=== PATIENT | female | born 1945 | race Caucasian/White ===

== ENCOUNTER 2017-05-27 11:58 | Inpatient (IN) | payer MEDICARE, BC ==
[2017-05-27 12:59] LABS: #Basophils 0.1 thou/uL (0.0-0.2); #Eosinphils 0.4 thou/uL (0.0-0.7); #Monocytes 1.7 thou/uL (0.11-0.59); #Neutrophils 11.5 thou/uL (1.40-6.50); %Basophils 0.4 % (0.0-1.0); %Eosinophils 2.3 % (0.0-10.0); %Lymphocytes 12.5 % (21.0-51.0); %Monocytes 11.1 % (0.0-10.0); %Neutrophils 73.7 % (42.0-75.0); Hemoglobin 10.2 g/dL (12.0-16.0); Mean Corpuscular Hemoglobin 30.3 pg (27.0-31.0); Mean Corpuscular Volume 91.8 fl (81.0-99.0); Mean Platelet Volume 7.9 fL (7.4-10.4); Platelet Count 293 thou/uL (130-400); RBC Distribution Width 12.7 % (11.5-14.5); Red Blood Cell (RBC) Count 3.37 mill/uL (4.20-5.40); White Blood Cell (WBC) Count 15.5 thou/uL (4.8-10.8)
--- NOTE | 2017-05-27 13:01 | RAD ---
PORTABLE CHEST: HISTORY: Dizziness. COMPARISON: 12/25/2016. FINDINGS: Elevated right hemidiaphragm is again noted. There is evidence of atelectasis in the right lung base , which appears stable. Heart size is upper normal. Mild vascular engorgement appears stable from p rior exam. IMPRESSION: No acute interval change noted. POS: [facility]
[2017-05-27 13:06] LABS: PTT 23.6 SEC (22.9-36.1); Prothrombin Time 13.3 SEC (12.0-14.7)
[2017-05-27 13:22] LABS: ALT (SGPT) 17 U/L (8-55); AST (SGOT) 16 U/L (5-34); Albumin 3.7 g/dL (3.4-4.8); Alkaline Phosphatase 138 U/L (40-150); Anion Gap 15 mmol/L (10-20); BUN (Urea Nitrogen) 47 mg/dL (9.8-20.1); Bilirubin, Total 0.6 mg/dL (0.2-1.2); CK (CPK) 31 U/L (29-168); Calc. Creatinine Clearance 0 mL/min (70-130); Calcium 9.6 mg/dL (7.8-10.44); Carbon Dioxide 21 mmol/L (23-31); Chloride 105 mmol/L (98-107); Estimated GFR-MDRD 32; Globulin 2.1 g/dL (2.4-3.5); Glucose 130 mg/dL (83-110); Potassium 6.3 mmol/L (3.5-5.1); Protein, Total 5.8 g/dL (6.0-8.3); Sodium 135 mmol/L (136-145)
[2017-05-27 13:25] LABS: CKMB 1.6 ng/mL (0-6.6); Troponin I Less than 0.010 ng/mL (< 0.028)
--- NOTE | 2017-05-27 13:32 | CT ---
CT HEAD WITHOUT CONTRAST: Date: 05/27/17 Multiple axial tomograms obtained through head without IV enhancement. HISTORY: Dizziness. Fall. COMPARISON: CT brain dated 12/25/16. FINDINGS: Mild cortical volume loss is again seen and is unchanged. There are mild chronic ischemic white matte r changes. No acute cortical infarct. No hemorrhage or mass identified. IMPRESSION: No evidence of acute abnormality. POS: [facility]
[2017-05-27 13:54] LABS: Bilirubin Moderate (Negative); Blood, Urine Negative (Negative); Clarity CLEAR (Clear); Glucose, Urine (Dipstick) Negative (Negative); Leukocyte Trace (Negative); Nitrite Negative (Negative); Protein, Urine (Dipstick) Trace mg/dL (Neg-Trace); Specific Gravity, Urine 1.026 (1.002-1.036); pH, Urine 5.5 (5.0-9.0)
[2017-05-27 13:56] LABS: Bacteria/HPF None Seen HPF (None Seen); Hyaline Casts/LPF 4-6 HYALINE CAST LPF (0-3 Hyaline); Pathc Cast-AUWi Flag 0.67 (0-2.49); RBC/HPF 0-3 HPF (0-3); Squamous Epithelial 0-3 HPF (0-3)
[2017-05-27 14:11] LABS: Renal Epithelial 0-3 HPF (0-3); Transitional Epithelial 0-3 HPF (0-3)
[2017-05-27] MEDS ORDERED: Insulin Regular 300 UNITS/3 ML VIAL ONE ×2 (14:26→14:32)
[2017-05-27] MEDS ORDERED: Sodium Bicarb 50 MEQ/50 ML Abboject 8.4% SYRINGE ONE ×2 (14:26→14:30)
[2017-05-27] MEDS ORDERED: Dextrose 50% Abboject 50 ML SYRINGE ONE ×2 (14:26→14:32)
[2017-05-27] MEDS ORDERED: Sodium Bicarbonate 2.4 MEQ/5 ML ONE (14:29)
[2017-05-27] MEDS ORDERED: Albuterol Sulfate 2.5 mg/3 ml Neb ONE (14:42)
[2017-05-27] MEDS ORDERED: Albuterol Sulfate 2.5 mg/0.5 ml Neb ONE (14:42)
--- NOTE | 2017-05-27 15:59 | HP ---
DATE OF ADMISSION: 05/27/2017 PRIMARY CARE PHYSICIAN: Dr. Jeramie Toure. PRIMARY REMANUFACTURING TECHNICIAN: Dr. Joe Mendieta. TIME OF SERVICE: 1430. CHIEF COMPLAINT: Weakness. HISTORY OF PRESENT ILLNESS: Ms. Chamberlain is a 72-year-old white female with history of hypertension, d iabetes mellitus type 2, insulin-dependent, hyperlipidemia, gastroesophageal reflux disease, stage II breast cancer status post lumpectomy, chemo and radiation in the past, sleep apnea, and COPD, who pr esents to the emergency department after being directed here supposedly by her PCP. She says by her . The patient was getting into bed last night, tripped over the stool that stands next to her tall mattress and fell to the floor. She crawled to the end of the bed and was finally able to get to her feet and walked into the living room holding onto the cash. She did attempt to bend over to pick something up and fell over again. had to give her hand back up and she was able to get back to bed. She has remained weak today. She has had a little bit of increased dyspnea on exertion , particularly in grocery stores and such where she gets winded and some cold sweats after walking a mile or two. Recently, she has been on lisinopril 10 b.i.d. that was recently increased by her primar y doctor to 20 b.i.d. about a month ago. She denies any dizziness, presyncope. She denies any verti go symptoms. She denies any orthostasis or lightheadedness when standing. She feels like she has been drinking okay and eating just fine. In the emergency department especially on arrival, she was wheezing. She was given a DuoNeb and is b reathing easier. Her blood pressures otherwise been fine here. Laboratory evaluation showed a creatinine up from her baseline of 1.2-1.6 and potassium of 6.3. We s ubsequently called for admit. She denies any cough or sputum production. No fevers or chills. No nausea or vomiting, no diarrhea or constipation. She has a slight increased edema to the lower extremities for about a month and a h snf or so. Denies any palpitations, chest pains or difficulty breathing, otherwise. PAST MEDICAL HISTORY: 1. Hypertension. 2. Diabetes mellitus type 2, on insulin and metformin. 3. Hyperlipidemia. 4. GERD. 5. Breast cancer, status post lumpectomy, radiation and chemo in 2016. 6. Obstructive sleep apnea, on CPAP at 5.5 cm. 7. Chronic obstructive pulmonary disease. PAST SURGICAL HISTORY: 1. Lumpectomy in 2016. 2. Partial colectomy. 3. Cholecystectomy. 4. Appendectomy remotely 5. Bilateral cataract extraction. 6. KARLA-BSO. HOME MEDICATIONS: 1. Amlodipine 10 mg daily. 2. Omeprazole 40 mg daily. 3. Klonopin 1 mg p.o. b.i.d. p.r.n. 4. Pravastatin 80 mg p.o. at bedtime. 5. Lisinopril 20 mg p.o. b.i.d., recently increased. 6. Flonase. 7. Arimidex 1 mg p.o. daily with metformin 1000 mg p.o. b.i.d. 8. Vitamin D3 1000 units daily. 9. Propranolol 80 mg p.o. daily. 10. Duloxetine 60 mg p.o. daily. 11. NovoLog 20 units subcu q.a.m. and q.p.m. AC. ALLERGIES: CODEINE, causes nausea. FAMILY HISTORY: Significant for mom with diabetes. Dad with cancer. Mother . SOCIAL HISTORY: Negative x3. She is and lives at home. REVIEW OF SYSTEMS: A 10-point review of systems was performed, negative for all other systems except that as per HPI. PHYSICAL EXAMINATION: VITAL SIGNS: Temperature 98.1, pulse 82, blood pressure 131/65, respiratory rate 16, satting 93% on 2 liters nasal cannula. GENERAL: She is awake. She is alert. She is oriented x3. She is a well-developed, well-nourished, obese white female, appears to be in no acute distress. HEENT: Normocephalic, atraumatic. Pupils equal, round, react to light bilaterally. She has bilater al pseudophakia. Her mucous membranes are moist. There are no visible lesions or thrush. NECK: Supple. She has no lymphadenopathy, no JVD, no thyromegaly. She has normal carotid upstrokes . I do not appreciate bruits. LUNGS: Clear to auscultation bilaterally. She has good air movement in and out. She has symmetrica l chest excursion. She has no wheezing, no rales, no rhonchi. CARDIOVASCULAR: She has normal S1 and S2. No S3 or S4. She has a faint 2/6 systolic ejection murmu r at the right upper sternal border. She has no diastolic murmurs. ABDOMEN: Soft, nontender, nondistended. She is obese. There is no rebound, rigidity or guarding. She has good bowel sounds present x4 quadrants. EXTREMITIES: There is no cyanosis or no clubbing, and no edema. She has 2+ dorsalis pedis and poste rior tibial pulses. SKIN: Warm, moist, and well perfused without rashes or lesions. NEUROLOGIC: Cranial nerves II-XII are grossly intact. She has no nystagmus. She has normal speech pattern and 5/5 strength in all 4 extremities. MUSCULOSKELETAL: Normal to inspection. She has no inflamed joints. No palpable effusions. LABORATORY DATA: Sodium 135, potassium 6.3, chloride 105, bicarb 21, BUN 47, creatinine 1.60 from he r baseline of 1.22 a month ago. Calcium 9.6, glucose of 130. Liver functions are normal. CBC showed a white count of 15.5, hemoglobin 10.2, hematocrit of 30.9, platelet count is 293,000. IN R is 1.0. Flu screen was negative for A and B. CK-MB normal at 1.6 and troponin I is normal at 0.01 0. Chest x-ray showed elevated right hemidiaphragm, but otherwise no acute cardiopulmonary disease. CT scan of the brain noncontrasted is negative for acute intracranial abnormalities. ASSESSMENT AND PLAN: 1. Hyperkalemia. Potassium 6.3 likely from increased lisinopril. We will stop her lisinopril compl etely. We will place on IV fluids tonight. She has no EKG changes. I will give her some Lasix afte r rehydration to flush out some potassium and recheck in the morning. 2. Generalized weakness, seems to be progressive due to deconditioning. We will correct her electro lytes and watch. I will get PT, OT to evaluate her. 3. Elevated creatinine: Normal is around 1.2. She is only up by 0.4, so does not quite meet acute kidney injury criteria. We will rehydrate her and stop her lisinopril and watch. 4. History of hypertension, essential, on lisinopril at increased dose amlodipine and propranolol. We will hold her meds at present. 5. Hyperlipidemia, on pravastatin. 6. Gastroesophageal reflux disease, on omeprazole. 7. History of breast cancer, on Arimidex. 8. Obstructive sleep apnea, on CPAP, which will continue. 9. Chronic obstructive pulmonary disease without acute exacerbation. We will have p.r.n. nebs. Place the patient on admit status and watch.
[2017-05-27] MEDS ORDERED: Acetaminophen 325 MG TAB PO PRN ×2 (18:28→19:57)
[2017-05-27] MEDS ORDERED: Sodium Chloride 0.9% 1,000 ML IV SCH ×2 (18:28→19:57)
[2017-05-27] MEDS ORDERED: Ondansetron ODT 4 MG TAB SL PRN (18:28)
[2017-05-27] MEDS ORDERED: Ondansetron HCl/PF 4 MG/2 ML Vial IVP PRN (18:28)
[2017-05-27 18:55] VITALS: BMI 40.1
[2017-05-27] MEDS ORDERED: Dextrose 5% in Water 1,000 ML IV PRN (19:57)
[2017-05-27] MEDS ORDERED: Ondansetron ODT 4 MG TAB PO PRN (19:57)
[2017-05-27] MEDS ORDERED: HumaLOG 300 UNITS/3 ML VIAL SC PRN (19:57)
[2017-05-27] MEDS ORDERED: Dextrose 50% Abboject 50 ML SYRINGE SLOW IVP PRN (19:57)
[2017-05-27] MEDS ORDERED: Enoxaparin Sodium 40 MG/0.4 ML SYRINGE SC SCH (20:15)
[2017-05-27] MEDS ORDERED: HumaLOG 300 UNITS/3 ML VIAL SC SCH (20:15)
[2017-05-27] MEDS: Sodium Chloride 0.9% 1,000 ML IV SCH (23:34)
[2017-05-28 06:16] LABS: #Eosinphils 0.3 thou/uL (0.0-0.7); #Lymphocytes 1.7 thou/uL (1.20-3.40); #Monocytes 1.1 thou/uL (0.11-0.59); #Neutrophils 7.4 thou/uL (1.40-6.50); %Basophils 0.1 % (0.0-1.0); %Eosinophils 2.4 % (0.0-10.0); %Lymphocytes 16.5 % (21.0-51.0); %Monocytes 10.7 % (0.0-10.0); %Neutrophils 70.3 % (42.0-75.0); Hemoglobin 8.1 g/dL (12.0-16.0); Mean Corpuscular Hemoglobin 30.5 pg (27.0-31.0); Mean Corpuscular Volume 92.5 fl (81.0-99.0); Mean Platelet Volume 7.7 fL (7.4-10.4); Platelet Count 230 thou/uL (130-400); RBC Distribution Width 12.5 % (11.5-14.5); Red Blood Cell (RBC) Count 2.65 mill/uL (4.20-5.40); White Blood Cell (WBC) Count 10.5 thou/uL (4.8-10.8)
[2017-05-28 06:21] LABS: Hemoglobin A1c 6.3 % (4.0-6.0)
[2017-05-28 06:28] LABS: Anion Gap 11 mmol/L (10-20); BUN (Urea Nitrogen) 46 mg/dL (9.8-20.1); Calc. Creatinine Clearance 53 mL/min (70-130); Calcium 9.2 mg/dL (7.8-10.44); Carbon Dioxide 25 mmol/L (23-31); Chloride 107 mmol/L (98-107); Estimated GFR-MDRD 33; Glucose 164 mg/dL (83-110); Magnesium 1.7 mg/dL (1.6-2.6); Potassium 5.3 mmol/L (3.5-5.1); Sodium 138 mmol/L (136-145)
[2017-05-28] MEDS: Sodium Chloride 0.9% 1,000 ML IV SCH ×4 (06:28→23:59)
[2017-05-28] MEDS: Enoxaparin Sodium 40 MG/0.4 ML SYRINGE SC SCH (09:02)
[2017-05-28] MEDS: HumaLOG 300 UNITS/3 ML VIAL SC SCH (09:03)
[2017-05-28] MEDS ORDERED: hydrALAZINE 20 MG/ML VIAL SLOW IVP PRN (14:04)
[2017-05-28] MEDS ORDERED: PROVENTIL INHALER 6.7 G (200 INHALATIONS) INH PRN (14:05)
[2017-05-28] MEDS ORDERED: Amlodipine 10 MG TAB PO SCH (14:15)
[2017-05-28] MEDS ORDERED: Propranolol HCl LA 80 MG CAP PO SCH (14:15)
[2017-05-28] MEDS ORDERED: Furosemide 20 MG/2 ML VIAL SLOW IVP SCH (16:45)
[2017-05-28] MEDS ORDERED: Labetalol HCl 100 MG/20 ML VIAL SLOW IVP SCH (16:45)
[2017-05-28] MEDS ORDERED: HumaLOG 300 UNITS/3 ML VIAL SC SCH (17:00)
[2017-05-28] MEDS: Mometasone/Formoterol 120 PUFF INHALER INH SCH (20:05)
[2017-05-28] MEDS: clonazePAM 1 MG TAB PO SCH (20:37)
[2017-05-28] MEDS: Insulin NPH/Reg Insulin Hm 300 UNITS/3 ML VIAL SC SCH (20:40)
[2017-05-28] MEDS ORDERED: Non-Formulary Item 1 EACH (Fluticasone/Salmeterol [Advair Diskus 250/50] 2 INH) IH SCH (21:00)
[2017-05-28] MEDS ORDERED: Atorvastatin Calcium 20 MG TAB PO SCH (21:00)
[2017-05-29] MEDS: HYDROcodone/Acetaminophen 5/325 mg Tablet PO PRN ×2 (02:00→06:56)
[2017-05-29] MEDS: Sodium Chloride 0.9% 1,000 ML IV SCH ×2 (05:15→09:57)
[2017-05-29 05:39] LABS: #Eosinphils 0.2 thou/uL (0.0-0.7); #Lymphocytes 1.6 thou/uL (1.20-3.40); #Monocytes 0.9 thou/uL (0.11-0.59); #Neutrophils 6.1 thou/uL (1.40-6.50); %Basophils 0.5 % (0.0-1.0); %Eosinophils 1.8 % (0.0-10.0); %Lymphocytes 18.3 % (21.0-51.0); %Monocytes 10.1 % (0.0-10.0); %Neutrophils 69.4 % (42.0-75.0); Hemoglobin 9.3 g/dL (12.0-16.0); Mean Corpuscular HGB CONC 32.4 g/dL (32.0-36.0); Mean Corpuscular Hemoglobin 29.9 pg (27.0-31.0); Mean Corpuscular Volume 92.3 fl (81.0-99.0); Mean Platelet Volume 7.5 fL (7.4-10.4); Platelet Count 260 thou/uL (130-400); RBC Distribution Width 12.9 % (11.5-14.5); White Blood Cell (WBC) Count 8.8 thou/uL (4.8-10.8)
[2017-05-29 05:48] LABS: Anion Gap 13 mmol/L (10-20); BUN (Urea Nitrogen) 30 mg/dL (9.8-20.1); Calc. Creatinine Clearance 71 mL/min (70-130); Calcium 9.5 mg/dL (7.8-10.44); Carbon Dioxide 25 mmol/L (23-31); Chloride 107 mmol/L (98-107); Estimated GFR-MDRD 45; Glucose 181 mg/dL (83-110); Magnesium 1.4 mg/dL (1.6-2.6); Potassium 5.1 mmol/L (3.5-5.1); Sodium 140 mmol/L (136-145)
[2017-05-29] MEDS ORDERED: Lactinex Tablet PO SCH (09:00)
[2017-05-29] MEDS ORDERED: DULoxetine 60 MG CAP PO SCH (09:00)
[2017-05-29] MEDS ORDERED: Anastrozole 1 MG TAB PO SCH (09:00)
[2017-05-29] MEDS ORDERED: Propranolol HCl LA 80 MG CAP PO SCH (09:00)
[2017-05-29] MEDS ORDERED: Amlodipine 10 MG TAB PO SCH (09:00)
[2017-05-29] MEDS: clonazePAM 1 MG TAB PO SCH (09:54)
[2017-05-29] MEDS: Enoxaparin Sodium 40 MG/0.4 ML SYRINGE SC SCH (09:56)
[2017-05-29] MEDS: HumaLOG 300 UNITS/3 ML VIAL SC SCH (09:56)
[2017-05-29] MEDS: Insulin NPH/Reg Insulin Hm 300 UNITS/3 ML VIAL SC SCH (10:16)
[2017-05-29] MEDS ORDERED: Furosemide 40 MG/4 ML VIAL SLOW IVP SCH (11:00)
[2017-05-29] MEDS: Mometasone/Formoterol 120 PUFF INHALER INH SCH (12:18)
[2017-05-29 12:52] VITALS: BP 164/74; TEMP 98.6
--- NOTE | 2017-05-29 21:41 | DIS ---
DATE OF ADMISSION: 05/27/2017 DATE OF DISCHARGE: 05/29/2017 DISCHARGE DIAGNOSES: 1. Hyperkalemia secondarily to lisinopril and acute kidney injury, resolving. 2. Acute kidney injury on chronic kidney disease stage 3. 3. Generalized weakness, multifactorial. 4. Hypertension, labile. 5. Obstructive sleep apnea on nocturnal CPAP. 6. Chronic obstructive pulmonary disease without acute exacerbation. 7. Chronic normocytic anemia, stable. CONSULTATIONS: None. PERTINENT LAB AND X-RAY FINDINGS: Creatinine ranged between 1.17-1.60 with estimated GFR ranging bet ween 32-45. Potassium ranged between 5.1-6.3, hemoglobin A1c 6.3, magnesium ranged between 1.4-1.7. LFTs within normal limits. CBC showed a hemoglobin ranging between 8.1-10.2. Influenza A and B ant igen 05/27/2017 negative. Portable chest x-ray dated 05/27/2017 showed no acute cardiopulmonary proc ess. CT of the brain without contrast dated 05/27/2017 showed no acute intracranial process. HOSPITAL COURSE: Patient was admitted to the telemetry unit after initially presenting with generali zed weakness with metabolic derangements including hyperkalemia and acute kidney injury. The patient was given aggressive IV fluid hydration in addition to treatment for hyperkalemia to include Novolin R, sodium bicarbonate, albuterol sulfate, D50 water. The patient's overall potassium values had imp roved with IV fluid hydration and the above-mentioned interventions. The patient was noted with mild volume overload and generalized edema. After aggressive hydration and given IV Lasix with overall i mprovement in edema and fluid status. The patient was discontinued on lisinopril, likely the etiolog y of patient's worsening renal function and hyperkalemia. Current recommendations are to discontinue lisinopril and follow up with her primary care provider to consider potential other categories of an tihypertensives as an alternative. Overall, the patient did remain clinically stable with telemetry monitoring showing sinus mechanism without acute arrhythmia or dysrhythmia. The patient overall clin ically stabilized and ready for discharge 05/29/2017. DISCHARGE MEDICATIONS: 1. Ventolin HFA 2 puffs inhaled q.4 hours p.r.n. 2. Amlodipine 10 mg 1 tab p.o. daily. 3. Anastrozole 1 mg p.o. q.a.m. 4. Vitamin D3 5000 units p.o. daily. 5. Clonazepam 1 mg p.o. b.i.d. 6. Combivent Respimat 2 puffs inhaled daily. 7. Cymbalta 60 mg 1 tab p.o. daily. 8. Flovent Diskus 2 sprays inhaled b.i.d. 9. Advair Diskus 2 inhalations b.i.d. 10. NPH 70/30 20 units subcutaneously b.i.d. 11. Lactobacillus 1 tablet p.o. daily. 12. Metformin 1000 mg p.o. b.i.d. 13. Omeprazole 40 mg p.o. daily. 14. Pravachol 80 mg p.o. at bedtime. 15. Inderal-LA 80 mg p.o. daily. FOLLOWUP: The patient will follow up with her primary care provider, Dr. Jeramie Toure, within 7 days o f discharge. CONDITION ON DISCHARGE: Stable. ACTIVITY: Ad michael. Rolling walker for ambulation. DIET: Heart healthy and ADA. CODE STATUS: FULL. DISPOSITION: Home, 05/29/2017. Total time preparing and coordinating discharge 34 minutes.
== END 2017-05-29 12:54 | disposition home or self-care (01) | DRG 684 ==
LOC: ERS 11:58 → 2NO 18:35
PROVIDERS: ADMIT Internal Medicine Infectious Disease; ATTEND Internal Medicine Infectious Disease
DX: N17.9 Acute kidney failure, unspecified (principal); E11.22 Type 2 diabetes mellitus with diabetic chronic kidney disease; E87.5 Hyperkalemia; D64.9 Anemia, unspecified; J44.9 Chronic obstructive pulmonary disease, unspecified; T46.4X5A Adverse effect of angiotensin-converting-enzyme inhibitors, initial encounter; I12.9 Hypertensive chronic kidney disease with stage 1 through stage 4 chronic kidney disease, or unspecified chronic kidney disease; N18.3 Chronic kidney disease, stage 3 (moderate); G47.33 Obstructive sleep apnea (adult) (pediatric); K21.9 Gastro-esophageal reflux disease without esophagitis; Z85.3 Personal history of malignant neoplasm of breast
CPT/HCPCS: 36415; 36416; 36556; 70450; 71045; 80048; 80053; 81003; 81015; 82550; 82553; 83036; 83735; 84484; 85025; 85610; 85730; 93005; 94640; 94660; 94760; 96361; 96374; 96375; G8978-GP-CI; G8979-GP-CH; J0360; J1650; J1815; J1940; J7611; J7620

== ENCOUNTER 2017-07-27 10:49 | Outpatient (CLI) | payer MEDICARE, BC | END 2017-07-27 10:50 | disposition home or self-care (01) | LOC: BICMAMMO 10:49 | PROVIDERS: ATTEND Family Medicine | DX: Z08 Encounter for follow-up examination after completed treatment for malignant neoplasm (principal); Z85.3 Personal history of malignant neoplasm of breast; R92.1 Mammographic calcification found on diagnostic imaging of breast | CPT/HCPCS: 77066; G0279 ==

== ENCOUNTER 2017-08-30 10:48 | Outpatient (CLI) | payer MEDICARE, BC | END 2017-08-30 10:49 | disposition home or self-care (01) | LOC: BICMAMMO 10:48 | PROVIDERS: ATTEND Family Medicine | DX: Z13.820 Encounter for screening for osteoporosis (principal); M81.0 Age-related osteoporosis without current pathological fracture; Z78.0 Asymptomatic menopausal state | CPT/HCPCS: 77080 ==

== ENCOUNTER 2017-11-10 13:15 | Outpatient (CLI) | payer MEDICARE, BC ==
--- NOTE | 2017-12-14 11:32 | ULT ---
LOWER EXTREMITY ARTERIAL EVALUATION USING DOPPLER WAVE FORM ANALYSIS AND SEGMENTAL LIMB PRESSURES: Examination of both lower extremities reveals normal arterial waveforms at the femoral, popliteal, po sterior tibial, and dorsalis pedis levels with an ankle-arm index of 1.06 bilaterally and normal toe- brachial index. This will be considered a normal resting arterial study of the lower extremities. POS: WILBERT
== END 2017-11-10 13:16 | disposition home or self-care (01) ==
LOC: ULT 13:15
PROVIDERS: ATTEND Family Medicine
DX: R09.89 Other specified symptoms and signs involving the circulatory and respiratory systems (principal)
CPT/HCPCS: 93922

== ENCOUNTER 2017-11-24 21:07 | Inpatient (IN) | payer MEDICARE, BC ==
[2017-11-24] MEDS ORDERED: methylPREDNISolone Sod Succ/PF 125 MG/2 ML VIAL ONE (21:29)
[2017-11-24] MEDS ORDERED: Magnesium Sulfate 2 GM in Sodium Chloride 0.9% 100 ML IVPB ONE (21:45)
[2017-11-24] MEDS ORDERED: Albuterol Sulfate 2.5 mg/3 ml Neb ONE (21:53)
--- NOTE | 2017-11-24 21:53 | RAD ---
CHEST ONE VIEW PORTABLE: 11/24/17 INDICATION: Emergency examination, chest pain. IMPRESSION: There is cardiomegaly with pulmonary vascular congestion with bilateral pleural effusions, bibasilar air space opacities suspicious for atelectasis. Recommend correlation. Pneumonia is not excluded. Rad iographic followup to resolution is recommended. The exam is compared to prior dated 05/27/17. POS: [facility]
[2017-11-24 22:01] LABS: Hemoglobin 9.2 g/dL (12.0-16.0); Mean Corpuscular Hemoglobin 27.5 pg (27.0-31.0); Mean Corpuscular Volume 85.9 fL (78.0-98.0); Mean Platelet Volume 7.7 fL (7.4-10.4); Platelet Count 303 thou/uL (130-400); RBC Distribution Width 14.9 % (11.5-14.5); Red Blood Cell (RBC) Count 3.36 mill/uL (4.20-5.40)
[2017-11-24 22:05] LABS: ALT (SGPT) 18 U/L (8-55); AST (SGOT) 14 U/L (5-34); Albumin 4.7 g/dL (3.4-4.8); Alkaline Phosphatase 132 U/L (40-150); Anion Gap 17 mmol/L (10-20); BUN (Urea Nitrogen) 52 mg/dL (9.8-20.1); Bilirubin, Total 0.6 mg/dL (0.2-1.2); Calc. Creatinine Clearance 0 mL/min (70-130); Calcium 10.3 mg/dL (7.8-10.44); Carbon Dioxide 23 mmol/L (23-31); Chloride 102 mmol/L (98-107); Estimated GFR-MDRD 23; Globulin 2.7 g/dL (2.4-3.5); Glucose 425 mg/dL (83-110); Potassium 6.4 mmol/L (3.5-5.1); Protein, Total 7.4 g/dL (6.0-8.3); Sodium 136 mmol/L (136-145)
[2017-11-24 22:09] LABS: Hypochromia SLIGHT = 6-15 cells (100X) (0-5/hpf); Lymphocytes 5 % (21-51); MDiff Complete? YES; Monocytes 5 % (0-10); Neutrophil 90 % (42-75); PLT Morphology Comment Appears Adequate
[2017-11-24 22:12] LABS: Actual Bicarbonate (HCO3a) 23.4 mEq/L (22-28); CO2 Tension 48.5 mmHg (35.0-45.0); O2 Tension (PaO2) 68.8 mmHg (> 70.0)
[2017-11-24 22:13] LABS: Hemoglobin (Hb) 9.6 g/dL (12.0-16.0)
[2017-11-24 22:15] LABS: ALV-art Gradient 127.255 (0-20); Analyzer IN Cardio ER; Calcium, Ionized 1.3 mmol/L (1.12-1.30); Puncture Site LRA
[2017-11-24] MEDS ORDERED: Azithromycin 500 MG VIAL ONE (22:23)
[2017-11-24] MEDS ORDERED: Sodium Bicarbonate 2.5 MEQ/5 ML VIAL ONE (22:23)
[2017-11-24] MEDS ORDERED: Calcium Gluc 4.6 MEQ/10 ML (100 MG/ML) ONE ×2 (22:23→22:25)
[2017-11-24] MEDS ORDERED: Insulin Regular 300 UNITS/3 ML VIAL ONE (22:23)
[2017-11-24] MEDS ORDERED: cefTRIAXone\\ROCEPHIN 1 GM VIAL ONE (22:23)
[2017-11-24] MEDS ORDERED: Water For Inject, Bacteriostat 30 ML ONE (22:24)
[2017-11-24] MEDS ORDERED: Sodium Bicarb 50 MEQ/50 ML Abboject 8.4% SYRINGE ONE (22:25)
[2017-11-24] MEDS ORDERED: Calcium Chloride 1 GM/10 ML Abboject SYRINGE ONE (22:27)
[2017-11-25] MEDS ORDERED: Acetaminophen 325 MG TAB PO PRN (00:36)
[2017-11-25] MEDS ORDERED: Dextrose 5% in Water 1,000 ML IV PRN (00:44)
[2017-11-25] MEDS ORDERED: Dextrose 50% Abboject 50 ML SYRINGE SLOW IVP PRN (00:44)
[2017-11-25 01:09] VITALS: BMI 41.8
[2017-11-25 02:28] LABS: Lactic Acid 2.2 mmol/L (0.5-2.2)
[2017-11-25] MEDS: Sodium Chloride 0.45% 1,000 ML IV SCH ×2 (02:29→11:14)
[2017-11-25 02:32] LABS: Anion Gap 15 mmol/L (10-20); BUN (Urea Nitrogen) 49 mg/dL (9.8-20.1); Calc. Creatinine Clearance 53 mL/min (70-130); Calcium 11.4 mg/dL (7.8-10.44); Carbon Dioxide 24 mmol/L (23-31); Chloride 105 mmol/L (98-107); Estimated GFR-MDRD 31; Glucose 202 mg/dL (83-110); Potassium 6.3 mmol/L (3.5-5.1); Sodium 138 mmol/L (136-145)
[2017-11-25 03:23] LABS: Hemoglobin 8.9 g/dL (12.0-16.0); Mean Corpuscular HGB CONC 32.9 g/dL (32.0-36.0); Mean Corpuscular Hemoglobin 28.2 pg (27.0-31.0); Mean Corpuscular Volume 85.6 fL (78.0-98.0); Mean Platelet Volume 8.1 fL (7.4-10.4); Platelet Count 209 thou/uL (130-400); RBC Distribution Width 14.8 % (11.5-14.5); Red Blood Cell (RBC) Count 3.15 mill/uL (4.20-5.40)
[2017-11-25 03:47] LABS: Band 1 % (5-11); Hypochromia SLIGHT = 6-15 cells (100X) (0-5/hpf); Lymphocytes 4 % (21-51); MDiff Complete? YES; Monocytes 5 % (0-10); Neutrophil 89 % (42-75); PLT Morphology Comment Appears Adequate; Promyelocytes 1 % (0-0)
[2017-11-25] MEDS: cloNIDine 0.1 MG TAB PO PRN ×2 (04:09→17:21)
--- NOTE | 2017-11-25 04:39 | HP ---
CHIEF COMPLAINT: Shortness of breath. HISTORY OF PRESENT ILLNESS: This patient is a 72-year-old female who reports a history of COPD in [facility] of never having smoked. She is followed by Dr. Mendieta. She has been on some home oxygen, which danya was using intermittently in the past and was recently moved to 2 liters per nasal cannula around th e clock. She has continued to feel worsening shortness of breath and has started increasing her util ization of oxygen to higher levels. She saw Dr. Mendieta who had increased her to the daily oxygen but a lso put her on some steroids, but she continued to progress requiring 4 and then 5 liters of oxygen. Subsequently, patient also reported cough that was generally nonproductive, some chest tightness, an d sore throat sensation since Tuesday. She has not had any fevers or chills. She continues to have s ome generalized wheezing, it is worse over the last couple of weeks as well. REVIEW OF SYSTEMS: Notable for some worsening lower extremity edema over the last 1-2 months. The ashlee sean-mentioned cough, shortness of breath, no wheezing and she feels generally weak as well. Other t bowden that ten-system review is unremarkable. PAST MEDICAL HISTORY: Notable for hypertension, diabetes, COPD/asthma. 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 She had a history of breast cancer that required lumpectomy, radiation, and chemother apy. She also has sleep apnea requiring CPAP. PAST SURGICAL HISTORY: Colon resection with previous colostomy, oophoerectomy, appendectomy, hystere ctomy, and neuroma removal in the right foot. FAMILY HISTORY: Father had lung cancer, diabetes. Mother had diabetes. Brother had a CVA at 53. Rony aleman has diabetes. SOCIAL HISTORY: She is a nonsmoker, nondrinker, nondrug user. She is and her , Willian would be her surrogate decision maker. She is FULL CODE. ALLERGIES: CODEINE. MEDICATIONS: Metformin, clonazepam, propranolol, pravastatin, omeprazole, NPH insulin, fluticasone, salmeterol inhaler, Combivent inhaler, duloxetine, cholecalciferol, anastrozole, amlodipine, and albu terol. PHYSICAL EXAMINATION: VITAL SIGNS: Temperature is 98.4, pulse 96, respirations 18, O2 sat 95% on 4 liters nasal cannula, B P 181/78. GENERAL APPEARANCE: Obese, age appropriate female. She appears to be somewhat uncomfortable and tac hypneic. She is only able to speak in about 3 word sentences. HEENT: PERRL. No OP lesions. Anicteric sclerae. She has no pharyngeal erythema or edema. NECK: Supple and symmetric. CARDIOVASCULAR: Regular rate and rhythm without murmur. LUNGS: She has decreased breath sounds throughout with scattered expiratory wheezes and scattered cr ackles throughout. ABDOMEN: Soft, nontender, nondistended, positive bowel sounds. No hepatosplenomegaly. EXTREMITIES: Reveal some nonpitting edema bilaterally, otherwise warm and dry with normal pulses. NEUROLOGIC: Patient is awake and alert and oriented. Cranial nerves intact with no focal deficits n oted. SKIN: Warm and dry. PSYCHIATRIC: Patient has normal affect and behavior. LABORATORY DATA: White count 17.0, hemoglobin is 9.2, platelets 303. Sodium 136, potassium 6.4, CO2 is 102, BUN is 52, creatinine 2.0. Glucose was 425, AST 14, ALT 18, bilirubin 0.6, albumin 4.7, lac tic acid 3.6. BNP 226. ABG: pH is 7.3, pCO2 is 45, pO2 of 68.8. Chest x-ray shows cardiomegaly wi th pulmonary vascular congestion, bilateral pleural effusions, and possible atelectasis, but pneumoni a cannot be ruled out. ASSESSMENT AND PLAN: 1. Dyspnea, presumably secondary to chronic obstructive pulmonary disease or asthma. The patient venegas s pulmonary function test scheduled for later this month to help elucidate the primary underlying cau se. She also appears to have some pleural effusion. For now, we will continue with the nebulizer tr eatments, which seemed to help her significantly in the emergency department. Continue oxygen suppor t and will consult Pulmonology. 2. Pneumonia. Patient will be on Rocephin and azithromycin, until we can help clarify whether she h as got atelectasis, pneumonia, or just effusion. We will obtain a CT scan of the chest. 3. Pleural effusions as above. We will obtain a CT scan to assess further. 4. Uncontrolled diabetes. We will continue with Accu-Cheks, sliding scale insulin, and diabetic t. 5. Uncontrolled hypertension. We will give p.r.n. clonidine dose. 6. Acute kidney injury. We will give fluid resuscitation. Continue to monitor. 7. Hyperkalemia. Patient has received insulin in the emergency department as well as nebulizer elida tments. We will recheck potassium promptly rather. 8. Lactic acidosis. Continue with hydration and antibiotics. 9. Leukocytosis. The patient was recently on steroids, making this difficult to interpret. 10. Hyperlipidemia. Continue with her usual home medications. 11. History of anxiety. Continue with her home medications. 12. Deep venous thrombosis prophylaxis with heparin given her renal situation. 13. Probiotics with Florastor to reduce risk of Clostridium difficile infection.
[2017-11-25 05:23] LABS: Anion Gap 18 mmol/L (10-20); BUN (Urea Nitrogen) 48 mg/dL (9.8-20.1); Calc. Creatinine Clearance 50 mL/min (70-130); Calcium 11.2 mg/dL (7.8-10.44); Carbon Dioxide 21 mmol/L (23-31); Chloride 104 mmol/L (98-107); Estimated GFR-MDRD 29; Glucose 272 mg/dL (83-110); Sodium 136 mmol/L (136-145)
[2017-11-25 05:34] LABS: Potassium 6.6 mmol/L (3.5-5.1)
[2017-11-25] MEDS: HumaLOG 300 UNITS/3 ML VIAL SC PRN ×3 (05:53→17:16)
[2017-11-25] MEDS ORDERED: predniSONE 20 MG TAB PO SCH (08:00)
[2017-11-25] MEDS: Saccharomyces boulardii 250 MG CAP PO SCH ×2 (08:54→20:27)
[2017-11-25] MEDS: Heparin 5,000 UNITS/ML VIAL SC SCH ×3 (08:55→20:25)
[2017-11-25] MEDS ORDERED: Prevnar 13-Val Conj/PF 0.5 ML SYRINGE IM ONE (09:00)
--- NOTE | 2017-11-25 09:43 | PDOC.PULCN ---
<Jason Wilkerson - Last Filed: 11/25/17 09:45> Pulmonology Consult: HPI - Date of Consult Date: 11/25/17 Time: 09:45 - Consult Details Reason for Consult: acute hypoxic resp failure Requesting Physician: aundrea - History of Present Illness HPI: WAYNE HAMPTON is a 72 year-old F with COPD vs Asthma being worked up by Dr. Mendieta. She is pending PFts at the end of this month. She has had cough going on for 1 week, productive. She comes in with worsening shortness of breath, she gets short of breath transferring from the bed to the wheelchair. This morning she is feeling better than when she originally came in but still short of breath with transfers. She denies pain. She states she has a 7/10 general headache. Comes and goes, nothing specifically seems to make it better or worse. She complains of chronic L sided weakness somewhat worse than the R. 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, Breast cancer needing chemo and radiation - Social History Smoking Status: Former smoker Alcohol Use: none Drug Use History: none Pulmonology Consult: Meds - Medications MAR Reviewed: Yes Medications: Current Medications Acetaminophen (Tylenol) 650 mg PO Q4H PRN PRN Reason: Headache/Fever or Pain Albuterol/Ipratropium (Duoneb) 3 ml NEB Q2H PRN PRN Reason: SOB &/or Wheezing Last Admin: 11/25/17 04:42 Dose: 3 ml Clonidine (Catapres) 0.1 mg PO Q4H PRN PRN Reason: Hypertension Last Admin: 11/25/17 04:09 Dose: 0.1 mg Dextrose/Water (Dextrose 50%) 25 gm SLOW IVP PRN PRN PRN Reason: Hypoglycemia Glucagon (Glucagon) 1 mg IM PRN PRN PRN Reason: Hypoglycemia Heparin Sodium (Porcine) (Heparin) 5,000 units SC TID JOSE Azithromycin 1,000 mg/ Sodium (Chloride) 500 mls @ 250 mls/hr IVPB Q24HR JOSE Ceftriaxone Sodium 1 gm/ (Sodium Chloride) 100 mls @ 200 mls/hr IVPB Q24HR@ 2200 JOSE Sodium Chloride (1/2 Normal Saline) 1,000 mls @ 75 mls/hr IV .[id number] JOSE Last Admin: 11/25/17 02:29 Dose: 1,000 mls Dextrose/Water (D5w) 1,000 mls @ 0 mls/hr IV .Q0M PRN PRN Reason: Hypoglycemia Insulin Human Lispro (Humalog) 0 units SC .MILD SLIDING SCALE PRN PRN Reason: Mild Correctional Scale Last Admin: 11/25/17 05:53 Dose: 5 unit Pneumococcal 13-Valent Conj Vacc (Prevnar) 0.5 ml IM .ONCE ONE Stop: 11/25/17 09:01 Saccharomyces Boulardii (Florastor) 250 mg PO BID JOSE Sodium Chloride (Flush - Normal Saline) 10 ml IVF Q12HR JOSE Sodium Chloride (Flush - Normal Saline) 10 ml IVF PRN PRN PRN Reason: Saline Flush - Allergies Allergies/Adverse Reactions: Allergies Allergy/AdvReac Type Severity Reaction Status Date / Time codeine AdvReac Verified 05/27/17 21:08 Pulmonology Consult: PE - Physical Exam Constitutional: NAD HEENT: moist MMs Neck: no nodes Cardiovascular: RRR, no significant murmur Respiratory: decreased breath sounds, respiratory distress, wheezes Gastrointestinal: soft, non-tender, no distention, positive bowel sounds Musculoskeletal: no edema, pulses present Neurological: non-focal, moves all 4 limbs Psychiatric: A&O x 3 Skin: no rash, cap refill <2 seconds Pulmonology Consult: Results - Labs Result Diagrams: 11/25/17 01:52 11/25/17 07:25 - ABG Interpretation ABG Results: ABG pH 7.30 (7.35-7.45) L 11/24/17 21:26 ABG pCO2 48.5 mmHg (35.0-45.0) H 11/24/17 21:26 ABG O2 Sat Calc/Hipolito 92.0 % (94.0-98.0) L 11/24/17 21:26 ABG Base Excess -3.0 mEq/L (-2.0 to +3.0) L 11/24/17 21:26 Pulmonology Consult: A/P - Time Time: 50% of the time was spent in coordination of care (as documented) at patient's floor/unit and/or counseling patient. Time with Patient: greater than 50 minutes - Plan Plan: Zipper Joiner note to follow This is an ill 72 yo F being treated for sepsis & COPD exacerbation. She has a history including West Nile Encephalitis, COPD vs Asthma pending PFTs , DM, Breast cancer s/p chemo and radiation, HTN Consults: pulm TUBE MOUNTER (headache) - complains of chronic L sided weakness compared to R, hx west nile - blood pressure running high this AM Resp (COPD vs Asthma, Rt pleural Effusion) - decreased exercise tolerance, sob this AM - CXR shows pleural effusion on R, likely PNA on left - s/p mag in ED - chronic steroid use, 1 dose methypred in ED, will add prednisone 40mg qAM - cont azithromycin, rocephin - CT chest pending CV (HTN) - no echo on file as far back as 2015, will check echo - Hydralazine PRN - restart home BP meds, hold BB in light of COPD/Asthma exacerbation - BNP 226 GI () Nutrition - regular diet Hematologic (anemia) - hgb 8.9 /Renal (SOPHIA, hyperK) - Cr 1.73, baseline 1-1.5 multiple bouts of SOPHIA - hyperK - Infection (sepsis, PNA) - mary aguiar Endo (DM) - on novolin 70/30 at home - lantus 15 U BID - SSI Code status: full PPx: lovenox Diet: regular Dispo: guarded <Best Ellington - Last Filed: 11/25/17 10:37> Pulmonology Consult: Meds - Medications Medications: Current Medications Acetaminophen (Tylenol) 650 mg PO Q4H PRN PRN Reason: Headache/Fever or Pain Albuterol/Ipratropium (Duoneb) 3 ml NEB Q2H PRN PRN Reason: SOB &/or Wheezing Last Admin: 11/25/17 04:42 Dose: 3 ml Amlodipine Besylate (Norvasc) 10 mg PO DAILY JOSE Clonidine (Catapres) 0.1 mg PO Q4H PRN PRN Reason: Hypertension Last Admin: 11/25/17 04:09 Dose: 0.1 mg Dextrose/Water (Dextrose 50%) 25 gm SLOW IVP PRN PRN PRN Reason: Hypoglycemia Glucagon (Glucagon) 1 mg IM PRN PRN PRN Reason: Hypoglycemia Heparin Sodium (Porcine) (Heparin) 5,000 units SC TID [facility] Last Admin: 11/25/17 08:55 Dose: 5,000 units Hydralazine HCl (Apresoline) 10 mg SLOW IVP Q15MIN PRN PRN Reason: SBP Greater Than 180 Hydrochlorothiazide (Hydrochlorothiazide) 12.5 mg PO DAILY [facility] Azithromycin 1,000 mg/ Sodium (Chloride) 500 mls @ 250 mls/hr IVPB Q24HR [facility] Ceftriaxone Sodium 1 gm/ (Sodium Chloride) 100 mls @ 200 mls/hr IVPB Q24HR@ 2200 JOSE Sodium Chloride (1/2 Normal Saline) 1,000 mls @ 75 mls/hr IV .[id number] [facility] Last Admin: 11/25/17 02:29 Dose: 1,000 mls Dextrose/Water (D5w) 1,000 mls @ 0 mls/hr IV .Q0M PRN PRN Reason: Hypoglycemia Insulin Glargine 15 units/ (Miscellaneous Medication) 0.15 mls @ 0 mls/hr SC HS JOSE Insulin Glargine 15 units/ (Miscellaneous Medication) 0.15 mls @ 0 mls/hr SC QAM [facility] Insulin Human Lispro (Humalog) 0 units SC .MILD SLIDING SCALE PRN PRN Reason: Mild Correctional Scale Last Admin: 11/25/17 05:53 Dose: 5 unit Methylprednisolone Sodium Succinate (Solu-Medrol) 40 mg IVP Q6HR [facility] Saccharomyces Boulardii (Florastor) 250 mg PO BID [facility] Last Admin: 11/25/17 08:54 Dose: 250 mg Sodium Chloride (Flush - Normal Saline) 10 ml IVF Q12HR [facility] Last Admin: 11/25/17 08:59 Dose: 10 ml Sodium Chloride (Flush - Normal Saline) 10 ml IVF PRN PRN PRN Reason: Saline Flush Sodium Polystyrene Sulfonate (Kayexelate Oral Susp 15 Gm/60 Ml) 15 gm PO ONE [facility] Pulmonology Consult: Results - Labs Result Diagrams: 11/25/17 01:52 11/25/17 07:25 - ABG Interpretation ABG Results: ABG pH 7.30 (7.35-7.45) L 11/24/17 21:26 ABG pCO2 48.5 mmHg (35.0-45.0) H 11/24/17 21:26 ABG O2 Sat Calc/Hipolito 92.0 % (94.0-98.0) L 11/24/17 21:26 ABG Base Excess -3.0 mEq/L (-2.0 to +3.0) L 11/24/17 21:26 Pulmonology Consult: A/P - Time Time: 50% of the time was spent in coordination of care (as documented) at patient's floor/unit and/or counseling patient. - Plan Plan: Addendum by Dr. Ellington, Pt seen, interviewed, and examined. Agree with A&P by Dr. Wilkerson above. The CT of the Chest was reviewed by me personally and shows a RLL pneumonia, but no significant pleural effusion. She has hyperkalemia, cause not obvious. We will Rx with ABX, nebs, steroids for pneumonia and COPD. Kayexalate for the hyperkalemia. Stop Benicar for now. Stay in IMCU for at least 24hrs due to risk of decompensation with pneumonia, severe COPD, and acute on chronic hypoxic respiratory failure.
--- NOTE | 2017-11-25 10:17 | CT ---
CT CHEST WITHOUT CONTRAST: Date: 11/25/17 HISTORY: Shortness of breath. Cough. Breast cancer. FINDINGS: Absence of IV contrast reduces the sensitivity of exam, particularly for evaluation of mediastinal, h ilar, and vascular structures. There is suggestion of a 17.0 mm nodule in the right breast. There are vascular calcifications withou t evidence of aneurysmal dilatation of the thoracic aorta. A 9.0 mm mediastinal lymph node is seen. N o axillary lymphadenopathy is identified. There are small bilateral pleural effusions with adjacent infiltrate/atelectatic changes. Patchy scat tered ground-glass infiltrates are noted bilaterally. No pneumothoraces are seen. There are degenerat lucy changes in the spine. IMPRESSION: 1. Probable 1.7 cm right breast nodule. Evaluation with mammogram and ultrasound would be helpful. 2. Bilateral pleural effusions with adjacent atelectatic changes/infiltrates. 3. Patchy ground-glass infiltrates bilaterally. POS: WILBERT
--- NOTE | 2017-11-25 15:26 | PQF ---
DATE: 11-25-17 ATTN: DR. TYLER OROZCO Please exercise your independent, professional judgment in responding to the clarification form. Clinical indicators are provided on the bottom of this form for your review Please check appropriate box(es): [ ] Sepsis due to: (Pna, etc.) [ ] SIRS due to non-infectious process (please specify etiology) [ ] with organ dysfunction [ ] without organ dysfunction [ ] Severe sepsis with acute organ dysfunction of: (Examples: respiratory failure, acute kidney failure, other) [ ] Other diagnosis [ ] Unable to determine In addition, please specify: Present on Admission (POA): [ ] Yes [ ] No [ ] Unable to determine For continuity of documentation, please document condition throughout progress notes and discharge summary. Thank You. CLINICAL INDICATORS - SIGNS / SYMPTOMS / LABS ER DX: ACUTE COPD EXACERBATION, HYPOXIA, RESPIRATORY FAILURE, SEPSIS H&P: PNEUMONIA, DYSPNEA, PRESUMABLY 2// TO COPD OT ASTHMA, PLEURAL EFFUSION CONSULT NOTE DR. WISE 11-25-17: THIS IS AN ILL 72 YO F BEING TREATED FOR SEPSIS AND COPD EXACERBATION, INFECTION: SEPSIS, PNA, SOPHIA WBC: 11-24-17: 17.0 11-25-17: 15.0 LACTIC ACID: 11-24-17: 3.6 PULSE: 11-25-17: 96, 97, 99 RR: 11-25-17: 22, 22, 22 RISK FACTORS: H&P: PNEUMONIA, DYSPNEA, PRESUMABLY 2// TO COPD OT ASTHMA, PLEURAL EFFUSION CONSULT NOTE DR. WISE 11-25-17: THIS IS AN ILL 72 YO F BEING TREATED FOR SEPSIS AND COPD EXACERBATION TREATMENTS: MAR: ROCEPHIN, ZITHROMAX, IVF (This form is maintained as a part of the permanent medical record) 2014 [employer]. All Rights Reserved [email or web address] Office: [phone] [facility]
[2017-11-25] MEDS ORDERED: Ibuprofen 600 MG TAB PO PRN (15:41)
[2017-11-25] MEDS ORDERED: HYDROcodone/Acetaminophen 5/325 mg Tablet PO PRN (15:41)
[2017-11-25] MEDS ORDERED: Ketorolac Tromethamine 30 MG/ML VIAL IVP SCH (15:45)
[2017-11-25] MEDS: HYDROcodone/Acetaminophen 5/325 mg Tablet PO PRN ×2 (16:01→20:19)
[2017-11-25] MEDS: hydrALAZINE 20 MG/ML VIAL SLOW IVP PRN (17:20)
[2017-11-25] MEDS: Insulin Glargine 15 UNITS in Pre-Filled Syringe 1 EACH SC SCH (20:25)
[2017-11-25] MEDS: cefTRIAXone\\ROCEPHIN 1 GM in Sodium Chloride 0.9% 100 ML IVPB SCH (21:47)
[2017-11-25] MEDS: Azithromycin 1,000 MG in Sodium Chloride 0.9% 500 ML IVPB SCH (23:28)
[2017-11-26] MEDS: Sodium Chloride 0.45% 1,000 ML IV SCH ×4 (03:00→23:01)
[2017-11-26] MEDS: HYDROcodone/Acetaminophen 5/325 mg Tablet PO PRN ×3 (04:11→18:13)
[2017-11-26] MEDS: cloNIDine 0.1 MG TAB PO PRN ×2 (05:37→08:53)
[2017-11-26 06:00] LABS: Anion Gap 16 mmol/L (10-20); BUN (Urea Nitrogen) 39 mg/dL (9.8-20.1); Calc. Creatinine Clearance 59 mL/min (70-130); Carbon Dioxide 26 mmol/L (23-31); Chloride 100 mmol/L (98-107); Estimated GFR-MDRD 35; Glucose 338 mg/dL (83-110); Potassium 4.5 mmol/L (3.5-5.1); Sodium 137 mmol/L (136-145)
[2017-11-26] MEDS: HumaLOG 300 UNITS/3 ML VIAL SC PRN ×4 (06:15→21:02)
[2017-11-26 06:24] LABS: Band 12 % (5-11); Lymphocytes 3 % (21-51); MDiff Complete? YES; Mean Corpuscular HGB CONC 32.1 g/dL (32.0-36.0); Mean Corpuscular Volume 84.2 fL (78.0-98.0); Metamyelocyte 2 % (0-0); Monocytes 3 % (0-10); Neutrophil 80 % (42-75); PLT Morphology Comment Appears Adequate; Platelet Count 216 thou/uL (130-400); Red Blood Cell (RBC) Count 3.34 mill/uL (4.20-5.40); White Blood Cell (WBC) Count 16.2 thou/uL (4.8-10.8)
[2017-11-26] MEDS: Amlodipine 10 MG TAB PO SCH (08:51)
[2017-11-26] MEDS: Hydrochlorothiazide 25 MG TAB PO SCH (08:51)
[2017-11-26] MEDS: Heparin 5,000 UNITS/ML VIAL SC SCH ×3 (08:54→20:59)
[2017-11-26] MEDS: Insulin Glargine 15 UNITS in Pre-Filled Syringe 1 EACH SC SCH ×2 (08:54→21:00)
[2017-11-26] MEDS: Saccharomyces boulardii 250 MG CAP PO SCH ×2 (08:54→20:59)
[2017-11-26] MEDS ORDERED: Non-Formulary Item 1 EACH (Olmesartan/Hydrochlorothiazide [Olmesartan-Hctz 20-12.5 Mg Tab PO SCH (09:00)
[2017-11-26] MEDS ORDERED: Nebivolol HCl 5 MG TAB PO SCH (11:00)
--- NOTE | 2017-11-26 13:22 | PDOC.PN ---
- Subjective Encounter Start Date: 11/26/17 Encounter Start Time: 10:55 -: old records requested/rev Pt seen and examined, chart reviewed in its entirety, this is my first visit with this patient breathing much better, BP elevated, but hasnt gotten Bystolic for today. No F/C , no n/vd/c, no CP. cotninues to have a headache no visual changes all systems reviewed and neg x as per HPI - Objective Resuscitation Status: Resuscitation Status FULL:Full Resuscitation MAR Reviewed: Yes Vital Signs & Weight: Vital Signs (12 hours) Temp Pulse Resp BP BP Pulse Ox 11/26/17 11:19 97.2 F L 89 22 H 161/64 H 93 L 11/26/17 08:53 215/76 H 11/26/17 08:51 87 215/76 H 11/26/17 07:41 98.0 F 87 14 95 11/26/17 07:17 98.0 F 87 14 181/68 H 95 11/26/17 06:29 88 20 187/74 H 94 L 11/26/17 05:37 201/97 H 11/26/17 04:00 98.6 F 94 17 173/80 H 95 Weight Weight 236 lb 12.8 oz I&O: 11/25/17 11/26/17 11/27/17 06:59 06:59 06:59 Intake Total 738 3834 Output Total 350 1580 Balance 388 2254 Result Diagrams: 11/26/17 05:10 11/26/17 05:10 Additional Labs: Accuchecks 11/26/17 11/26/17 11/25/17 10:48 05:54 19:53 POC Glucose 313 H 353 H 327 H 11/25/17 16:39 POC Glucose 310 H Radiology Reviewed by me: Yes EKG Reviewed by me: Yes Phys Exam - Physical Examination Constitutional: NAD HEENT: PERRLA, moist MMs, sclera anicteric, oral pharynx no lesions Neck: no nodes, no JVD, supple, full ROM Respiratory: no wheezing, no rales, no rhonchi, clear to auscultation bilateral Cardiovascular: RRR, no significant murmur, no rub Gastrointestinal: soft, non-tender, no distention, positive bowel sounds Musculoskeletal: edema present Neurological: normal sensation, moves all 4 limbs Lymphatic: no nodes Psychiatric: normal affect, A&O x 3 Skin: no rash, normal turgor, cap refill <2 seconds Dx/Plan (1) Acute on chronic respiratory failure with hypoxemia Code(s): J96.21 - ACUTE AND CHRONIC RESPIRATORY FAILURE WITH HYPOXIA Status: Acute (2) Sepsis Code(s): A41.9 - SEPSIS, UNSPECIFIED ORGANISM Status: Acute Qualifiers: Sepsis type: sepsis due to unspecified organism Qualified Code(s): A41.9 - Sepsis, unspecified organism (3) Acute exacerbation of chronic obstructive pulmonary disease (COPD) Code(s): J44.1 - CHRONIC OBSTRUCTIVE PULMONARY DISEASE W (ACUTE) EXACERBATION Status: Acute (4) Anxiety and depression Code(s): F41.8 - OTHER SPECIFIED ANXIETY DISORDERS Status: Chronic (5) DM type 2 (diabetes mellitus, type 2) Status: Chronic Qualifiers: Diabetes mellitus stacker attendant insulin use: with stacker attendant use Diabetes mellitus complication status: without complication Qualified Code(s): E11.9 - Type 2 diabetes mellitus without complications; Z79.4 - intermediate (current) use of insulin (6) Diabetic neuropathy Code(s): E11.40 - TYPE 2 DIABETES MELLITUS WITH DIABETIC NEUROPATHY, UNSP Status: Chronic Qualifiers: Diabetes mellitus type: type 2 Diabetes mellitus complication detail: diabetic polyneuropathy Qualified Code(s): E11.42 - Type 2 diabetes mellitus with diabetic polyneuropathy (7) Dyslipidemia Code(s): E78.5 - HYPERLIPIDEMIA, UNSPECIFIED Status: Chronic (8) GERD (gastroesophageal reflux disease) Code(s): K21.9 - GASTRO-ESOPHAGEAL REFLUX DISEASE WITHOUT ESOPHAGITIS Status: Chronic Qualifiers: Esophagitis presence: without esophagitis Qualified Code(s): K21.9 - Gastro -esophageal reflux disease without esophagitis (9) Hypertension Code(s): I10 - ESSENTIAL (PRIMARY) HYPERTENSION Status: Chronic Qualifiers: Comment: Stable (10) Obesity (BMI 30-39.9) Code(s): E66.9 - OBESITY, UNSPECIFIED Status: Chronic - Plan cont current plan of care, plan discussed w/ family, continue antibiotics, PT/OT , respiratory therapy, out of bed/ambulate * .
--- NOTE | 2017-11-26 13:41 | PRG ---
DATE OF SERVICE: 11/26/2017 The patient is doing better today. She has no acute complaints. PHYSICAL EXAMINATION: VITAL SIGNS: On exam, temperature is 98.0, pulse 87, blood pressure 215/76, O2 sat 95% on 3.5 liters . HEENT: Unremarkable. NECK: No JVD. CHEST: Clear without wheezing or rhonchi. CARDIAC: S1 and S2, regular. ABDOMEN: Soft. EXTREMITIES: No edema. LABORATORY DATA: White blood cell count 16.2, hematocrit 28.1, platelet count 216. Sodium 137, pota ssium 4.5, chloride 100, CO2 of 26, BUN 39, creatinine 1.5, glucose 338. ASSESSMENT: 1. Chronic obstructive pulmonary disease with exacerbation. 2. Acute on chronic respiratory failure, which appears to be improving. 3. Moderate mitral regurgitation by echocardiogram. 4. Right lower lobe pneumonia. PLAN: The patient can be transferred to the medical floor and continue present therapy. I would go ahead and cut her steroid dose in half. Continue antibiotics and continue nebulization treatments.
[2017-11-26] MEDS: Ondansetron HCl/PF 4 MG/2 ML Vial SLOW IVP PRN (14:00)
[2017-11-26] MEDS: hydrALAZINE 20 MG/ML VIAL SLOW IVP PRN (15:27)
[2017-11-26] MEDS: cefTRIAXone\\ROCEPHIN 1 GM in Sodium Chloride 0.9% 100 ML IVPB SCH (21:01)
[2017-11-26] MEDS: Azithromycin 1,000 MG in Sodium Chloride 0.9% 500 ML IVPB SCH (23:02)
[2017-11-27 05:29] LABS: %Eosinophils 0.3 % (0.0-10.0); Mean Corpuscular HGB CONC 32.6 g/dL (32.0-36.0); Mean Platelet Volume 7.5 fL (7.4-10.4); Red Blood Cell (RBC) Count 3.21 mill/uL (4.20-5.40)
[2017-11-27] MEDS: HumaLOG 300 UNITS/3 ML VIAL SC PRN ×2 (05:35→12:07)
[2017-11-27 05:49] LABS: Anion Gap 17 mmol/L (10-20); BUN (Urea Nitrogen) 43 mg/dL (9.8-20.1); Calc. Creatinine Clearance 59 mL/min (70-130); Calcium 9.1 mg/dL (7.8-10.44); Carbon Dioxide 23 mmol/L (23-31); Chloride 100 mmol/L (98-107); Estimated GFR-MDRD 35; Glucose 264 mg/dL (83-110); Potassium 4.5 mmol/L (3.5-5.1); Sodium 135 mmol/L (136-145)
[2017-11-27 05:55] LABS: #Lymphocytes 0.8 thou/uL (1.20-3.40); #Monocytes 1.1 thou/uL (0.11-0.59); #Neutrophils 12.3 thou/uL (1.40-6.50); %Basophils 0.1 % (0.0-1.0); %Lymphocytes 5.6 % (21.0-51.0); %Monocytes 7.7 % (0.0-10.0); %Neutrophils 86.3 % (42.0-75.0); Mean Corpuscular Volume 85.9 fL (78.0-98.0); Platelet Count 249 thou/uL (130-400); RBC Distribution Width 14.7 % (11.5-14.5); White Blood Cell (WBC) Count 14.2 thou/uL (4.8-10.8)
[2017-11-27] MEDS: HYDROcodone/Acetaminophen 5/325 mg Tablet PO PRN (07:56)
[2017-11-27] MEDS: Hydrochlorothiazide 25 MG TAB PO SCH (08:30)
[2017-11-27] MEDS: Heparin 5,000 UNITS/ML VIAL SC SCH ×2 (08:31→15:03)
[2017-11-27] MEDS: Amlodipine 10 MG TAB PO SCH (08:31)
[2017-11-27] MEDS: Saccharomyces boulardii 250 MG CAP PO SCH (08:31)
[2017-11-27] MEDS: Insulin Glargine 15 UNITS in Pre-Filled Syringe 1 EACH SC SCH (08:32)
[2017-11-27] MEDS ORDERED: Anastrozole 1 MG TAB PO SCH (09:00)
[2017-11-27] MEDS ORDERED: Nebivolol HCl 5 MG TAB PO SCH (09:00)
[2017-11-27] MEDS: Ondansetron HCl/PF 4 MG/2 ML Vial SLOW IVP PRN (12:08)
--- NOTE | 2017-11-27 14:26 | PRG ---
DATE OF SERVICE: 11/27/2017 SUBJECTIVE: She feels better and wants to go home. She is not having any shortness of breath. OBJECTIVE: VITAL SIGNS: Temperature 98.2, pulse 86, respirations 18, O2 sat 93% on 3 liters, blood pressure 170 /81. HEENT: Unremarkable. NECK: No JVD. CHEST: Clear without wheezing or rhonchi. CARDIAC: S1 and S2 regular. ABDOMEN: Soft. EXTREMITIES: No edema. LABORATORY DATA: White blood cell count 14.2, hematocrit 27.6, platelet count 249. Sodium 135, pota ssium 4.5, chloride 100, CO2 23, BUN 43, creatinine 1.4, glucose of 264. ASSESSMENT: 1. Stable pulmonary status. 2. Pneumonia. 3. Chronic obstructive pulmonary disease exacerbation. PLAN: The patient is stable for discharge to home. She has oxygen, CPAP are already set up at home. She should finish out 7-10 days of antibiotics, prednisone should be tapered over about 10 days.
--- NOTE | 2017-11-27 15:01 | DIS ---
DATE OF ADMISSION: 11/24/2017 DATE OF DISCHARGE: 11/27/2017 PRIMARY CARE PHYSICIAN: Jeramie Toure D.O. DISCHARGE DIAGNOSES: 1. Acute exacerbation of chronic obstructive pulmonary disease/asthma. 2. Acute on chronic hypoxic respiratory failure. 3. Community-acquired pneumonia. 4. Acute kidney injury. 5. Severe sepsis, present on admission, resolving. CONSULTATIONS: Pulmonary Critical Care, Dr. Best Ellington. PROCEDURES: None. HISTORY AND PHYSICAL: Ms. Chamberlain is a 70-year-old female with history of COPD-like symptoms, but no official PFTs and no history of tobacco abuse. She has a 3-week history of increasing shortness of b reath and cough. She is normally on oxygen at home, but was having low oxygen saturations. She subs equently came to the emergency department for evaluation. She was felt to have a community-acquired pneumonia and we were called for admission. HOSPITAL COURSE: The patient was seen and examined by Dr. Carrillo and placed in inpatient status. S he was started initially on BiPAP and quickly weaned off. She was also continued on nebulizer treatm ents and IV steroids. Pulmonary Critical Care was consulted and saw the patient that morning. She w as taken off BiPAP and continued on antibiotics and nebulized IV steroids. Echocardiogram was obtain ed on 11/25/2017 that showed a normal EF of 55%-60%, mild MR and [id number] TR. She was weaned back to her baseline level of oxygen and her wheezing improved over the next 2 days. On 11/26, she was transferred to the floor and overnight did well. Today, she had absolutely no wheezing. She had inspiratory and expiratory phases that were equal in length, she was transitioned to p.o. steroids and antibiotics and was cleared for discharge by Pulmon elaine with outpatient followup. PHYSICAL EXAMINATION: The patient was seen and examined on the day of discharge. Discharge plan and disposition was discussed with the patient [id number] at the bedside with her colleen bañuelos. DISCHARGE MEDICATIONS: New medications, 1. Levofloxacin 500 mg p.o. daily for 3 more days. Prescription sent. 2. Prednisone 40 mg p.o. q.a.m. to decrease by 10 mg daily every day until tapered off. Home medications to continue, 1. Albuterol sulfate HFA 2 puffs inhaled q.4 hours p.r.n. 2. Amlodipine 10 mg daily. 3. Anastrozole 1 mg p.o. q.a.m. 4. Lipitor 40 mg p.o. at bedtime. 5. Clonazepam 1 mg p.o. b.i.d. p.r.n. anxiety. 6. Combivent Respimat 2 puffs inhaled daily. 7. Cymbalta 60 mg daily. 8. Advair Diskus 2 puffs inhaled b.i.d. 9. Gabapentin 600 mg p.o. b.i.d. 10. Bystolic 10 mg p.o. daily. 11. Olmesartan/HCT 1 tablet p.o. daily. 12. Omeprazole 40 mg daily. FOLLOWUP APPOINTMENTS: 1. Primary care physician in 1 week. 2. Pulmonary Critical Care in 2 weeks. DISCHARGE CONDITION: Stable. DISPOSITION: Will be discharged home via private vehicle with her . DISCHARGE ACTIVITY: Per cardiopulmonary limits. The patient to resume oxygen at home levels. DISCHARGE DIET: Heart healthy diabetic diet recommended.
[2017-11-27 16:16] VITALS: BP 161/80; TEMP 98.5
[2017-11-27] MEDS ORDERED: predniSONE 20 MG TAB PO SCH (17:00)
== END 2017-11-27 16:18 | disposition home or self-care (01) | DRG 871 ==
LOC: ERS 21:07 → IMCU/EMU 11-25 00:13 → T4-B 11-26 15:08
PROVIDERS: ADMIT Internal Medicine; ATTEND Internal Medicine
DX: A41.9 Sepsis, unspecified organism (principal); J18.9 Pneumonia, unspecified organism; J96.21 Acute and chronic respiratory failure with hypoxia; J44.0 Chronic obstructive pulmonary disease with (acute) lower respiratory infection; N17.9 Acute kidney failure, unspecified; E87.2 Acidosis; J44.1 Chronic obstructive pulmonary disease with (acute) exacerbation; R65.20 Severe sepsis without septic shock; E11.65 Type 2 diabetes mellitus with hyperglycemia; E11.40 Type 2 diabetes mellitus with diabetic neuropathy, unspecified; I10 Essential (primary) hypertension; E87.5 Hyperkalemia; K21.9 Gastro-esophageal reflux disease without esophagitis; E78.5 Hyperlipidemia, unspecified; G47.33 Obstructive sleep apnea (adult) (pediatric); I34.0 Nonrheumatic mitral (valve) insufficiency; F41.9 Anxiety disorder, unspecified; Z99.81 Dependence on supplemental oxygen; Z90.49 Acquired absence of other specified parts of digestive tract; Z85.3 Personal history of malignant neoplasm of breast; Z86.19 Personal history of other infectious and parasitic diseases; Z79.84 Long term (current) use of oral hypoglycemic drugs; Z87.891 Personal history of nicotine dependence
CPT/HCPCS: 36415; 36416; 71045; 71250; 80048; 80053; 82805; 83605; 83880; 85025; 87040; 90471; 90670; 93005; 93306; 94640; 96365; 96366; 96368; 96375; A4216; G0009; J0360; J0456; J0696; J1644; J1815; J1885; J2405; J2920; J2930; J3475; J7050; J7506; J7611; J7620

== ENCOUNTER 2017-12-07 12:41 | Outpatient (CLI) | payer MEDICARE, BC | END 2017-12-07 12:42 | disposition home or self-care (01) | LOC: BICMAMMO 12:41 | PROVIDERS: ATTEND Family Medicine | DX: N63.10 Unspecified lump in the right breast, unspecified quadrant (principal); L90.5 Scar conditions and fibrosis of skin; R92.1 Mammographic calcification found on diagnostic imaging of breast | CPT/HCPCS: 76642; 77065; G0279 ==

== ENCOUNTER 2017-12-15 23:47 | Inpatient (IN) | payer MEDICARE, BC ==
[2017-12-16 00:23] LABS: Actual Bicarbonate (HCO3a) 20.2 mEq/L (22-28); Base Excess (BEa) -6.3 mEq/L (-2.0 to +3.0); CO2 Tension 45.1 mmHg (35.0-45.0); Carboxyhemoglobin (COHb) 0.1 gm% (0.0-3.0); Hemoglobin (Hb) 8.8 g/dL (12.0-16.0); O2 Tension (PaO2) 94.8 mmHg (> 70.0); pH, Arterial 7.27 (7.35-7.45)
[2017-12-16 00:24] LABS: ALV-art Gradient 134.025 (0-20); Analyzer IN Cardio ER; Calcium, Ionized 1.19 mmol/L (1.12-1.30); Potassium - ABG Lab 7.8 mmol/L (3.70-5.30); Puncture Site L RADIAL
[2017-12-16 00:43] LABS: Hemoglobin 7.9 g/dL (12.0-16.0); Mean Corpuscular HGB CONC 32.6 g/dL (32.0-36.0); Mean Corpuscular Hemoglobin 27.5 pg (27.0-31.0); Mean Corpuscular Volume 84.3 fL (78.0-98.0); Platelet Count 190 thou/uL (130-400); Red Blood Cell (RBC) Count 2.87 mill/uL (4.20-5.40)
[2017-12-16 00:56] LABS: #Eosinphils 0.1 thou/uL (0.0-0.7); #Lymphocytes 0.9 thou/uL (1.20-3.40); #Monocytes 0.4 thou/uL (0.11-0.59); #Neutrophils 7.6 thou/uL (1.40-6.50); %Basophils 0.1 % (0.0-1.0); %Eosinophils 0.9 % (0.0-10.0); %Lymphocytes 10.4 % (21.0-51.0); %Monocytes 4.2 % (0.0-10.0); %Neutrophils 84.5 % (42.0-75.0)
[2017-12-16 01:55] LABS: ALT (SGPT) 19 U/L (8-55); AST (SGOT) 12 U/L (5-34); Alkaline Phosphatase 127 U/L (40-150); Anion Gap 19 mmol/L (10-20); BUN (Urea Nitrogen) 85 mg/dL (9.8-20.1); Bilirubin, Total 0.5 mg/dL (0.2-1.2); CK (CPK) 45 U/L (29-168); Calc. Creatinine Clearance 0 mL/min (70-130); Calcium 9.4 mg/dL (7.8-10.44); Carbon Dioxide 19 mmol/L (23-31); Chloride 104 mmol/L (98-107); Estimated GFR-MDRD 8; Globulin 2.3 g/dL (2.4-3.5); Glucose 227 mg/dL (83-110); Magnesium 2.6 mg/dL (1.6-2.6); Protein, Total 6.3 g/dL (6.0-8.3); Sodium 134 mmol/L (136-145)
[2017-12-16 01:57] LABS: CKMB 0.9 ng/mL (0-6.6); Troponin I 0.069 ng/mL (< 0.028)
[2017-12-16 01:59] LABS: Potassium 8.1 mmol/L (3.5-5.1)
[2017-12-16] MEDS ORDERED: Sodium Bicarb 50 MEQ/50 ML Abboject 8.4% SYRINGE ONE (02:33)
[2017-12-16] MEDS ORDERED: Insulin Regular 300 UNITS/3 ML VIAL ONE (02:33)
[2017-12-16] MEDS ORDERED: Dextrose 50% Abboject 50 ML SYRINGE ONE (02:33)
[2017-12-16] MEDS ORDERED: Calcium Chloride 1 GM/10 ML Abboject SYRINGE ONE (02:33)
[2017-12-16] MEDS ORDERED: Furosemide 20 MG/2 ML VIAL ONE (02:33)
[2017-12-16] MEDS ORDERED: Furosemide 40 MG/4 ML VIAL ONE (02:33)
[2017-12-16] MEDS ORDERED: Acetaminophen 325 MG TAB PO PRN (02:49)
[2017-12-16] MEDS ORDERED: Ondansetron HCl/PF 4 MG/2 ML Vial IVP PRN (02:49)
[2017-12-16] MEDS ORDERED: Albuterol Sulfate 2.5 mg/3 ml Neb ONE (03:19)
[2017-12-16] MEDS ORDERED: Cefepime 1 GM in Sodium Chloride 0.9% 100 ML IVPB SCH ×2 (04:00→09:00)
[2017-12-16] MEDS ORDERED: Dextrose 50% Abboject 50 ML SYRINGE SLOW IVP PRN (04:20)
[2017-12-16] MEDS ORDERED: Dextrose 5% in Water 1,000 ML IV PRN (04:20)
[2017-12-16 04:36] LABS: Bilirubin Negative (Negative); Blood, Urine Negative (Negative); Clarity CLOUDY (Clear); Glucose, Urine (Dipstick) Negative (Negative); Leukocyte Negative (Negative); Nitrite Negative (Negative); Protein, Urine (Dipstick) 100 mg/dL (Neg-Trace); Specific Gravity, Urine 1.017 (1.002-1.036); Urobilinogen 0.2 mg/dL (0.2-1.0)
[2017-12-16 04:37] LABS: #Lymphocytes 0.4 thou/uL (1.20-3.40); #Monocytes 0.1 thou/uL (0.11-0.59); %Eosinophils 0.2 % (0.0-10.0); %Monocytes 1.5 % (0.0-10.0); %Neutrophils 93.2 % (42.0-75.0); Hemoglobin 8.2 g/dL (12.0-16.0); Mean Corpuscular HGB CONC 32.9 g/dL (32.0-36.0); Mean Corpuscular Hemoglobin 27.8 pg (27.0-31.0); Mean Corpuscular Volume 84.7 fL (78.0-98.0); Mean Platelet Volume 8.2 fL (7.4-10.4); Platelet Count 191 thou/uL (130-400); Red Blood Cell (RBC) Count 2.95 mill/uL (4.20-5.40); White Blood Cell (WBC) Count 8.6 thou/uL (4.8-10.8)
[2017-12-16 04:40] LABS: Bacteria/HPF None Seen HPF (None Seen); RBC/HPF 0-3 HPF (0-3); WBC/HPF 0-3 HPF (0-3)
[2017-12-16 04:44] LABS: Pathc Cast-AUWi Flag 3.34 (0-2.49)
[2017-12-16] MEDS ORDERED: Vancomycin HCl 1.25 GM in Sodium Chloride 0.9% 250 ML 250 ML IVPB SCH (05:00)
[2017-12-16] MEDS ORDERED: Vancomycin HCl 500 MG in Sodium Chloride 0.9% 100 ML IVPB SCH (05:00)
[2017-12-16] MEDS ORDERED: HOLD VANCOMYCIN FOR LEVEL >20 FS SCH (05:00)
[2017-12-16] MEDS ORDERED: Vancomycin HCl 1 GM in Premix Bag 1 BAG IVPB SCH (05:00)
[2017-12-16] MEDS ORDERED: Vancomycin HCl 750 MG in Sodium Chloride 0.9% 250 ML 250 ML IVPB SCH (05:00)
[2017-12-16 05:01] LABS: Crystals/HPF 2+ AMORPH URATES HPF (Negative); Hyaline Casts/LPF 0-3 HYALINE CAST LPF (0-3 Hyaline); Manual Microscopic Reviewed? No Path Casts Seen; Renal Epithelial 0-3 HPF (0-3)
[2017-12-16 05:16] LABS: Anion Gap 17 mmol/L (10-20); BUN (Urea Nitrogen) 84 mg/dL (9.8-20.1); Calc. Creatinine Clearance 0 mL/min (70-130); Calcium 9.2 mg/dL (7.8-10.44); Carbon Dioxide 21 mmol/L (23-31); Chloride 104 mmol/L (98-107); Estimated GFR-MDRD 8; Glucose 366 mg/dL (83-110); Sodium 135 mmol/L (136-145)
[2017-12-16 05:18] LABS: Potassium 7.2 mmol/L (3.5-5.1)
[2017-12-16 05:20] LABS: Troponin I 0.065 ng/mL (< 0.028)
[2017-12-16 06:34] VITALS: BMI 42.5
[2017-12-16 07:33] LABS: Anion Gap 18 mmol/L (10-20); BUN (Urea Nitrogen) 85 mg/dL (9.8-20.1); Calc. Creatinine Clearance 17 mL/min (70-130); Calcium 10.3 mg/dL (7.8-10.44); Carbon Dioxide 20 mmol/L (23-31); Chloride 104 mmol/L (98-107); Estimated GFR-MDRD 8; Glucose 281 mg/dL (83-110); Sodium 134 mmol/L (136-145)
[2017-12-16 07:38] LABS: Potassium 7.7 mmol/L (3.5-5.1)
--- NOTE | 2017-12-16 08:15 | RAD ---
SINGLE VIEW OF THE CHEST: COMPARISON: 11/24/17. HISTORY: Shortness of breath and cough. FINDINGS: A single view of the chest shows a cardiomediastinal silhouette which is upper limits of normal in si ze. Low lung volumes are present. There is stable elevation of the right hemidiaphragm. No obvious consolidation, mass, or pleural effusion are seen on this limited exam. IMPRESSION: No evidence of acute cardiopulmonary disease. POS: CET
[2017-12-16] MEDS ORDERED: predniSONE 20 MG TAB PO SCH (08:45)
--- NOTE | 2017-12-16 08:46 | CON ---
DATE OF CONSULTATION: 12/16/2017 HISTORY: This is a 72-year-old female well known to me. In fact, she was just in the office a week ago. She had a PFT done which shows severe reduction in vital capacity and a diffusing capacity cons istent with restrictive pulmonary impairment. She now was just discharged from the hospital 2 weeks ago with respiratory failure, comes back to the office confused, stumbling, did not know where she was. In the ER she was found to be worsening amaury al failure with an elevated potassium. She underwent an emergency dialysis. Chest x-rays from yesterday, once again it did not show any obvious infiltrates that I can see. The patient has severe limitation to activity. She can barely walk even 50 feet without getting young edly short of breath. She is essentially a nonsmoker and PFTs showed significant restrictive pulmonary impairment with an e levated right hemidiaphragm. She also has sleep apnea. She sleeps on a CPAP machine at night time. PAST MEDICAL HISTORY: Diabetes, obstructive sleep apnea, hypertension, hyperlipidemia, chronic heada ches, depression, gastroparesis, diverticulitis, restrictive pulmonary impairment, nonsmoker. PAST SURGICAL HISTORY: Colectomy, lumpectomy, gallbladder, appendix, hysterectomy, foot surgery. MEDICATIONS: Her medicine from home includes tapering dose of prednisone, metformin 1000 twice a day , clonazepam 1, omeprazole 40, Bystolic 1, insulin 70/30, 20 units twice a day, Advair 250 twice a da y, amlodipine 10, albuterol inhaler, Cymbalta 60. ALLERGIES: CODEINE. TOBACCO/ALCOHOL: Tobacco none. Alcohol none. REVIEW OF SYSTEMS: Otherwise, 10-point negative. PHYSICAL EXAMINATION: VITAL SIGNS: Blood pressure is 140/80, pulse 87, sats 100% on 3 liters. She was on noninvasive vent ilation when I arrived, this was discontinued. GENERAL: She is awake, alert, responsive. Denies any pain or discomfort at this time. CHEST: Decreased breath sounds, no wheezing. CARDIAC: Normal S1, S2, no gallops. ABDOMEN: Soft, no masses. EXTREMITIES: No edema. IMPRESSION: 1. Acute renal failure. Potassium was 7.2, mostly dialysis. 2. Chronic respiratory failure. 3. Restrictive pulmonary impairment. 4. Obesity. 5. Sleep apnea. 6. Elevated right hemidiaphragm. 7. Worsening renal failure. Creatinine 5. BUN 85, potassium 9.7. Troponin is normal. Urine unremarkable. White count is unremarkable, 8000. IMPRESSION: 1. Acute and chronic respiratory failure. 2. Worsening renal failure. 3. Metabolic encephalopathy. 4. Sleep apnea. 5. Major anxiety. PLAN: I see no evidence of any sepsis. I would discontinue vancomycin. Continue Maxipime. Probabl y switch over to oral medication in the next 24-48 hours. Her problem appears to be metabolic enceph alopathy aggravated by renal failure. Continue aggressive PT. Continue on noninvasive ventilation, steroids, nebulizer treatment. We will follow. Forty-five minutes critical care time.
[2017-12-16] MEDS ORDERED: Cefdinir 300 MG CAP PO SCH (09:00)
[2017-12-16 09:09] LABS: HBSAB Concentration 1.86 mIU/mL; HBSAg Index 0.21 S/CO (0-0.99); Hep B Core Total Ab Non-Reactive (NonReactive); Hep B Core Total Index 0.04 S/CO (0-0.79); Hep B Surf AB Non-Reactive (NonReactive); Hep B Surf Ag Non-Reactive S/CO (NonReactive); Hep C IgG Ab Non-Reactive (NonReactive); Hep C Index 0.06 S/CO (0-0.79)
--- NOTE | 2017-12-16 09:53 | HP ---
PRIMARY CARE PHYSICIAN: Dr. Jeramie Toure. CODE STATUS: FULL CODE. TIME OF EVALUATION: 2:30 a.m. CHIEF COMPLAINT: Severe shortness of breath. HISTORY OF PRESENT ILLNESS: This is a 72-year-old female patient with past medical history of recent pneumonia and was admitted in the hospital for that reason, patient has evidence of sleep apnea, use s CPAP at home, COPD, follows with Dr. Mendieta as an outpatient, migraine, diabetes, hyperlipidemia, hyp ertension who came to the hospital after having severe shortness of breath. These symptoms have been present for the past few days, but getting worse, especially in the past few hours, and EMS found th e patient with the oxygen saturation on room air of 84, was given DuoNebs, Solu-Medrol, was placed on CPAP with improvement of the breathing; however, the patient is still lethargic during my examinatio n, very weak, she does seem to understand what could have triggered the symptoms and there is no impr ovement with medical treatment. The symptoms were severe, patient was also found to have potassium o f 8, troponins has been called and has been at bedside and has been undergoing hemodialysis, initial potassium treatment has been started in the ER. Patient has severe acute kidney injury, very elevate d BUN and creatinine, fluid overload, possible right-sided pleural effusion. There has been some con cern for the patient also having fever. There may be some component of HCAP. The patient has been c overed with broad spectrum antibiotics. REVIEW OF SYSTEMS: Constitutional: Subjective fever, chills, generalized weakness. Respiratory: C ough, no sputum production, severe shortness of breath. Cardiovascular: No chest pain, palpitation. Severe shortness of breath. Gastrointestinal: No nausea, vomiting, diarrhea, abdominal pain. DRIER TENDER NAPHTHALENE : No dizziness, headache or feeling lightheaded. Genitourinary: No burning with urination. Extrem ities: Bilateral leg edema. All other systems were reviewed and negative except for the findings me ntioned above. PAST MEDICAL HISTORY: As mentioned in the HPI. SOCIAL HISTORY: The patient lives with . No drugs, alcohol, or smoking history. PAST SURGICAL HISTORY: Appendectomy, cholecystectomy, hysterectomy, foot surgeries, hemicolectomy wi th colostomy and reversal done in the past. PSYCHIATRIC HISTORY: Depression. FAMILY HISTORY: Mother with diabetes and father with cancer. DRUG ALLERGIES: CODEINE. REPORTED MEDICATIONS: . Please see medication reconciliation. PHYSICAL EXAMINATION: VITAL SIGNS: Blood pressure 129/70 with heart rate 83, respiratory rate was 16, temperature 98.4, pa in was 0/10, oxygen saturation 100% on BiPAP. GENERAL APPEARANCE: Patient is alert, oriented, not in any acute distress. HEENT: Eyes, normal conjunctivae. Moist oral mucosa. Anicteric. NECK: No JVD. RESPIRATORY: Air entry is decreased, bilateral rales, wheezing, symmetric expansion. CARDIOVASCULAR: Normal rate, regular rhythm. No murmurs or gallops. No edema. ABDOMEN: Soft, normal bowel sounds. MUSCULOSKELETAL: Baseline range of motion and strength. No tenderness. SKIN: Warm and dry. No pallor, no rash or redness. Peripheral pulses are present. Capillary refil ls seem to be intact. NEUROLOGIC: Baseline sensory. Patient is lethargic, but arousable. She feels tired from work of br eathing. No evidence of any new focal weakness. Baseline speech. Cranial nerves seem to be intact. PSYCHIATRIC: The patient is in a good mood. No anxiety, oriented, optimal judgment. IMAGING DATA: EKG was reviewed. The patient has normal sinus rhythm with low voltage QRS, ventricul ar rate 99, OR 200, QRS 82, QT corrected 378. The EKG, patient showed peaked T waves in all leads, m ost compatible with hyperkalemia. This EKG was reviewed by myself. Chest x-ray was reviewed by mer murillo and it showed bilateral haziness, most compatible with pulmonary edema and right lower lobe possib le infiltrate/atelectasis or pleural effusion. LABORATORY DATA: Labs were reviewed. White count 9.0, hemoglobin 7.9 and previous hemoglobin was 9, MCV 84, platelet count 190. D-dimer was 0.7. Blood gas was done, pH 7.27, pCO2 of 45, pO2 of 94 th at was done on BiPAP at 40% oxygen. Chemistry: Sodium 134, potassium 8.1, chloride 104, carb on dioxide 19, anion gap 19, BUN 85, creatinine 5.17, glucose 227. Troponin 0.069. Beta natriuretic peptide 166. LFTs were negative. ASSESSMENT AND PLAN: The patient will be placed in the hospital for the following medical problems. Critical care time, more than 35 minutes in bedside assessments, coordination of care, review and el aboration of records. 1. Acute hypercapnic and hypoxic respiratory failure retention CO2 of 45 and needing positive pressure noninvasive ventilation with oxygen of 40% to keep saturation above 90, this is likely seco ndary to fluid overload might be a component of underlying pneumonia his recent admission and dischar ge with pneumonia from the hospital. We will treat the underlying condition. Continue supportive ve ntilation. 2. Hyperkalemia. Potassium 8.1, Dr. Barraza has been consulted. He is at bedside. Recommendation to give hemodialysis. Rest of initial medications for hyperkalemia has been given. We will follow Dr. Barraza's recommendations. 3. Hyponatremia with sodium 134, this is mild, we will monitor, we will adjust treatment as needed. 4. Acute kidney injury. BUN 85 and creatinine 5.1. We will follow Dr. Barraza's recommendations, the patient is going for hemodialysis. 5. Uncontrolled diabetes, blood sugar 227. We will place the patient on sliding scale for optimal c ontrol. 6. Chronic normocytic anemia likely secondary to chronic kidney disease. Hemoglobin we will defer to Nephrology for further treatment. 7. Mildly elevated troponin, likely NSTEMI type 2 secondary to underlying hypoxia, possible sepsis. Also, the patient has acute kidney injury. We will trend troponins, we will monitor, we will adjust treatment as needed. 8. Deep venous thrombosis prophylaxis. 9. History of chronic obstructive pulmonary disease. . The patient has been started on DuoNeb and steroids, already getting antibiotics. 10. Possible healthcare-associated pneumonia. The patient has right lower lobe opacity could be ate lectasis/paresthesias/pneumonia. Patient has been covered with broad spectrum antibiotics. This has been reported. The patient has subjective fever prior to coming to the hospital. 11. Possible sepsis. Patient is tachycardic with respiratory failure, organ damage, receiving broad spectrum antibiotics. Likely source, possible healthcare-associated pneumonia. 12. Deep venous thrombosis prophylaxis.
[2017-12-16] MEDS: Atorvastatin Calcium 40 MG TAB PO SCH (11:53)
[2017-12-16] MEDS: Anastrozole 1 MG TAB PO SCH (11:53)
[2017-12-16] MEDS: DULoxetine 60 MG CAP PO SCH (11:53)
[2017-12-16] MEDS: Amlodipine 10 MG TAB PO SCH (11:53)
--- NOTE | 2017-12-16 14:09 | CON ---
DATE OF CONSULTATION: 12/16/2017 NEPHROLOGY CONSULTATION REASON FOR CONSULTATION: Hyperkalemia. TIME OF CONSULTATION: 02:30 a.m. HISTORY OF PRESENT ILLNESS: This is a very pleasant 72-year-old female who presented to the hospital for severe shortness of breath. The patient was noted to have potassium of 8.1 and I was consulted. The patient can give no further history and was severely dyspneic. PAST MEDICAL HISTORY: Significant for hypertension, COPD, CPAP, migraine, diabetes mellitus, congest lucy heart failure, history of CKD stage 3. PAST SURGICAL HISTORY: Significant for appendectomy, cholecystectomy, hysterectomy, foot surgery, he micolectomy and colostomy. REVIEW OF SYSTEMS: Unobtainable. PHYSICAL EXAMINATION: GENERAL: Patient is resting. Awake, alert, in no acute distress. VITAL SIGNS: Afebrile, pulse , breathing 16, blood pressure 125/70. GENERAL APPEARANCE AND MENTAL STATUS: Fair. HEAD/NECK: Normocephalic. Atraumatic. EYES: EOMI. No deformity. EARS: Clear. No ulcers. NOSE: Intact. No lesions. MOUTH: Clear. No discharge. THROAT: Clear. No exudate. LUNGS: Clear. No crackles. CARDIAC: S1, S2. No rub. ABDOMEN: Benign. BS+. GENITALIA/RECTUM: Springer absent. BACK/EXTREMITIES: Edema 0+. Ulcer-. NEUROLOGICAL: Alert and motor intact. SKIN: Rash-. Bruise-. LYMPHATICS: Edema-. Ulcer-. LABORATORY DATA: Potassium was 8.1. ASSESSMENT AND RECOMMENDATIONS: 1. Acute kidney injury, most likely due to decreased effective arterial blood volume. Plan urgent h emodialysis. 2. Hyperkalemia, plan dialysis. 3. Metabolic acidosis, stable. 4. Medications based on GFR are appropriate. I will plan dialysis. The dialysis nurse was called at 02:30 a.m. for urgent dialysis and surgery wi ll be placing a catheter stat. The catheter was placed around 03:00 a.m.
--- NOTE | 2017-12-16 14:24 | PDOC.EVN ---
Event Note - Event Note Event Note: Pt seen and examined. chart reviewed. care discussed with at bedside. weaned off of BiPAP feels much better. still SOB but less than last night.More Awake and alert.OX3. CTA B/L RRR labs reviewed. S/P emergenet HD . baseline Cr around 1.5-2.00. Nella CKD #.Nella diabetic and /or hypertensive CKD. Monitor labs.Supportive care.Fluid removal as tolerated. Will follow.
[2017-12-16 15:10] LABS: Anion Gap 15 mmol/L (10-20); BUN (Urea Nitrogen) 33 mg/dL (9.8-20.1); Calc. Creatinine Clearance 31 mL/min (70-130); Calcium 9.7 mg/dL (7.8-10.44); Carbon Dioxide 26 mmol/L (23-31); Chloride 99 mmol/L (98-107); Estimated GFR-MDRD 17; Glucose 289 mg/dL (83-110); Potassium 5.4 mmol/L (3.5-5.1); Sodium 135 mmol/L (136-145)
[2017-12-16] MEDS: Cefdinir 300 MG CAP PO SCH (15:19)
[2017-12-16] MEDS: HumaLOG 300 UNITS/3 ML VIAL SC PRN ×2 (17:05→21:54)
[2017-12-16 18:10] LABS: Potassium 5.3 mmol/L (3.5-5.1)
[2017-12-16] MEDS: Mometasone/Formoterol 120 PUFF INHALER INH SCH (19:42)
[2017-12-17] MEDS ORDERED: Cefepime 0.5 GM in Sodium Chloride 0.9% 100 ML IVPB SCH (04:00)
[2017-12-17 04:30] LABS: #Lymphocytes 0.5 thou/uL (1.20-3.40); #Monocytes 0.6 thou/uL (0.11-0.59); #Neutrophils 8.4 thou/uL (1.40-6.50); %Basophils 0.2 % (0.0-1.0); %Eosinophils 0.3 % (0.0-10.0); %Lymphocytes 5.6 % (21.0-51.0); %Monocytes 6.6 % (0.0-10.0); %Neutrophils 87.4 % (42.0-75.0); Hemoglobin 9.9 g/dL (12.0-16.0); Mean Corpuscular HGB CONC 34.7 g/dL (32.0-36.0); Mean Corpuscular Hemoglobin 29.3 pg (27.0-31.0); Mean Corpuscular Volume 84.5 fL (78.0-98.0); Mean Platelet Volume 7.9 fL (7.4-10.4); Platelet Count 244 thou/uL (130-400); RBC Distribution Width 14.8 % (11.5-14.5); White Blood Cell (WBC) Count 9.6 thou/uL (4.8-10.8)
[2017-12-17 04:57] LABS: Anion Gap 18 mmol/L (10-20); BUN (Urea Nitrogen) 42 mg/dL (9.8-20.1); Calc. Creatinine Clearance 25 mL/min (70-130); Calcium 9.9 mg/dL (7.8-10.44); Carbon Dioxide 26 mmol/L (23-31); Chloride 99 mmol/L (98-107); Estimated GFR-MDRD 13; Glucose 338 mg/dL (83-110); Potassium 4.5 mmol/L (3.5-5.1); Sodium 138 mmol/L (136-145)
[2017-12-17] MEDS: HumaLOG 300 UNITS/3 ML VIAL SC PRN ×4 (06:21→20:59)
[2017-12-17] MEDS: Mometasone/Formoterol 120 PUFF INHALER INH SCH ×2 (06:45→18:46)
[2017-12-17] MEDS: predniSONE 20 MG TAB PO SCH (08:13)
[2017-12-17] MEDS: Amlodipine 10 MG TAB PO SCH (08:13)
[2017-12-17] MEDS: Atorvastatin Calcium 40 MG TAB PO SCH (08:13)
[2017-12-17] MEDS: DULoxetine 60 MG CAP PO SCH (08:13)
[2017-12-17] MEDS: Anastrozole 1 MG TAB PO SCH (08:13)
[2017-12-17] MEDS ORDERED: Insulin Glargine 15 UNITS in Pre-Filled Syringe 1 EACH SC SCH ×2 (09:00→21:00)
--- NOTE | 2017-12-17 09:10 | PDOC.PN ---
- Subjective Encounter Start Date: 12/17/17 (f/u DM) Encounter Start Time: 09:09 Subjective: Pt denies any complaints or concerns this morning. Episode of a fib with -: rvr overnight. - Objective Resuscitation Status: Resuscitation Status FULL:Full Resuscitation Vital Signs & Weight: Vital Signs (12 hours) Temp Pulse Resp Pulse Ox 12/17/17 08:25 106 H 12/17/17 08:00 98.5 F 12/17/17 06:45 97 24 H 98 12/17/17 06:44 98 12/17/17 06:41 97 24 H 98 12/17/17 04:00 98.7 F 12/17/17 03:53 99 12/17/17 00:00 98.7 F 99 12/16/17 23:59 99 Weight Admit Weight 240 lb 1.334 oz Weight 236 lb 12.423 oz Most Recent Monitor Data Heart Rate from ECG 100 NIBP 152/67 NIBP BP-Mean 91 Respiration from ECG 32 SpO2 98 I&O: 12/16/17 12/17/17 12/18/17 06:59 06:59 06:59 Intake Total 340 150 Output Total 125 678 57 Balance -125 -338 93 Result Diagrams: 12/17/17 03:05 12/17/17 03:05 Additional Labs: Accuchecks 12/17/17 12/16/17 12/16/17 06:17 21:53 16:43 POC Glucose 348 H 365 H 319 H 12/16/17 11:05 POC Glucose 153 H EKG Reviewed by me: Yes (a fib with rvr 130's, intermittent, currently in sinus 100's) Phys Exam - Physical Examination Constitutional: NAD Respiratory: no wheezing, no rales, no rhonchi good air movement with bipap in place Cardiovascular: RRR, no significant murmur Gastrointestinal: soft, non-tender, positive bowel sounds edema of left hand and forearm - IV infiltrated Neurological: non-focal, moves all 4 limbs Psychiatric: normal affect Skin: no rash Dx/Plan (1) Atrial fibrillation with RVR Code(s): I48.91 - UNSPECIFIED ATRIAL FIBRILLATION Status: Acute (2) Acute on chronic respiratory failure with hypoxemia Code(s): J96.21 - ACUTE AND CHRONIC RESPIRATORY FAILURE WITH HYPOXIA Status: Acute (3) Diabetes type 2, uncontrolled Code(s): E11.65 - TYPE 2 DIABETES MELLITUS WITH HYPERGLYCEMIA Status: Chronic Qualifiers: Glycemic state: with hyperglycemia Qualified Code(s): E11.65 - Type 2 diabetes mellitus with hyperglycemia (4) Diabetic neuropathy Code(s): E11.40 - TYPE 2 DIABETES MELLITUS WITH DIABETIC NEUROPATHY, UNSP Status: Chronic Qualifiers: Diabetes mellitus type: type 2 (5) Dyslipidemia Code(s): E78.5 - HYPERLIPIDEMIA, UNSPECIFIED Status: Chronic (6) Hypertension Code(s): I10 - ESSENTIAL (PRIMARY) HYPERTENSION Status: Chronic Qualifiers: Hypertension type: essential hypertension (7) Obesity (BMI 30-39.9) Code(s): E66.9 - OBESITY, UNSPECIFIED Status: Chronic - Plan * A fib with RVR - start short acting diltiazem. Holding on beta blockers due to patient's acute and chronic resp issues. Echo and Cardiology evaluation * DM uncontrolled - pt is on 20 units 70/30 bid - will start lantus 15 units here bid and change to moderate SSI and bedtime scale * Changed diet per Nutrition recommendations - carb consistent, renal high protein, heart healthy * Appreciate Pulm and Nephrology consults * on abx/steroids/nebs * * add stool softener - no BM in 3 days * * dvt prophy - heparin * gi prophy -not indicated * code status full.
[2017-12-17] MEDS ORDERED: Polyethylene Glycol 3350 17 GM Packet PO PRN (09:13)
[2017-12-17] MEDS: Docusate 100 MG CAP PO SCH ×2 (10:55→20:54)
[2017-12-17] MEDS ORDERED: Heparin 1,000 UNITS/ML VIAL ONE (11:11)
--- NOTE | 2017-12-17 11:40 | PRG ---
DATE OF SERVICE: 12/17/2017 SUBJECTIVE: A 72-year-old female being seen for acute kidney injury. The patient did complain of dy spnea this morning and her urine output had dropped. PHYSICAL EXAMINATION: GENERAL: Patient is in mild to moderate distress. VITAL SIGNS: Afebrile, pulse 99, breathing 16, blood pressure 124/82. HEAD/NECK: Normocephalic. Atraumatic. EYES: EOMI. No deformity. EARS: Clear. No ulcers. NOSE: Intact. No lesions. MOUTH: Clear. No discharge. THROAT: Clear. No exudate. LUNGS: Clear. No crackles. CARDIAC: S1, S2. No rub. ABDOMEN: Benign. BS+. GENITALIA/RECTUM: Springer absent. BACK/EXTREMITIES: Edema 0+ Ulcer- NEUROLOGICAL: Alert and motor intact. SKIN: Rash- Bruise- LYMPHATICS: Edema- Ulcer- LABORATORY DATA: Show hemoglobin 9.9, creatinine 3.4. ASSESSMENT: 1. Stage 6 chronic kidney disease. We will plan hemodialysis. 2. Hypertension, stable. 3. Anemia, stable. 4. Medications based on GFR are appropriate. We will plan dialysis today based on dyspnea.
--- NOTE | 2017-12-17 12:19 | CON ---
DATE OF SERVICE: 12/17/2017 CARDIOLOGY CONSULTATION REASON FOR CONSULTATION: Atrial fibrillation, rapid ventricular response. PRIMARY LIEUTENANT GENERAL: Bulmaro Kahn M.D. HISTORY OF PRESENT ILLNESS: Mrs. Chamberlain is a pleasant 72-year-old white female who comes to the hosp [facility] for shortness of breath. She has severe COPD with sleep apnea. She wears a CPAP at home, follo wed by Dr. Mendieta. She came in and was found to be in acute kidney injury with volume overload and a p otassium of 8. She was emergently dialyzed and several liters of fluid were taken out with improveme nt in her breathing. She had a hemoglobin of 7.9 on admission without any blood transfusions, only t aking fluid out. Her hemoglobin went up to 9.9 and has been stable there. She has been monitored in the unit and went into AFib RVR earlier today. Heart rates in the 130s, so Cardiology has been cons ulted for this. She denies any bleeding issues. No melena, hematemesis or hematochezia. PAST MEDICAL HISTORY: 1. COPD. 2. Sleep apnea. 3. Type 2 diabetes. 4. Hypertension. 5. Hyperlipidemia. 6. Migraine headaches. PAST SURGICAL HISTORY: 1. Appendectomy. 2. Cholecystectomy. 3. Hysterectomy. 4. Foot surgery. 5. Hemicolectomy with colostomy and reversal in the past. FAMILY HISTORY: Noncontributory. OUTPATIENT MEDICATIONS: Include, 1. Omeprazole. 2. Olmesartan with hydrochlorothiazide 20/12.5 daily. 3. Bystolic 10 mg a day. 4. Gabapentin 600 mg b.i.d. 5. Advair Diskus. 6. Combivent. 7. Cymbalta 60 mg a day. 8. Clonazepam 1 mg b.i.d. 9. Lipitor 40 mg at bedtime. 10. Arimidex 1 mg a day. 11. Norvasc 10 mg a day. 12. Albuterol inhaler. 13. Prednisone 40 mg a day. ALLERGIES: CODEINE. REVIEW OF SYSTEMS: A 12-point review of systems was done and is all negative except stated in the hi story of present illness. PHYSICAL EXAMINATION: VITAL SIGNS: Temperature 98.5, pulse 101, respiratory rate 19, satting 99% on 3 liters, blood pressu re 149/63. GENERAL: Awake, alert, oriented x3, in no distress. HEENT: Normocephalic, atraumatic. NECK: Supple. LUNGS: Have reduced breath sounds bilaterally. CARDIOVASCULAR: S1, S2. No S3, S4. Tachycardic in the low 100s. No murmurs. ABDOMEN: Soft with good bowel sounds. EXTREMITIES: Trace edema. SKIN: Warm and dry. LABORATORY WORK: Reviewed. On admission, potassium was elevated at 8.1, is now down to 4.5. Creati nine was elevated at 5.1, is down to 3.4 now. Glucose has been high in the 300 range. Calcium was n ormal. BNP was 166. Troponin has been indeterminate x3 at 0.6 all 3 times. IMAGING: EKG is reviewed, AFib RVR earlier today. ASSESSMENT: 1. New onset atrial fibrillation, currently in sinus rhythm. 2. Chronic kidney disease stage 5, currently on hemodialysis. Unknown if this is going to be perman ent or not. 3. Hyperkalemia: Resolved after emergent hemodialysis back to normal. 4. Type 2 diabetes, poorly controlled. Glucose in the 300s, likely from steroids. 5. Anemia: Likely of chronic disease. Her hemoglobin went up to 9.9 with no blood transfusion, jus t getting fluid out. PLAN: 1. We will start full anticoagulation with heparin for stroke prophylaxis given her CHADS-VASc score of 4. 2. We will increase her diltiazem to 60 twice a day and we will stop her Norvasc. We will probably start her Bystolic in the next few days once her blood pressure allows. 3. Currently in sinus tachycardia at low 100s. This is soon after getting a nebulizing treatment. Thank you for letting us participate in the care of your patient. We will follow.
[2017-12-17 12:41] LABS: Hemoglobin 9.5 g/dL (12.0-16.0); Platelet Count 246 thou/uL (130-400)
[2017-12-17] MEDS: Heparin 25,000 units/D5W 500 ML IVPB SCH (12:58)
[2017-12-17] MEDS: Heparin 10,000 UNITS/ 10 ML VIAL SLOW IVP SCH (12:59)
[2017-12-17] MEDS: Cefdinir 300 MG CAP PO SCH (17:04)
[2017-12-17 19:42] LABS: INR-International Normal Ratio 1.1; Prothrombin Time 14.4 SEC (12.0-14.7)
[2017-12-17 19:43] LABS: PTT 99.5 SEC (22.9-36.1)
--- NOTE | 2017-12-17 20:03 | EKG ---
Test Reason : Blood Pressure : / mmHG Vent. Rate : 083 BPM Atrial Rate : 083 BPM P-R Int : 200 ms QRS Dur : 082 ms QT Int : 320 ms P-R-T Axes : 007 050 023 degrees QTc Int : 376 ms Normal sinus rhythm Low voltage QRS Peaked T's Biphasic T 's V2 Borderline ECG Confirmed by MERLIN BURKS ([id number]), story editor RANDY SANABRIA ([id number]) on 12/17/2017 8:03:07 PM Referred By: Confirmed By:MERLIN BURKS
[2017-12-17 20:07] LABS: Actual Bicarbonate (HCO3a) 28.6 mEq/L (22-28); Base Excess (BEa) 4.7 mEq/L (-2.0 to +3.0); CO2 Tension 39.5 mmHg (35.0-45.0); Carboxyhemoglobin (COHb) 0.5 gm% (0.0-3.0); Hemoglobin (Hb) 10.8 g/dL (12.0-16.0); pH, Arterial 7.48 (7.35-7.45)
[2017-12-17 20:08] LABS: ALV-art Gradient 88.785 (0-20); Calcium, Ionized 1.14 mmol/L (1.12-1.30); Puncture Site L RADIAL
[2017-12-17] MEDS ORDERED: Haloperidol Lactate 5 MG/ML VIAL IM PRN (20:28)
[2017-12-17] MEDS: Diltiazem HCl SR 60 mg Capsule PO SCH (20:55)
--- NOTE | 2017-12-17 21:30 | PRG ---
DATE OF SERVICE: 12/17/2017 SUBJECTIVE: Did reasonably well overnight. She is scheduled to be dialyzed again today. This eveni ng, she has become a little encephalopathic. OBJECTIVE: VITAL SIGNS: She is afebrile, heart rates around 112, blood pressure 155/61, respiratory rates in th e teens to low 20s, oximetry is 94% on 3 L cannula. Intake and output is negative 338. This does no t account for 1600 mL dialysis yesterday. LUNGS: Clear. HEART: Regular rhythm. ABDOMEN: Soft. EXTREMITIES: Without asymmetry or edema. LABORATORY DATA: White count is 9.6, hemoglobin 9.9, platelets 244. Sodium 138, potassium 4.5, chlo ride 99, bicarbonate 26, BUN 42, creatinine 3.43. IMPRESSION: 1. Status post presentation with severe hyperkalemia with subsequent dialysis. 2. Atrial fibrillation. 3. Encephalopathy from being in the Critical Care Unit, most likely. 4. Underlying obstructive lung disease. 5. Obesity with sleep apnea. 6. Diabetes. 7. Hypertension. 8. Renal failure. PLAN: Continue with dialysis. She should remain in critical care unit for now. Cardiology has been consulted for rate control for atrial fibrillation. It would not be unreasonable to give her p.r.n. doses of Haldol for her confusion.
--- NOTE | 2017-12-17 21:56 | ULT ---
ULTRASOUND RETROPERITONEUM COMPLETE: (RENAL) 12/17/17 at 8:31 p.m. HISTORY: 72-year-old female with acute kidney injury. FINDINGS: There is poor visualization of the bilateral kidneys because of body habitus. There is no hydronephro sis bilaterally. There are multiple bilateral renal parenchymal cysts. One of the larger ones is a le ft renal upper pole exophytic cyst that measures 3.5 x 2.5 cm. There is a small, 0.7 x 0.5 cm hyperec hoic focus at the lower pole of the left kidney, questionable for a calculus. The urinary bladder is empty, containing a Springer catheter. IMPRESSION: 1. No hydronephrosis. 2. Multiple bilateral renal cysts. 3. Questionable left renal lower pole calculus. 4. Poor visualization of renal parenchyma because of body habitus. ANCELMO Kerr POS: NEHA
[2017-12-18 01:25] LABS: INR-International Normal Ratio 1.1; Prothrombin Time 13.9 SEC (12.0-14.7)
[2017-12-18 01:26] LABS: PTT 91.2 SEC (22.9-36.1)
[2017-12-18] MEDS: HumaLOG 300 UNITS/3 ML VIAL SC PRN ×4 (06:19→20:52)
[2017-12-18 06:44] LABS: #Eosinphils 0.1 thou/uL (0.0-0.7); #Lymphocytes 1.6 thou/uL (1.20-3.40); #Monocytes 1.1 thou/uL (0.11-0.59); %Eosinophils 0.8 % (0.0-10.0); %Lymphocytes 18.3 % (21.0-51.0); %Monocytes 12.5 % (0.0-10.0); %Neutrophils 68.4 % (42.0-75.0); Hemoglobin 9.8 g/dL (12.0-16.0); Mean Corpuscular HGB CONC 33.1 g/dL (32.0-36.0); Mean Corpuscular Hemoglobin 28.3 pg (27.0-31.0); Mean Corpuscular Volume 85.4 fL (78.0-98.0); Mean Platelet Volume 7.5 fL (7.4-10.4); Platelet Count 272 thou/uL (130-400); RBC Distribution Width 14.9 % (11.5-14.5); Red Blood Cell (RBC) Count 3.46 mill/uL (4.20-5.40); White Blood Cell (WBC) Count 8.8 thou/uL (4.8-10.8)
[2017-12-18 06:53] LABS: INR-International Normal Ratio 1.1; Prothrombin Time 13.8 SEC (12.0-14.7)
[2017-12-18 06:54] LABS: PTT 64.3 SEC (22.9-36.1)
[2017-12-18 06:56] LABS: Anion Gap 14 mmol/L (10-20); BUN (Urea Nitrogen) 31 mg/dL (9.8-20.1); Calc. Creatinine Clearance 31 mL/min (70-130); Calcium 9.7 mg/dL (7.8-10.44); Carbon Dioxide 31 mmol/L (23-31); Chloride 99 mmol/L (98-107); Estimated GFR-MDRD 17; Glucose 266 mg/dL (83-110); Potassium 3.6 mmol/L (3.5-5.1); Sodium 140 mmol/L (136-145)
[2017-12-18] MEDS: Mometasone/Formoterol 120 PUFF INHALER INH SCH ×2 (07:13→18:41)
[2017-12-18] MEDS: predniSONE 20 MG TAB PO SCH (08:09)
[2017-12-18] MEDS: Heparin 25,000 units/D5W 500 ML IVPB SCH (08:11)
--- NOTE | 2017-12-18 08:13 | PDOC.PN ---
- Subjective Encounter Start Date: 12/18/17 (f/u DM) Encounter Start Time: 08:10 Subjective: Pt without complaints this morning - denies any pain/n/v -: reports breathing is comfortable but easily short of breath -: denies any new sx - Objective Resuscitation Status: Resuscitation Status FULL:Full Resuscitation Vital Signs & Weight: Vital Signs (12 hours) Temp Pulse Resp Pulse Ox 12/18/17 07:13 99 19 97 12/18/17 06:58 97 12/18/17 06:55 99 19 97 12/18/17 03:49 95 98 12/18/17 00:00 98.2 F 12/17/17 23:29 99 12/17/17 23:28 99 Weight Admit Weight 240 lb 1.334 oz Weight 233 lb 11.04 oz Most Recent Monitor Data Heart Rate from ECG 93 NIBP 124/56 NIBP BP-Mean 80 Respiration from ECG 19 SpO2 97 I&O: 12/17/17 12/18/17 12/19/17 06:59 06:59 06:59 Intake Total 340 897 Output Total 678 487 Balance -338 410 Result Diagrams: 12/18/17 06:15 12/18/17 06:15 Additional Labs: Accuchecks 12/18/17 12/17/17 12/17/17 06:15 20:59 17:01 POC Glucose 255 H 310 H 228 H 12/17/17 11:23 POC Glucose 343 H EKG Reviewed by me: Yes (sinus 100's) Phys Exam - Physical Examination Constitutional: NAD Respiratory: no wheezing, no rales, no rhonchi Cardiovascular: RRR, no significant murmur Gastrointestinal: soft, non-tender, no distention, positive bowel sounds Neurological: non-focal, moves all 4 limbs Psychiatric: normal affect, A&O x 3 Dx/Plan (1) Acute renal failure Status: Acute Qualifiers: Acute renal failure type: unspecified Qualified Code(s): N17.9 - Acute kidney failure, unspecified Comment: (2) Atrial fibrillation with RVR Code(s): I48.91 - UNSPECIFIED ATRIAL FIBRILLATION Status: Acute (3) Acute on chronic respiratory failure with hypoxemia Code(s): J96.21 - ACUTE AND CHRONIC RESPIRATORY FAILURE WITH HYPOXIA Status: Acute (4) Diabetes type 2, uncontrolled Code(s): E11.65 - TYPE 2 DIABETES MELLITUS WITH HYPERGLYCEMIA Status: Chronic Qualifiers: Glycemic state: with hyperglycemia Qualified Code(s): E11.65 - Type 2 diabetes mellitus with hyperglycemia (5) Diabetic neuropathy Code(s): E11.40 - TYPE 2 DIABETES MELLITUS WITH DIABETIC NEUROPATHY, UNSP Status: Chronic Qualifiers: Diabetes mellitus type: type 2 (6) Dyslipidemia Code(s): E78.5 - HYPERLIPIDEMIA, UNSPECIFIED Status: Chronic (7) Hypertension Code(s): I10 - ESSENTIAL (PRIMARY) HYPERTENSION Status: Chronic Qualifiers: Hypertension type: essential hypertension Qualified Code(s): I10 - Essential (primary) hypertension (8) Obesity (BMI 30-39.9) Code(s): E66.9 - OBESITY, UNSPECIFIED Status: Chronic - Plan * Pt s/p dialysis yesterday - denies any problems * A fib with RVR - appreciate Cardiology eval - changed to bid diltiazem and started on heparin gtt * DM remains uncontrolled - increase lantus to 25 units BID and continue moderate SSI * * Appreciate Pulm and Nephrology consults * on abx/steroids/nebs for breathing * * add additional scheduled stool softener - miralax, and prn lactulose * pt/ot * * dvt prophy - heparin gtt for stroke risk reduction * gi prophy -not indicated * code status full * * reviewed plan of care with patient, no questions or further needs at end of eval * pt remains at high risk in current condition
[2017-12-18] MEDS: Diltiazem HCl SR 60 mg Capsule PO SCH ×2 (08:53→20:51)
[2017-12-18] MEDS: Atorvastatin Calcium 40 MG TAB PO SCH (08:53)
[2017-12-18] MEDS: Anastrozole 1 MG TAB PO SCH (08:53)
[2017-12-18] MEDS: DULoxetine 60 MG CAP PO SCH (08:53)
[2017-12-18] MEDS: Docusate 100 MG CAP PO SCH ×2 (08:53→20:51)
[2017-12-18] MEDS: Insulin Glargine 25 UNITS in Pre-Filled Syringe 1 EACH SC SCH ×2 (08:59→20:51)
[2017-12-18] MEDS: Polyethylene Glycol 3350 17 GM Packet PO SCH (09:30)
--- NOTE | 2017-12-18 11:03 | PDOC.CTH ---
Cardiology Progress Note - Subjective She was confused last night with hallucinations better this morning. She remains in sinus tach with PAC's - Objective Vital Signs Temp Pulse Resp Pulse Ox 12/18/17 08:00 98.2 F 12/18/17 07:13 99 19 97 12/18/17 06:58 97 12/18/17 06:55 99 19 97 12/18/17 03:49 95 98 12/18/17 00:00 98.2 F 12/17/17 23:29 99 12/17/17 23:28 99 Admit Weight 240 lb 1.334 oz Weight 233 lb 11.04 oz 12/17/17 12/18/17 12/19/17 06:59 06:59 06:59 Intake Total 340 897 400 Output Total 678 487 60 Balance -338 410 340 - Physical Examination General/Neuro: alert & oriented x3, NAD Neck: no JVD present Lungs: CTA, unlabored respirations Heart: RRR Abdomen: NT/ND Extremities: other: (no edema) - Telemetry Telemetry Rhythm: S Tach, PAC's. - Labs Result Diagrams: 12/18/17 06:15 12/18/17 06:15 Troponin/CKMB CK-MB (CK-2) 0.9 ng/mL (0-6.6) 12/16/17 00:35 Troponin I 0.060 ng/mL (< 0.028) H 12/16/17 07:02 - Assessment/Plan 1. Afib RVR, currently in sinus 2. Hyperkalemia 3. CKD Stage 5 4. Type 2 DM 5. Anemia oc chronic diseas.e PLAN: - Will start BB, will switch her Nebivolol to Coreg. - Continue Heparin drip - Switch heparin gtt to Eliquis once decision has been made on any surgical intervention for dialysis access. - Continue diltiazem. - May transfer to floor from cardiac perspective.
[2017-12-18 13:20] LABS: Prothrombin Time 13.2 SEC (12.0-14.7)
[2017-12-18 13:21] LABS: PTT 66.3 SEC (22.9-36.1)
--- NOTE | 2017-12-18 13:44 | PRG ---
DATE OF SERVICE: 12/18/2017 SUBJECTIVE: This is a 72-year-old female being seen for acute kidney injury. The patient is making urine. Denies any nausea, vomiting or chest pain. PHYSICAL EXAMINATION: GENERAL: The patient is awake, alert. VITAL SIGNS: Afebrile, pulse 105, breathing at 16, blood pressure 153/65. GENERAL APPEARANCE AND MENTAL STATUS: Fair. HEAD/NECK: Normocephalic. Atraumatic. EYES: EOMI. No deformity. EARS: Clear. No ulcers. NOSE: Intact. No lesions. MOUTH: Clear. No discharge. THROAT: Clear. No exudate. LUNGS: Clear. No crackles. CARDIAC: S1, S2. No rub. ABDOMEN: Benign. BS+. GENITALIA/RECTUM: Springer absent. BACK/EXTREMITIES: Edema 0+ Ulcer-. NEUROLOGICAL: Alert and motor intact. SKIN: Rash- Bruise- LYMPHATICS: Edema- Ulcer-. LABORATORY DATA: Show hemoglobin 9.8, creatinine 2.7. ASSESSMENT AND RECOMMENDATIONS: 1. Acute kidney injury with chronic kidney disease, nonoliguric. We will hold off on dialysis, acut e kidney injury. 2. Hyperkalemia, improved. 3. Metabolic acidosis, stable. No urgent indication for dialysis. We will follow the patient's amaury al function closely.
[2017-12-18] MEDS: Cefdinir 300 MG CAP PO SCH (14:51)
[2017-12-18] MEDS: Carvedilol 6.25 MG TAB PO SCH (16:48)
--- NOTE | 2017-12-18 17:01 | PRG ---
DATE OF SERVICE: 12/18/2017 SUBJECTIVE: Ms. Chamberlain did well overnight. She is still intermittently confused. She still appears to be in atrial fibrillation. A 12-lead was ordered with a long rhythm strip for Cardiology to jada guzman. OBJECTIVE: VITAL SIGNS: She is afebrile, heart rate is 104, respiratory rate is 32, oximetry is 98 on 4 liters, blood pressure 149/59. LUNGS: Clear. HEART: Regular rhythm. ABDOMEN: Soft. EXTREMITIES: Without asymmetry. LABORATORY DATA: White count 8.8, hemoglobin 9.8, platelets 272,000. Sodium 140, potassium 3.6, chloride 99, bicarbonate 31, BUN 31, creatinine 2.73. IMPRESSION: 1. End-stage renal disease presenting with hyperkalemia requiring emergent dialysis. 2. Atrial fibrillation. 3. Obesity with deconditioning. 4. Encephalopathy that is mild. Hopefully, this will improve when we move her out of the Critical C are Unit. 5. Obstructive lung disease. 6. Obesity with sleep apnea. She has been sleeping with our machine and will continue to do so. Sh danya has a CPAP with nasal pillows at home. 7. Diabetes. 8. Hypertension. PLAN: Continue dialysis, supportive care and monitoring in the intermediate care unit is reasonable at this point in time.
[2017-12-18 19:18] LABS: Prothrombin Time 13.6 SEC (12.0-14.7)
[2017-12-18 19:21] LABS: PTT 121.8 SEC (22.9-36.1)
[2017-12-18] MEDS: clonazePAM 1 MG TAB PO PRN (20:50)
[2017-12-19 04:40] LABS: #Basophils 0.1 thou/uL (0.0-0.2); #Eosinphils 0.1 thou/uL (0.0-0.7); #Lymphocytes 1.3 thou/uL (1.20-3.40); #Monocytes 0.8 thou/uL (0.11-0.59); #Neutrophils 4.5 thou/uL (1.40-6.50); %Basophils 1.8 % (0.0-1.0); %Eosinophils 0.8 % (0.0-10.0); %Lymphocytes 18.8 % (21.0-51.0); %Monocytes 11.2 % (0.0-10.0); %Neutrophils 67.4 % (42.0-75.0); Hemoglobin 9.6 g/dL (12.0-16.0); Mean Corpuscular Hemoglobin 28.7 pg (27.0-31.0); Mean Corpuscular Volume 84.4 fL (78.0-98.0); Mean Platelet Volume 7.5 fL (7.4-10.4); Platelet Count 219 thou/uL (130-400); RBC Distribution Width 14.3 % (11.5-14.5); Red Blood Cell (RBC) Count 3.34 mill/uL (4.20-5.40); White Blood Cell (WBC) Count 6.7 thou/uL (4.8-10.8)
[2017-12-19 04:48] LABS: Anion Gap 14 mmol/L (10-20); BUN (Urea Nitrogen) 35 mg/dL (9.8-20.1); Calc. Creatinine Clearance 35 mL/min (70-130); Calcium 9.9 mg/dL (7.8-10.44); Carbon Dioxide 30 mmol/L (23-31); Chloride 99 mmol/L (98-107); Estimated GFR-MDRD 19; Glucose 157 mg/dL (83-110); Potassium 3.3 mmol/L (3.5-5.1); Sodium 140 mmol/L (136-145)
[2017-12-19] MEDS: Heparin 10,000 UNITS/ 10 ML VIAL SLOW IVP SCH (05:42)
[2017-12-19] MEDS: Mometasone/Formoterol 120 PUFF INHALER INH SCH ×2 (06:19→18:52)
[2017-12-19] MEDS: DULoxetine 60 MG CAP PO SCH (09:36)
[2017-12-19] MEDS: Anastrozole 1 MG TAB PO SCH (09:36)
[2017-12-19] MEDS: Docusate 100 MG CAP PO SCH ×2 (09:37→20:57)
[2017-12-19] MEDS: Carvedilol 6.25 MG TAB PO SCH ×2 (09:37→18:04)
[2017-12-19] MEDS: Atorvastatin Calcium 40 MG TAB PO SCH (09:37)
[2017-12-19] MEDS: Diltiazem HCl SR 60 mg Capsule PO SCH ×2 (09:38→20:50)
[2017-12-19] MEDS: predniSONE 20 MG TAB PO SCH (09:38)
[2017-12-19] MEDS: Polyethylene Glycol 3350 17 GM Packet PO SCH (09:39)
--- NOTE | 2017-12-19 09:39 | PDOC.PN ---
- Subjective Encounter Start Date: 12/19/17 Encounter Start Time: 09:38 Subjective: feeling well - Objective Resuscitation Status: Resuscitation Status FULL:Full Resuscitation MAR Reviewed: Yes Vital Signs & Weight: Vital Signs (12 hours) Temp Pulse Resp BP Pulse Ox 12/19/17 07:46 97.4 F L 89 14 168/69 H 100 12/19/17 06:16 87 16 98 12/19/17 04:21 98.2 F 96 17 158/74 H 99 12/19/17 02:26 93 12/19/17 02:25 98 12/19/17 00:00 97.7 F 89 14 165/71 H 98 12/18/17 22:31 99 Weight Admit Weight 240 lb 1.334 oz Weight 232 lb 6.4 oz Most Recent Monitor Data Heart Rate from ECG 100 NIBP 153/65 NIBP BP-Mean 98 Respiration from ECG 22 SpO2 97 I&O: 12/18/17 12/19/17 12/20/17 06:59 06:59 06:59 Intake Total 897 2101 Output Total 487 775 Balance 410 1326 Result Diagrams: 12/19/17 03:45 12/19/17 03:45 Additional Labs: Accuchecks 12/19/17 12/18/17 12/18/17 05:46 20:00 16:52 POC Glucose 143 H 272 H 330 H 12/18/17 11:19 POC Glucose 356 H Phys Exam - Physical Examination Neck: no JVD Respiratory: clear to auscultation bilateral Cardiovascular: no significant murmur, irregular Gastrointestinal: soft, non-tender, positive bowel sounds Musculoskeletal: no edema Dx/Plan (1) Atrial fibrillation with RVR Code(s): I48.91 - UNSPECIFIED ATRIAL FIBRILLATION Status: Chronic (2) Acute exacerbation of chronic obstructive pulmonary disease (COPD) Code(s): J44.1 - CHRONIC OBSTRUCTIVE PULMONARY DISEASE W (ACUTE) EXACERBATION Status: Acute (3) Acute on chronic respiratory failure with hypoxemia Code(s): J96.21 - ACUTE AND CHRONIC RESPIRATORY FAILURE WITH HYPOXIA Status: Acute (4) Acute renal failure Status: Acute Qualifiers: Acute renal failure type: unspecified Qualified Code(s): N17.9 - Acute kidney failure, unspecified Comment: (5) Sepsis Code(s): A41.9 - SEPSIS, UNSPECIFIED ORGANISM Status: Acute Qualifiers: Sepsis type: sepsis due to unspecified organism Qualified Code(s): A41.9 - Sepsis, unspecified organism (6) UTI (urinary tract infection) Status: Acute Qualifiers: Urinary tract infection type: acute cystitis Hematuria presence: without hematuria Qualified Code(s): N30.00 - Acute cystitis without hematuria (7) Diabetic neuropathy Code(s): E11.40 - TYPE 2 DIABETES MELLITUS WITH DIABETIC NEUROPATHY, UNSP Status: Chronic Qualifiers: Diabetes mellitus type: type 2 (8) Dyslipidemia Code(s): E78.5 - HYPERLIPIDEMIA, UNSPECIFIED Status: Chronic (9) Hypertension Code(s): I10 - ESSENTIAL (PRIMARY) HYPERTENSION Status: Chronic Qualifiers: Hypertension type: essential hypertension Qualified Code(s): I10 - Essential (primary) hypertension - Plan renal fcn improving, off HD -: cont lovenox, probable change to eliquis in next 24 hrs -: cont coreg/diltiazem -: cont accu/ss * .
--- NOTE | 2017-12-19 10:49 | EKG ---
Test Reason : Blood Pressure : / mmHG Vent. Rate : 130 BPM Atrial Rate : 104 BPM P-R Int : 000 ms QRS Dur : 078 ms QT Int : 288 ms P-R-T Axes : 000 088 -21 degrees QTc Int : 423 ms Atrial fibrillation with rapid ventricular response Nonspecific ST and T wave abnormality Abnormal ECG When compared with ECG of 15-DEC-2017 23:53, Atrial fibrillation has replaced Sinus rhythm Vent. rate has increased BY [address] now depressed in Anterior leads Nonspecific T wave abnormality, worse in Inferior leads Nonspecific T wave abnormality now evident in Lateral leads Confirmed by DR. Nichole MEDELLIN ([id number]), industrial editor RANDY SANABRIA ([id number]) on 12/19/2017 10:49:11 AM Referred By: Confirmed By:DR. Nichole MEDELLIN
[2017-12-19] MEDS: Insulin Glargine 25 UNITS in Pre-Filled Syringe 1 EACH SC SCH ×2 (11:03→20:54)
[2017-12-19] MEDS: HumaLOG 300 UNITS/3 ML VIAL SC PRN ×3 (11:04→20:55)
--- NOTE | 2017-12-19 11:14 | PRG ---
DATE OF SERVICE: 12/19/2017 SUBJECTIVE: The patient is doing well, awake, alert, no complaints. PHYSICAL EXAMINATION: VITAL SIGNS: Temperature 97.4, pulse 88, respirations 16, O2 saturation 98%, and blood pressure 165/ 59. HEENT: Unremarkable. NECK: No JVD. CHEST: Clear without wheezing or rhonchi. CARDIAC: S1 and S2, regular. ABDOMEN: Soft, nontender. EXTREMITIES: She has a left groin dialysis catheter in place. LABORATORY DATA: White blood cell count 6.7, hematocrit 28.2, platelet count 219. PTT is 101. [place] um 140, potassium 3.3, chloride 99, CO2 of 30, BUN 35, creatinine 2.4, glucose 157. ASSESSMENT: 1. Acute renal failure that has improved. 2. Hyperkalemia, which is resolved. 3. Encephalopathy, improved. 4. Chronic obstructive pulmonary disease. 5. Obstructive sleep apnea. 6. Diabetes mellitus. 7. Hypertension. 8. Paroxysmal atrial fibrillation. PLAN: 1. Hemodialysis catheter will be pulled. Heparin will be held 2 hours beforehand and one hour after . 2. Trend laboratory data tomorrow. 3. Continue low dose steroids, nebs. 4. The patient is okay to use home CPAP. She brings up.
--- NOTE | 2017-12-19 11:41 | PRG ---
DATE OF SERVICE: 12/19/2017 SUBJECTIVE: This is a 72-year-old female being seen for acute kidney injury. The patient denies any nausea, vomiting, or chest pain. PHYSICAL EXAMINATION: GENERAL: Patient is awake. VITAL SIGNS: Afebrile, pulse 80, breathing 16, blood pressure is 162/69. OBJECTIVE: See above. Awake, alert, in no acute distress. GENERAL APPEARANCE AND MENTAL STATUS: Fair. HEAD/NECK: Normocephalic. Atraumatic. EYES: EOMI. No deformity. EARS: Clear. No ulcers. NOSE: Intact. No lesions. MOUTH: Clear. No discharge. THROAT: Clear. No exudate. LUNGS: Clear. No crackles. CARDIAC: S1, S2. No rub. ABDOMEN: Benign. BS+. GENITALIA/RECTUM: Springer absent. BACK/EXTREMITIES: Edema 0+ Ulcer- NEUROLOGICAL: Alert and motor intact. SKIN: Rash- Bruise- LYMPHATICS: Edema- Ulcer- LABORATORY: Hemoglobin 9.6, creatinine 2.4, potassium 3.8. ASSESSMENT AND RECOMMENDATIONS: 1. Acute kidney injury, stable, nonoliguric. 2. Hypertension, stable. 3. Anemia, stable. 4. Hypokalemia. Recommend high potassium diet. No indication for dialysis.
[2017-12-19] MEDS: Cefdinir 300 MG CAP PO SCH (14:43)
[2017-12-19 14:58] LABS: Hemoglobin 9.9 g/dL (12.0-16.0); Platelet Count 230 thou/uL (130-400)
[2017-12-19] MEDS: clonazePAM 1 MG TAB PO PRN (20:50)
[2017-12-19] MEDS: Apixaban 5 MG TAB PO SCH (20:50)
[2017-12-20 04:31] LABS: Anion Gap 14 mmol/L (10-20); BUN (Urea Nitrogen) 37 mg/dL (9.8-20.1); Calc. Creatinine Clearance 40 mL/min (70-130); Calcium 9.8 mg/dL (7.8-10.44); Carbon Dioxide 29 mmol/L (23-31); Chloride 100 mmol/L (98-107); Estimated GFR-MDRD 23; Glucose 127 mg/dL (83-110); Potassium 3.4 mmol/L (3.5-5.1); Sodium 140 mmol/L (136-145)
[2017-12-20] MEDS: Mometasone/Formoterol 120 PUFF INHALER INH SCH ×2 (07:58→18:36)
[2017-12-20] MEDS ORDERED: predniSONE 20 MG TAB PO SCH (08:00)
[2017-12-20] MEDS: Carvedilol 6.25 MG TAB PO SCH ×2 (08:24→16:16)
[2017-12-20] MEDS: Anastrozole 1 MG TAB PO SCH (08:26)
[2017-12-20] MEDS: Apixaban 5 MG TAB PO SCH ×2 (08:27→20:42)
[2017-12-20] MEDS: Atorvastatin Calcium 40 MG TAB PO SCH (08:27)
[2017-12-20] MEDS: Diltiazem HCl SR 60 mg Capsule PO SCH ×2 (08:28→20:42)
[2017-12-20] MEDS: Docusate 100 MG CAP PO SCH ×2 (08:29→20:43)
[2017-12-20] MEDS: DULoxetine 60 MG CAP PO SCH (08:29)
[2017-12-20] MEDS: Insulin Glargine 25 UNITS in Pre-Filled Syringe 1 EACH SC SCH ×2 (08:30→20:43)
[2017-12-20] MEDS: Polyethylene Glycol 3350 17 GM Packet PO SCH (08:32)
--- NOTE | 2017-12-20 08:34 | PRG ---
DATE OF SERVICE: 12/20/2017 This morning she is awake, alert and responsive. She is better. She is less short of breath. PHYSICAL EXAMINATION: VITAL SIGNS: Sats are 98% on 2 liters. She is making some urine. I's and O's are 2101 in, 775 out. Blood pressure is 180/70, temperature 98, pulse 80, respiration rate 18. CHEST: Chest reveals decreased breath sounds, no wheezing. CARDIAC: Normal S1, S2, no gallops. ABDOMEN: Soft, no masses. LABORATORY DATA: Creatinine 2.0, which is improved. IMPRESSION: 1. Azotemia, improved. 2. Chronic obstructive pulmonary disease. 3. Sleep apnea. 4. Morbid obesity. 5. Severe deconditioning. PLAN: PT has been initiated. Low dose prednisone, antibiotics, PT. Nocturnal ventilation. I will follow.
[2017-12-20] MEDS: predniSONE 20 MG TAB PO SCH (09:09)
[2017-12-20] MEDS ORDERED: predniSONE 5 MG TAB PO SCH (09:30)
--- NOTE | 2017-12-20 10:22 | PDOC.PN ---
- Subjective Encounter Start Date: 12/20/17 Encounter Start Time: 10:21 Subjective: no sob, etc - Objective Resuscitation Status: Resuscitation Status FULL:Full Resuscitation MAR Reviewed: Yes Vital Signs & Weight: Vital Signs (12 hours) Temp Pulse Resp BP BP Pulse Ox 12/20/17 08:24 181/70 H 12/20/17 08:00 98.2 F 88 18 98 12/20/17 07:57 98 12/20/17 07:53 88 18 98 12/20/17 07:33 98.2 F 90 18 181/70 H 97 12/20/17 04:00 98.4 F 83 20 168/66 H 98 12/20/17 03:50 99 12/20/17 00:03 97.3 F L 91 16 176/96 H 99 12/19/17 22:42 99 Weight Admit Weight 240 lb 1.334 oz Weight 231 lb 14.4 oz Most Recent Monitor Data Heart Rate from ECG 100 NIBP 153/65 NIBP BP-Mean 98 Respiration from ECG 22 SpO2 97 I&O: 12/19/17 12/20/17 12/21/17 06:59 06:59 06:59 Intake Total 2101 1264 Output Total 775 1445 Balance 1326 -181 Result Diagrams: 12/19/17 14:50 12/20/17 03:37 Additional Labs: Accuchecks 12/19/17 12/19/17 12/19/17 20:19 16:37 10:49 POC Glucose 221 H 216 H 242 H Phys Exam - Physical Examination Neck: no JVD Respiratory: clear to auscultation bilateral Cardiovascular: irregular 2/6 sys murmur Musculoskeletal: edema present Dx/Plan (1) Atrial fibrillation with RVR Code(s): I48.91 - UNSPECIFIED ATRIAL FIBRILLATION Status: Chronic (2) Acute exacerbation of chronic obstructive pulmonary disease (COPD) Code(s): J44.1 - CHRONIC OBSTRUCTIVE PULMONARY DISEASE W (ACUTE) EXACERBATION Status: Acute (3) Acute on chronic respiratory failure with hypoxemia Code(s): J96.21 - ACUTE AND CHRONIC RESPIRATORY FAILURE WITH HYPOXIA Status: Acute (4) Acute renal failure Status: Acute Qualifiers: Acute renal failure type: unspecified Qualified Code(s): N17.9 - Acute kidney failure, unspecified Comment: (5) Sepsis Code(s): A41.9 - SEPSIS, UNSPECIFIED ORGANISM Status: Acute Qualifiers: Sepsis type: sepsis due to unspecified organism Qualified Code(s): A41.9 - Sepsis, unspecified organism (6) UTI (urinary tract infection) Status: Acute Qualifiers: Urinary tract infection type: acute cystitis Hematuria presence: without hematuria Qualified Code(s): N30.00 - Acute cystitis without hematuria (7) Diabetic neuropathy Code(s): E11.40 - TYPE 2 DIABETES MELLITUS WITH DIABETIC NEUROPATHY, UNSP Status: Chronic Qualifiers: Diabetes mellitus type: type 2 (8) Dyslipidemia Code(s): E78.5 - HYPERLIPIDEMIA, UNSPECIFIED Status: Chronic (9) Hypertension Code(s): I10 - ESSENTIAL (PRIMARY) HYPERTENSION Status: Chronic Qualifiers: Hypertension type: essential hypertension Qualified Code(s): I10 - Essential (primary) hypertension - Plan off heparin, on eliquis -: cont cefdinar -: cont statin, coreg, diltiazem * .
[2017-12-20] MEDS: HumaLOG 300 UNITS/3 ML VIAL SC PRN (11:41)
[2017-12-20] MEDS: hydrALAZINE 25 MG TAB PO SCH ×3 (12:58→20:42)
--- NOTE | 2017-12-20 13:52 | EKG ---
Test Reason : Blood Pressure : / mmHG Vent. Rate : 098 BPM Atrial Rate : 098 BPM P-R Int : 150 ms QRS Dur : 076 ms QT Int : 330 ms P-R-T Axes : 061 058 055 degrees QTc Int : 421 ms Normal sinus rhythm Normal ECG Confirmed by EVE LEE ([id number]) on 12/20/2017 1:51:28 PM Referred By: Confirmed By:EVE LEE
[2017-12-20] MEDS: Cefdinir 300 MG CAP PO SCH (14:16)
--- NOTE | 2017-12-20 15:29 | PRG ---
DATE OF SERVICE: 12/20/2017 SUBJECTIVE: A 72-year-old female being seen for acute kidney injury. The patient is making . Denies any nausea, vomiting, or chest pain. OBJECTIVE: VITAL SIGNS: , blood pressure 176/68. GENERAL APPEARANCE AND MENTAL STATUS: Fair. HEAD/NECK: Normocephalic. Atraumatic. EYES: EOMI. No deformity. EARS: Clear. No ulcers. NOSE: Intact. No lesions. MOUTH: Clear. No discharge. THROAT: Clear. No exudate. LUNGS: Clear. No crackles. CARDIAC: S1, S2. No rub. ABDOMEN: Benign. BS+. GENITALIA/RECTUM: Springer absent. BACK/EXTREMITIES: Edema 0+ Ulcer- NEUROLOGICAL: Alert and motor intact. SKIN: Rash- Bruise- LYMPHATICS: Edema- Ulcer- LABORATORY: Hemoglobin 9.9, potassium 3.4. ASSESSMENT AND RECOMMENDATIONS: 1. Acute kidney injury, improved. 2. Hyperkalemia, stable. 3. Metabolic acidosis, stable. No indication for dialysis. 4. Hypertension. We would recommend titrating the patient's blood pressure medication.
[2017-12-20] MEDS ORDERED: hydrALAZINE 20 MG/ML VIAL SLOW IVP PRN (16:13)
[2017-12-20] MEDS: clonazePAM 1 MG TAB PO PRN (20:46)
[2017-12-21] MEDS: Mometasone/Formoterol 120 PUFF INHALER INH SCH (07:16)
[2017-12-21] MEDS ORDERED: predniSONE 5 MG TAB PO SCH (08:00)
--- NOTE | 2017-12-21 08:36 | PRG ---
DATE OF SERVICE: 12/21/2017 Shayy Chabmerlain is a 72-year-old female. This morning she is better, less short of breath, less cough. S he is walking to the bathroom without any distress. PHYSICAL EXAMINATION: VITAL SIGNS: Sats are 95 on 3 liters, respirations 16, pulse 77, temperature 98, blood pressure is 1 79/77. CHEST: Chest reveals decreased breath sounds, no wheezing. CARDIAC: Normal S1, S2, no gallops. ABDOMEN: Soft, no masses. IMPRESSION: 1. Respiratory failure. 2. Chronic obstructive pulmonary disease. 3. Obstructive sleep apnea. 4. Renal failure, improved. 5. Diabetes. PLAN: Pulmonary barragan, she is stable enough to be discharged home. She has an appointment to see me in the office which she will keep.
[2017-12-21] MEDS ORDERED: Nebivolol HCl 5 MG TAB PO SCH (09:00)
[2017-12-21] MEDS: Anastrozole 1 MG TAB PO SCH (09:06)
[2017-12-21] MEDS: Apixaban 5 MG TAB PO SCH (09:07)
[2017-12-21] MEDS: DULoxetine 60 MG CAP PO SCH (09:07)
[2017-12-21] MEDS: Atorvastatin Calcium 40 MG TAB PO SCH (09:07)
[2017-12-21] MEDS: Diltiazem HCl SR 60 mg Capsule PO SCH (09:07)
[2017-12-21] MEDS: hydrALAZINE 25 MG TAB PO SCH ×2 (09:07→13:08)
[2017-12-21] MEDS: Docusate 100 MG CAP PO SCH (09:07)
[2017-12-21] MEDS: Insulin Glargine 25 UNITS in Pre-Filled Syringe 1 EACH SC SCH (09:09)
[2017-12-21] MEDS: Polyethylene Glycol 3350 17 GM Packet PO SCH (09:10)
--- NOTE | 2017-12-21 10:37 | DIS ---
TRANSFER OF CARE NOTE PRIMARY CARE PROVIDER: Dr. Jeramie Toure DATE OF ADMISSION: 12/16/2017 DATE OF DISCHARGE: 12/21/2017 FINAL DIAGNOSES: 1. Acute renal failure, resolved. 2. Acute exacerbation of chronic obstructive pulmonary disease. 3. Acute on chronic respiratory failure with hypoxemia. 4. Sepsis syndrome. 5. Urinary tract infection. 6. Peripheral neuropathy. 7. Dyslipidemia. 8. Hypertension. 9. Diabetes mellitus type 2, insulin-dependent. 10. Atrial fibrillation. DISCHARGE MEDICATIONS: Omeprazole 40 mg a day, Bystolic 10 mg a day, Advair Diskus 100/50 two inhala tions twice a day, DuoNeb 2 puffs, Combivent Respimat 2 puffs inhalation daily, Cymbalta 60 mg daily, clonazepam 1 mg twice a day p.r.n., Lipitor 40 mg at bedtime, Arimidex 1 mg twice a day, Proventil H FA p.r.n., prednisone 10 mg a day, Apresoline 25 mg 4 times a day, Klonopin 1 mg p.o. b.i.d. p.r.n., Lantus insulin 25 units a.m. and p.m., diltiazem 120 mg twice a day, Eliquis 5 mg a day. Cefdinir 30 0 mg p.o. daily. CODE STATUS: FULL. DIET: Diabetic. PENDING AT THE TIME OF DISCHARGE: Nothing. HOSPITAL COURSE: The patient admitted to [facility] through [facility] with severe shortness of breath, history of recent pneumonia, has sleep apnea. She was admitt ed to the hospital on BiPAP 40% O2. She was noted to be in complete renal failure with a BUN of 85, creatinine 5.17. CBC at the time of admission revealed a white cell count of 8.6, hemoglobin of 8.2, platelet count 191,000. Chest x-ray on admission revealed no acute cardiopulmonary process. The pa tient was treated with antibiotics. Consult with Dr. Joe Mendieta, Pulmonology was obtained. He recomm ended continue Maxipime, discontinue vancomycin. Dr. Paco Barraza was consulted for acute renal failure . The patient was also noticed to have potassium of 8.1. A dialysis catheter was placed, urgent hem odialysis started. Aggressive pulmonary toilet started with DuoNebs, etc. Blood cultures were negat lcuy except for micrococcus in one sample. Urine culture was negative. On 12/17/2017 her potassium w as down to 4.5, creatinine has been reduced to 3.43, BUN 42. Urine output initially was oliguria, ho wever, by 12/20/2017 she was putting out 1500 mL of urine a day. Her acute kidney injury was conside red resolved. She was transitioned from IV to oral antibiotics. Blood sugars were monitored and sta yed in the 100-200 range, white count stayed in the 9-10 range, after the first day, white count was always normal. CONSULTATIONS DURING HOSPITAL: Dr. Mendieta, Pulmonary; Dr. Paco Barraza, Nephrology; Dr. Gustavo Plunkett, Cardiology. During her hospital stay she had a new onset of atrial fibrillation and was started on E liquis for same. PROCEDURES DONE IN THE HOSPITAL: Included dialysis catheter placement initially and hemodialysis. The patient is currently doing well. Vital signs are stable. Cardiorespiratory exam is unremarkable except for a controlled atrial fibrillation. She is being discharged. Follow up with PCP in 1 wee k. She has an appointment to follow up with Dr. Mendieta already. She will need follow up with Cardiolo gy, Dr. Plunkett also.
[2017-12-21 12:08] LABS: Hemoglobin 10.2 g/dL (12.0-16.0); Platelet Count 298 thou/uL (130-400)
[2017-12-21 12:27] LABS: Anion Gap 16 mmol/L (10-20); BUN (Urea Nitrogen) 33 mg/dL (9.8-20.1); Calc. Creatinine Clearance 44 mL/min (70-130); Calcium 9.6 mg/dL (7.8-10.44); Carbon Dioxide 28 mmol/L (23-31); Chloride 98 mmol/L (98-107); Estimated GFR-MDRD 27; Glucose 190 mg/dL (83-110); Potassium 3.1 mmol/L (3.5-5.1); Sodium 139 mmol/L (136-145)
[2017-12-21 12:53] VITALS: BP 178/77; TEMP 98.5
[2017-12-21] MEDS: HumaLOG 300 UNITS/3 ML VIAL SC PRN (13:10)
--- NOTE | 2017-12-21 16:59 | PRG ---
DATE OF SERVICE: 12/21/2017 SUBJECTIVE: A 72-year-old female being seen for acute kidney injury which is dialysis dependent. Th e patient denies any nausea, vomiting, or chest pain. PHYSICAL EXAMINATION: GENERAL: Patient is awake, alert. VITAL SIGNS: Afebrile, pulse 80, breathing 16, blood pressure 183/81. HEAD/NECK: Normocephalic. Atraumatic. EYES: EOMI. No deformity. EARS: Clear. No ulcers. NOSE: Intact. No lesions. MOUTH: Clear. No discharge. THROAT: Clear. No exudate. LUNGS: Clear. No crackles. CARDIAC: S1, S2. No rub. ABDOMEN: Benign. BS+. GENITALIA/RECTUM: Springer absent. BACK/EXTREMITIES: Edema 0+ Ulcer- NEUROLOGICAL: Alert and motor intact. SKIN: Rash- Bruise- LYMPHATICS: Edema- Ulcer- LABORATORY DATA: Show hemoglobin 10.2, potassium was 3.1, creatinine 1.8. ASSESSMENT AND RECOMMENDATIONS: 1. Acute kidney injury with chronic kidney disease, improved. 2. Hyperkalemia, resolved. 3. Hypokalemia. Recommend 40 mEq of potassium. 4. Chronic kidney disease stage 4, stable. The patient will follow up to see me and her primary car e physician in 1 week.
== END 2017-12-21 13:53 | disposition home or self-care (01) | DRG 189 ==
LOC: ERS 23:47 → CCU 12-16 02:57 → IMCU/EMU 12-18 12:11 → 2NO 12-20 13:43
PROVIDERS: ADMIT Hospitalist; ATTEND Hospitalist
PROC: 06HN33Z Insertion of Infusion Device into Left Femoral Vein, Percutaneous Approach (ICD-10-PCS; principal; 2017-12-16)
PROC: 5A1D70Z Performance of Urinary Filtration, Intermittent, Less than 6 Hours Per Day (ICD-10-PCS; 2017-12-16)
PROC: 5A1D70Z Performance of Urinary Filtration, Intermittent, Less than 6 Hours Per Day (ICD-10-PCS; 2017-12-17)
PROC: 5A1D70Z Performance of Urinary Filtration, Intermittent, Less than 6 Hours Per Day (ICD-10-PCS; 2017-12-18)
DX: J96.21 Acute and chronic respiratory failure with hypoxia (principal); A41.9 Sepsis, unspecified organism; G93.41 Metabolic encephalopathy; N18.6 End stage renal disease; N17.9 Acute kidney failure, unspecified; J44.1 Chronic obstructive pulmonary disease with (acute) exacerbation; E87.1 Hypo-osmolality and hyponatremia; N18.4 Chronic kidney disease, stage 4 (severe); E87.2 Acidosis; I12.0 Hypertensive chronic kidney disease with stage 5 chronic kidney disease or end stage renal disease; N30.00 Acute cystitis without hematuria; E11.22 Type 2 diabetes mellitus with diabetic chronic kidney disease; E11.42 Type 2 diabetes mellitus with diabetic polyneuropathy; E78.5 Hyperlipidemia, unspecified; G47.33 Obstructive sleep apnea (adult) (pediatric); I48.91 Unspecified atrial fibrillation; E66.01 Morbid (severe) obesity due to excess calories; E87.5 Hyperkalemia; E87.6 Hypokalemia; I48.0 Paroxysmal atrial fibrillation; E11.65 Type 2 diabetes mellitus with hyperglycemia; Z88.5 Allergy status to narcotic agent; Z79.52 Long term (current) use of systemic steroids; Z79.899 Other long term (current) drug therapy
CPT/HCPCS: 36415; 36416; 36430; 36556; 51702; 71045; 76770; 80048; 80053; 81003; 81015; 82550; 82553; 82805; 83605; 83735; 83880; 84484; 85014; 85018; 85025; 85049; 85379; 85610; 85730; 86704; 86706; 86803; 86850; 86900; 86901; 87040; 87086; 87149; 87340; 90935; 93005; 93010; 93306; 94640; 94660; 96374; 96375; A4216; C1752; G0257; G8978-GP-CJ; G8979-GP-CJ; G8980-GP-CJ; G8987-GO-CI; G8988-GO-CI; G8989-GO-CI; J0360; J0692; J1642; J1644; J1815; J1940; J1956; J2920; J3370; J7050; J7506; J7611; J7620; P9016

== ENCOUNTER 2018-03-20 10:07 | Emergency (ER) | payer MEDICARE, BC ==
[2018-03-20] MEDS ORDERED: Acetaminophen 500 MG TAB ONE (10:35)
[2018-03-20] MEDS ORDERED: Metoclopramide HCl 10 MG/2 ML VIAL ONE (10:35)
[2018-03-20] MEDS ORDERED: diphenhydrAMINE 50 MG/ML VIAL ONE (10:35)
--- NOTE | 2018-03-20 11:25 | CT ---
HEAD CT WITHOUT CONTRAST: Date: 03/20/18 COMPARISON: 05/27/17. HISTORY: Headache. TECHNIQUE: Axial CT imaging at 5 mm intervals from vertex through skull base without contrast. FINDINGS: The imaged paranasal sinuses and mastoid air cells are well aerated. No displaced calvarial fracture. No intracranial hemorrhage, midline shift, mass effect, or ventricular enlargement. There is atherosclerotic calcification of the distal left vertebral artery and bilateral cavernous ca rotid arteries. IMPRESSION: No acute findings. POS: [facility]
[2018-03-20 11:30] LABS: #Eosinphils 0.4 thou/uL (0.0-0.7); #Lymphocytes 1.6 thou/uL (1.20-3.40); #Monocytes 1.2 thou/uL (0.11-0.59); #Neutrophils 9.7 thou/uL (1.40-6.50); %Basophils 0.3 % (0.0-1.0); %Lymphocytes 12.2 % (21.0-51.0); %Monocytes 9.2 % (0.0-10.0); %Neutrophils 75.3 % (42.0-75.0); Hemoglobin 9.6 g/dL (12.0-16.0); Mean Corpuscular HGB CONC 32.3 g/dL (32.0-36.0); Mean Corpuscular Hemoglobin 27.7 pg (27.0-31.0); Mean Corpuscular Volume 85.9 fL (78.0-98.0); Mean Platelet Volume 7.6 fL (7.4-10.4); Platelet Count 297 thou/uL (130-400); RBC Distribution Width 13.4 % (11.5-14.5); Red Blood Cell (RBC) Count 3.45 mill/uL (4.20-5.40); White Blood Cell (WBC) Count 12.9 thou/uL (4.8-10.8)
[2018-03-20 12:04] LABS: ALT (SGPT) 52 U/L (8-55); AST (SGOT) 50 U/L (5-34); Albumin 4.2 g/dL (3.4-4.8); Alkaline Phosphatase 265 U/L (40-150); Anion Gap 15 mmol/L (10-20); BUN (Urea Nitrogen) 46 mg/dL (9.8-20.1); Bilirubin, Total 0.3 mg/dL (0.2-1.2); Calc. Creatinine Clearance 0 mL/min (70-130); Calcium 10.4 mg/dL (7.8-10.44); Carbon Dioxide 24 mmol/L (23-31); Chloride 102 mmol/L (98-107); Estimated GFR-MDRD 22; Globulin 3.3 g/dL (2.4-3.5); Glucose 69 mg/dL (83-110); Potassium 4.4 mmol/L (3.5-5.1); Protein, Total 7.5 g/dL (6.0-8.3); Sodium 137 mmol/L (136-145)
--- NOTE | 2018-03-20 12:08 | MRI ---
BRAIN MRI WITHOUT CONTRAST: Date: 03/20/18 INDICATION: End-stage renal disease with history of headache. Reference made to 01/01/12 exam. FINDINGS: There is no acute territorial infarction, mass effect, or midline shift. There is mild parenchymal vo lume loss with compensatory dilatation of the ventricular system. Mild chronic ischemic disease is pr esent within the cerebral white matter. [place] intraocular lenses are absent. Mild mucosal thickening/retention cyst formation is seen. IMPRESSION: No acute intracranial abnormalities. POS: [facility]
[2018-03-20] MEDS ORDERED: Dexamethasone 10 MG/ML VIAL ONE (12:30)
== END 2018-03-20 12:44 | disposition home or self-care (01) ==
LOC: ERS 10:07
DX: M31.6 Other giant cell arteritis (principal); G47.30 Sleep apnea, unspecified; K21.9 Gastro-esophageal reflux disease without esophagitis; E11.9 Type 2 diabetes mellitus without complications; E78.5 Hyperlipidemia, unspecified; J44.9 Chronic obstructive pulmonary disease, unspecified; I10 Essential (primary) hypertension; G43.909 Migraine, unspecified, not intractable, without status migrainosus; F32.9 Major depressive disorder, single episode, unspecified; Z79.899 Other long term (current) drug therapy; Z79.891 Long term (current) use of opiate analgesic
CPT/HCPCS: 70450; 70551; 80053; 83880; 85025; 85652; 96365; 96375; J1100; J1200; J2765

== ENCOUNTER 2018-03-22 08:22 | Day surgery (SDC) | payer MEDICARE, BC ==
[2018-03-22] MEDS ORDERED: Midazolam HCl 2 mg/2 ml Vial ONE (09:53)
[2018-03-22] MEDS ORDERED: Fentanyl 100 MCG/2 ML VIAL ONE (09:53)
[2018-03-22] MEDS ORDERED: Insulin Regular 300 UNITS/3 ML VIAL ONE (10:28)
[2018-03-22] MEDS ORDERED: Lidocaine 1% w/Epinephrine 1:100K 30 ML VIAL ONE (11:06)
[2018-03-22] MEDS ORDERED: Bacitracin Zinc Ointment 30 gm TUBE ONE (11:40)
[2018-03-22] MEDS ORDERED: PROPOFOL 200 MG/20 ML VIAL ONE (16:36)
--- NOTE | 2018-03-24 14:19 | OP ---
DATE OF PROCEDURE: 03/22/2018 PREOPERATIVE DIAGNOSES: 1. Right temporal artery arteritis. 2. Headache. POSTOPERATIVE DIAGNOSES: 1. Right temporal artery arteritis. 2. Headache. PROCEDURE PERFORMED: Biopsy of right temporal artery. ESTIMATED BLOOD LOSS: 0 mL. COMPLICATION: None. ANESTHESIA: LMA. DESCRIPTION OF PROCEDURE: The patient was taken to the operating room and placed supine on the table. LMA anesthesia was obtained by the Anesthesia staff. The right temporal area was marked by palpation of the temporal artery, and was prepped and draped in standard surgical fashion. Following this, a 2 cm long incision was made with the blade of the knife beveled to be parallel to the hair follicles. The incision was made through skin and subcutaneous tissue. Following this, the temporalis fascia was identified. The temporal artery was identified and 2 cm piece of this was suture ligated and sent for biopsy. The patient tolerated the procedure well. Job ID: [id number]
== END 2018-03-22 13:30 | disposition home or self-care (01) ==
LOC: SDC 08:22
PROVIDERS: ATTEND Otolaryngology Plastic Surgery within the Head & Neck
PROC: 03BS0ZX Excision of Right Temporal Artery, Open Approach, Diagnostic (ICD-10-PCS; principal; 2018-03-22)
DX: R51 Headache (principal); J44.9 Chronic obstructive pulmonary disease, unspecified; I10 Essential (primary) hypertension; F41.9 Anxiety disorder, unspecified; F32.9 Major depressive disorder, single episode, unspecified; G43.909 Migraine, unspecified, not intractable, without status migrainosus; G47.33 Obstructive sleep apnea (adult) (pediatric); E78.5 Hyperlipidemia, unspecified; E11.43 Type 2 diabetes mellitus with diabetic autonomic (poly)neuropathy; K31.84 Gastroparesis; Z79.4 Long term (current) use of insulin; Z79.01 Long term (current) use of anticoagulants; Z79.52 Long term (current) use of systemic steroids; Z79.811 Long term (current) use of aromatase inhibitors; Z79.899 Other long term (current) drug therapy; Z88.5 Allergy status to narcotic agent; Z88.8 Allergy status to other drugs, medicaments and biological substances
CPT/HCPCS: 36416; 88305; 88313; J1815; J2001; J2250; J2704; J3010

== ENCOUNTER 2018-05-19 09:10 | Outpatient (CLI) | payer MEDICARE, BC ==
--- NOTE | 2018-05-19 10:57 | ULT ---
MRI BRAIN AND IACS WITH AND WITHOUT IV CONTRAST: HISTORY: A 74-year-old female with otosclerosis, conductive hearing loss, unspecified. FINDINGS: No restricted diffusion is seen. No evidence of infarct, hemorrhage, mass, midline shift, or abnorma l extraaxial fluid collections are seen. The ventricular size is appropriate and the basilar cistern s patent. There are changes of chronic small-vessel ischemic disease in the periventricular white ma tter. High-resolution images through the IACs demonstrate no evidence of mass or abnormal postcontrast enha ncement. There is minimal mucosal disease in the paranasal sinuses. IMPRESSION: 1. No evidence of acute intracranial process or mass. 2. Normal MR appearance of the IACs. POS: [facility]
== END 2018-05-19 09:11 | disposition home or self-care (01) ==
LOC: BICULT 09:10
PROVIDERS: ATTEND Family Medicine
DX: R74.8 Abnormal levels of other serum enzymes (principal)
CPT/HCPCS: 76705

== ENCOUNTER 2018-07-17 11:08 | Outpatient (CLI) | payer MEDICARE, BC ==
--- NOTE | 2018-07-17 13:43 | MRI ---
FExam: MRI cervical spine without contrast HISTORY: Cervical radiculopathy. COMPARISON: None FINDINGS: Appropriate T1 marrow signal intensity of the cervical vertebra. Cervical spine vertebral b anna height is maintained. No fracture. No significant STIR hyperintensity to suggest vertebral body e mariano or ligamentous injury 1 mm of anterolisthesis of C2 upon C3, 2 mm of anterolisthesis of C3 upon C5, 2 mm anterolisthesis of C7 upon T1 Visualized brain parenchyma, cervical medullary junction, cervical cord and the upper thoracic cord a re normal size and signal intensity C2-C3: Minimal central disc bulge. No significant central canal stenosis or neural foraminal narrowin g C2-C4: No significant central canal stenosis or neural foraminal narrowing. Mild left facet hypertrop hy C4-C5: Central/left paracentral disc osteophyte complex. Ventral subarachnoid space is maintained. Mi nimal deformity of the ventral thecal sac and ventral cord. Mild central canal stenosis. Neural fay mary are patent C5-C6: Broad-based discussed by complex abuts the thecal sac. Ventral subarachnoid space is effaced. Deformity of the cervical cord, without T2 hyperintensity of the cord. Moderate central canal stenosi s. Mild bilateral facet hypertrophy with associated mild bilateral neural foraminal narrowing C6-C7: Broad-based disc osteophyte complex with mild central canal stenosis. Moderate right foraminal narrowing due to uncovertebral hypertrophy. Left neural foramen is mildly narrowed. C7-T1: No significant segmental canal stenosis or neural foraminal narrowing. IMPRESSION: Degenerative changes at C4-C5, C5-C6 and C6-C7 with the greatest degree of central canal stenosis at C5-C6. At this level, there is moderate central canal stenosis. No signal abnormality in the cord. Moderate right foraminal narrowing at C6-C7.
--- NOTE | 2018-07-17 14:42 | RAD ---
CERVICAL SPINE: Date: 07/17/18 6 views. Lateral views obtained with neutral, flexion, and extension positions. INDICATION: Cervical radiculopathy. COMPARISON: 09/01/16. FINDINGS: Moderate degenerative changes of the mid cervical spine again noted. A slight anterolisthesis at C4-5 is stable from the prior exam. Loss of disc space with prominent hypertrophic degenerative change at C5-6 and C6-7 again noted, similar to the prior study. Slight posterolisthesis at both of these leve ls is noted in the neutral position, stable from prior exam. This listhesis at these levels did not appear to significantly change with flexion or extension. IMPRESSION: Moderate degenerative changes of the mid cervical spine as described. Findings appear stable from the 2017 exam. POS: [facility]
== END 2018-07-17 11:09 | disposition home or self-care (01) ==
LOC: MRI 11:08
PROVIDERS: ATTEND Surgery
DX: M47.22 Other spondylosis with radiculopathy, cervical region (principal); M48.02 Spinal stenosis, cervical region
CPT/HCPCS: 72050; 72141

== ENCOUNTER 2018-07-28 09:00 | Outpatient (CLI) | payer MEDICARE, BC ==
--- NOTE | 2018-07-28 10:26 | MMO ---
Bilateral MAMMO Bilat Diag DDI+MARY. CLINICAL HISTORY: Patient is 73 years old and is seen for diagnostic exam. The patient has no family history of breast cancer. 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 VIEWS: The views performed were: bilateral craniocaudal with tomosynthesis; bilateral mediolateral oblique with tomosynthesis; and bilateral mediolateral. FILMS COMPARED: The present examination has been compared to prior imaging studies performed at [facility] on 07/27/2017, 12/07/2017 and 07/28/2018, and at [facility] on 05/20/2016. MAMMOGRAM FINDINGS: The breasts are heterogeneously dense, which could obscure a lesion on mammography. Finding 1: There are stable benign appearing calcifications seen in both breasts. There are also vascular calcifications. Finding 2: There are post operative changes seen in the right breast. The appearance of the lumpectomy scar is not significantly changed with respect to the prior exam mammographically or sonographically. Imaging findings suggest fat necrosis. IMPRESSION: FINDING 2: POST OPERATIVE CHANGES IN THE RIGHT BREAST ARE PROBABLY BENIGN. FOLLOW-UP IN 1 YEAR IS RECOMMENDED. THE RESULTS OF THIS EXAM WERE SENT TO THE PATIENT. ACR BI-RADS Category 3 - Probably benign finding - short interval follow-up suggested. [facility] will notify the patient of the need for additional imaging services. MAMMOGRAPHY NOTE: 1. A negative mammogram report should not delay a biopsy if a dominant of clinically suspicious mass is present. 2. Approximately 10% to 15% of breast cancers are not detected by mammography. 3. Adenosis and dense breasts may obscure an underlying neoplasm.
--- NOTE | 2018-07-28 10:32 | ULT ---
LIMITED RIGHT BREAST ULTRASOUND: Date: 07/28/18 PROVIDED CLINICAL HISTORY: Right breast abnormality. FINDINGS: Comparison made with the study dated 12/07/17. Circumscribed focus of increased/isoechogenicity is again noted at the 1 o'clock position of the righ t breast without significant interval change in size. The mammographic appearance of this process is also stable and is compatible with fat necrosis. No increased internal vascularity is seen. IMPRESSION: BIRADS Category 3 - Probably benign findings. Mammographic and sonographic findings are most compatib le with fat necrosis. Diagnostic bilateral mammogram in 1 year is recommended. The facility will notify patient of need for additional imaging services. POS: OFF
== END 2018-07-28 09:01 | disposition home or self-care (01) ==
LOC: BICMAMMO 09:00
PROVIDERS: ATTEND Family Medicine
DX: Z08 Encounter for follow-up examination after completed treatment for malignant neoplasm (principal); Z85.3 Personal history of malignant neoplasm of breast
CPT/HCPCS: 76642; 77066; G0279

== ENCOUNTER 2018-08-15 05:55 | Outpatient (CLI) | payer MEDICARE, BC ==
[2018-08-15 12:07] LABS: Anion Gap 19 mmol/L (10-20); BUN (Urea Nitrogen) 24 mg/dL (9.8-20.1); Calc. Creatinine Clearance 0 mL/min (70-130); Calcium 10.1 mg/dL (7.8-10.44); Carbon Dioxide 18 mmol/L (23-31); Chloride 108 mmol/L (98-107); Estimated GFR-MDRD 27; Glucose 118 mg/dL (83-110); Potassium 4.9 mmol/L (3.5-5.1); Sodium 140 mmol/L (136-145)
[2018-08-15 12:12] LABS: Hemoglobin 10.4 g/dL (12.0-16.0); Mean Corpuscular HGB CONC 31.5 g/dL (32.0-36.0); Mean Corpuscular Hemoglobin 26.7 pg (27.0-31.0); Mean Corpuscular Volume 84.7 fL (78.0-98.0); Mean Platelet Volume 7.8 fL (7.4-10.4); Platelet Count 281 thou/uL (130-400); RBC Distribution Width 13.3 % (11.5-14.5); Red Blood Cell (RBC) Count 3.89 mill/uL (4.20-5.40); White Blood Cell (WBC) Count 12.4 thou/uL (4.8-10.8)
[2018-08-15 12:18] LABS: INR-International Normal Ratio 1.3; PTT 31.9 SEC (22.9-36.1); Prothrombin Time 16.3 SEC (12.0-14.7)
== END 2018-08-15 05:56 | disposition home or self-care (01) ==
LOC: LABBT 05:55
PROVIDERS: ATTEND Surgery
DX: Z01.818 Encounter for other preprocedural examination (principal); M48.02 Spinal stenosis, cervical region; M54.12 Radiculopathy, cervical region
CPT/HCPCS: 80048; 85027; 85610; 85730; 93005; 93010

== ENCOUNTER 2018-08-22 05:43 | Day surgery (SDC) | payer MEDICARE, BC ==
[2018-08-15 11:13] VITALS: BMI 36.3
[2018-08-22] MEDS ORDERED: Thrombin 5000 UNITS/5 ML VIAL ONE (06:36)
[2018-08-22] MEDS ORDERED: Sodium Chloride 0.9% 0 ML ONE (06:36)
[2018-08-22] MEDS ORDERED: Fentanyl 100 MCG/2 ML VIAL ONE (07:06)
[2018-08-22] MEDS ORDERED: Ketamine 50 MG/ML (10ML VIAL) ONE ×2 (07:16→08:03)
[2018-08-24] MEDS ORDERED: Albumin 5% 0 ML ONE ×2 (07:13→10:25)
[2018-08-24] MEDS ORDERED: Fentanyl 100 MCG/2 ML VIAL ONE (07:25)
== END 2018-08-22 08:14 | disposition home or self-care (01) ==
LOC: SURG A 05:43 → SDC 05:43 → UNDOADMIN 05:43 → UNDODISIN 08:14 → SDC/OP 08:14 → EDSTATUS 10:00
PROVIDERS: ATTEND Surgery
DX: M48.02 Spinal stenosis, cervical region (principal); M54.12 Radiculopathy, cervical region; Z53.9 Procedure and treatment not carried out, unspecified reason; Z79.4 Long term (current) use of insulin; Z79.51 Long term (current) use of inhaled steroids; Z79.899 Other long term (current) drug therapy; Z88.5 Allergy status to narcotic agent
CPT/HCPCS: 36416; 94640; J0131; J0690; J3010; J3490; J7620; P9045

== ENCOUNTER 2018-08-24 05:37 | Inpatient (IN) | payer MEDICARE, BC ==
[2018-08-23 12:12] VITALS: BMI 36.3
[~2018-08-24 05:37] MED LIST: Ketamine 50 MG/ML (10ML VIAL) ONE
[2018-08-24] MEDS ORDERED: Sodium Chloride 0.9% 10 ML ONE (06:29)
[2018-08-24] MEDS ORDERED: Thrombin 5000 UNITS/5 ML VIAL ONE (06:29)
[2018-08-24] MEDS ORDERED: Ketamine 50 MG/ML (10ML VIAL) ONE (07:04)
[2018-08-24] MEDS ORDERED: Albuterol Sulfate HFA (OR ONLY) ONE (07:04)
[2018-08-24] MEDS ORDERED: Albumin 5% 0 ML ONE (07:13)
[2018-08-24] MEDS ORDERED: Fentanyl 100 MCG/2 ML VIAL ONE ×4 (07:25→11:12)
[2018-08-24] MEDS ORDERED: Ondansetron HCl/PF 4 MG/2 ML Vial IVP PRN (09:01)
[2018-08-24] MEDS ORDERED: Promethazine HCl 25 MG/ML VIAL SLOW IVP PRN (09:01)
[2018-08-24] MEDS ORDERED: Promethazine HCl 25 MG/ML VIAL IM PRN (09:01)
[2018-08-24] MEDS ORDERED: Ketorolac Tromethamine 30 MG/ML VIAL IVP PRN (09:01)
[2018-08-24] MEDS ORDERED: Acetaminophen 325 MG TAB PO PRN (09:56)
[2018-08-24] MEDS ORDERED: Promethazine HCl 25 MG/ML VIAL IVPB PRN (09:58)
[2018-08-24] MEDS ORDERED: Fleet Enema 133 ML BOT PR PRN (09:58)
[2018-08-24] MEDS ORDERED: Morphine 2 MG/ML SYRINGE SLOW IVP PRN (09:58)
[2018-08-24] MEDS ORDERED: Bisacodyl 10 MG SUPP PR PRN (09:58)
[2018-08-24] MEDS ORDERED: Milk Of Magnesia 30 ML UDCUP PO PRN (09:58)
[2018-08-24] MEDS ORDERED: Mag-Al 1200 mg/1200 mg/30 ML UDCUP PO PRN (09:58)
[2018-08-24] MEDS ORDERED: predniSONE 20 MG TAB PO PRN (10:01)
[2018-08-24] MEDS ORDERED: PROVENTIL INHALER 6.7 G (200 INHALATIONS) INH PRN (10:01)
[2018-08-24] MEDS ORDERED: Ketorolac Tromethamine 30 MG/ML VIAL ONE (10:27)
[2018-08-24] MEDS ORDERED: Promethazine HCl 12.5 MG in Sodium Chloride 0.9% 50 ML IVPB PRN (11:22)
[2018-08-24] MEDS ORDERED: Morphine 2 MG/ML SYRINGE ONE (11:42)
[2018-08-24] MEDS ORDERED: HYDROcodone/Acetaminophen 10/325 mg Tablet ONE (12:29)
[2018-08-24] MEDS ORDERED: tiZANidine HCl 4 MG TAB ONE (12:49)
[2018-08-24] MEDS ORDERED: PROVENTIL INHALER 6.7 G (200 INHALATIONS) ONE (13:59)
[2018-08-24] MEDS ORDERED: Metoclopramide HCl 10 MG/2 ML VIAL ONE (13:59)
[2018-08-24] MEDS ORDERED: Rocuronium Bromide 10 MG/ML (10ML VIAL) ONE (13:59)
[2018-08-24] MEDS ORDERED: Glycopyrrolate 0.2 MG/ML 5 ML SYRINGE ONE (13:59)
[2018-08-24] MEDS ORDERED: Lidocaine 1% PF 5 ML VIAL ONE (13:59)
[2018-08-24] MEDS ORDERED: Ondansetron PF 4 MG/2 ML Vial ONE (13:59)
[2018-08-24] MEDS ORDERED: Dexamethasone 20 MG/5 ML VIAL ONE (13:59)
[2018-08-24] MEDS ORDERED: PROPOFOL 200 MG/20 ML VIAL ONE (13:59)
[2018-08-24] MEDS: Sodium Chloride 0.9% 1,000 ML IV SCH (14:56)
--- NOTE | 2018-08-24 15:51 | OP ---
DATE OF PROCEDURE: 08/24/2018 OPERATING ROOM: OR-11. WOUND CLASSIFICATION: Type 1 wound. PATHOLOGY MANAGER: Celso Masters PA-C PREPROCEDURE DIAGNOSIS: Cervical stenosis with neck and arm pain with cervical radiculopathy. POSTPROCEDURE DIAGNOSIS: Cervical stenosis with neck and arm pain with cervical radiculopathy. PROCEDURES PERFORMED: 1. Anterior C4-C5, C5-C6, and C6-C7 diskectomies for decompression of spinal cord nerve roots, placement of interbody spacer, packed with local bone autograft obtained with same incision allograft, C4-C5, C5-C6, and C6-C7 for arthrodesis. 2. Anterior cervical plate and screw fixation, C4, C5, C6, and C7. 3. Use of operative microscope for microdissection. DESCRIPTION OF PROCEDURE: After informed consent was obtained from the patient, the patient was brought to the OR. Proper patient, pause, and identification were carried out. The patient was positioned supine. All appropriate points were padded. We identified the right anterior oblique young that would allow for approach from C4 to C7 segments anteriorly. This region was sterilely cleansed, prepared, and draped. Proper patient, pause, and identification were carried out. The wound was then opened with combination of sharp, monopolar, and blunt dissection. We proceeded lateral to the laryngopharyngeal and tracheoesophageal bundle and medial to the right carotid sheath, we identified the prevertebral layer of deep cervical fascia and longus colli muscles. These were swept laterally. Localization film confirmed our area of interest. We then performed following localization dissection and exposure of the C4, C5, C6, and C7 segments. Distraction was placed. C4-C5 diskectomy was performed with distraction with the use of the microscope for microdissection. Once we obtained adequate decompression of the neural elements, an interbody spacer packed with graft was placed for arthrodesis. We turned our attention to C5-C6, did the same procedure and then at C6-C7 again the same procedure. Multiple irrigation occurred throughout as did maximizing hemostasis. At the conclusion, microscope was removed. Anterior cervical plate and screw fixation occurred at C4, C5, C6, and C7. Her bone certainly was osteoporotic given her long-term steroid use for her COPD in her age. However, I was pleased with the purchase of the screws overall in the construct. Copious irrigation occurred, maximized hemostasis again. The wound was closed in anatomic layers over drain. Job ID: [id number]
[2018-08-24] MEDS: HYDROcodone/Acetaminophen 10/325 mg Tablet PO PRN (16:27)
[2018-08-24] MEDS: CEFAZOLIN 2 GM in Premix Bag 1 BAG IVPB SCH (16:28)
[2018-08-24] MEDS: hydrALAZINE 10 MG TAB PO SCH ×2 (16:29→21:12)
[2018-08-24] MEDS ORDERED: Nitroglycerin 0.4 MG TAB (25 Tab Bottle) SL PRN (17:53)
[2018-08-24] MEDS ORDERED: Benzonatate 100 MG CAP PO PRN (17:53)
[2018-08-24] MEDS ORDERED: cloNIDine 0.1 MG TAB PO PRN (17:53)
[2018-08-24] MEDS ORDERED: hydrALAZINE 20 MG/ML VIAL SLOW IVP PRN (17:53)
[2018-08-24] MEDS ORDERED: Acetaminophen 500 MG TAB PO PRN (17:53)
[2018-08-24] MEDS ORDERED: Dextrose 5% in Water 1,000 ML IV PRN (17:53)
[2018-08-24] MEDS ORDERED: HumaLOG 300 UNITS/3 ML VIAL SC PRN (17:53)
[2018-08-24] MEDS ORDERED: Ondansetron PF 4 MG/2 ML Vial IVP PRN (17:53)
[2018-08-24] MEDS ORDERED: Dextrose 50% Abboject 50 ML SYRINGE SLOW IVP PRN (17:53)
[2018-08-24] MEDS ORDERED: Sodium Chloride 0.65% Nasal 44 ML BOT EA NARE PRN (17:53)
[2018-08-24] MEDS ORDERED: Diabetic Tussin 200 MG/10 ML UDCUP PO PRN (17:53)
--- NOTE | 2018-08-24 18:43 | PDOC.PN ---
- Subjective Encounter Start Date: 08/24/18 Encounter Start Time: 18:41 Subjective: Pt seen & examined.IM team consulted for medical management.PCP -: S/P Ant. cervical Diskectomy by Dr. Barkley today -: feels well except mild soreness.no N/V/Abd pain/CP/SOB - Objective MAR Reviewed: Yes Vital Signs & Weight: Vital Signs (12 hours) Pulse BP 08/24/18 16:29 72 121/73 Weight Weight 204 lb 15.984 oz Additional Labs: Accuchecks 08/24/18 11:08 POC Glucose 198 H Laboratory Tests 11/25/17 11/25/17 11/26/17 01:52 04:26 05:10 Sodium Potassium Chloride Carbon Dioxide BUN Creatinine 1.63 H 1.73 H 1.46 H Troponin I 11/27/17 12/16/17 12/16/17 04:36 00:35 00:35 Sodium Potassium Chloride Carbon Dioxide BUN Creatinine 1.46 H 5.17 H Troponin I 0.069 H 12/16/17 12/16/17 12/16/17 04:28 04:28 07:02 Sodium Potassium Chloride Carbon Dioxide BUN Creatinine 5.19 H 5.17 H Troponin I 0.065 H 12/16/17 04/28/18 05/05/18 07:02 08:51 10:33 Sodium Potassium Chloride Carbon Dioxide BUN Creatinine 1.74 H 1.79 H Troponin I 0.060 H 06/29/18 08/15/18 09:14 11:07 Sodium 140 Potassium 4.9 Chloride 108 H Carbon Dioxide 18 L BUN 24 H Creatinine 1.61 H 1.83 H Troponin I Phys Exam - Physical Examination Constitutional: NAD HEENT: PERRLA, moist MMs, sclera anicteric, oral pharynx no lesions Neck: no nodes, no JVD, supple, full ROM cervical collar in place Respiratory: no wheezing, no rales, no rhonchi, clear to auscultation bilateral Cardiovascular: RRR, no significant murmur Gastrointestinal: soft, non-tender, no distention, positive bowel sounds Musculoskeletal: no edema, pulses present Neurological: non-focal, normal sensation, moves all 4 limbs Psychiatric: normal affect, A&O x 3 Skin: no rash Dx/Plan (1) COPD (chronic obstructive pulmonary disease) Status: Chronic Qualifiers: Comment: Stable. Add prn Duonebs. Compensated for now. (2) S/P cervical discectomy Code(s): Z98.890 - OTHER SPECIFIED POSTPROCEDURAL STATES Status: Acute Comment: Pain control per Primary NS team (3) DM type 2 (diabetes mellitus, type 2) Status: Chronic Qualifiers: Diabetes mellitus exterminator helper insulin use: with exterminator helper use Diabetes mellitus complication status: without complication Qualified Code(s): E11.9 - Type 2 diabetes mellitus without complications; Z79.4 - termite treater (current) use of insulin Comment: Add ISS w accuchecks ACHS (4) Diabetic neuropathy Code(s): E11.40 - TYPE 2 DIABETES MELLITUS WITH DIABETIC NEUROPATHY, UNSP Status: Chronic Qualifiers: Diabetes mellitus type: type 2 (5) Dyslipidemia Code(s): E78.5 - HYPERLIPIDEMIA, UNSPECIFIED Status: Chronic Comment: cont Lipitor (6) GERD (gastroesophageal reflux disease) Code(s): K21.9 - GASTRO-ESOPHAGEAL REFLUX DISEASE WITHOUT ESOPHAGITIS Status: Chronic Qualifiers: Esophagitis presence: without esophagitis Qualified Code(s): K21.9 - Gastro -esophageal reflux disease without esophagitis Comment: add Pepcid BID (7) Hypertension Code(s): I10 - ESSENTIAL (PRIMARY) HYPERTENSION Status: Chronic Qualifiers: Hypertension type: essential hypertension Qualified Code(s): I10 - Essential (primary) hypertension Comment: Controlled. Monitor.Cont Amlodipine,Hydralazine PO TID,Valsartan and Bystolic. Hold HCTZ to avoid dehydration/SOPHIA/Hyponatremia.BP on lower side as well. Add PRN antihypertensives (8) Obesity (BMI 30-39.9) Code(s): E66.9 - OBESITY, UNSPECIFIED Status: Chronic (9) Sleep apnea Code(s): G47.30 - SLEEP APNEA, UNSPECIFIED Status: Chronic Qualifiers: Comment: CPAP at bedside. will use (10) Chronic diastolic CHF (congestive heart failure), NYHA class 2 Code(s): I50.32 - CHRONIC DIASTOLIC (CONGESTIVE) HEART FAILURE Status: Chronic Comment: compensated. monitor - Plan plan discussed w/ family, PT/OT, respiratory therapy, incentive spirometry, out of bed/ambulate, DVT proph w/SCDs AM labs -: HD stable -: IM team will follow * . Review of Systems - Review of Systems Constitutional: negative: fever, chills, sweats, weakness, malaise, other ENT: negative: Ear Pain, Ear Discharge, Nose Pain, Nose Discharge, Nose Congestion, Mouth Pain, Mouth Swelling, Throat Pain, Throat Swelling, Other Respiratory: negative: Cough, Dry, Shortness of Breath, Hemoptysis, SOB with Excertion, Pleuritic Pain, Sputum, Wheezing Cardiovascular: negative: chest pain, palpitations, orthopnea, paroxysmal nocturnal dyspnea, edema, light headedness, other Gastrointestinal: negative: Nausea, Vomiting, Abdominal Pain, Diarrhea, Constipation, Melena, Hematochezia, Other Genitourinary: negative: Dysuria, Frequency, Incontinence, Hematuria, Retention , Other Musculoskeletal: Neck Pain. negative: Shoulder Pain, Arm Pain, Back Pain, Hand Pain, Leg Pain, Foot Pain, Other Skin: negative: Rash, Lesions, Jonh, Bruising, Other Neurological: negative: Weakness, Numbness, Incoordination, Change in Speech, Confusion, Seizures, Other - Medications/Allergies Allergies/Adverse Reactions: Allergies Allergy/AdvReac Type Severity Reaction Status Date / Time codeine AdvReac Verified 03/21/18 16:58 Medications: Current Medications Acetaminophen (Tylenol) 650 mg PO Q4H PRN PRN Reason: OREILLY/Fever Or Mild Pain (1-3) Acetaminophen (Tylenol) 1,000 mg PO Q6H PRN PRN Reason: Mild Pain (1-3) Hydrocodone Bitart/Acetaminophen ([place] 10/325) 1 tab PO Q4H PRN PRN Reason: Moderate Pain (4-6) Last Admin: 08/24/18 16:27 Dose: 1 tab Al Hydroxide/Mg Hydroxide (Maalox) 30 ml PO Q4H PRN PRN Reason: Indigestion Albuterol Sulfate (Proventil Hfa) 2 puff INH Q4H PRN PRN Reason: SOB &/or Wheezing Albuterol/Ipratropium (Duoneb) 3 ml NEB [id number] PRN PRN Reason: Wheezing Amlodipine Besylate (Norvasc) 10 mg PO DAILY JOSE Atorvastatin Calcium (Lipitor) 40 mg PO HS JOSE Benzonatate (Tessalon) 100 mg PO Q6H PRN PRN Reason: Cough Bisacodyl (Dulcolax) 10 mg MS Q12H PRN PRN Reason: Constipation Cholecalciferol (Vitamin D3) 5,000 units PO DAILY [facility] Clonazepam (Klonopin) 1 mg PO BID [facility] Clonidine (Catapres) 0.1 mg PO Q4H PRN PRN Reason: SBP > _160___ Dextrose/Water (Dextrose 50%) 25 gm SLOW IVP PRN PRN PRN Reason: Hypoglycemia Duloxetine HCl (Cymbalta) 60 mg PO DAILY [facility] Fluticasone Propionate (Flonase Nasal [place]) 0 gm NASAL BID [facility] Glucagon (Glucagon) 1 mg IM PRN PRN PRN Reason: Hypoglycemia Guaifenesin (Robitussin Sf) 200 mg PO Q4H PRN PRN Reason: Cough Hydralazine HCl (Apresoline) 10 mg PO TID [facility] Last Admin: 08/24/18 16:29 Dose: Not Given Hydralazine HCl (Apresoline) 10 mg SLOW IVP Q4H PRN PRN Reason: SBP > 180 and HR < 70 Hydrochlorothiazide (Hydrochlorothiazide) 12.5 mg PO DAILY [facility] Cefazolin Sodium/Dextrose 2 gm (/ Device) 50 mls @ 100 mls/hr IVPB 0800,1600, 2359 [facility] Last Admin: 08/24/18 16:28 Dose: 50 mls Sodium Chloride (Normal Saline 0.9%) 1,000 mls @ 75 mls/hr IV .[id number] [facility] Last Admin: 08/24/18 14:56 Dose: Not Given Promethazine HCl 12.5 mg/ (Sodium Chloride) 50.5 mls @ 151.5 mls/hr IVPB Q4H PRN PRN Reason: Nausea/Vomiting Dextrose/Water (D5w) 1,000 mls @ 0 mls/hr IV .Q0M PRN PRN Reason: Hypoglycemia Insulin Human Isoph/Insulin Regular (Humulin 70/30) 35 units SC BID [facility] Insulin Human Lispro (Humalog) 0 units SC .MODERATE SLIDING SC PRN PRN Reason: Moderate Correctional Scale Insulin Human Lispro (Humalog) 0 units SC .BEDTIME SLIDING SC PRN PRN Reason: Bedtime Correctional Scale Magnesium Hydroxide (Milk Of Magnesium) 30 ml PO Q12H PRN PRN Reason: Constipation Mometasone Furoate/Formoterol Fumar (Dulera 100 Mcg/5 Mcg Inhaler) 2 puff INH BID-RT [facility] Morphine Sulfate (Morphine) 2 mg SLOW IVP Q1H PRN PRN Reason: Severe Pain (7-10) Nebivolol (Bystolic) 10 mg PO DAILY [facility] Nitroglycerin (Nitrostat) 0.4 mg SL Q5MIN PRN PRN Reason: Chest Pain Ondansetron HCl (Zofran) 4 mg IVP Q6H PRN PRN Reason: Nausea/Vomiting Pantoprazole Sodium (Protonix) 40 mg PO DAILY [facility] Biotin 1,000 Mcg 0 each PO BID [facility] Prednisone (Prednisone) 20 mg PO DAILY PRN PRN Reason: Dyspnea Sodium Biphosphate/Sodium Phosphate (Fleet Enema) 133 ml MS ONE PRN PRN Reason: Constipation Stop: 08/24/18 23:00 Sodium Chloride (Flush - Normal Saline) 10 ml IVF PRN PRN PRN Reason: Saline Flush Sodium Chloride ([place] Nasal [place] 0.65%) 0 ml EA NARE QIDPRN PRN PRN Reason: Nasal Congestion Tizanidine HCl (Zanaflex) 4 mg PO Q8H PRN PRN Reason: Muscle Spasm Valsartan (Diovan) 160 mg PO DAILY [facility]
[2018-08-24] MEDS: Mometasone/Formoterol 120 PUFF INHALER INH SCH (19:16)
[2018-08-24] MEDS ORDERED: Biotin 1,000 MCG PO SCH (21:00)
[2018-08-24] MEDS: clonazePAM 1 MG TAB PO SCH (21:11)
[2018-08-24] MEDS: tiZANidine HCl 4 MG TAB PO PRN (21:11)
[2018-08-24] MEDS: Fluticasone Propionate Nasal Spray 16 gm Bottle NASAL SCH (21:13)
[2018-08-24] MEDS: Atorvastatin Calcium 40 MG TAB PO SCH (21:17)
[2018-08-24] MEDS: HumuLIN 70/30 (300 UNITS/3 ML VIAL) SC SCH (21:21)
[2018-08-25] MEDS: Sodium Chloride 0.9% 1,000 ML IV SCH ×2 (00:06→12:07)
[2018-08-25] MEDS: CEFAZOLIN 2 GM in Premix Bag 1 BAG IVPB SCH ×3 (00:06→15:30)
[2018-08-25] MEDS: HYDROcodone/Acetaminophen 10/325 mg Tablet PO PRN (02:48)
[2018-08-25 05:33] LABS: #Lymphocytes 1.2 thou/uL (1.20-3.40); #Monocytes 0.8 thou/uL (0.11-0.59); #Neutrophils 8.9 thou/uL (1.40-6.50); %Eosinophils 0.2 % (0.0-10.0); %Lymphocytes 10.8 % (21.0-51.0); %Monocytes 7.3 % (0.0-10.0); %Neutrophils 81.7 % (42.0-75.0); Mean Corpuscular HGB CONC 32.4 g/dL (32.0-36.0); Mean Corpuscular Hemoglobin 28.2 pg (27.0-31.0); Mean Corpuscular Volume 87.2 fL (78.0-98.0); Platelet Count 189 thou/uL (130-400); RBC Distribution Width 13.3 % (11.5-14.5); Red Blood Cell (RBC) Count 3.19 mill/uL (4.20-5.40); White Blood Cell (WBC) Count 10.9 thou/uL (4.8-10.8)
[2018-08-25 05:42] LABS: Anion Gap 16 mmol/L (10-20); BUN (Urea Nitrogen) 41 mg/dL (9.8-20.1); Calc. Creatinine Clearance 36 mL/min (70-130); Carbon Dioxide 19 mmol/L (23-31); Chloride 101 mmol/L (98-107); Estimated GFR-MDRD 24; Glucose 257 mg/dL (83-110); Magnesium 2.2 mg/dL (1.6-2.6); Potassium 5.4 mmol/L (3.5-5.1); Sodium 131 mmol/L (136-145)
[2018-08-25] MEDS: tiZANidine HCl 4 MG TAB PO PRN ×3 (06:15→22:07)
[2018-08-25] MEDS: HumaLOG 300 UNITS/3 ML VIAL SC PRN ×3 (06:17→16:02)
[2018-08-25] MEDS: Mometasone/Formoterol 120 PUFF INHALER INH SCH ×2 (06:42→18:44)
[2018-08-25] MEDS: HumuLIN 70/30 (300 UNITS/3 ML VIAL) SC SCH ×2 (08:45→22:02)
[2018-08-25] MEDS: Fluticasone Propionate Nasal Spray 16 gm Bottle NASAL SCH ×2 (08:45→20:19)
[2018-08-25] MEDS: hydrALAZINE 10 MG TAB PO SCH ×3 (08:47→20:18)
[2018-08-25] MEDS: clonazePAM 1 MG TAB PO SCH ×2 (08:48→20:15)
[2018-08-25] MEDS ORDERED: DULoxetine 60 MG CAP PO SCH (09:00)
[2018-08-25] MEDS ORDERED: Amlodipine 10 MG TAB PO SCH (09:00)
[2018-08-25] MEDS ORDERED: Nebivolol HCl 5 MG TAB PO SCH ×2 (09:00→20:15)
[2018-08-25] MEDS ORDERED: Famotidine 20 MG TAB PO SCH (09:00)
[2018-08-25] MEDS ORDERED: Valsartan 80 MG TAB PO SCH (09:00)
[2018-08-25] MEDS ORDERED: Hydrochlorothiazide 25 MG TAB PO SCH (09:00)
--- NOTE | 2018-08-25 10:26 | PRG ---
DATE OF SERVICE: 08/25/2018 Ms. Chamberlain is postop day 1 from C4 to C7 ACDF. She has had 70 mL out of her drain output. I would obviously like to see this decrease before sending her home. She neurologically feels as if she is doing very well with significant improvement in her symptoms that she had preoperatively. She may need 1 more day in the hospital before we send her home. Job ID: [id number]
--- NOTE | 2018-08-25 14:18 | PDOC.PN ---
- Subjective Encounter Start Date: 08/25/18 Encounter Start Time: 14:16 Subjective: feels well.some sore neck -: no BM since before Sx. passing gas - Objective MAR Reviewed: Yes Vital Signs & Weight: Vital Signs (12 hours) Temp Pulse Resp BP Pulse Ox 08/25/18 14:00 94 08/25/18 11:27 98.5 F 94 18 156/77 H 97 08/25/18 08:47 89 08/25/18 08:46 89 08/25/18 08:00 95 08/25/18 07:37 98.5 F 89 16 138/72 95 08/25/18 06:42 90 16 08/25/18 04:10 98.3 F 94 15 151/60 H 93 L Weight Weight 206 lb I&O: 08/24/18 08/25/18 08/26/18 06:59 06:59 06:59 Intake Total 780 Output Total 70 Balance 710 Result Diagrams: 08/25/18 05:17 08/25/18 05:17 Additional Labs: Accuchecks 08/25/18 08/25/18 08/24/18 11:06 05:41 20:55 POC Glucose 190 H 255 H 278 H 08/24/18 06:35 POC Glucose 115 H Laboratory Tests 01/12/18 04/28/18 05/05/18 10:11 08:51 10:33 Hgb Creatinine 2.07 H 1.74 H 1.79 H 06/29/18 08/15/18 08/15/18 09:14 11:07 11:54 Hgb 10.4 L Creatinine 1.61 H 1.83 H 08/25/18 08/25/18 05:17 05:17 Hgb 9.0 L Creatinine 2.04 H Phys Exam - Physical Examination Constitutional: NAD HEENT: PERRLA, moist MMs, sclera anicteric, oral pharynx no lesions cervical collar in place Neck: no nodes, no JVD, supple, full ROM Respiratory: no wheezing, no rales, no rhonchi, clear to auscultation bilateral Cardiovascular: RRR, no significant murmur Gastrointestinal: soft, non-tender, no distention, positive bowel sounds Musculoskeletal: no edema, pulses present Neurological: non-focal, normal sensation, moves all 4 limbs Psychiatric: normal affect, A&O x 3 Skin: no rash Dx/Plan (1) COPD (chronic obstructive pulmonary disease) Status: Chronic Qualifiers: Comment: Stable. Add prn Duonebs. Compensated for now. (2) S/P cervical discectomy Code(s): Z98.890 - OTHER SPECIFIED POSTPROCEDURAL STATES Status: Acute Comment: Pain control per Primary NS team (3) DM type 2 (diabetes mellitus, type 2) Status: Chronic Qualifiers: Diabetes mellitus group home insulin use: with ad terminal makeup operator use Diabetes mellitus complication status: without complication Qualified Code(s): E11.9 - Type 2 diabetes mellitus without complications; Z79.4 - residential (current) use of insulin Comment: Add ISS w accuchecks ACHS (4) Diabetic neuropathy Code(s): E11.40 - TYPE 2 DIABETES MELLITUS WITH DIABETIC NEUROPATHY, UNSP Status: Chronic Qualifiers: Diabetes mellitus type: type 2 (5) Dyslipidemia Code(s): E78.5 - HYPERLIPIDEMIA, UNSPECIFIED Status: Chronic Comment: cont Lipitor (6) GERD (gastroesophageal reflux disease) Code(s): K21.9 - GASTRO-ESOPHAGEAL REFLUX DISEASE WITHOUT ESOPHAGITIS Status: Chronic Qualifiers: Esophagitis presence: without esophagitis Qualified Code(s): K21.9 - Gastro -esophageal reflux disease without esophagitis Comment: add Pepcid BID (7) Hypertension Code(s): I10 - ESSENTIAL (PRIMARY) HYPERTENSION Status: Chronic Qualifiers: Hypertension type: essential hypertension Qualified Code(s): I10 - Essential (primary) hypertension Comment: Controlled. Monitor.Cont Amlodipine,Hydralazine PO TID,Valsartan and Bystolic. Hold HCTZ to avoid dehydration/SOPHIA/Hyponatremia.BP on lower side as well. Add PRN antihypertensives (8) Obesity (BMI 30-39.9) Code(s): E66.9 - OBESITY, UNSPECIFIED Status: Chronic (9) Sleep apnea Code(s): G47.30 - SLEEP APNEA, UNSPECIFIED Status: Chronic Qualifiers: Comment: CPAP at bedside. will use (10) Chronic diastolic CHF (congestive heart failure), NYHA class 2 Code(s): I50.32 - CHRONIC DIASTOLIC (CONGESTIVE) HEART FAILURE Status: Chronic Comment: compensated. monitor - Plan continue antibiotics, PT/OT, respiratory therapy, incentive spirometry, out of bed/ambulate, DVT proph w/SCDs cont IVF for now.Cr slightly high and potassium high too -: recheck Cr in am w Potassium.h/o CKD -: cont home meds as above.HD stable -: monitor fluid status * . Review of Systems - Review of Systems Constitutional: negative: fever, chills, sweats, weakness, malaise, other ENT: negative: Ear Pain, Ear Discharge, Nose Pain, Nose Discharge, Nose Congestion, Mouth Pain, Mouth Swelling, Throat Pain, Throat Swelling, Other Respiratory: negative: Cough, Dry, Shortness of Breath, Hemoptysis, SOB with Excertion, Pleuritic Pain, Sputum, Wheezing Cardiovascular: negative: chest pain, palpitations, orthopnea, paroxysmal nocturnal dyspnea, edema, light headedness, other Gastrointestinal: negative: Nausea, Vomiting, Abdominal Pain, Diarrhea, Constipation, Melena, Hematochezia, Other Genitourinary: negative: Dysuria, Frequency, Incontinence, Hematuria, Retention , Other Musculoskeletal: negative: Neck Pain, Shoulder Pain, Arm Pain, Back Pain, Hand Pain, Leg Pain, Foot Pain, Other Neurological: negative: Weakness, Numbness, Incoordination, Change in Speech, Confusion, Seizures, Other - Medications/Allergies Allergies/Adverse Reactions: Allergies Allergy/AdvReac Type Severity Reaction Status Date / Time codeine AdvReac Verified 03/21/18 16:58 Medications: Current Medications Acetaminophen (Tylenol) 650 mg PO Q4H PRN PRN Reason: OREILLY/Fever Or Mild Pain (1-3) Acetaminophen (Tylenol) 1,000 mg PO Q6H PRN PRN Reason: Mild Pain (1-3) Hydrocodone Bitart/Acetaminophen ([place] 10/325) 1 tab PO Q4H PRN PRN Reason: Moderate Pain (4-6) Last Admin: 08/25/18 02:48 Dose: 1 tab Al Hydroxide/Mg Hydroxide (Maalox) 30 ml PO Q4H PRN PRN Reason: Indigestion Albuterol Sulfate (Proventil Hfa) 2 puff INH Q4H PRN PRN Reason: SOB &/or Wheezing Albuterol/Ipratropium (Duoneb) 3 ml NEB [id number] PRN PRN Reason: Wheezing Amlodipine Besylate (Norvasc) 10 mg PO DAILY JOSE Last Admin: 08/25/18 08:46 Dose: 10 mg Atorvastatin Calcium (Lipitor) 40 mg PO HS [facility] Last Admin: 08/24/18 21:17 Dose: 40 mg Benzonatate (Tessalon) 100 mg PO Q6H PRN PRN Reason: Cough Bisacodyl (Dulcolax) 10 mg MT Q12H PRN PRN Reason: Constipation Cholecalciferol (Vitamin D3) 5,000 units PO DAILY [facility] Last Admin: 08/25/18 08:46 Dose: 5,000 units Clonazepam (Klonopin) 1 mg PO BID [facility] Last Admin: 08/25/18 08:48 Dose: 1 mg Clonidine (Catapres) 0.1 mg PO Q4H PRN PRN Reason: SBP > _160___ Dextrose/Water (Dextrose 50%) 25 gm SLOW IVP PRN PRN PRN Reason: Hypoglycemia Duloxetine HCl (Cymbalta) 60 mg PO DAILY [facility] Last Admin: 08/25/18 08:47 Dose: 60 mg Famotidine (Pepcid) 20 mg PO DAILY [facility] Last Admin: 08/25/18 08:46 Dose: 20 mg Fluticasone Propionate (Flonase Nasal [place]) 0 gm NASAL BID [facility] Last Admin: 08/25/18 08:45 Dose: 1 spr Glucagon (Glucagon) 1 mg IM PRN PRN PRN Reason: Hypoglycemia Guaifenesin (Robitussin Sf) 200 mg PO Q4H PRN PRN Reason: Cough Hydralazine HCl (Apresoline) 10 mg PO TID [facility] Last Admin: 08/25/18 14:00 Dose: 10 mg Hydralazine HCl (Apresoline) 10 mg SLOW IVP Q4H PRN PRN Reason: SBP > 180 and HR < 70 Cefazolin Sodium/Dextrose 2 gm (/ Device) 50 mls @ 100 mls/hr IVPB 0800,1600, 2359 [facility] Last Admin: 08/25/18 08:48 Dose: 50 mls Sodium Chloride (Normal Saline 0.9%) 1,000 mls @ 75 mls/hr IV .[id number] [facility] Last Admin: 08/25/18 12:07 Dose: Not Given Promethazine HCl 12.5 mg/ (Sodium Chloride) 50.5 mls @ 151.5 mls/hr IVPB Q4H PRN PRN Reason: Nausea/Vomiting Dextrose/Water (D5w) 1,000 mls @ 0 mls/hr IV .Q0M PRN PRN Reason: Hypoglycemia Insulin Human Isoph/Insulin Regular (Humulin 70/30) 35 units SC BID [facility] Last Admin: 08/25/18 08:45 Dose: 35 unit Insulin Human Lispro (Humalog) 0 units SC .MODERATE SLIDING SC PRN PRN Reason: Moderate Correctional Scale Last Admin: 08/25/18 12:28 Dose: 2 unit Insulin Human Lispro (Humalog) 0 units SC .BEDTIME SLIDING SC PRN PRN Reason: Bedtime Correctional Scale Last Admin: 08/24/18 21:23 Dose: 3 unit Magnesium Hydroxide (Milk Of Magnesium) 30 ml PO Q12H PRN PRN Reason: Constipation Mometasone Furoate/Formoterol Fumar (Dulera 100 Mcg/5 Mcg Inhaler) 2 puff INH BID-RT [facility] Last Admin: 08/25/18 06:42 Dose: 2 puff Morphine Sulfate (Morphine) 2 mg SLOW IVP Q1H PRN PRN Reason: Severe Pain (7-10) Nebivolol (Bystolic) 10 mg PO DAILY [facility] Last Admin: 08/25/18 08:47 Dose: 10 mg Nitroglycerin (Nitrostat) 0.4 mg SL Q5MIN PRN PRN Reason: Chest Pain Ondansetron HCl (Zofran) 4 mg IVP Q6H PRN PRN Reason: Nausea/Vomiting Pantoprazole Sodium (Protonix) 40 mg PO DAILY [facility] Last Admin: 08/25/18 08:48 Dose: 40 mg Pneumococcal 13-Valent Conj Vacc (Prevnar) 0.5 ml IM .ONCE ONE Stop: 08/25/18 21:01 Prednisone (Prednisone) 20 mg PO DAILY PRN PRN Reason: Dyspnea Sodium Chloride (Flush - Normal Saline) 10 ml IVF PRN PRN PRN Reason: Saline Flush Sodium Chloride ([place] Nasal [place] 0.65%) 0 ml EA NARE QIDPRN PRN PRN Reason: Nasal Congestion Tizanidine HCl (Zanaflex) 4 mg PO Q8H PRN PRN Reason: Muscle Spasm Last Admin: 08/25/18 13:59 Dose: 4 mg Valsartan (Diovan) 160 mg PO DAILY [facility] Last Admin: 08/25/18 08:47 Dose: 160 mg
[2018-08-25] MEDS: Atorvastatin Calcium 40 MG TAB PO SCH (20:15)
[2018-08-25] MEDS ORDERED: Prevnar 13-Val Conj/PF 0.5 ML SYRINGE IM ONE (21:00)
[2018-08-26] MEDS: HYDROcodone/Acetaminophen 10/325 mg Tablet PO PRN (00:08)
[2018-08-26] MEDS: CEFAZOLIN 2 GM in Premix Bag 1 BAG IVPB SCH (00:12)
[2018-08-26] MEDS: Sodium Chloride 0.9% 1,000 ML IV SCH (04:43)
[2018-08-26 05:40] LABS: #Eosinphils 0.1 thou/uL (0.0-0.7); #Lymphocytes 1.9 thou/uL (1.20-3.40); #Monocytes 1.7 thou/uL (0.11-0.59); #Neutrophils 11.6 thou/uL (1.40-6.50); %Basophils 0.2 % (0.0-1.0); %Eosinophils 0.6 % (0.0-10.0); %Lymphocytes 12.4 % (21.0-51.0); %Monocytes 11.2 % (0.0-10.0); %Neutrophils 75.6 % (42.0-75.0); Hemoglobin 9.2 g/dL (12.0-16.0); Mean Corpuscular HGB CONC 32.9 g/dL (32.0-36.0); Mean Corpuscular Hemoglobin 27.4 pg (27.0-31.0); Mean Corpuscular Volume 83.2 fL (78.0-98.0); Mean Platelet Volume 8.4 fL (7.4-10.4); Platelet Count 227 thou/uL (130-400); RBC Distribution Width 13.3 % (11.5-14.5); Red Blood Cell (RBC) Count 3.36 mill/uL (4.20-5.40); White Blood Cell (WBC) Count 15.3 thou/uL (4.8-10.8)
[2018-08-26 06:02] LABS: Anion Gap 17 mmol/L (10-20); BUN (Urea Nitrogen) 40 mg/dL (9.8-20.1); Calc. Creatinine Clearance 42 mL/min (70-130); Calcium 10.4 mg/dL (7.8-10.44); Carbon Dioxide 22 mmol/L (23-31); Chloride 103 mmol/L (98-107); Estimated GFR-MDRD 28; Glucose 97 mg/dL (83-110); Sodium 137 mmol/L (136-145)
[2018-08-26] MEDS: tiZANidine HCl 4 MG TAB PO PRN (06:45)
[2018-08-26 07:25] VITALS: BP 130/72; TEMP 98.5
[2018-08-26] MEDS: Mometasone/Formoterol 120 PUFF INHALER INH SCH (08:35)
--- NOTE | 2018-08-28 07:48 | DIS ---
DATE OF ADMISSION: 08/24/2018 DATE OF DISCHARGE: 08/26/2018 Ms. Chamberlain was admitted to [facility] by Dr. Damien Barkley on 08/24/2018. ADMISSION DIAGNOSIS: Status post anterior cervical fusion. DISCHARGE DIAGNOSIS: Status post anterior cervical fusion. HOSPITAL COURSE: Ms. Chamberlain's hospital course was uncomplicated by any significant concern other than slowness to mobilize and persisted ADELINA drainage. This is stable after a point, where we can remove that today. She was discharged home in good condition with outpatient followup. Job ID: [id number]
== END 2018-08-26 10:18 | disposition home or self-care (01) | DRG 472 ==
LOC: SURG A 05:37
PROVIDERS: ADMIT Surgery; ATTEND Surgery
PROC: 0RG2070 Fusion of 2 or more Cervical Vertebral Joints with Autologous Tissue Substitute, Anterior Approach, Anterior Column, Open Approach (ICD-10-PCS; principal; 2018-08-24)
PROC: 0RB30ZZ Excision of Cervical Vertebral Disc, Open Approach (ICD-10-PCS; 2018-08-24)
DX: M48.02 Spinal stenosis, cervical region (principal); I50.32 Chronic diastolic (congestive) heart failure; M54.12 Radiculopathy, cervical region; E11.40 Type 2 diabetes mellitus with diabetic neuropathy, unspecified; E78.5 Hyperlipidemia, unspecified; K21.9 Gastro-esophageal reflux disease without esophagitis; J44.9 Chronic obstructive pulmonary disease, unspecified; E66.9 Obesity, unspecified; G47.30 Sleep apnea, unspecified; I11.0 Hypertensive heart disease with heart failure; Z88.5 Allergy status to narcotic agent; Z79.4 Long term (current) use of insulin; Z98.890 Other specified postprocedural states; Z68.36 Body mass index [BMI] 36.0-36.9, adult
CPT/HCPCS: 36415; 36416; 76000; 80048; 83735; 85025; 94664; C1713; C1776; J0131; J0690; J1100; J1815; J1885; J2001; J2270; J2405; J2704; J2765; J3010; J3490; P9045

== ENCOUNTER 2018-10-09 08:03 | Outpatient (CLI) | payer MEDICARE, BC ==
--- NOTE | 2018-10-09 08:22 | RAD ---
EXAM: XR Cerv Sp Ap Lat STANDARD PROVIDED CLINICAL HISTORY: Neck pain. Follow-up surgery. COMPARISON: 07/17/2018 FINDINGS: There have been interval postsurgical changes related to anterior cervical fusion of C4-C7 with an an terior plate and screws transfixing these levels. Intradiscal prostheses are also present at these levels. There is minimal lucency surrounding the screws in the C5 vertebral body. The plate is not en tirely flush with the C5 and C6 vertebral bodies. No fracture or subluxation is seen. A cervical spine collar is noted in place. The prevertebral soft tissues are within normal limits. Vascular calc ifications are seen in the thoracic aorta. IMPRESSION: Interval postsurgical changes related to anterior cervical fusion from C4 to C7. There is lucency osmin rounding the screws within the C5 vertebral body.
== END 2018-10-09 08:04 | disposition home or self-care (01) ==
LOC: TBSIIMAG 08:03
PROVIDERS: ATTEND Surgery
DX: M54.2 Cervicalgia (principal); R93.7 Abnormal findings on diagnostic imaging of other parts of musculoskeletal system; R80.9 Proteinuria, unspecified; J44.9 Chronic obstructive pulmonary disease, unspecified; E11.21 Type 2 diabetes mellitus with diabetic nephropathy; K21.9 Gastro-esophageal reflux disease without esophagitis; M19.90 Unspecified osteoarthritis, unspecified site; I11.9 Hypertensive heart disease without heart failure; N39.0 Urinary tract infection, site not specified; C50.919 Malignant neoplasm of unspecified site of unspecified female breast; D64.9 Anemia, unspecified; E78.00 Pure hypercholesterolemia, unspecified; Z98.1 Arthrodesis status
CPT/HCPCS: 36415; 72040; 80053; 80061; 80069; 81003; 82306; 82570; 84156; 85027; 85652

== ENCOUNTER 2019-02-15 10:06 | Outpatient (CLI) | payer MEDICARE, BC ==
--- NOTE | 2019-02-15 12:46 | MRI ---
MRI LUMBAR SPINE WITHOUT CONTRAST: INDICATIONS: Lumbar radicular pain. FINDINGS: The lumbar vertebrae maintain normal height and alignment. The disk spaces are maintained. Vertebral bodies exhibit normal signal with no evidence of edema. L1-L2: Mild disk bulge flattens the anterior thecal sac. No significant central canal stenosis. L2-L3: There is a small annular fissure. There is a mild diffuse disk bulge flattening the anterior t hecal sac. Mild facet hypertrophy. Posterior epidural fat is present. These changes result in mild ce ntral canal stenosis. L3-L4: Mild disk bulge. Mild facet hypertrophy. No significant central canal or foraminal stenosis. L4-L5: Mild disk bulge. Mild facet arthrosis and hypertrophy. No significant central canal or foramin al stenosis. L5-S1: Annular fissure. Small focal protrusion centrally abuts the anterior thecal sac. This does con tact the traversing left S1 nerve root. There is mild left foraminal stenosis due to disk osteophyte and facet hypertrophy. Possible contact with the exiting left L5 nerve root. No significant central c anal stenosis. IMPRESSION: 1. Annular fissure with small protrusion at L5-S1 as described above. 2. Mild disk bulge at other levels as described. 3. There are numerous renal cystic lesions identified. A cystic lesion in the left lateral renal eliza ex appears to exhibit a fluid-fluid level. When comparison is made to a prior CT abdomen from 2016 nu merous cystic lesions were noted at that time on the CT. Consider follow-up CT abdomen with contrast to assess stability. POS: [facility]
== END 2019-02-15 10:07 | disposition home or self-care (01) ==
LOC: BICMRI 10:06
PROVIDERS: ATTEND Family Medicine
DX: M54.16 Radiculopathy, lumbar region (principal); N28.1 Cyst of kidney, acquired; M51.27 Other intervertebral disc displacement, lumbosacral region
CPT/HCPCS: 72148

== ENCOUNTER 2019-02-21 09:17 | Outpatient (CLI) | payer MEDICARE, BC ==
--- NOTE | 2019-02-21 09:35 | RAD ---
EXAM: Cervical spine 3 views: HISTORY: Cervical stenosis, status post ACDF COMPARISON: 11/22/2018 FINDINGS: Anterior cervical fusion changes at C4, C5, C6, and C7, stable. Odontoid and C1 are partially obscured on the AP open mouth view. No evidence for acute fracture or dislocation involving the visualized spine. There are disc osteophytosis and facet arthrosis changes. No evidence for malalignment. No evidence for a bone lesion. IMPRESSION: Spondylosis. No significant acute process. Stable exam.
== END 2019-02-21 09:18 | disposition home or self-care (01) ==
LOC: TBSIIMAG 09:17
PROVIDERS: ATTEND Surgery
DX: M48.02 Spinal stenosis, cervical region (principal); M47.812 Spondylosis without myelopathy or radiculopathy, cervical region
CPT/HCPCS: 72040

== ENCOUNTER 2019-03-08 09:19 | Outpatient (CLI) | payer MEDICARE, BC ==
--- NOTE | 2019-03-08 11:05 | CT ---
CT ABDOMEN WITHOUT CONTRAST: HISTORY: Complex renal cyst on lumbar spine MRI of 02/15/2019 noted in the left kidney. FINDINGS: Absence of oral and IV contrast reduces the sensitivity of the exam particularly for evaluation of so lid organs involved. There are patchy ground glass infiltrates in the visualized lung lezama. There is a 2 cm mass in the right breast which contains fat, compatible with fat necrosis. No free air or free fluid is seen in the abdomen or pelvis. No free air or free fluid is seen in the abdomen. There are vascular calcifications without evidence of aneurysmal dilatation of the abdominal aorta. Degenerative changes are present in the spine. The patient is post cholecystectomy. The liver demonstrates an irregular surface, consistent with cirrhosis. The spleen is normal in size. There are bilateral renal cysts. A 2 cm, partially exophytic mass arising from the left mid kidney do es not meet all criteria for a simple cyst. This corresponds to the finding on the MRI. No calculi are seen in the kidneys or visualized portions of the ureters. No hydroureteronephrosis is seen. IMPRESSION: 1. Ground glass infiltrates in the lung bases. 2. Cirrhosis of the liver. 3. Bilateral renal cysts. 4. A 2 cm complex cystic mass in the left kidney. A follow-up MRI in three months would be helpful. POS: [facility]
== END 2019-03-08 09:20 | disposition home or self-care (01) ==
LOC: BICCT 09:19
PROVIDERS: ATTEND Family Medicine
DX: N28.1 Cyst of kidney, acquired (principal); K74.60 Unspecified cirrhosis of liver; N28.89 Other specified disorders of kidney and ureter
CPT/HCPCS: 74150; 82565

== ENCOUNTER 2019-03-18 12:23 | Inpatient (IN) | payer MEDICARE, BC ==
[2019-03-18] MEDS ORDERED: methylPREDNISolone Sod Succ/PF 125 MG/2 ML VIAL ONE (12:57)
[2019-03-18 13:07] LABS: ALT (SGPT) 16 U/L (8-55); AST (SGOT) 18 U/L (5-34); Albumin 3.9 g/dL (3.4-4.8); Alkaline Phosphatase 141 U/L (40-110); Anion Gap 17 mmol/L (10-20); BUN (Urea Nitrogen) 32 mg/dL (9.8-20.1); Bilirubin, Total 0.4 mg/dL (0.2-1.2); Calc. Creatinine Clearance 0 mL/min (70-130); Calcium 9.2 mg/dL (7.8-10.44); Carbon Dioxide 21 mmol/L (23-31); Chloride 102 mmol/L (98-107); Estimated GFR-MDRD 18; Globulin 2.6 g/dL (2.4-3.5); Glucose 230 mg/dL (83-110); Potassium 4.8 mmol/L (3.5-5.1); Protein, Total 6.5 g/dL (6.0-8.3); Sodium 135 mmol/L (136-145)
[2019-03-18 13:16] LABS: #Eosinphils 0.2 thou/uL (0.0-0.7); #Lymphocytes 0.9 thou/uL (1.20-3.40); #Monocytes 0.7 thou/uL (0.11-0.59); #Neutrophils 4.7 thou/uL (1.40-6.50); %Basophils 0.7 % (0.0-1.0); %Eosinophils 3.4 % (0.0-10.0); %Lymphocytes 13.3 % (21.0-51.0); %Neutrophils 71.7 % (42.0-75.0); Hemoglobin 8.7 g/dL (12.0-16.0); Mean Corpuscular HGB CONC 31.7 g/dL (32.0-36.0); Mean Corpuscular Hemoglobin 25.9 pg (27.0-31.0); Mean Corpuscular Volume 81.8 fL (78.0-98.0); Mean Platelet Volume 8.3 fL (7.4-10.4); Platelet Count 198 thou/uL (130-400); Red Blood Cell (RBC) Count 3.36 mill/uL (4.20-5.40); White Blood Cell (WBC) Count 6.5 thou/uL (4.8-10.8)
[2019-03-18] MEDS ORDERED: Metoprolol Tartrate 5 MG/5 ML VIAL ONE (13:46)
--- NOTE | 2019-03-18 13:52 | RAD ---
Chest AP view INDICATION: Cough and shortness of breath COMPARISON: None FINDINGS: Lungs:Right basilar atelectasis Cardiac silhouette:Stable moderate cardiomegaly Pulmonary vasculature:Normal Pleural spaces:No pleural effusion or pneumothorax is demonstrated. Upper abdomen:No abnormality seen. Osseous structures: ACDF of the lower cervical spine. No acute fracture or subluxation demonstrated. Additional findings:Cholecystectomy clips within the right upper quadrant. IMPRESSION: Stable elevation the right hemidiaphragm with right basilar atelectasis. Stable moderate cardiomegaly.
[2019-03-18 15:39] LABS: Lactic Acid 1.2 mmol/L (0.5-2.2)
[2019-03-18 16:31] LABS: Bilirubin Negative (Negative); Blood, Urine Negative (Negative); Clarity Clear (Clear); Glucose, Urine (Dipstick) Normal (Negative); Leukocyte Negative Leu/uL (Negative); Nitrite Negative (Negative); Protein, Urine (Dipstick) 10 mg/dL (Neg-Trace); Urobilinogen Normal mg/dL (Less than 2)
[2019-03-18 18:03] VITALS: BMI 40.3
[2019-03-18] MEDS ORDERED: Diabetic Tussin 200 MG/10 ML UDCUP PO PRN (18:38)
[2019-03-18] MEDS ORDERED: Benzonatate 100 MG CAP PO PRN (18:38)
[2019-03-18] MEDS ORDERED: Ondansetron ODT 4 MG TAB PO PRN (18:38)
[2019-03-18] MEDS ORDERED: hydrALAZINE 20 MG/ML VIAL SLOW IVP PRN (18:38)
[2019-03-18] MEDS ORDERED: Dextrose 50% Abboject 50 ML SYRINGE SLOW IVP PRN (18:39)
[2019-03-18] MEDS ORDERED: Dextrose 5% in Water 1,000 ML IV PRN (18:39)
[2019-03-18] MEDS ORDERED: Non-Formulary Item 1 EACH (Insulin Aspart Prot/Insuln Asp [Novolog Mix 70-30 Flexpen Syrn SC SCH (21:00)
[2019-03-18] MEDS: Azithromycin 500 MG in Sodium Chloride 0.9% 250 ML 250 ML IVPB SCH (21:38)
[2019-03-18] MEDS: Sodium Chloride 0.9% 1,000 ML IV SCH (21:38)
[2019-03-18] MEDS: Acetaminophen 500 MG TAB PO PRN (21:58)
[2019-03-18] MEDS: Ondansetron PF 4 MG/2 ML Vial IVP PRN (21:58)
[2019-03-18] MEDS: hydrALAZINE 10 MG TAB PO SCH (21:59)
[2019-03-18] MEDS: Atorvastatin Calcium 40 MG TAB PO SCH (22:04)
[2019-03-18] MEDS: Apixaban 5 MG TAB PO SCH (22:04)
[2019-03-18] MEDS: Famotidine 20 MG TAB PO SCH (22:04)
[2019-03-18] MEDS: clonazePAM 1 MG TAB PO SCH (22:05)
[2019-03-18] MEDS: Fluticasone Propionate Nasal Spray 16 gm Bottle NASAL SCH (22:05)
[2019-03-18] MEDS: HumuLIN 70/30 (300 UNITS/3 ML VIAL) SC SCH (22:06)
[2019-03-18] MEDS: tiZANidine HCl 4 MG TAB PO PRN (23:48)
[2019-03-18] MEDS: methylPREDNISolone Sod Succ 40 MG VIAL IVP SCH (23:53)
--- NOTE | 2019-03-19 01:10 | HP ---
PRIMARY CARE PROVIDER: Dr. Jeramie Toure. CHIEF COMPLAINT: Shortness of breath and cough. HISTORY OF PRESENT ILLNESS: This is a 74-year-old female, who presents to [facility] Emergency Department complaining of increased shortness of breath over the last 3 to 4 days in the context of known COPD, on chronic oxygen supplementation at 3 L/minute by nasal cannula at baseline. Patient states on 03/15/2019, she noticed increased cough, shortness of breath, worsening beyond her baseline. Patient states she was recently seen by Dr. Feliciano and placed on oral antibiotics and a prednisone taper, completing the prescription in the last 72 hours. Patient states she also was treated with antibiotics and oral steroids at the beginning of February 2019 by her primary care provider. Patient denied any documented fever or chills, but states her has had upper respiratory infection with persistent cough. Patient continued to use her regular bronchodilator therapy and metered-dose inhalers, but denied any hemoptysis, hematemesis, or recent vaccinations. Patient does admit to continuing oxygen at 3 L/minute by nasal cannula, but occasionally increases to 4 L/minute if her O2 saturation sustains in the low 80% range. In the emergency room, patient underwent general evaluation including chest imaging showing no acute infiltrate. EKG showed atrial fibrillation with heart rates in the low 100s in the context of known and chronic atrial fibrillation. Patient received IV Levaquin and Solu-Medrol in addition to bronchodilator therapy with DuoNebs and IV Lopressor due to the mildly elevated heart rate. PAST MEDICAL HISTORY: 1. Chronic obstructive pulmonary disease. 2. Sleep apnea, on nocturnal CPAP. 3. Chronic hypoxic respiratory failure, on oxygen supplementation at 3 L/minute by nasal cannula. 4. Gastroesophageal reflux disease. 5. Diabetes mellitus, type 2, insulin requiring. 6. Migraine headaches. 7. Gastroesophageal reflux disease. 8. Hypertension. 9. Breast cancer, status post chemotherapy and radiation treatments. 10. Chronic back pain. PAST SURGICAL HISTORY: 1. Status post appendectomy. 2. Status post cholecystectomy. 3. Status post hysterectomy. 4. Status post foot surgery. 5. 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 CURRENT MEDICATIONS: 1. Albuterol sulfate 2 puffs inhaled q.4 hours p.r.n. 2. Amlodipine 10 mg p.o. daily. 3. Arimidex 1 mg p.o. daily. 4. Lipitor 40 mg p.o. at bedtime. 5. Vitamin D3 is 5000 units p.o. daily. 6. Klonopin 1 mg p.o. b.i.d. 7. Cymbalta 60 mg p.o. daily. 8. Mchenry-3 fatty acids 1 capsule p.o. daily. 9. Flonase 1 spray in each naris daily. 10. Advair Diskus 100/50 two inhalations b.i.d. 11. Hydralazine 10 mg p.o. t.i.d. 12. NovoLog 70/30, 35 units subcutaneously b.i.d. 13. Combivent Respimat two inhalations b.i.d. 14. Omeprazole 40 mg p.o. daily. 15. Tizanidine 4 mg p.o. q.i.d. p.r.n. 16. Valsartan/hydrochlorothiazide 160/12.5 mg 1 tablet p.o. daily. 17. Eliquis 5 mg p.o. b.i.d. ALLERGIES: TO CODEINE. FAMILY HISTORY: Positive for diabetes in patient's mother. Father with history of cancer. SOCIAL HISTORY: . Resides in [place], [place]. No current alcohol, tobacco, or illicit drug use. REVIEW OF SYSTEMS: CONSTITUTIONAL: Negative for weight loss or gain, ability to conduct usual activities. SKIN: Negative for rash, itching. EYES: Negative for double vision, pain. ENT/MOUTH: Negative for nose bleeding, neck stiffness, pain, tenderness. CARDIOVASCULAR: Negative for palpitations, dyspnea on exertion, orthopnea. RESPIRATORY: Negative for shortness of breath, wheezing, cough, hemoptysis, fever or night sweats. GASTROINTESTINAL: Negative for poor appetite, abdominal pain, heartburn, nausea, vomiting, constipation, or diarrhea. GENITOURINARY: Negative for urgency, frequency, dysuria, nocturia. MUSCULOSKELETAL: Negative for pain, swelling. NEUROLOGIC/PSYCHIATRIC: Negative for anxiety, depression. ALLERGY/IMMUNOLOGIC: Negative for skin rash, bleeding tendency. Otherwise, negative, except as stated per HPI. PHYSICAL EXAMINATION: VITAL SIGNS: On admission, blood pressure 145/53, pulse 75, respiratory rate 20, temperature 98.1 degrees Fahrenheit, and O2 saturation 98% on 3 L/minute by nasal cannula. GENERAL APPEARANCE: This is a 74-year-old female, alert and oriented x3, pleasant, responsive, talkative, in no acute distress. HEENT: Pupils are equal, round, reactive to light and accommodation. Extraocular muscles are intact. No scleral icterus. No conjunctival injection. Nares are patent. OP is clear. Teeth in fair repair. NECK: Supple. No cervical adenopathy. No thyromegaly. No carotid bruits. No JVD appreciated. Cervical spine, with full active and passive range of motion. No meningeal signs noted. CHEST: Expiratory wheezes bilaterally in all lung lezama with prolonged expiratory phase. CARDIOVASCULAR EXAM: S1-S2 with irregular rate and rhythm. Heart sounds are distant. ABDOMEN: Obese, soft, nontender, and nondistended. Bowel sounds are positive in all 4 quadrants. There is no hepatosplenomegaly. No abdominal bruits. No rebound or guarding appreciated. EXTREMITIES: Warm and dry with fair turgor. No clubbing, cyanosis, or asymmetric edema appreciated. Pulses palpable distally at the dorsalis pedis, posterior tibial, and popliteal arteries bilaterally. Capillary refill less than 2 seconds. NEUROLOGIC: Cranial nerves 2 through 12 are grossly intact. No focal or lateralizing signs appreciated. PERTINENT LABORATORY AND X-RAY FINDINGS: Sodium 135, potassium 4.8, chloride 102, CO2 of 21, BUN 32, creatinine 2.54, estimated GFR of 18, and glucose 230. Lactic acid level ranged between 1.2 to 2.3. Calcium 9.2, alkaline phosphatase 141. CBC showed a white blood cell count of 6.5, hemoglobin 8.7, hematocrit 28, platelet count 198 with 72% neutrophils. Urinalysis negative. Portable chest x-ray dated 03/18/2019 showed right basilar atelectasis and elevated right hemidiaphragm. Moderate cardiomegaly. EKG dated 03/18/2019, by my interpretation shows atrial fibrillation with heart rates in the low 100s. ASSESSMENT/PLAN: 1. Acute chronic obstructive pulmonary disease exacerbation. Patient will be admitted to the medical floor. We will continue general pulmonary supportive management with DuoNeb q.4 hours. Add Solu-Medrol 40 mg IV q.6 hours with additional Zithromax 500 mg IV daily. Consult Pulmonology Service in the a.m. for any further recommendations. Continue oxygen supplementation to maintain O2 saturations greater than or equal to 90%. 2. Acute on chronic hypoxic respiratory failure. See #1 above. 3. Acute kidney injury on chronic kidney disease, stage 4. Avoid nephrotoxic agents and limit contrast exposure. Hold ISABELLE inhibitor/ARBs. Limit nephrotoxic agents and contrast exposure. 4. Atrial fibrillation with variable rate. Mild tachycardia noted at the time of admission. Continue rate control strategy. Continue Eliquis 5 mg b.i.d. Resume Bystolic 10 mg daily. 5. Prophylaxis. SCDs while in bed. Pepcid 20 mg p.o. b.i.d. 6. Code status. Full. Surrogate medical decision maker is patient's spouse. Job ID: [id number]
[2019-03-19 06:07] LABS: Band 17 % (5-11); Hemoglobin 7.7 g/dL (12.0-16.0); Lymphocytes 8 % (21-51); MDiff Complete? YES; Mean Corpuscular Hemoglobin 25.8 pg (27.0-31.0); Mean Corpuscular Volume 80.6 fL (78.0-98.0); Mean Platelet Volume 7.7 fL (7.4-10.4); Neutrophil 75 % (42-75); Platelet Count 182 thou/uL (130-400); Platelet Morphology Comment Appears Adequate; RBC Distribution Width 13.8 % (11.5-14.5); Red Blood Cell (RBC) Count 2.97 mill/uL (4.20-5.40); White Blood Cell (WBC) Count 5.5 thou/uL (4.8-10.8)
[2019-03-19 06:12] LABS: Anion Gap 13 mmol/L (10-20); BUN (Urea Nitrogen) 38 mg/dL (9.8-20.1); Calc. Creatinine Clearance 32 mL/min (70-130); Calcium 9.2 mg/dL (7.8-10.44); Carbon Dioxide 24 mmol/L (23-31); Chloride 102 mmol/L (98-107); Estimated GFR-MDRD 19; Glucose 402 mg/dL (83-110); Potassium 4.9 mmol/L (3.5-5.1); Sodium 134 mmol/L (136-145)
[2019-03-19] MEDS: HumaLOG 300 UNITS/3 ML VIAL SC PRN ×4 (06:47→20:29)
[2019-03-19] MEDS: methylPREDNISolone Sod Succ 40 MG VIAL IVP SCH ×4 (06:47→23:05)
[2019-03-19] MEDS: DULoxetine 60 MG CAP PO SCH (08:08)
[2019-03-19] MEDS: hydrALAZINE 10 MG TAB PO SCH ×3 (08:08→20:25)
[2019-03-19] MEDS: Apixaban 5 MG TAB PO SCH ×2 (08:09→20:25)
[2019-03-19] MEDS: Hydrochlorothiazide 25 MG TAB PO SCH (08:09)
[2019-03-19] MEDS: HumuLIN 70/30 (300 UNITS/3 ML VIAL) SC SCH ×2 (08:09→20:29)
[2019-03-19] MEDS: Anastrozole 1 MG TAB PO SCH (08:09)
[2019-03-19] MEDS: Nebivolol HCl 5 MG TAB PO SCH (08:09)
[2019-03-19] MEDS: Fluticasone Propionate Nasal Spray 16 gm Bottle NASAL SCH ×2 (08:09→20:26)
[2019-03-19] MEDS: Amlodipine 10 MG TAB PO SCH (08:09)
[2019-03-19] MEDS: Fish Oil 1,000 MG CAP PO SCH (08:09)
[2019-03-19] MEDS: clonazePAM 1 MG TAB PO SCH ×2 (08:10→20:25)
[2019-03-19] MEDS: Valsartan 80 MG TAB PO SCH ×2 (09:46→11:53)
[2019-03-19] MEDS: Acetaminophen 500 MG TAB PO PRN (11:56)
[2019-03-19] MEDS: Ondansetron PF 4 MG/2 ML Vial IVP PRN (12:04)
[2019-03-19] MEDS: Sodium Chloride 0.9% 1,000 ML IV SCH ×3 (12:05→20:28)
[2019-03-19] MEDS: Acetaminophen/Codeine 30-300mg Tablet PO PRN ×2 (17:23→21:41)
--- NOTE | 2019-03-19 19:10 | PDOC.HOSPP ---
- Subjective Encounter Date: 03/19/19 Encounter Time: 18:25 Subjective: f/u for COPD exacerbation. Feels about the same over last 24h. No fever or chills. - Objective Vital Signs & Weight: Vital Signs (12 hours) Temp Pulse Resp BP Pulse Ox 03/19/19 17:58 94 16 134/69 99 03/19/19 16:31 98.5 F 93 20 162/71 H 98 03/19/19 11:52 98.8 F 97 20 135/71 97 03/19/19 10:40 79 16 98 03/19/19 08:15 98.3 F 95 20 162/66 H 98 03/19/19 07:12 88 16 98 Weight Weight 220 lb 7.396 oz I&O: 03/18/19 03/19/19 03/20/19 06:59 06:59 06:59 Intake Total 2425 Balance 2425 Result Diagrams: 03/19/19 05:41 03/19/19 05:41 Additional Labs: Accuchecks 03/19/19 03/19/19 03/19/19 16:38 11:53 04:18 POC Glucose 221 H 276 H 407 H 03/18/19 19:51 POC Glucose 183 H Microbiology 03/28/16 13:30 Stool C. difficile GDH Antigen & Toxins - Final 03/26/16 05:15 Stool - Loose Campylobacter Antigen Assay - Final 03/26/16 05:15 Bowel - Loose C. difficile GDH Antigen & Toxins - Final 03/28/16 13:30 Urine voided Urine Culture - Preliminary 03/28/16 10:17 Venous blood - Right Hand Blood Culture - Preliminary Specimen has been received and culture in progress. No Growth to date. 03/28/16 10:17 Venous blood - Right Arm Blood Culture - Preliminary Specimen has been received and culture in progress. No Growth to date. Laboratory Tests 03/25/16 03/25/16 03/26/16 10:21 12:29 05:47 WBC 15.1 H Hgb 10.2 L Neutrophils % Neutrophils % (Manual) Band Neuts % (Manual) Sodium 133 L 134 L Potassium 6.0 H 4.7 Creatinine 3.25 H 2.50 H Magnesium Vitamin B12 03/26/16 03/28/16 03/28/16 05:47 04:39 13:49 WBC 10.4 Hgb 8.8 L Neutrophils % Neutrophils % (Manual) Band Neuts % (Manual) Sodium Potassium Creatinine Magnesium 1.0 L Vitamin B12 565 03/18/19 03/18/19 03/19/19 12:40 13:02 05:41 WBC Hgb 8.7 L Neutrophils % 71.7 Neutrophils % (Manual) 75 Band Neuts % (Manual) 17 H Sodium Potassium Creatinine 2.54 H Magnesium Vitamin B12 Microbiology 03/18/19 13:33 Venous blood - Left Hand Blood Culture - Preliminary Specimen has been received and culture in progress. No Growth to date. 03/18/19 13:02 Venous blood - Left Hand Blood Culture - Preliminary Gram Variable [facility] Hospitalist ROS - Medication Medications: Active Medications Generic Name Dose Route Start Last Admin Trade Name Freq PRN Reason Stop Dose Admin Acetaminophen 1,000 mg 03/18/19 18:38 03/19/19 11:56 Tylenol PO 1,000 mg Q6H PRN Administration Mild Pain (1-3) Acetaminophen/Codeine Phosphate 1 tab 03/19/19 13:49 03/19/19 17:23 Tylenol #3 PO 1 tab Q4H PRN Administration Mild-Moderate Pain (1-5) Albuterol/Ipratropium 3 ml 03/18/19 22:30 03/19/19 13:52 Duoneb NEB 3 ml [id number] JOSE Administration Amlodipine Besylate 10 mg 03/19/19 09:00 03/19/19 08:09 Norvasc PO 10 mg DAILY JOSE Administration Anastrozole 1 mg 03/19/19 09:00 03/19/19 08:09 Arimidex PO 1 mg DAILY JOSE Administration Apixaban 5 mg 03/18/19 21:00 03/19/19 08:09 Eliquis PO 5 mg BID JOSE Administration Atorvastatin Calcium 40 mg 03/18/19 21:00 03/18/19 22:04 Lipitor PO 40 mg HS JOSE Administration Cholecalciferol 5,000 units 03/19/19 09:00 03/19/19 08:08 Vitamin D3 PO 5,000 units DAILY JOSE Administration Clonazepam 1 mg 03/18/19 21:00 03/19/19 08:10 Klonopin PO 1 mg BID JOSE Administration Duloxetine HCl 60 mg 03/19/19 09:00 03/19/19 08:08 Cymbalta PO 60 mg DAILY JOSE Administration Famotidine 20 mg 03/18/19 21:00 03/18/19 22:04 Pepcid PO 20 mg QPM JOSE Administration Fish Oil 1,000 mg 03/19/19 09:00 03/19/19 08:09 Fish Oil PO 1,000 mg DAILY JOSE Administration Fluticasone Propionate 0 gm 03/18/19 21:00 03/19/19 08:09 Flonase Nasal [place] NASAL 1 spr BID JOSE Administration Hydralazine HCl 10 mg 03/18/19 21:00 03/19/19 14:52 Apresoline PO 10 mg TID JOSE Administration Hydrochlorothiazide 12.5 mg 03/19/19 09:00 03/19/19 08:09 Hydrochlorothiazide PO 12.5 mg DAILY JOSE Administration Azithromycin 500 mg/ Sodium 250 mls @ 250 mls/hr 03/18/19 20:00 03/18/19 21: 38 Chloride IVPB 250 mls Q24HR JOSE Administration Sodium Chloride 1,000 mls @ 50 mls/hr 03/18/19 19:00 03/19/19 14:42 Normal Saline 0.9% IV Not Given .Q20H JOSE Insulin Human Isoph/Insulin Regular 35 units 03/18/19 21:00 03/19/19 08:09 Humulin 70/30 SC 35 unit BID JOSE Administration Insulin Human Lispro 0 units 03/18/19 18:39 03/19/19 17:23 Humalog SC 4 unit .MODERATE SLIDING SC PRN Administration Moderate Correctional Scale Methylprednisolone Sodium Succinate 40 mg 03/18/19 23:59 03/19/19 17:23 Solu-Medrol IVP 40 mg Q6HR JOSE Administration Nebivolol 10 mg 03/19/19 09:00 03/19/19 08:09 Bystolic PO 10 mg DAILY JOSE Administration Ondansetron HCl 4 mg 03/18/19 18:38 03/19/19 12:04 Zofran IVP 4 mg Q6H PRN Administration Nausea/Vomiting Sodium Chloride 10 ml 03/18/19 19:06 03/19/19 08:10 Flush - Normal Saline IVF 10 ml PRN PRN Administration Saline Flush Tizanidine HCl 4 mg 03/18/19 18:38 03/18/19 23:48 Zanaflex PO 4 mg QID PRN Administration Muscle Spasm Valsartan 160 mg 03/19/19 09:00 03/19/19 11:53 Diovan PO 160 mg DAILY JOSE Administration - Exam General Appearance: NAD, awake alert Eye: PERRL, anicteric sclera ENT: normocephalic atraumatic, no oropharyngeal lesions Neck: supple, symmetric, no JVD, no thyromegaly Heart: RRR, no murmur, no gallops, no rubs, normal peripheral pulses Respiratory: rhonchi, tachypneic Respiratory - other findings: I/E wheezes, diminished flow bilat Gastrointestinal: soft, non-tender, non-distended, normal bowel sounds, no palpable masses Gastrointestinal - other findings: Obese Extremities: no cyanosis, no clubbing, 1+ LE edema Skin: normal turgor, no lesions Neurological: cranial nerve grossly intact, no new deficit Musculoskeletal: normal tone, normal strength Psychiatric: normal affect, A&O x 3 Hosp A/P (1) Acute exacerbation of chronic obstructive pulmonary disease (COPD) Code(s): J44.1 - CHRONIC OBSTRUCTIVE PULMONARY DISEASE W (ACUTE) EXACERBATION Status: Acute Plan: Continue Zithromax, Solumedrol, Duonebs, add Dulera 2puffs BID (2) Acute on chronic respiratory failure with hypoxemia Code(s): J96.21 - ACUTE AND CHRONIC RESPIRATORY FAILURE WITH HYPOXIA Status: Acute Plan: See above, titrate O2 PRN (3) Acute renal failure Status: Acute Qualifiers: Acute renal failure type: unspecified Qualified Code(s): N17.9 - Acute kidney failure, unspecified Plan: Improved, continue low-volume IVF's, avoid nephrotoxic meds/limit contrast exposure (4) DM type 2 (diabetes mellitus, type 2) Status: Chronic Qualifiers: Diabetes mellitus senior administrator support insulin use: with group home use Diabetes mellitus complication status: without complication Qualified Code(s): E11.9 - Type 2 diabetes mellitus without complications; 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
[2019-03-19] MEDS ORDERED: Mometasone/Formoterol 120 PUFF INHALER INH SCH (19:30)
[2019-03-19] MEDS: Mometasone/Formoterol 120 PUFF INHALER INH SCH ×2 (19:36→19:48)
[2019-03-19] MEDS: tiZANidine HCl 4 MG TAB PO PRN (20:25)
[2019-03-19] MEDS: Senokot S 8.6-50 MG TAB PO SCH (20:25)
[2019-03-19] MEDS: Atorvastatin Calcium 40 MG TAB PO SCH (20:25)
[2019-03-19] MEDS: Famotidine 20 MG TAB PO SCH (20:25)
[2019-03-19] MEDS: Azithromycin 500 MG in Sodium Chloride 0.9% 250 ML 250 ML IVPB SCH (20:26)
[2019-03-19] MEDS: BIOTIN 1000 MCG PO SCH ×2 (23:00→23:01)
[2019-03-20 06:22] LABS: Band 5 % (5-11); Hemoglobin 7.5 g/dL (12.0-16.0); Hypochromia SLIGHT = 6-15 cells (100X) (0-5/hpf); Lymphocytes 5 % (21-51); MDiff Complete? YES; Mean Corpuscular HGB CONC 32.4 g/dL (32.0-36.0); Mean Corpuscular Volume 80.3 fL (78.0-98.0); Mean Platelet Volume 7.7 fL (7.4-10.4); Metamyelocyte 1 % (0-0); Neutrophil 89 % (42-75); Platelet Count 204 thou/uL (130-400); Platelet Morphology Comment Appears Adequate; RBC Distribution Width 14.1 % (11.5-14.5); Red Blood Cell (RBC) Count 2.89 mill/uL (4.20-5.40); White Blood Cell (WBC) Count 9.3 thou/uL (4.8-10.8)
[2019-03-20] MEDS: methylPREDNISolone Sod Succ 40 MG VIAL IVP SCH ×4 (06:22→23:01)
[2019-03-20] MEDS: HumaLOG 300 UNITS/3 ML VIAL SC PRN ×4 (06:23→20:42)
[2019-03-20 06:37] LABS: Anion Gap 12 mmol/L (10-20); BUN (Urea Nitrogen) 41 mg/dL (9.8-20.1); Calc. Creatinine Clearance 34 mL/min (70-130); Calcium 9.4 mg/dL (7.8-10.44); Carbon Dioxide 25 mmol/L (23-31); Chloride 104 mmol/L (98-107); Estimated GFR-MDRD 21; Glucose 336 mg/dL (83-110); Potassium 4.6 mmol/L (3.5-5.1); Sodium 136 mmol/L (136-145)
[2019-03-20] MEDS: Mometasone/Formoterol 120 PUFF INHALER INH SCH (06:43)
[2019-03-20] MEDS: Acetaminophen/Codeine 30-300mg Tablet PO PRN ×3 (08:07→21:53)
[2019-03-20] MEDS: Ondansetron PF 4 MG/2 ML Vial IVP PRN ×2 (08:07→22:01)
[2019-03-20] MEDS: Nebivolol HCl 5 MG TAB PO SCH (08:09)
[2019-03-20] MEDS: Senokot S 8.6-50 MG TAB PO SCH ×2 (08:10→20:41)
[2019-03-20] MEDS: Amlodipine 10 MG TAB PO SCH (08:10)
[2019-03-20] MEDS: hydrALAZINE 10 MG TAB PO SCH ×3 (08:10→20:41)
[2019-03-20] MEDS: Hydrochlorothiazide 25 MG TAB PO SCH (08:10)
[2019-03-20] MEDS: Fish Oil 1,000 MG CAP PO SCH (08:10)
[2019-03-20] MEDS: DULoxetine 60 MG CAP PO SCH (08:10)
[2019-03-20] MEDS: Apixaban 5 MG TAB PO SCH ×2 (08:10→20:39)
[2019-03-20] MEDS: Fluticasone Propionate Nasal Spray 16 gm Bottle NASAL SCH ×2 (08:11→20:40)
[2019-03-20] MEDS: HumuLIN 70/30 (300 UNITS/3 ML VIAL) SC SCH ×2 (08:11→20:41)
[2019-03-20] MEDS: clonazePAM 1 MG TAB PO SCH ×2 (08:11→20:40)
[2019-03-20] MEDS: Anastrozole 1 MG TAB PO SCH (08:17)
[2019-03-20] MEDS: Valsartan 80 MG TAB PO SCH (09:15)
--- NOTE | 2019-03-20 10:26 | PDOC.HOSPP ---
- Subjective Encounter Date: 03/20/19 Encounter Time: 10:10 Subjective: f/u for COPD exacerbation on Solumedrol, Zithromax, O2 @ 4L/min NC. Still wheezing and coughing. No fever. - Objective Vital Signs & Weight: Vital Signs (12 hours) Temp Pulse Resp BP Pulse Ox 03/20/19 08:10 98 03/20/19 08:06 99 16 119/66 98 03/20/19 07:23 98.2 F 101 H 22 H 104/62 978 H 03/20/19 06:45 98 03/20/19 06:44 93 16 98 03/20/19 06:43 93 16 98 03/20/19 02:30 94 18 95 03/19/19 22:47 94 20 96 Weight Weight 220 lb 7.396 oz I&O: 03/19/19 03/20/19 03/21/19 06:59 06:59 06:59 Intake Total 3475 Balance 3475 Result Diagrams: 03/20/19 05:49 03/20/19 05:49 Additional Labs: Accuchecks 03/20/19 03/19/19 03/19/19 05:10 20:24 16:38 POC Glucose 358 H 262 H 221 H 03/19/19 11:53 POC Glucose 276 H Microbiology 03/18/19 13:33 Venous blood - Left Hand Blood Culture - Preliminary NO GROWTH AT 48 HOURS 03/18/19 13:02 Venous blood - Left Hand Blood Culture - Preliminary Gram Variable [facility] Laboratory Tests 03/18/19 03/18/19 03/19/19 12:40 13:02 05:41 Hgb 8.7 L Band Neuts % (Manual) BUN 32 H 38 H Creatinine 2.54 H 2.43 H 03/19/19 03/20/19 05:41 05:49 Hgb 7.7 L Band Neuts % (Manual) 17 H 5 BUN Creatinine Hospitalist ROS - Medication Medications: Active Medications Generic Name Dose Route Start Last Admin Trade Name Freq PRN Reason Stop Dose Admin Acetaminophen 1,000 mg 03/18/19 18:38 03/19/19 11:56 Tylenol PO 1,000 mg Q6H PRN Administration Mild Pain (1-3) Acetaminophen/Codeine Phosphate 1 tab 03/19/19 13:49 03/19/19 21:41 Tylenol #3 PO 1 tab Q4H PRN Administration Mild-Moderate Pain (1-5) Acetaminophen/Codeine Phosphate 2 tab 03/19/19 13:49 03/20/19 08:07 Tylenol #3 PO 2 tab Q4H PRN Administration Moderate to Severe Pain (6-10) Albuterol/Ipratropium 3 ml 03/18/19 22:30 03/20/19 06:44 Duoneb NEB 3 ml [id number] JOSE Administration Amlodipine Besylate 10 mg 03/19/19 09:00 03/20/19 08:10 Norvasc PO 10 mg DAILY JOSE Administration Anastrozole 1 mg 03/19/19 09:00 03/20/19 08:17 Arimidex PO 1 mg DAILY JOSE Administration Apixaban 5 mg 03/18/19 21:00 03/20/19 08:10 Eliquis PO 5 mg BID JOSE Administration Atorvastatin Calcium 40 mg 03/18/19 21:00 03/19/19 20:25 Lipitor PO 40 mg HS JOSE Administration Cholecalciferol 5,000 units 03/19/19 09:00 03/20/19 08:09 Vitamin D3 PO 5,000 units DAILY JOSE Administration Clonazepam 1 mg 03/18/19 21:00 03/20/19 08:11 Klonopin PO 1 mg BID JOSE Administration Duloxetine HCl 60 mg 03/19/19 09:00 03/20/19 08:10 Cymbalta PO 60 mg DAILY JOSE Administration Famotidine 20 mg 03/18/19 21:00 03/19/19 20:25 Pepcid PO 20 mg QPM JOSE Administration Fish Oil 1,000 mg 03/19/19 09:00 03/20/19 08:10 Fish Oil PO 1,000 mg DAILY JOSE Administration Fluticasone Propionate 0 gm 03/18/19 21:00 03/20/19 08:11 Flonase Nasal Amo NASAL 1 spr BID JOSE Administration Hydralazine HCl 10 mg 03/18/19 21:00 03/20/19 08:10 Apresoline PO 10 mg TID JOSE Administration Hydrochlorothiazide 12.5 mg 03/19/19 09:00 03/20/19 08:10 Hydrochlorothiazide PO 12.5 mg DAILY JOSE Administration Azithromycin 500 mg/ Sodium 250 mls @ 250 mls/hr 03/18/19 20:00 03/19/19 20: 26 Chloride IVPB 250 mls Q24HR JOSE Administration Sodium Chloride 1,000 mls @ 30 mls/hr 03/19/19 19:10 03/19/19 20:28 Normal Saline 0.9% IV Not Given .Q24H JOSE Insulin Human Isoph/Insulin Regular 35 units 03/18/19 21:00 03/20/19 08:11 Humulin 70/30 SC 35 unit BID JOSE Administration Insulin Human Lispro 0 units 03/18/19 18:39 03/20/19 06:23 Humalog SC 10 unit .MODERATE SLIDING SC PRN Administration Moderate Correctional Scale Insulin Human Lispro 0 units 03/18/19 18:39 03/19/19 20:29 Humalog SC 3 unit .BEDTIME SLIDING SC PRN Administration Bedtime Correctional Scale Methylprednisolone Sodium Succinate 40 mg 03/18/19 23:59 03/20/19 06:22 Solu-Medrol IVP 40 mg Q6HR JOSE Administration Mometasone Furoate/Formoterol Fumar 2 puff 03/20/19 06:30 03/20/19 06:43 Dulera 200 Mcg/5 Mcg Inhaler INH 2 puff BID-RT JOSE Administration Nebivolol 10 mg 03/19/19 09:00 03/20/19 08:09 Bystolic PO 10 mg DAILY JOSE Administration Ondansetron HCl 4 mg 03/18/19 18:38 03/20/19 08:07 Zofran IVP 4 mg Q6H PRN Administration Nausea/Vomiting Senna/Docusate Sodium 1 tab 03/19/19 21:00 03/20/19 08:10 Senokot S PO 1 tab BID JOSE Administration Sodium Chloride 10 ml 03/18/19 19:06 03/19/19 08:10 Flush - Normal Saline IVF 10 ml PRN PRN Administration Saline Flush Tizanidine HCl 4 mg 03/18/19 18:38 03/19/19 20:25 Zanaflex PO 4 mg QID PRN Administration Muscle Spasm Valsartan 160 mg 03/19/19 09:00 03/20/19 09:15 Diovan PO 160 mg DAILY JOSE Administration - Exam General Appearance: NAD, awake alert Eye: PERRL, anicteric sclera ENT: normocephalic atraumatic, no oropharyngeal lesions Neck: supple, symmetric, no JVD, no thyromegaly Heart: RRR, no gallops, no rubs, normal peripheral pulses Respiratory - other findings: exp wheezes, diminished airflow bilat, scattered coarse sounds Gastrointestinal: soft, non-tender, non-distended, normal bowel sounds Gastrointestinal - other findings: obese Extremities: no cyanosis, 1+ LE edema Skin: normal turgor, no lesions Neurological: cranial nerve grossly intact, no new deficit Musculoskeletal: normal tone, generalized weakness Psychiatric: normal affect, A&O x 3 Hosp A/P (1) Acute exacerbation of chronic obstructive pulmonary disease (COPD) Code(s): J44.1 - CHRONIC OBSTRUCTIVE PULMONARY DISEASE W (ACUTE) EXACERBATION Status: Acute Plan: Continue Solumedrol/Zithromax/Dulera/Duonebs (2) Acute on chronic respiratory failure with hypoxemia Code(s): J96.21 - ACUTE AND CHRONIC RESPIRATORY FAILURE WITH HYPOXIA Status: Acute Plan: See above #1 (3) Acute renal failure Status: Acute Qualifiers: Acute renal failure type: unspecified Qualified Code(s): N17.9 - Acute kidney failure, unspecified Plan: Improved, continue low-volume IVF's, avoid nephrotoxic meds (4) DM type 2 (diabetes mellitus, type 2) Status: Chronic Qualifiers: Diabetes mellitus rn documentation specialist insulin use: with rn documentation specialist use Diabetes mellitus complication status: without complication Qualified Code(s): E11.9 - Type 2 diabetes mellitus without complications; Z79.4 - halfway (current) use of insulin Plan: Labile due to steroids, ISS - Plan plan discussed w/ family, continue antibiotics, PT/OT, respiratory therapy, out of bed/ambulate, DVT proph w/SCDs Stable currently Continue Duonebs/Solumedrol/Zithromax Add Dulera 2 puffs BID Decrease IVF's 30ml/h OOB/ambulate AM lab: BMP, H/H
[2019-03-20] MEDS: Sodium Chloride 0.9% 1,000 ML IV SCH ×2 (11:33→20:34)
[2019-03-20 16:30] VITALS: TEMP 98.8
[2019-03-20] MEDS: Azithromycin 500 MG in Sodium Chloride 0.9% 250 ML 250 ML IVPB SCH (20:39)
[2019-03-20] MEDS: Atorvastatin Calcium 40 MG TAB PO SCH (20:39)
[2019-03-20] MEDS: Famotidine 20 MG TAB PO SCH (20:40)
[2019-03-20 20:50] VITALS: BP 144/75
[2019-03-20] MEDS: tiZANidine HCl 4 MG TAB PO PRN (21:53)
[2019-03-21] MEDS: Apixaban 5 MG TAB PO SCH (13:01)
[2019-03-21] MEDS: Amlodipine 10 MG TAB PO SCH (13:01)
[2019-03-21] MEDS: methylPREDNISolone Sod Succ 40 MG VIAL IVP SCH ×2 (13:01→13:20)
[2019-03-21] MEDS: clonazePAM 1 MG TAB PO SCH (13:01)
[2019-03-21] MEDS: Anastrozole 1 MG TAB PO SCH (13:01)
[2019-03-21] MEDS: DULoxetine 60 MG CAP PO SCH (13:02)
[2019-03-21] MEDS: Fish Oil 1,000 MG CAP PO SCH (13:02)
[2019-03-21] MEDS: Fluticasone Propionate Nasal Spray 16 gm Bottle NASAL SCH (13:02)
[2019-03-21] MEDS: hydrALAZINE 10 MG TAB PO SCH (13:02)
[2019-03-21] MEDS: HumuLIN 70/30 (300 UNITS/3 ML VIAL) SC SCH (13:02)
[2019-03-21] MEDS: Senokot S 8.6-50 MG TAB PO SCH (13:03)
[2019-03-21] MEDS: Hydrochlorothiazide 25 MG TAB PO SCH (13:03)
[2019-03-21] MEDS: Nebivolol HCl 5 MG TAB PO SCH (13:03)
[2019-03-21] MEDS: Valsartan 80 MG TAB PO SCH (13:03)
--- NOTE | 2019-03-21 15:04 | DIS ---
DATE OF ADMISSION: 03/18/2019 DATE OF DISCHARGE: 03/21/2019 DISCHARGE DIAGNOSES: 1. Acute exacerbation of chronic obstructive pulmonary disease, improved. 2. Acute on chronic hypoxic respiratory failure on chronic oxygen supplementation at 3 to 4 L/minute by nasal cannula. 3. Acute kidney injury on chronic kidney disease stage 4. 4. Diabetes mellitus type 2, labile due to steroids. CONSULTATIONS: None. PERTINENT LABORATORY AND X-RAY FINDINGS: Creatinine ranged between 2.32 to 2.54. Estimated GFR ranged between 18 to 21. CBC showed hemoglobin ranged between 7.5 to 8.7, MCV 80. Blood cultures 1/2 positive for Gram variable rods likely skin contaminant, 03/18/2019. Portable chest x-ray dated 03/18/2019, showed elevation of the right hemidiaphragm with right basilar atelectasis, moderate cardiomegaly. HOSPITAL COURSE: The patient was admitted to the medical floor after presenting with shortness of breath and acute worsening of chronic hypoxemia secondary to chronic obstructive pulmonary disease exacerbation. The patient was placed on IV Solu-Medrol in addition to IV Zithromax and given aggressive bronchodilator therapy with DuoNebs. The patient was slow to clinically improve with aggressive pulmonary supportive management, however, did transition to her home requirement of oxygen at 3 to 4 L/minute by nasal cannula by the time of discharge. Chest imaging showed no evidence of acute infiltrate and the patient remained clinically stable through the remainder of the hospital course. The patient was also treated for mild acute kidney injury with IV fluid supplementation and discontinuation of ISABELLE inhibitors and ARBs during the hospital stay. I have examined the patient at the time of discharge and discussed followup instructions. The patient verbalized understanding and agreement, ready for discharge on 03/21/2019. DISCHARGE MEDICATIONS: 1. Prednisone 10 mg 2 tablets p.o. b.i.d. x3 days, followed by 3 tabs p.o. daily x3 days, followed by 2 tablets p.o. daily x3 days, followed by 1 tablet p.o. daily x3 days. 2. Zithromax 250 mg p.o. daily x5 days. 3. Tylenol No. 3 300/30 mg 1 to 2 tablets p.o. q.6 hours p.r.n. pain. 4. Albuterol sulfate 2 puffs inhaled q.4 hours p.r.n. 5. Norvasc 10 mg p.o. daily. 6. Arimidex 1 mg p.o. daily. 7. Lipitor 40 mg p.o. at bedtime. 8. Biotin 1000 mcg p.o. b.i.d. 9. Vitamin D3 5000 units p.o. daily. 10. Klonopin 1 mg p.o. b.i.d. 11. Cymbalta 60 mg p.o. daily. 12. [place]-3 fatty acids 1 capsule p.o. daily. 13. Flonase 1 spray in each naris daily. 14. Advair Diskus two inhalations b.i.d. 15. Hydralazine 50 mg p.o. b.i.d. 16. NovoLog 70/30 35 units subcutaneously b.i.d. 17. Bystolic 10 mg p.o. daily. 18. Omeprazole 40 mg p.o. daily. 19. Zanaflex 4 mg p.o. t.i.d. p.r.n. 20. Valsartan/HCTZ 160/12.5 mg 1 tablet p.o. daily. 21. Eliquis 5 mg p.o. b.i.d. 22. DuoNeb 3 mL nebulized q.i.d. p.r.n. FOLLOWUP: Patient will follow up with Dr. Jeramie Toure within 7 days of discharge. CONDITION ON DISCHARGE: Fair. ACTIVITY: Ad-michael. DIET: Heart healthy and ADA. CODE STATUS: Full. DISPOSITION: To home, 03/21/2019. TIME SPENT: Total time preparing and coordinating discharge, 35 minutes. Job ID: [id number]
[2019-03-21 16:45] LABS: Anion Gap 17 mmol/L (10-20); BUN (Urea Nitrogen) 40 mg/dL (9.8-20.1); Calc. Creatinine Clearance 39 mL/min (70-130); Calcium 9.8 mg/dL (7.8-10.44); Carbon Dioxide 22 mmol/L (23-31); Chloride 105 mmol/L (98-107); Estimated GFR-MDRD 24; Potassium 4.1 mmol/L (3.5-5.1); Sodium 140 mmol/L (136-145)
[2019-03-21 16:48] LABS: Glucose 269 mg/dL (83-110)
[2019-03-21 17:40] LABS: Hemoglobin 8.5 g/dL (12.0-16.0); Platelet Count 277 thou/uL (130-400)
--- NOTE | 2019-03-23 08:52 | PQF ---
WAYNE HAMPTON CHARLES DO [id number] CLINICAL DOCUMENTATION CLARIFICATION FORM: POST DISCHARGE Addendum to original discharge summary date: ____ Late entry note date: __ DATE:03/23/2019 ATTN: JOSEPH VU DO Please exercise your independent, professional judgment in responding to the clarification form. Clinical indicators are provided on the bottom of this form for your review Please check appropriate box(s): kindly clarify the diagnosis occasioning on admission [ x ] Acute exacerbation of chronic obstructive pulmonary disease [ ] Acute on chronic hypoxic respiratory failure [ ] Other diagnosis [ ] Unable to determine For continuity of documentation, please document condition throughout progress notes and discharge summary. Thank You. CLINICAL INDICATORS - SIGNS / SYMPTOMS / LABS SOB-Documented in ED on 03/18 by Dayna Martin [id number] in ED on 03/18 by Dayna Martin Respiratory exam included findings of ,Tachypnea,Wheezing present-Documented in ED on 03/18 by Dayna Martin Acute exacerbation of chronic obstructive pulmonary disease,improved-Documented in DS on 03/21/2019 by Joseph Vu Acute on chronic hypoxic respiratory failure-Documented in DS on 03/21/2019 by Joseph Vu RISK FACTORS Sleep apnea-Documented in H&P on 03/18/2019 by Joseph Vu TREATMENTS: The patient was placed on IV solu-mendrol in addition to IV zithromax and given agressive bronchodilator therapy with duonebs--Documented in DS on 03/21/2019 by Joseph Vu Oxygen supplementation at 3 to 4 l/minute by nasal cannula-Documented in DS on 03/21/2019 by Joseph Vu [employer] Win[employer] Viewer (This form is maintained as a part of the permanent medical record) 2014 [email or web address]. All Rights Reserved [email or web address] [not provided] MTDD
== END 2019-03-21 15:50 | disposition home or self-care (01) | DRG 190 ==
LOC: ERS 12:23 → T4-A 17:40
PROVIDERS: ADMIT Family Medicine; ATTEND Family Medicine
DX: J44.1 Chronic obstructive pulmonary disease with (acute) exacerbation (principal); J96.21 Acute and chronic respiratory failure with hypoxia; N17.9 Acute kidney failure, unspecified; N18.4 Chronic kidney disease, stage 4 (severe); I12.9 Hypertensive chronic kidney disease with stage 1 through stage 4 chronic kidney disease, or unspecified chronic kidney disease; E11.22 Type 2 diabetes mellitus with diabetic chronic kidney disease; Z83.3 Family history of diabetes mellitus; Z80.8 Family history of malignant neoplasm of other organs or systems; G47.30 Sleep apnea, unspecified; K21.9 Gastro-esophageal reflux disease without esophagitis; Z85.3 Personal history of malignant neoplasm of breast; I48.91 Unspecified atrial fibrillation; Z79.4 Long term (current) use of insulin
CPT/HCPCS: 36415; 36416; 71045; 80048; 80053; 81003; 83605; 84484; 85007; 85014; 85018; 85025; 85027; 85049; 87040; 93005; 94640; 96365; 96366; 96375; J0456; J1815; J1956; J2405; J2920; J2930; J7050; J7620

== ENCOUNTER 2019-04-01 09:43 | Inpatient (IN) | payer MEDICARE, BC ==
[2019-04-01 10:35] LABS: #Eosinphils 0.1 thou/uL (0.0-0.7); #Lymphocytes 1.7 thou/uL (1.20-3.40); #Monocytes 1.3 thou/uL (0.11-0.59); #Neutrophils 10.3 thou/uL (1.40-6.50); %Basophils 0.1 % (0.0-1.0); %Eosinophils 0.9 % (0.0-10.0); %Lymphocytes 12.6 % (21.0-51.0); %Monocytes 9.8 % (0.0-10.0); %Neutrophils 76.5 % (42.0-75.0); Hemoglobin 8.3 g/dL (12.0-16.0); Mean Corpuscular HGB CONC 31.6 g/dL (32.0-36.0); Mean Corpuscular Volume 82.3 fL (78.0-98.0); Mean Platelet Volume 7.6 fL (7.4-10.4); Platelet Count 209 thou/uL (130-400); Red Blood Cell (RBC) Count 3.18 mill/uL (4.20-5.40); White Blood Cell (WBC) Count 13.4 thou/uL (4.8-10.8)
[2019-04-01 10:43] LABS: INR-International Normal Ratio 1.3; PTT 32.4 SEC (22.9-36.1); Prothrombin Time 16.2 SEC (12.0-14.7)
[2019-04-01 10:56] LABS: ALT (SGPT) 30 U/L (8-55); AST (SGOT) 20 U/L (5-34); Albumin 3.4 g/dL (3.4-4.8); Alkaline Phosphatase 107 U/L (40-110); Anion Gap 15 mmol/L (10-20); BUN (Urea Nitrogen) 35 mg/dL (9.8-20.1); Bilirubin, Total 0.5 mg/dL (0.2-1.2); Calc. Creatinine Clearance 0 mL/min (70-130); Calcium 8.4 mg/dL (7.8-10.44); Carbon Dioxide 28 mmol/L (23-31); Chloride 101 mmol/L (98-107); Estimated GFR-MDRD 22; Globulin 2.2 g/dL (2.4-3.5); Glucose 67 mg/dL (83-110); Potassium 4.7 mmol/L (3.5-5.1); Protein, Total 5.6 g/dL (6.0-8.3); Sodium 139 mmol/L (136-145)
[2019-04-01] MEDS ORDERED: Ondansetron PF 4 MG/2 ML Vial ONE (10:59)
[2019-04-01] MEDS ORDERED: Morphine 2 MG/ML SYRINGE ONE (10:59)
[2019-04-01] MEDS ORDERED: Ketamine 50 MG/ML (10ML VIAL) ONE (11:00)
--- NOTE | 2019-04-01 12:40 | RAD ---
Left ankle 3 views: HISTORY: Reduction of comminuted ankle fracture dislocation. COMPARISON: 04/01/2019 FINDINGS: There is been marked improvement in position and alignment of the comminuted trimalleolar fracture di slocation of the ankle. The ankle mortise appears to be an adequate alignment. IMPRESSION: Satisfactory post reduction trimalleolar fracture dislocation of the ankle.
--- NOTE | 2019-04-01 12:59 | RAD ---
FRONTAL RADIOGRAPH CHEST: Date: 04/01/19 COMPARISON: 03/18/19. HISTORY: Fall, trauma, pain. FINDINGS: Incompletely imaged cervical spine hardware present. There is atherosclerotic calcification of the ao rtic arch and elevation of the right hemidiaphragm, stable findings. No focal consolidation or alveol ar edema. IMPRESSION: No acute findings. POS: OFF
--- NOTE | 2019-04-01 13:06 | RAD ---
2 VIEWS LEFT ANKLE: Date: 04/01/19 COMPARISON: None. HISTORY: Fall, trauma, pain. FINDINGS: There is a comminuted, obliquely oriented, distal left fibular fracture. Distal fracture fragment is displaced laterally by 1.2 cm and demonstrates significant lateral angulation. There is a comminuted transverse fracture at the base of the medial malleolus. There is dislocation of the tibiotalar artic ulation, the talus dislocated laterally with respect to the distal tibia. A probable posterior malleo lar fracture is noted as well. Post reduction imaging advised. IMPRESSION: Trimalleolar fracture dislocation of the left ankle. POS: OFF
--- NOTE | 2019-04-01 13:07 | RAD ---
FRONTAL AND LATERAL IMAGING OF LEFT TIBIA AND FIBULA: Date: 04/01/19 COMPARISON: None. HISTORY: Fall, trauma, pain. FINDINGS: There is a comminuted trimalleolar fracture dislocation of the left ankle, better assessed on the ded icated left ankle imaging. No fracture of the proximal left tibia or fibula. IMPRESSION: Fracture dislocation of left ankle, better assessed on left ankle imaging. POS: OFF
--- NOTE | 2019-04-01 15:00 | HP ---
REQUESTING PHYSICIAN: Dr. Rockwell. ATTENDING SURGEON: Dr. Angulo. CONSULTATION: Orthopedics, Dr. Frias. HISTORY OF PRESENT ILLNESS: The patient is a 74-year-old woman, who stood up today to go to the bathroom when she got dizzy and reportedly then rolled her left ankle. She had immediate pain and discomfort and was brought to the emergency department by ground EMS with a left ankle fracture dislocation. The patient reports that she has been having some dizzy spells for the last few weeks. She is unsure if this is related to her insulin or some other episode. The patient was recently diagnosed with paroxysmal atrial fibrillation. This was an unwitnessed fall, and the patient is unsure if she hit her head, and she is on Eliquis for atrial fibrillation, so she is currently awaiting CT scan of her brain, but otherwise, her fracture dislocation was reduced in the ER and splinted, and we have been asked to evaluate the patient for admission and obtain Orthopedic consultation. ALLERGIES: CODEINE AND LISINOPRIL. CURRENT MEDICATIONS: 1. Atorvastatin. 2. Amlodipine. 3. Clonazepam. 4. Bystolic. 5. Anastrozole. 6. Gabapentin. 7. Omeprazole. 8. Flonase. 9. Duloxetine. 10. Combivent. 11. Ventolin. 12. Advair. 13. Eliquis. PAST MEDICAL HISTORY: Stage II breast cancer, status post lumpectomy; gastroparesis; sleep apnea; COPD; gastroesophageal reflux disease; migraine headaches; hyperlipidemia; hypertension; chronic neck and shoulder pain; depression; chronic kidney disease; and chronic anemia. PAST SURGICAL HISTORY: Mastectomy, lumpectomy, oophorectomy, appendectomy, cholecystectomy, hysterectomy, colon resection. SOCIAL HISTORY: The patient lives at home with her spouse. She denies drug, tobacco, or alcohol use. REVIEW OF SYSTEMS: A 10-point review of systems is negative as otherwise stated. PHYSICAL EXAMINATION: VITAL SIGNS: Blood pressure 134/90, heart rate 66, respirations 14, oxygen saturation 99% on room air, and temperature is 98.7. GENERAL: The patient is resting comfortably in bed. She is awake, alert, conversant, and appropriate. She does have occasional memory lapses, but this could be due to her ketamine that she was given for her closed reduction. HEENT: Head is normocephalic and atraumatic. Eyes, extraocular motion intact. PERRLA bilaterally. Ears are atraumatic without discharge. Nose is atraumatic without discharge. Oropharynx is clear. NECK: Nontender, with the exception of her chronic neck pain. Trachea is midline. No JVD. CHEST: Clear to auscultation with good inspiratory and expiratory effort. HEART: Regular rate and rhythm. ABDOMEN: Soft, flat, nontender with active bowel sounds. PELVIS: Stable. EXTREMITIES: Neurovascularly intact x4. The patient has a splint on her left lower extremity. It is clean, dry, and intact. She has gross sensation through the splint, and by report, has good capillary refill and pulses. BACK: By report atraumatic and nontender. LABORATORY FINDINGS: WBCs 13.4, hemoglobin 8.3, hematocrit 26.2, and platelets 209. Sodium 139, potassium 4.7, chloride 101, CO2 of 28, BUN 35, creatinine 2.15, and glucose 67. LFTs are unremarkable. PTT 33, PT 16, INR 1.3. Troponin is 0.020. RADIOGRAPHIC FINDINGS: Views of the left ankle show a trimalleolar fracture dislocation of the left ankle. There are postreduction films that show satisfactory postreduction trimalleolar fracture dislocation. ASSESSMENT AND PLAN: 1. Status post ground level fall. 2. Syncope. 3. Acute pain secondary to trauma. 4. Chronic kidney disease. 5. Chronic anemia. 6. History of hypertension, gastroparesis, chronic obstructive pulmonary disease, sleep apnea, hyperlipidemia, and hypertension. Plan will be to admit the patient to the telemetry floor. We will also order carotid Dopplers. The patient has had an echo approximately one year ago. She will be made n.p.o. after midnight for her surgical procedure. We will also notify her die welder and her primary care provider of her admission and her syncope evaluation. The evaluation, examination, laboratory, and radiographic findings will be discussed with Dr. Angulo after this dictation. The patient was examined in the emergency department by Dr. Frias. Job ID: [id number]
--- NOTE | 2019-04-01 15:21 | CT ---
EXAM: Brain CT scan Without contrast: HISTORY: Injury from trauma COMPARISON: 03/20/2018 FINDINGS: Atrophy and chronic white matter ischemic change. No focal mass or midline shift. No intra or extra-axial hemorrhage. Mild sinus mucosal disease. Little change from prior 03/20/2018 IMPRESSION: No mass or bleed or other significant acute intracranial process.
--- NOTE | 2019-04-01 17:40 | CON ---
DATE OF CONSULTATION: 04/01/2019 HISTORY OF PRESENT ILLNESS: Ms. Sukh Chamberlain is a 74-year-old female, status post ground level fall. The patient states she was getting up, she felt dizzy and fell from ground level. She has had this for last several months. She had a recent hospital admission for clinical sepsis, was noted to have difficulty breathing. The patient states she is a short distance household ambulator. The patient has history of diabetes with some peripheral neuropathy. She is resting comfortably in bed. The patient's is at the bedside. PAST MEDICAL HISTORY: Includes diabetes; chronic kidney disease; anemia; gastroparesis; gastroesophageal reflux; history of right-sided stage II breast cancer with lumpectomy, treated with chemo and radiation. She has sleep apnea with CPAP, on 3 L oxygen at home. The patient has COPD. The patient has type 2 diabetes, hyperlipidemia, high cholesterol, hypertension. The patient has history of chronic headaches. PAST SURGICAL HISTORY: Includes right breast lumpectomy, appendectomy, cholecystectomy, hysterectomy, Llamas's neuroma excision, colon resection in January 2016, cervical fusion by Dr. Barkley. ALLERGIES: INCLUDE CODEINE AND LISINOPRIL. MEDICATIONS: Include; 1. Atorvastatin. 2. Amlodipine. 3. Clonazepam. 4. Bystolic. 5. Anastrozole. 6. Gabapentin. 7. Omeprazole. 8. Flonase. 9. Fluoxetine. 10. Combivent. 11. Ventolin. 12. Advair. SOCIAL HISTORY: The patient lives at home with her spouse. She is a household ambulator. She denies tobacco, alcohol, or drug use at this time. REVIEW OF SYSTEMS: Noncontributory. PHYSICAL EXAMINATION: VITAL SIGNS: Most recently are blood pressure 174/64, pulse 71, respiratory rate 12, oxygen saturation 100% on nasal cannula. Pain score is currently 0/10. GENERAL: Alert and oriented female, resting comfortably in bed. No acute distress. EXTREMITIES: Left lower extremity, the patient's splint clean, dry, and intact. She has brisk cap refill to her toes. She wiggles her toes without difficulty. No pain with passive flexion. She has diminished sensation grossly to the left lower extremity in a stocking-glove distribution. LABORATORY DATA: INR 1.3. Creatinine of 2.16. Hemoglobin and hematocrit of 8.3 and 26. X-ray shows a fracture dislocation of her left ankle, trimalleolar component with diffuse osteopenia, pre and post reduction with improved alignment. IMPRESSION: 1. Trimalleolar ankle fracture dislocation. 2. Multiple medical problems, which include diabetes, chronic obstructive pulmonary disease, previous breast cancer, cervical fusion, home oxygen, chronic kidney disease, previous treatment with chemotherapy and colon resection. ASSESSMENT AND PLAN: The patient will be admitted by Trauma, will require operative fixation of her trimalleolar ankle fracture. I discussed with them the timing of this as well as I discussed further complication, given the patient's diabetes and multiple medical problems. I am concerned about excessive fixation of a severe trimalleolar ankle fracture and the patient's ability to heal. I discussed that likely I would attempt percutaneous fixation with diminished soft tissue damage, but also not perfect reduction and attempt to try to minimize future risk of complication, discussed may halve to put a Steinmann pin through talus into her tibia, discussed that she may have to require surgeries to remove some of the implants down the road. I discussed she will be nonweightbearing for 3 months. I discussed the risks and benefits of surgery to include pain, scar, bleeding, infection, damage to vital structures, decreased range of motion and strength, need for further surgeries, failure of procedure, loss of life or limb. The patient and family understand the risks and benefits, and they elected to proceed. Job ID: [id number]
[2019-04-01 21:07] VITALS: BMI 39.1
[2019-04-01] MEDS ORDERED: Ondansetron PF 4 MG/2 ML Vial IVP PRN (21:08)
[2019-04-01] MEDS ORDERED: Ondansetron ODT 4 MG TAB PO PRN (21:08)
[2019-04-01] MEDS ORDERED: traMADol HCl 50 MG TAB PO PRN ×2 (21:08)
[2019-04-01] MEDS ORDERED: Dextrose 50% Abboject 50 ML SYRINGE SLOW IVP PRN (21:08)
[2019-04-01] MEDS ORDERED: Morphine 2 MG/ML SYRINGE SLOW IVP PRN (21:08)
[2019-04-01] MEDS ORDERED: Dextrose 5% in Water 1,000 ML IV PRN (21:08)
[2019-04-01] MEDS: Famotidine 20 MG TAB PO SCH (21:51)
[2019-04-01] MEDS: Sodium Chloride 0.9% 1,000 ML IV SCH (21:53)
[2019-04-01] MEDS: hydrALAZINE 20 MG/ML VIAL SLOW IVP PRN (21:55)
[2019-04-02] MEDS: Acetaminophen 325 MG TAB PO SCH ×6 (01:21→21:00)
[2019-04-02 05:34] LABS: #Eosinphils 0.1 thou/uL (0.0-0.7); #Lymphocytes 1.5 thou/uL (1.20-3.40); #Monocytes 1.7 thou/uL (0.11-0.59); #Neutrophils 11.3 thou/uL (1.40-6.50); %Basophils 0.2 % (0.0-1.0); %Eosinophils 0.5 % (0.0-10.0); %Lymphocytes 10.4 % (21.0-51.0); %Monocytes 11.3 % (0.0-10.0); %Neutrophils 77.5 % (42.0-75.0); Hemoglobin 8.5 g/dL (12.0-16.0); Mean Corpuscular HGB CONC 32.2 g/dL (32.0-36.0); Mean Corpuscular Hemoglobin 26.4 pg (27.0-31.0); Mean Platelet Volume 7.7 fL (7.4-10.4); Platelet Count 237 thou/uL (130-400); RBC Distribution Width 14.9 % (11.5-14.5); Red Blood Cell (RBC) Count 3.22 mill/uL (4.20-5.40); White Blood Cell (WBC) Count 14.6 thou/uL (4.8-10.8)
[2019-04-02 05:57] LABS: Anion Gap 15 mmol/L (10-20); BUN (Urea Nitrogen) 30 mg/dL (9.8-20.1); Calc. Creatinine Clearance 39 mL/min (70-130); Calcium 8.6 mg/dL (7.8-10.44); Carbon Dioxide 25 mmol/L (23-31); Chloride 103 mmol/L (98-107); Estimated GFR-MDRD 24; Glucose 138 mg/dL (83-110); Potassium 5.3 mmol/L (3.5-5.1); Sodium 138 mmol/L (136-145)
[2019-04-02] MEDS: Sodium Chloride 0.9% 1,000 ML IV SCH ×3 (06:43→23:20)
[2019-04-02 07:28] LABS: Magnesium 3.6 mg/dL (1.6-2.6); Phosphorus 4.4 mg/dL (2.3-4.7)
--- NOTE | 2019-04-02 08:56 | ULT ---
BILATERAL CAROTID DUPLEX ULTRASOUND: HISTORY: Syncope. TECHNIQUE: Grayscale, color-flow and spectral Doppler ultrasound imaging of the extracranial carotid artery syst ems was performed bilaterally. FINDINGS: The left internal carotid artery is not able to be imaged due to central venous catheter as well as b andages overlying the left neck. There is mild (50-69%) stenosis involving the right internal carotid artery based on a peak systolic velocity of 157 cm/s. The right ICA/CCA ratio is 1.02. There is an elevated peak systolic velocity in the right external carotid artery suggesting a signifi cant stenosis. Vertebral arteries: Antegrade flow is demonstrated in the right vertebral artery. The left vertebral artery is unable to be imaged due to dressing material overlying the left neck. IMPRESSION: 1. Nonvisualization of the left internal carotid or vertebral artery secondary to overlying bandages. 2. Moderate (50-69%) stenosis involving the right internal carotid artery.
[2019-04-02 09:00] LABS: Hemoglobin A1c 6.6 % (4.0-6.0)
[2019-04-02] MEDS: hydrALAZINE 10 MG TAB PO SCH ×2 (09:01→20:52)
[2019-04-02] MEDS: DULoxetine 60 MG CAP PO SCH (09:01)
[2019-04-02] MEDS: Nebivolol HCl 5 MG TAB PO SCH (09:01)
[2019-04-02] MEDS: Amlodipine 10 MG TAB PO SCH (09:01)
[2019-04-02] MEDS: Anastrozole 1 MG TAB PO SCH (09:01)
[2019-04-02] MEDS: Furosemide 20 MG TAB PO SCH (09:01)
[2019-04-02] MEDS: clonazePAM 1 MG TAB PO SCH ×2 (09:20→20:54)
[2019-04-02] MEDS ORDERED: Lidocaine 1% PF 5 ML VIAL ONE (09:49)
[2019-04-02] MEDS ORDERED: Ondansetron PF 4 MG/2 ML Vial ONE (09:49)
[2019-04-02] MEDS ORDERED: PROPOFOL 200 MG/20 ML VIAL ONE (09:49)
[2019-04-02] MEDS ORDERED: Rocuronium Bromide 10 MG/ML (10ML VIAL) ONE (09:49)
[2019-04-02] MEDS ORDERED: Glycopyrrolate 0.2 MG/ML 5 ML SYRINGE ONE (09:49)
[2019-04-02] MEDS ORDERED: Bupivacaine HCl 0.5%/Epinephrine 1:200,000/PF 30 ml Vial ONE (09:49)
[2019-04-02] MEDS ORDERED: Fentanyl 100 MCG/2 ML VIAL ONE ×2 (11:52→12:37)
[2019-04-02] MEDS ORDERED: Midazolam HCl 2 mg/2 ml Vial ONE ×2 (11:52→12:37)
--- NOTE | 2019-04-02 14:04 | RAD ---
XR Ankle Lt 3 View STANDARD INDICATION: Ankle injury. COMPARISON: Prior exam dated April 01, 2019 FINDINGS: Bones: There is been interval reduction and placement of an intramedullary pin in the comminuted late ral malleolus fracture. There are 2 partially threaded screws fixating the medial malleolus fracture. Fracture alignment is near anatomic. Total fluoroscopic time was 105.0 seconds. Total expos ure was 2.33 mgy. The posterior malleolus fracture fragment is near anatomic. Ankle mortise: Symmetric. Talar Dome: Intact. Subtalar joint: Normal. Visualized hindfoot: Normal. Periarticular soft tissues: Soft tissue swelling IMPRESSION: 1. Interval open reduction internal fixation of the trimalleolar ankle fracture
[2019-04-02] MEDS ORDERED: Promethazine HCl 25 MG/ML VIAL IM PRN ×2 (14:36→14:40)
[2019-04-02] MEDS ORDERED: Ondansetron HCl/PF 4 MG/2 ML Vial IVP PRN ×2 (14:36→14:40)
[2019-04-02] MEDS ORDERED: Promethazine HCl 25 MG/ML VIAL SLOW IVP PRN ×2 (14:36→14:40)
[2019-04-02] MEDS: Insulin Regular 300 UNITS/3 ML VIAL SC PRN (16:30)
[2019-04-02] MEDS: HYDROcodone/Acetaminophen 5/325 mg Tablet PO PRN ×2 (16:40→22:00)
[2019-04-02] MEDS: Mometasone/Formoterol 120 PUFF INHALER INH SCH (18:46)
--- NOTE | 2019-04-02 19:10 | PRG ---
DATE OF SERVICE: 04/02/2019 SUBJECTIVE: The patient is currently on the surgical floor. Last night, she had been admitted status post a ground level fall after syncopal episode and sustained a left trimalleolar fracture dislocation that was reduced in the ER. She was placed on tele overnight. She had no issues and she was able to undergo her procedure this afternoon. Postoperatively, she was transferred to the surgical floor. But, I have been informed that Dr. Kahn, her recycling tech would like her to go back to tele, so that is being arranged at this time. Currently, the patient is tolerating a diet. Her pain is controlled. She is just returned to the floor so she has not had an opportunity to work with Physical and Occupational Therapy yet today. OBJECTIVE: VITAL SIGNS: Temperature is 98.2, heart rate 81, blood pressure 147/64, respirations 24, and oxygen saturation 93% on 3 L via nasal cannula. GENERAL: The patient is resting comfortably in bed. She is awake, alert, and oriented x3. Yonny Coma Scale is 15. HEENT: Unremarkable. LUNGS: Clear to auscultation bilaterally. HEART: Regular rate and rhythm. ABDOMEN: Soft and nontender with active bowel sounds. EXTREMITIES: Neurovascularly intact x4. Postop splint is clean, dry, and intact. LABORATORY DATA: This mornings labs show a white blood cell count of 14.8, hemoglobin of 8.5, hematocrit 26.4, and platelets 237. Sodium 138, potassium 5.3, chloride 103, CO2 of 25, BUN 30, creatinine 2.02, glucose 138, magnesium 3.6, and phosphorus 4.4. RADIOGRAPHIC FINDINGS: This morning, the patient preoperatively underwent carotid Doppler ultrasound, they were unable to visualize the left internal carotid or vertebral artery secondary to bandaging from IV catheter in her IJ on the left side. Her right side showed moderate 50% to 69% stenosis of the internal carotid artery. ASSESSMENT AND PLAN: 1. Status post ground level fall. 2. Status post open reduction and internal fixation of left ankle fracture. 3. Syncope. 4. Chronic kidney disease. 5. Chronic anemia. 6. History of hypertension, gastroparesis, chronic obstructive pulmonary disease, sleep apnea, hyperlipidemia, and hypertension. Plan will be to continue pain management, pulmonary toilet, gastritis and mechanical VTE prophylaxis in the morning. The patient is stable. We will begin chemical VTE prophylaxis. She will be moved to telemetry per Dr. Kahn's instructions. We will continue to follow along and discuss placement. Job ID: [id number]
[2019-04-02] MEDS: Famotidine 20 MG TAB PO SCH (20:53)
[2019-04-02] MEDS: CEFAZOLIN 2 GM in Premix Bag 1 BAG IVPB SCH (20:53)
[2019-04-02] MEDS: Meclizine HCl 25 MG TAB PO SCH (20:53)
--- NOTE | 2019-04-02 21:28 | OP ---
DATE OF PROCEDURE: 04/02/2019 PREOPERATIVE DIAGNOSIS: Left trimalleolar ankle fracture. POSTOPERATIVE DIAGNOSIS: Left trimalleolar ankle fracture. PROCEDURES PERFORMED: 1. Open reduction and internal fixation of trimalleolar ankle fracture, medial and lateral malleolus, nonoperative management of posterior malleolus. 2. Short-leg splint. CUSTOM SHOEMAKER: Guillermo Conn PA-C ANESTHESIOLOGIST: Braxton. ANESTHESIA: The patient received adductor canal lateral sciatic single shot, endotracheal tube. ESTIMATED BLOOD LOSS: 30 mL. TOURNIQUET TIME: 53 minutes at 300 mmHg. ANTIBIOTICS: Ancef. IMPLANTS: 2.5 flexible nail and two 3.5 cannulated screws. COMPLICATIONS: None. HISTORY OF PRESENT ILLNESS: Ms. Chamberlain is a 74-year-old female, status post fall, syncopal episode, admitted to Trauma service. The patient has sustained a fracture dislocation of her left ankle. I discussed with the family the risks and benefits of open reduction and internal fixation of left trimalleolar ankle fracture. I discussed given the patient's poor skin tissue, her diabetes, my concern about the swelling, currently anemia, and risk of multiple falls, I was concerned about multiple things to include making a large incision on the patient. I discussed I would attempt percutaneous fixation allowing the patient to heal. I discussed that I would not be able to likely get perfect reduction, but I felt like it would help her not have any potential soft tissue wounds given her diabetes and some neuropathy. They understood these risks and benefits and elected to proceed. DESCRIPTION OF PROCEDURE: Time-out was performed designating the patient's left lower extremity as the operative site based on site, consents, and marking. After time-out, the patient's left lower extremity was prepped and draped. We brought the tourniquet up. I made a lateral incision just distal to the tip of the fibula, dissected bluntly down, placed our drill tip for 3.5 drill and placed that at the distal fibula tip position. We then drilled up fibula. We then used a 2.5 flexible nail, which we passed up into the shaft. We then did around 180 degrees to access both the hook to anterior aspect of the fibula as well as to help with removal in the future as needed. It was a long oblique spiral fracture and was slightly malreduced. We felt like overall it kept good stable alignment and would help with stability from the lateral aspect. We tamped it in place. We then moved to the medial aspect. We first tried 3 percutaneous passes, but given the patient's fracture position, we felt that we would not be able to reduce it appropriately. Therefore, I made an oblique incision just over the medial malleolus dissecting down, removed the periosteum, which is in its plane, placed a clamp across and placed two K-wires under fluoroscopic guidance, placing a 3.5 drilling and making sure they were accurate on AP and lateral planes. AP and lateral drilling through just the fragment and placing two 3.5 screws. At the completion of this, we had a stable mortise, so I was overall pleased. The posterior lip which was less than about 10% was reduced as we treated nonoperatively. I stressed under fluoro to show that it was stable. We then washed and closed with 2-0 and 3-0 nylon. Tourniquet was let down at 53 minutes. The patient will likely be nonweightbearing for 3 months given her medical history and condition. I will follow inhouse. She received 24-hour antibiotics and then we will discharge her once her medical issues have cleared. Job ID: [id number]
[2019-04-03] MEDS: Acetaminophen 325 MG TAB PO SCH ×4 (00:02→07:33)
--- NOTE | 2019-04-03 01:01 | CON ---
DATE OF CONSULTATION: HISTORY OF PRESENT ILLNESS: Shayy Chamberlain is a 74-year-old white female with long-standing history of asthma. In November 2017, she was admitted with acute kidney injury requiring acute dialysis. She also had intermittent atrial fibrillation but then converted back to sinus rhythm. She was placed on Eliquis because of that. Recently, she has been having problems with increased dizziness. She has had two or three falls with most recent causing left ankle fracture. From her description of dizziness, it sounds as if the room is spinning around and she becomes somewhat nauseated with this. She also has noted episodes of atrial fibrillation. She is unaware of this, but notices that her heart rate is very fast on her watch and she assumes that she is in atrial fibrillation. She denies any palpitations, chest pain, or worsening of her asthma. PAST MEDICAL HISTORY: Asthma, sleep apnea, diabetes, hypertension, hyperlipidemia, paroxysmal atrial fibrillation, migraine headaches, normal coronary arteries 1999. PAST SURGICAL HISTORY: Left ankle ORIF, appendectomy, cholecystectomy, hysterectomy, foot surgery, hemicolectomy with colostomy and then reversal. SOCIAL HISTORY: She does not smoke or drink. MEDICATIONS: 1. Eliquis 5 mg b.i.d. 2. Albuterol 2 puffs q.6 hours p.r.n. 3. Amlodipine 10 mg daily. 4. Arimidex 1 mg daily. 5. Atorvastatin 40 at bedtime. 6. Biotin 1000 mcg b.i.d. 7. Klonopin 1 mg b.i.d. 8. Cymbalta 60 daily. 9. Furosemide 20 mg daily. 10. Apresoline 50 b.i.d. 11. Insulin 35 units b.i.d. 12. Bystolic 10 mg daily. 13. DuoNeb 3 mL b.i.d. 14. Omeprazole 40 daily. 15. Zanaflex p.r.n. ALLERGIES: LISINOPRIL AND CODEINE. REVIEW OF SYSTEMS: A 10-point review of systems is otherwise unremarkable. PHYSICAL EXAMINATION: VITAL SIGNS: Blood pressure 147/64, pulse of 81 and regular HEENT: PERRL. NECK: Supple. CHEST: Reveals bilateral expiratory wheezing. CARDIOVASCULAR: S1, S2 normal without any S3, S4, or murmurs. Carotid upstrokes normal without bruits. ABDOMEN: Obese. Normal bowel sounds. No tenderness. EXTREMITIES: Revealed trace pretibial edema. NEUROLOGIC: Grossly intact. SKIN: Warm and dry. LABORATORY DATA: EKG reveals normal sinus rhythm with low voltage. She was in sinus rhythm while she was on telemetry. Hemoglobin 8.5, hematocrit 26.4, white count 14,600, platelet count of 237,000. INR 1.3. Sodium 138, potassium 5.3, chloride 103, carbon dioxide 25, BUN 30, and creatinine 2.02. IMPRESSION: 1. Left ankle fracture after fall. 2. Possible acute labyrinthitis with 3 weeks of intermittent vertigo. 3. Paroxysmal atrial fibrillation with recent episodes lasting as long as 6 hours according to her heart rate on her watch. She is asymptomatic when she is in atrial fibrillation. 4. Chronic kidney disease. 5. Hypertension. 6. Hypercholesterolemia. 7. Asthma. 8. Diabetes. PLAN: With more episodes occurring and lasting longer, I feel that she should be on suppressive therapy for atrial fibrillation. She will be started on Multaq 400 mg b.i.d. She should continue to be on telemetry with up to 4 hours of atrial fibrillation recently with rapid ventricular response. Eliquis will be held at this time with recent falls. We will continue to follow the patient with you. Consider Meclizine for vertigo. Job ID: [id number] [facility]
[2019-04-03] MEDS: HYDROcodone/Acetaminophen 5/325 mg Tablet PO PRN ×4 (03:29→17:35)
[2019-04-03 04:53] LABS: Eosinophils 1 % (0-10); Hemoglobin 7.3 g/dL (12.0-16.0); Lymphocytes 14 % (21-51); MDiff Complete? YES; Mean Corpuscular HGB CONC 31.7 g/dL (32.0-36.0); Mean Corpuscular Hemoglobin 26.2 pg (27.0-31.0); Mean Corpuscular Volume 82.6 fL (78.0-98.0); Mean Platelet Volume 7.6 fL (7.4-10.4); Metamyelocyte 3 % (0-0); Monocytes 9 % (0-10); Myelocyte 1 % (0-0); Neutrophil 70 % (42-75); Platelet Count 192 thou/uL (130-400); Platelet Morphology Comment Appears Adequate; Red Blood Cell (RBC) Count 2.78 mill/uL (4.20-5.40); White Blood Cell (WBC) Count 12.3 thou/uL (4.8-10.8)
[2019-04-03 04:55] LABS: Anion Gap 11 mmol/L (10-20); BUN (Urea Nitrogen) 28 mg/dL (9.8-20.1); Calc. Creatinine Clearance 34 mL/min (70-130); Calcium 8.4 mg/dL (7.8-10.44); Carbon Dioxide 28 mmol/L (23-31); Chloride 104 mmol/L (98-107); Estimated GFR-MDRD 21; Glucose 208 mg/dL (83-110); Magnesium 2.9 mg/dL (1.6-2.6); Phosphorus 4.1 mg/dL (2.3-4.7); Potassium 5.3 mmol/L (3.5-5.1); Sodium 138 mmol/L (136-145)
[2019-04-03] MEDS: Meclizine HCl 25 MG TAB PO SCH ×3 (05:15→20:25)
[2019-04-03] MEDS: hydrALAZINE 20 MG/ML VIAL SLOW IVP PRN (05:15)
[2019-04-03] MEDS: CEFAZOLIN 2 GM in Premix Bag 1 BAG IVPB SCH (05:16)
[2019-04-03] MEDS: Sodium Chloride 0.9% 1,000 ML IV SCH ×2 (05:44→13:01)
[2019-04-03] MEDS: Mometasone/Formoterol 120 PUFF INHALER INH SCH ×2 (06:53→18:22)
[2019-04-03] MEDS: hydrALAZINE 10 MG TAB PO SCH ×2 (09:00→20:24)
[2019-04-03] MEDS: DULoxetine 60 MG CAP PO SCH (09:00)
[2019-04-03] MEDS: Amlodipine 10 MG TAB PO SCH (09:00)
[2019-04-03] MEDS: Heparin 5,000 UNITS/ML VIAL SC SCH ×3 (09:00→20:25)
[2019-04-03] MEDS: Furosemide 20 MG TAB PO SCH (09:00)
[2019-04-03] MEDS: Nebivolol HCl 5 MG TAB PO SCH (09:00)
[2019-04-03] MEDS: Anastrozole 1 MG TAB PO SCH (09:01)
[2019-04-03] MEDS: clonazePAM 1 MG TAB PO SCH ×2 (09:01→20:19)
[2019-04-03] MEDS: Dronedarone HCl 400 MG TAB PO SCH ×2 (09:01→17:34)
[2019-04-03] MEDS ORDERED: Acetaminophen 325 MG TAB PO PRN (09:12)
[2019-04-03] MEDS ORDERED: Melatonin 3 MG TAB PO PRN (09:13)
--- NOTE | 2019-04-03 11:14 | PRG ---
DATE OF SERVICE: 04/03/2019 SUBJECTIVE: Ms. Chamberlain is a 74-year-old morbidly obese woman post injury day #2, status post ground level fall. The patient sustained a left trimalleolar ankle fracture. She is postop day #1, status post open reduction and internal fixation of the said fracture. She reports not been able to sleep last night, which is consistent with her chronic history of sleep disorder with predominant insomnia. She denies any chest pain, syncope, or dyspnea. Her pain is adequately controlled on oral analgesics. She is tolerating general diet. OBJECTIVE: VITAL SIGNS: This morning include blood pressure of 146/64, pulse is 90, respiratory rate is 16, temperature is 99.4 degrees Fahrenheit, and oxygen saturation is 93% on 2.5 L by nasal cannula oxygen. HEART: Reveals irregular rate and rhythm. LUNGS: Clear to auscultation bilaterally. Breathing, regular and unlabored. ABDOMEN: Soft, nontender, and nondistended. NEUROLOGIC: Reveals no focal deficits present. Left lower extremity is immobilized in a long splint. LABORATORY FINDINGS: Today includes a CBC with 12,300 white blood cells, hemoglobin and hematocrit 7.3 and 23.0 respectively. Platelet count is 192,000. Metabolic profile; sodium 138, potassium is 5.3, chloride is 104, bicarb is 28, BUN is 28, creatinine is 2.32, and glucose is 208. Magnesium is 2.9 and phosphorus is 4.1. IMPRESSION: 1. Postop day #1 status post open reduction and internal fixation left trimalleolar ankle fracture. 2. Acute on chronic anemia. 3. Chronic kidney disease stage 3, stable. PLAN: 1. Initiate physical and occupational therapy. 2. We will start subcutaneous unfractionated heparin for VTE prophylaxis. 3. The patient is being evaluated for possible discharge to inpatient rehabilitation versus long term facility post discharge. 4. Above findings and plan discussed with the patient, who indicates understanding of information given. 5. There is no clinical indication for transfusion with regard to the acute component of her chronic anemia. Job ID: [id number]
[2019-04-03] MEDS: Insulin Regular 300 UNITS/3 ML VIAL SC PRN ×2 (11:20→17:38)
[2019-04-03] MEDS: Gabapentin 100 MG CAP PO SCH ×2 (15:28→20:24)
[2019-04-03] MEDS: Famotidine 20 MG TAB PO SCH (20:19)
--- NOTE | 2019-04-03 23:30 | PRG ---
DATE OF SERVICE: 04/03/2019 SUBJECTIVE: The patient was seen this evening, lying in bed with no signs of acute distress. The patient has her home 3 [address] nasal cannula in place. She denies any shortness of breath. Reports that she has pain in her left foot, but that the pain medications are working appropriately. OBJECTIVE: VITAL SIGNS: Temperature 97.8, pulse 81, respirations 20, oxygen saturation 100% on 2.5 L nasal cannula, blood pressure 165/71. GENERAL: Well-appearing elderly female, sitting up in bed with no signs of acute distress. PULMONARY: Equal chest rise and fall. No signs of acute respiratory distress. ASSESSMENT: 1. Status post syncopal fall, on Eliquis. 2. Left-sided trimalleolar fracture, status post repair. 3. Acute kidney injury on chronic kidney disease. 4. History of atrial fibrillation, diabetes, hypertension, chronic obstructive pulmonary disease, chronic anemia, chronic kidney disease, and gastroparesis. Continue Multaq and hold Eliquis as recommended by Cardiology. We will discontinue the patient's Springer tomorrow. Continue current diet. Continue physical and occupational therapy. The patient was able to stand with PT today. I did encourage the patient to use the incentive spirometer more aggressively; she agreed. We will start the patient on a bowel regimen, as she has not had a bowel movement yet and continue subcu heparin for chemo deep vein thrombosis prophylaxis as well as SCDs to right lower extremity. The patient is pending placement at acute rehab facility. Job ID: [id number]
[2019-04-04 04:40] LABS: Anion Gap 12 mmol/L (10-20); BUN (Urea Nitrogen) 23 mg/dL (9.8-20.1); Calc. Creatinine Clearance 39 mL/min (70-130); Calcium 9.1 mg/dL (7.8-10.44); Carbon Dioxide 26 mmol/L (23-31); Chloride 108 mmol/L (98-107); Estimated GFR-MDRD 24; Glucose 165 mg/dL (83-110); Magnesium 2.7 mg/dL (1.6-2.6); Phosphorus 5.2 mg/dL (2.3-4.7); Sodium 141 mmol/L (136-145)
[2019-04-04 05:24] LABS: Hemoglobin 7.7 g/dL (12.0-16.0); Hypochromia SLIGHT = 6-15 cells (100X) (0-5/hpf); Lymphocytes 10 % (21-51); MDiff Complete? YES; Mean Corpuscular HGB CONC 31.1 g/dL (32.0-36.0); Mean Corpuscular Hemoglobin 25.9 pg (27.0-31.0); Mean Platelet Volume 7.7 fL (7.4-10.4); Monocytes 6 % (0-10); Neutrophil 84 % (42-75); Platelet Count 187 thou/uL (130-400); Platelet Morphology Comment Appears Adequate; RBC Distribution Width 15.1 % (11.5-14.5); Red Blood Cell (RBC) Count 2.96 mill/uL (4.20-5.40); White Blood Cell (WBC) Count 12.1 thou/uL (4.8-10.8)
[2019-04-04] MEDS: Meclizine HCl 25 MG TAB PO SCH ×4 (05:50→21:06)
[2019-04-04] MEDS: Cyclobenzaprine 10 MG TAB PO PRN (05:54)
[2019-04-04] MEDS: Mometasone/Formoterol 120 PUFF INHALER INH SCH ×2 (06:49→18:21)
[2019-04-04] MEDS: Dronedarone HCl 400 MG TAB PO SCH ×2 (08:48→16:14)
[2019-04-04] MEDS: Amlodipine 10 MG TAB PO SCH (08:49)
[2019-04-04] MEDS: Ferrous Sulfate 325 MG TAB PO SCH ×2 (08:49→16:14)
[2019-04-04] MEDS: clonazePAM 1 MG TAB PO SCH ×2 (08:49→21:09)
[2019-04-04] MEDS: Anastrozole 1 MG TAB PO SCH (08:49)
[2019-04-04] MEDS: Furosemide 20 MG TAB PO SCH (08:50)
[2019-04-04] MEDS: Senokot S 8.6-50 MG TAB PO SCH ×2 (08:50→21:12)
[2019-04-04] MEDS: Gabapentin 100 MG CAP PO SCH ×3 (08:50→15:43)
[2019-04-04] MEDS: Nebivolol HCl 5 MG TAB PO SCH (08:50)
[2019-04-04] MEDS: hydrALAZINE 10 MG TAB PO SCH ×2 (08:50→21:10)
[2019-04-04] MEDS: Polyethylene Glycol 3350 17 GM Packet PO SCH (08:50)
[2019-04-04] MEDS: DULoxetine 60 MG CAP PO SCH (08:50)
[2019-04-04] MEDS: Heparin 5,000 UNITS/ML VIAL SC SCH ×3 (09:18→21:09)
[2019-04-04] MEDS: Ascorbic Acid 500 mg Chewable Tablet PO SCH ×2 (09:25→16:14)
[2019-04-04] MEDS: HYDROcodone/Acetaminophen 5/325 mg Tablet PO PRN ×2 (09:29→21:07)
[2019-04-04] MEDS: Insulin Regular 300 UNITS/3 ML VIAL SC PRN ×2 (11:30→21:12)
--- NOTE | 2019-04-04 17:25 | PRG ---
DATE OF SERVICE: 04/04/2019 SUBJECTIVE: This is a 74-year-old lady, who is post injury day #3 status post ground level fall. The patient sustained a left trimalleolar ankle fracture. The patient is postop day #2, status post open reduction and internal fixation. The patient reports that she slept much better last night with some melatonin that was prescribed. The patient continues to have good pain control and a good appetite. The patient voices no complaints at this time. OBJECTIVE: VITAL SIGNS: Blood pressure 137/58, temperature 99.7, pulse 87, respirations 18, and SpO2 of 96% on 3 L nasal cannula. GENERAL: Elderly female, well appearing, awake, alert, in hospital bed, in no distress. LUNGS: Clear bilateral, good inspiratory and expiratory effort, nonlabored. CARDIAC: Regular rate. Regular rhythm. ABDOMEN: Soft, nontender, and nondistended. NEUROLOGIC: No focal deficits. EXTREMITIES: Left lower extremity is immobilized in a long splint. No deficits. LABORATORY DATA: WBC 12.1, RBC 2.96, hemoglobin 7.7, hematocrit 24.6, and platelets 187. Sodium 141, potassium 5.0, chloride 108, carbon dioxide 26, BUN 23, creatinine 2.03, estimated GFR 24, glucose 165, phosphorus 5.2, and magnesium 2.7. DIAGNOSTICS: There is no new diagnostics to review today. IMPRESSION: 1. Postop day #2 status post open reduction and internal fixation of left trimalleolar fracture. 2. Acute on chronic anemia. 3. Chronic kidney disease stage 3, stable. 4. History of hypertension, gastroparesis, chronic obstructive pulmonary disease on home oxygen, sleep apnea, and hyperlipidemia. PLAN: Continue physical and occupational therapy. Continue mechanical and chemical DVT prophylaxis. The patient is ready for discharge at this time, the patient is pending placement to inpatient rehab. We will start the patient on iron and vitamin C for chronic anemia. The patient was examined by Dr. Padilla during morning rounds. The plan was discussed with the patient's family, who agree. Job ID: [id number]
[2019-04-04] MEDS: Famotidine 20 MG TAB PO SCH (21:09)
--- NOTE | 2019-04-05 00:13 | PRG ---
DATE OF SERVICE: 04/04/2019 SUBJECTIVE: The patient was seen this evening during rounds. She was sitting up in bed with nasal cannula oxygen in place with no signs of acute distress. Nursing reported no acute events. OBJECTIVE: VITAL SIGNS: Temperature 98.9, pulse 80, respirations 16, oxygen saturation 94% on 3 L nasal cannula, and blood pressure 144/63. GENERAL: Well-appearing elderly female, sitting up in bed, asleep, with no signs of acute distress. PULMONARY: Equal chest rise and fall. No signs of acute respiratory distress. ASSESSMENT: 1. Status post syncopal fall, on Eliquis. 2. Left trimalleolar fracture status post repair, now postop day #2. 3. History of atrial fibrillation, diabetes, chronic kidney disease, hypertension, chronic obstructive pulmonary disease, anemia, and gastroparesis. PLAN: Continue current diet and pain regimen. Continue physical and occupational therapy. Springer discontinued today and patient has voided. She is pending placement at acute rehab facility. She is ready for discharge at this time. Job ID: [id number]
[2019-04-05] MEDS: Meclizine HCl 25 MG TAB PO SCH ×3 (05:37→21:40)
[2019-04-05] MEDS: Mometasone/Formoterol 120 PUFF INHALER INH SCH ×2 (07:31→18:21)
[2019-04-05] MEDS: Dronedarone HCl 400 MG TAB PO SCH ×2 (08:40→17:42)
[2019-04-05] MEDS: Ascorbic Acid 500 mg Chewable Tablet PO SCH ×2 (08:40→17:42)
[2019-04-05] MEDS: Amlodipine 10 MG TAB PO SCH (08:40)
[2019-04-05] MEDS: Ferrous Sulfate 325 MG TAB PO SCH ×2 (08:40→17:42)
[2019-04-05] MEDS: Anastrozole 1 MG TAB PO SCH (08:41)
[2019-04-05] MEDS: Furosemide 20 MG TAB PO SCH (08:41)
[2019-04-05] MEDS: clonazePAM 1 MG TAB PO SCH ×2 (08:41→20:19)
[2019-04-05] MEDS: DULoxetine 60 MG CAP PO SCH (08:41)
[2019-04-05] MEDS: hydrALAZINE 10 MG TAB PO SCH ×2 (08:42→20:20)
[2019-04-05] MEDS: Heparin 5,000 UNITS/ML VIAL SC SCH ×3 (08:42→20:14)
[2019-04-05] MEDS: Polyethylene Glycol 3350 17 GM Packet PO SCH (08:43)
[2019-04-05] MEDS: Senokot S 8.6-50 MG TAB PO SCH ×2 (08:43→20:41)
[2019-04-05] MEDS: Nebivolol HCl 5 MG TAB PO SCH (08:43)
[2019-04-05] MEDS: HYDROcodone/Acetaminophen 5/325 mg Tablet PO PRN ×2 (09:25→15:03)
[2019-04-05] MEDS: Insulin Regular 300 UNITS/3 ML VIAL SC PRN ×3 (11:28→21:42)
--- NOTE | 2019-04-05 18:04 | PRG ---
DATE OF SERVICE: 04/05/2019 SUBJECTIVE: This is a 74-year-old lady who is status post ground level fall post injury day #4. The patient sustained a left trimalleolar ankle fracture. The patient is postop day #3, status post open reduction and internal fixation of her fracture. The patient had no overnight events and states that she slept well again last night. The patient has not had a bowel movement, but continues to have a good appetite. The patient's pain continues to be well controlled. OBJECTIVE: VITAL SIGNS: Temperature 99.7, pulse 86, respirations 18, SpO2 of 97% on 3 L nasal cannula, blood pressure 152/67. GENERAL: Elderly female, well-appearing, awake, alert, sitting up in hospital bed, in no acute distress. LUNGS: Good inspiratory and expiratory effort, nonlabored. CARDIAC: Regular rate, regular rhythm. NEUROLOGIC: No focal deficit. EXTREMITIES: Left lower extremity is immobilized in a long splint. LABORATORY DATA: There are no new labs to evaluate today. DIAGNOSTICS: There are no new diagnostics. IMPRESSION: 1. Postop day #3, status post open reduction and internal fixation of left trimalleolar fracture. 2. Acute on chronic anemia, stable. 3. Chronic kidney disease stage 3, stable. 4. History of hypertension, gastroparesis, chronic obstructive pulmonary disease, on home oxygen, sleep apnea, and hyperlipidemia. PLAN: Continue physical and occupational therapy. Continue supportive care. The patient is ready for discharge at this time. The patient has been approved for inpatient rehab, but there are no beds available. The plan has been discussed with the patient and family who agrees. The patient was examined by Dr. Padilla during morning rounds. Job ID: [id number]
--- NOTE | 2019-04-05 19:00 | CON ---
DATE OF CONSULTATION: 04/05/2019 HISTORY OF PRESENT ILLNESS: Ms. Chamberlain is a 74-year-old female, status post closed trimalleolar ankle fracture. The patient underwent ORIF of her ankle on Tuesday. The patient is currently resting comfortably in bed. She is pending disposition. PHYSICAL EXAMINATION: VITAL SIGNS: The patient's temperature 98.7, respiratory rate 16, and blood pressure 139/62. GENERAL: Alert and oriented female, in no acute distress, resting comfortably in bed. EXTREMITIES: The patient's left lower extremity splint clean, dry, intact. She can wiggle and move her toes. Cap refill intact. ASSESSMENT: Left trimalleolar ankle fracture. ASSESSMENT AND PLAN: The patient will remain nonweightbearing for 12 weeks. She is pending disposition. The patient needs a DVT prophylaxis as per Medicine, which is difficult given the patient's current anemia. We will follow her inhouse. Job ID: [id number]
[2019-04-05] MEDS ORDERED: Digoxin 0.5 MG/2 ML AMP SLOW IVP SCH (19:45)
[2019-04-05] MEDS: Famotidine 20 MG TAB PO SCH (20:19)
--- NOTE | 2019-04-06 00:40 | PRG ---
DATE OF SERVICE: SUBJECTIVE: The patient was seen this evening, lying in bed and asleep during evening rounds. Nursing reported no acute events. It was noted that Cardiology did start the patient on digoxin today. There seems to have been time where the patient was tachycardic this afternoon. OBJECTIVE: VITAL SIGNS: Temperature 99, pulse 85, respirations 18, oxygen saturation 96% on 3 L nasal cannula, and blood pressure 134/59. GENERAL: Well-appearing elderly female, lying in bed with no signs of acute distress. PULMONARY: Equal chest rise and fall. No signs of acute respiratory distress. ASSESSMENT: 1. Status post syncopal fall, on Eliquis. 2. Left trimalleolar fracture, status post repair. 3. Atrial fibrillation with rapid ventricular response, stable. 4. History of atrial fibrillation, diabetes, chronic kidney disease, hypertension, chronic obstructive pulmonary disease, anemia, and gastroparesis. PLAN: Continue current diet and pain regimen. Continue rate control per Cardiology recommendations. The patient was given lactulose and had a bowel movement. Subsequently, lactulose will be discontinued. She is pending placement at rehab facility she has been approved. She is pending bed availability. She is ready for discharge at this time. Job ID: [id number]
[2019-04-06] MEDS: HYDROcodone/Acetaminophen 5/325 mg Tablet PO PRN ×2 (03:35→14:08)
[2019-04-06] MEDS: Meclizine HCl 25 MG TAB PO SCH ×3 (06:40→14:08)
[2019-04-06] MEDS: Mometasone/Formoterol 120 PUFF INHALER INH SCH (06:55)
[2019-04-06] MEDS ORDERED: Digoxin 0.125 MG TAB PO SCH (09:00)
[2019-04-06] MEDS: Dronedarone HCl 400 MG TAB PO SCH ×2 (09:17→16:17)
[2019-04-06] MEDS: Amlodipine 10 MG TAB PO SCH (09:17)
[2019-04-06] MEDS: Ascorbic Acid 500 mg Chewable Tablet PO SCH ×2 (09:17→16:17)
[2019-04-06] MEDS: Ferrous Sulfate 325 MG TAB PO SCH ×2 (09:17→16:17)
[2019-04-06] MEDS: clonazePAM 1 MG TAB PO SCH (09:18)
[2019-04-06] MEDS: Anastrozole 1 MG TAB PO SCH (09:18)
[2019-04-06] MEDS: Heparin 5,000 UNITS/ML VIAL SC SCH ×2 (09:19→14:08)
[2019-04-06] MEDS: DULoxetine 60 MG CAP PO SCH (09:19)
[2019-04-06] MEDS: Furosemide 20 MG TAB PO SCH (09:19)
[2019-04-06] MEDS: hydrALAZINE 10 MG TAB PO SCH (09:19)
[2019-04-06] MEDS: Senokot S 8.6-50 MG TAB PO SCH (09:20)
[2019-04-06] MEDS: Polyethylene Glycol 3350 17 GM Packet PO SCH (09:20)
[2019-04-06] MEDS: Nebivolol HCl 5 MG TAB PO SCH (09:20)
[2019-04-06] MEDS: Cyclobenzaprine 10 MG TAB PO PRN (09:53)
[2019-04-06] MEDS: Insulin Regular 300 UNITS/3 ML VIAL SC PRN (11:27)
--- NOTE | 2019-04-06 12:21 | PRG ---
DATE OF SERVICE: 04/06/2019 SUBJECTIVE: This is a 74-year-old lady, who is status post ground level fall post injury day #5. The patient sustained a left trimalleolar ankle fracture. The patient is postop day #4, status post open reduction and internal fixation. The patient had no overnight events. The patient reports sleeping very well again. The patient did have a bowel movement last night. The patient has no complaints at this time. The patient reports that her pain is well controlled. OBJECTIVE: VITAL SIGNS: Pulse 91, SpO2 of 95% on 3 L nasal cannula, temperature 98.9, blood pressure 136/62, and respirations 16. GENERAL: Elderly female, well-appearing, awake, alert, sitting up in hospital bed, in no acute distress. LUNGS: Good inspiratory and expiratory effort, nonlabored. CARDIAC: Regular rate and regular rhythm. NEUROLOGIC: No focal deficit. EXTREMITIES: Moves all extremities, left lower extremity is immobilized in a long splint. LABORATORY DATA: There are no new labs to evaluate today. DIAGNOSTICS: There are no diagnostics. IMPRESSION: 1. Postop day #4, status post open reduction and internal fixation of left trimalleolar fracture. 2. Acute on chronic anemia, stable. 3. Chronic kidney disease stage 3, stable. 4. History of hypertension, gastroparesis, chronic obstructive pulmonary disease on home oxygen, sleep apnea, hyperlipidemia. PLAN: Continue physical and occupational therapy. Continue supportive care. The patient is ready for discharge at this time. The patient has been approved for inpatient rehab, but there still are no beds available at this time. Hopefully, a bed will be available tomorrow. The patient was examined by Dr. Padilla during morning rounds. The plan was discussed with the patient and family, who agree. Job ID: [id number]
[2019-04-06] MEDS ORDERED: PROVENTIL INHALER 6.7 G (200 INHALATIONS) INH PRN (17:02)
[2019-04-06] MEDS ORDERED: [UNRECOGNIZED DRUG - OTHER] SC SCH (17:15)
--- NOTE | 2019-04-06 18:04 | DIS ---
DATE OF ADMISSION: 04/01/2019 DATE OF DISCHARGE: 04/06/2019 This is Elyssa Cabezas NP dictating a report for Dr. Padilla. ATTENDING SURGEON: Dr. Angulo. DISCHARGE ATTENDING: Dr. Padilla. CONSULTS: Orthopedic Surgery, Dr. Frias. PROCEDURES: 1. On 04/01/2019, left ankle, impression shows a trimalleolar fracture dislocation of the left ankle. Tib-fib x-ray, impression; fracture dislocation of the left ankle. 2. Chest x-ray on 04/01/2019; impression, no acute findings. 3. On 04/01/2019, post reduction x-ray, satisfactory post reduction trimalleolar fracture. 4. On 04/01/2019, brain CT; impression, no mass or bleed or other significant acute intracranial process. 5. On 04/02/2019, open reduction and internal fixation of trimalleolar ankle fracture, medial and lateral malleolus, nonoperative management of posterior malleolus by Dr. Frias. 6. Carotid Doppler study on 04/02/2019; impression, no visualization of left internal carotid or vertebral artery secondary to overlying bandage, moderate 50% to 69% stenosis involving the right internal carotid artery. PRIMARY DIAGNOSES: Status post ground level fall; syncopal episode; left trimalleolar fracture, status post repair. SECONDARY DIAGNOSES: Chronic kidney disease; chronic anemia; history of hypertension; gastroparesis; chronic obstructive pulmonary disease, on home oxygen; sleep apnea; hyperlipidemia. DISCHARGE MEDICATIONS: 1. Acetaminophen 650 mg p.o. q.4 hours as needed. 2. Albuterol inhaler two puffs as needed q.4 hours. 3. Norvasc 10 mg p.o. daily. 4. Arimidex 1 mg p.o. daily. 5. Vitamin C 500 mg p.o. b.i.d. with meals. 6. Lipitor 40 mg p.o. at bedtime. 7. Biotin 1000 mcg p.o. b.i.d. 8. Calcium 600 mg p.o. daily. 9. Vitamin D3, 5000 units p.o. daily. 10. Klonopin 1 mg p.o. b.i.d. 11. Flexeril 5 mg p.o. three times a day as needed for muscle spasms. 12. Digoxin 0.125 mg p.o. daily. 13. Multaq 400 mg p.o. b.i.d. with meals. 14. Cymbalta 60 mg p.o. daily. 15. Fish oil one capsule p.o. b.i.d. 16. Flonase as needed. 17. Dulera inhaler two puffs b.i.d. 18. Ajovy 1.5 mL subcu as directed every month on the . 19. Furosemide 20 mg p.o. daily. 20. Heparin 5000 units subcu three times a day for 2 weeks. 21. Hydralazine 50 mg p.o. b.i.d. 22. Hydrocodone 5 mg one to two tablets q.4 hours as needed for pain. 23. NovoLog 70/30, 35 units subcu b.i.d. 24. DuoNeb q.4 hours as needed. 25. Meclizine 25 mg p.o. q.8 hours. 26. Melatonin 3 mg p.o. at bedtime. 27. Bystolic 10 mg p.o. daily. 28. Omeprazole 40 mg p.o. daily. 29. MiraLAX as needed. 30. Senokot as needed. 31. Vitamin B complex one tablet p.o. daily. Discontinued medications; Eliquis per Dr. Kahn due to the patient's recent multiple falls. HISTORY OF PRESENT ILLNESS AND HOSPITAL COURSE: This is a 74-year-old female, who presented to the emergency room with left ankle pain. The patient reports standing up to go to the restroom when she got dizzy and fell. The patient reports that she has been having dizzy spells for the last few weeks. She was unsure if this was related to her insulin or some other episodes. The patient was recently diagnosed with paroxysmal atrial fibrillation. This was an unwitnessed fall and the patient was unsure if she hit her head. The patient takes Eliquis daily for her atrial fibrillation. The patient was worked up in the emergency room. Head CT was negative for any acute bleed. The patient's left ankle was reduced and splinted. The patient was admitted to [facility]. The patient's pain was controlled preop and postop. Cardiology was consulted. Medications were adjusted per Dr. Kahn. The patient had a delay in being discharged due to no rehab beds being available. On the day of discharge, the patient was examined by Dr. Padilla. The patient's vital signs were stable and exam was unremarkable including cardiopulmonary and GI exam. The patient's vital signs were stable. The patient continued to tolerate a diabetic diet and pain was well controlled. The patient was found stable for discharge to inpatient rehab for continued physical and occupational therapy. DISPOSITION: Stable. DISCHARGE INSTRUCTIONS: 1. Location: Inpatient rehab. 2. Diet: Diabetic diet. 3. Activity: Orthopedic limitations, nonweightbearing, left lower extremity for 12 weeks. 4. Followup: The patient is to follow up with Dr. Frias as directed. No need to follow up with Trauma Services. Please call for any questions. This is just a summary of the patient's hospital course. Please see the internal medical record. Job ID: [id number]
[2019-04-06 19:54] VITALS: BP 141/64; TEMP 98.3
[2019-04-06] MEDS ORDERED: HumuLIN 70/30 (300 UNITS/3 ML VIAL) SC SCH (21:00)
[2019-04-06] MEDS ORDERED: Atorvastatin Calcium 40 MG TAB PO SCH (21:00)
[2019-04-06] MEDS ORDERED: Fluticasone Propionate Nasal Spray 16 gm Bottle NASAL SCH (21:00)
[2019-04-06] MEDS ORDERED: Fish Oil 1,000 MG CAP PO SCH (21:00)
[2019-04-06] MEDS ORDERED: Non-Formulary Item 1 EACH (Biotin [Biotin] 1,000 MCG) PO SCH (21:00)
[2019-04-07] MEDS ORDERED: Stress 600 With Zinc 1 TAB PO SCH (09:00)
[2019-04-07] MEDS ORDERED: Ascorbic Acid 500 mg Chewable Tablet PO SCH (09:00)
[2019-04-07] MEDS ORDERED: Calcium Carbonate 600 MG TAB PO SCH (09:00)
== END 2019-04-06 21:51 | DRG 493 ==
LOC: ERS 09:43 → ERHOLD 14:14 → 2NO 20:42 → SURG A 04-02 14:52 → SJJU 04-02 15:50 → 2NO 04-02 20:35
PROVIDERS: ADMIT Surgery; ATTEND Surgery
PROC: 0QSK04Z Reposition Left Fibula with Internal Fixation Device, Open Approach (ICD-10-PCS; principal; 2019-04-02)
PROC: 0QSH04Z Reposition Left Tibia with Internal Fixation Device, Open Approach (ICD-10-PCS; 2019-04-02)
DX: S82.852A Displaced trimalleolar fracture of left lower leg, initial encounter for closed fracture (principal); N17.9 Acute kidney failure, unspecified; D63.1 Anemia in chronic kidney disease; E11.22 Type 2 diabetes mellitus with diabetic chronic kidney disease; E11.40 Type 2 diabetes mellitus with diabetic neuropathy, unspecified; N18.3 Chronic kidney disease, stage 3 (moderate); K31.84 Gastroparesis; J44.9 Chronic obstructive pulmonary disease, unspecified; I48.0 Paroxysmal atrial fibrillation; G47.33 Obstructive sleep apnea (adult) (pediatric); E78.5 Hyperlipidemia, unspecified; D64.9 Anemia, unspecified; G43.909 Migraine, unspecified, not intractable, without status migrainosus; F32.9 Major depressive disorder, single episode, unspecified; E78.00 Pure hypercholesterolemia, unspecified; I12.9 Hypertensive chronic kidney disease with stage 1 through stage 4 chronic kidney disease, or unspecified chronic kidney disease; J45.909 Unspecified asthma, uncomplicated; W18.30XA Fall on same level, unspecified, initial encounter; Z90.49 Acquired absence of other specified parts of digestive tract; Z90.710 Acquired absence of both cervix and uterus; Z99.81 Dependence on supplemental oxygen; Y93.89 Activity, other specified; Z79.01 Long term (current) use of anticoagulants; Z88.8 Allergy status to other drugs, medicaments and biological substances; Z85.3 Personal history of malignant neoplasm of breast; Z79.4 Long term (current) use of insulin
CPT/HCPCS: 27818; 36415; 36416; 70450; 71045; 76000; 80048; 80053; 83036; 83735; 84100; 84484; 85025; 85610; 85730; 86850; 86900; 86901; 93005; 93880; 94640; 96374; 96375; 99152; 99153; C1713; C1769; G0390; J0360; J0670; J0690; J1160; J1644; J1815; J2001; J2250; J2270; J2405; J2704; J3010; J7620; J8597; Q0162

== ENCOUNTER 2019-04-17 17:33 | Inpatient (IN) | payer MEDICARE, BC ==
[2019-04-17 18:13] LABS: Hemoglobin 7.2 g/dL (12.0-16.0); Mean Corpuscular HGB CONC 32.5 g/dL (32.0-36.0); Mean Corpuscular Hemoglobin 27.4 pg (27.0-31.0); Mean Corpuscular Volume 84.4 fL (78.0-98.0); Mean Platelet Volume 8.1 fL (7.4-10.4); Platelet Count 339 thou/uL (130-400); RBC Distribution Width 17.5 % (11.5-14.5); Red Blood Cell (RBC) Count 2.63 mill/uL (4.20-5.40); White Blood Cell (WBC) Count 6.8 thou/uL (4.8-10.8)
--- NOTE | 2019-04-17 18:29 | CT ---
EXAM: CT Brain WO Con PROVIDED CLINICAL HISTORY: Altered mental status COMPARISON: 04/01/2019 FINDINGS: The ventricular system appears normal in size and morphology. There is no evidence for intracranial h emorrhage or mass effect. Chronic microvascular ischemic changes are again seen involving the cerebral white matter. Vascular calcifications are seen. Partial opacification of the sphenoid sinus and fluid density within the left maxillary sinus are again noted. And osseous structures appear otherwise unremarkable IMPRESSION: No evidence for intracranial hemorrhage or mass effect.
[2019-04-17 18:32] LABS: Anisocytosis SLIGHT = 6-15 cells (100X) (0-5/hpf); Band 5 % (5-11); Eosinophils 3 % (0-10); Lymphocytes 20 % (21-51); MDiff Complete? YES; Monocytes 8 % (0-10); Neutrophil 64 % (42-75); Nucleated RBC 5 % (0); Ovalocytes SLIGHT = 2-5 cells (100X) (0-1/hpf); Platelet Morphology Comment Appears Adequate; Polychromasia MODERATE = 3-4 cells (100X) (0-2/hpf)
[2019-04-17 18:42] LABS: ALT (SGPT) 12 U/L (8-55); AST (SGOT) 36 U/L (5-34); Albumin 3.6 g/dL (3.4-4.8); Alkaline Phosphatase 113 U/L (40-110); Anion Gap 15 mmol/L (10-20); BUN (Urea Nitrogen) 34 mg/dL (9.8-20.1); Bilirubin, Total 0.6 mg/dL (0.2-1.2); CK (CPK) 38 U/L (29-168); Calc. Creatinine Clearance 0 mL/min (70-130); Calcium 8.9 mg/dL (7.8-10.44); Carbon Dioxide 21 mmol/L (23-31); Chloride 108 mmol/L (98-107); Estimated GFR-MDRD 20; Globulin 2.4 g/dL (2.4-3.5); Glucose 85 mg/dL (83-110); Lipase 18 U/L (8-78); Potassium 5.3 mmol/L (3.5-5.1); Sodium 139 mmol/L (136-145)
[2019-04-17 18:46] LABS: CKMB 0.8 ng/mL (0-6.6)
--- NOTE | 2019-04-17 19:05 | RAD ---
EXAM: XR Chest 1 View Portable PROVIDED CLINICAL HISTORY: Altered mental status COMPARISON: 04/01/2019 FINDINGS: Cardiac and mediastinal silhouettes is unchanged in appearance. Elevation of the right hemidiaphragm persists. Interval development of airspace disease in the right midlung zone and probably also left lower lung zone. No evidence for pneumothorax. No evidence for large pleural effusion. IMPRESSION: Development of right midlung zone and probably also left lower lung zone airspace opacity, compatible with pneumonia in the appropriate clinical context. Follow-up is recommended.
[2019-04-17] MEDS ORDERED: Aspirin Chewable 81 MG TAB ONE (19:14)
[2019-04-17 19:16] LABS: Bilirubin Negative (Negative); Blood, Urine Negative (Negative); Clarity Clear (Clear); Glucose, Urine (Dipstick) Normal (Negative); Leukocyte Negative Leu/uL (Negative); Nitrite Negative (Negative); Protein, Urine (Dipstick) Negative (Neg-Trace); Urobilinogen Normal mg/dL (Less than 2)
[2019-04-17 19:21] LABS: Actual Bicarbonate (HCO3a) 23.6 mEq/L (22-28); Analyzer IN Cardio ER; Base Excess (BEa) -1.8 mEq/L (-2.0 to +3.0); CO2 Tension 43.6 mmHg (35.0-45.0); Calcium, Ionized 1.21 mmol/L (1.12-1.30); Carboxyhemoglobin (COHb) 0.6 gm% (0.0-3.0); Hemoglobin (Hb) 7.6 g/dL (12.0-16.0); O2 Tension (PaO2) 83.6 mmHg (> 70.0); Potassium - ABG Lab 4.26 mmol/L (3.70-5.30); pH, Arterial 7.35 (7.35-7.45)
[2019-04-17 19:24] LABS: Acetaminophen Less than 6.0 mcg/mL (10.0-30.0); Alcohol Less than 10 mg/dL (Less than 10); Salicylate Less than 8.0 mg/dL (15.0-30.0)
[2019-04-17 19:27] LABS: Amphetamine Not Detected (NotDetected); Barbiturates Screen Not Detected (NotDetected); Benzodiazepine Screen Not Detected (NotDetected); Cocaine Metabolite Screen Not Detected (NotDetected); Medtox Control Line Valid? VALID (VALID); Medtox Reader # READER 4; Methadone Not Detected (NotDetected); Methamphetamine Not Detected (NotDetected); Opiate Screen Detected (NotDetected); Oxycodone Screen Not Detected (NotDetected); Phencyclidine (PCP) Not Detected (NotDetected); THC/Cannabinoid Screen Not Detected (NotDetected); Tricyclic Screen Not Detected (NotDetected)
[2019-04-17 19:27] LABS: Digoxin 2.63 ng/mL (0.8-2.0)
[2019-04-17] MEDS ORDERED: Acetaminophen 325 MG TAB PO PRN (19:35)
[2019-04-17] MEDS ORDERED: Vancomycin HCl 1 GM in Sodium Chloride 0.9% 250 ML 250 ML IVPB SCH (19:45)
--- NOTE | 2019-04-17 20:00 | PDOC.EVN ---
Event Note - Event Note Event Note: [id number] HP
[2019-04-17 20:07] LABS: Puncture Site LRA
[2019-04-17 21:13] LABS: PTT 24.8 SEC (22.9-36.1); Prothrombin Time 13.1 SEC (12.0-14.7)
[2019-04-17 21:22] LABS: Troponin I 0.049 ng/mL (< 0.028)
--- NOTE | 2019-04-17 22:41 | HP ---
CHIEF COMPLAINT: Altered mental status. HISTORY OF PRESENT ILLNESS: Ms. Chamberlain is a 74-year-old female with multiple medical problems including COPD; chronic respiratory failure, on home oxygen; sleep apnea; diabetes type 2; hyperlipidemia; hypertension; breast cancer with history of radiation and chemotherapy, was brought to the emergency room because of lethargy, altered mental status with visual hallucinations. Also, it was reported the patient has been increasing cough. The patient currently has a left ankle and tibia-fibula fracture from [facility] with a cast on the ankle. Family denies any history of stroke or dementia. Workup in the emergency room including imaging studies, the patient was found to have pneumonia. Septic workup done in the ED. The patient started on IV antibiotics. Troponin is indeterminate. The patient denies any chest pain. Patient also has a history of chronic kidney disease. Creatinine is 2.38, potassium is 5.3. The patient is being admitted to the hospital for further management. PAST MEDICAL HISTORY: As mentioned above in the history of present illness. PAST SURGICAL HISTORY: 1. Mastectomy. 2. Appendectomy. 3. Cholecystectomy. 4. Hysterectomy. 5. Colon surgery. FAMILY HISTORY: Reviewed and noncontributory. SOCIAL HISTORY: Denies smoking, alcohol drinking. ALLERGIES: ALLERGIC TO CODEINE, LISINOPRIL, AND TRAMADOL. REVIEW OF SYSTEMS: The patient is somewhat confused, but review of 14 systems negative except what is mentioned in history of present illness. PHYSICAL EXAMINATION: GENERAL: The patient is awake, somewhat confused. VITAL SIGNS: Blood pressure 175/73, pulse is 80, respiratory rate is 18, temperature is 98.5, oxygen saturation is 94% on 3 L/minute nasal cannula. HEAD AND NECK: Normocephalic, atraumatic. NECK: Supple. CHEST: Coarse bilateral breath sounds, more on the right side. HEART: S1, S2. Regular. ABDOMEN: Soft, nontender. Bowel sounds present. NEUROLOGIC: Awake, alert, moving extremities, somewhat confused. PSYCHIATRIC: Unable to assess. EXTREMITIES: No clubbing, no cyanosis. GENITOURINARY: No suprapubic tenderness. No flank tenderness. LABORATORY DATA: Chest x-ray showed development of right mid zone and probably left lower zone airspace disease compatible with pneumonia. Troponin 0.03. Potassium is 5.3, BUN is 34, creatinine 2.3. BNP is 197. WBC count is 6.8, hemoglobin 7.2, platelets 339. ASSESSMENT AND PLAN: 1. Acute metabolic encephalopathy, probably secondary to pneumonia. 2. Pneumonia, healthcare associated? 3. Chronic kidney disease. 4. Diabetes mellitus type 2. 5. Hyperkalemia, mild. 6. Chronic obstructive pulmonary disease. 7. Sleep apnea. 8. History of breast cancer. 9. Hypertension. 10. History of atrial fibrillation. 11. Chronic respiratory failure, on home oxygen. PLAN: 1. Admit. 2. Septic workup including blood cultures. 3. Continue with IV antibiotics, cefepime and vancomycin, adjusted to renal function. 4. Bronchodilators. 5. Oxygen to keep saturation more than 92%. 6. Reconcile home medications. 7. DVT prophylaxis as appropriate. 8. Expected length of stay, 2 midnights or more. Job ID: [id number]
[2019-04-18 00:42] LABS: Troponin I Less than 0.010 ng/mL (< 0.028)
[2019-04-18 04:28] LABS: Band 6 % (5-11); Eosinophils 3 % (0-10); Hemoglobin 7.3 g/dL (12.0-16.0); Lymphocytes 15 % (21-51); MDiff Complete? YES; Mean Corpuscular HGB CONC 31.6 g/dL (32.0-36.0); Mean Corpuscular Hemoglobin 27.2 pg (27.0-31.0); Mean Corpuscular Volume 86.3 fL (78.0-98.0); Mean Platelet Volume 7.9 fL (7.4-10.4); Monocytes 14 % (0-10); Neutrophil 62 % (42-75); Platelet Count 311 thou/uL (130-400); Platelet Morphology Comment Appears Adequate; RBC Distribution Width 17.6 % (11.5-14.5); Red Blood Cell (RBC) Count 2.69 mill/uL (4.20-5.40); White Blood Cell (WBC) Count 7.6 thou/uL (4.8-10.8)
[2019-04-18 04:30] LABS: Anion Gap 14 mmol/L (10-20); BUN (Urea Nitrogen) 31 mg/dL (9.8-20.1); Calc. Creatinine Clearance 0 mL/min (70-130); Calcium 9.2 mg/dL (7.8-10.44); Carbon Dioxide 20 mmol/L (23-31); Chloride 110 mmol/L (98-107); Estimated GFR-MDRD 23; Glucose 111 mg/dL (83-110); Potassium 4.4 mmol/L (3.5-5.1); Sodium 140 mmol/L (136-145)
[2019-04-18] MEDS ORDERED: Acetaminophen/Codeine 30-300mg Tablet PO PRN (08:37)
[2019-04-18] MEDS ORDERED: Acetaminophen 325 MG TAB PO PRN (08:37)
[2019-04-18] MEDS ORDERED: Melatonin 3 MG TAB PO PRN ×2 (08:37→08:43)
[2019-04-18] MEDS ORDERED: Docusate 100 MG CAP PO PRN (08:43)
[2019-04-18] MEDS ORDERED: Benzonatate 100 MG CAP PO PRN (08:43)
[2019-04-18] MEDS ORDERED: diphenhydrAMINE 25 MG CAP PO PRN (08:43)
[2019-04-18] MEDS ORDERED: Labetalol HCl 100 MG/20 ML VIAL SLOW IVP PRN (08:43)
[2019-04-18] MEDS ORDERED: Dextrose 5% in Water 1,000 ML IV PRN (08:46)
[2019-04-18] MEDS ORDERED: HumaLOG 300 UNITS/3 ML VIAL SC PRN (08:46)
[2019-04-18] MEDS ORDERED: Dextrose 50% Abboject 50 ML SYRINGE SLOW IVP PRN (08:46)
[2019-04-18] MEDS ORDERED: Cefepime 1 GM VIAL ONE (09:48)
[2019-04-18] MEDS: Cefepime 1 GM in Sodium Chloride 0.9% 100 ML IVPB SCH ×3 (10:05→22:07)
[2019-04-18] MEDS ORDERED: Polyethylene Glycol 3350 17 GM Packet PO SCH (10:30)
[2019-04-18] MEDS ORDERED: Senokot S 8.6-50 MG TAB PO SCH (10:30)
[2019-04-18] MEDS ORDERED: Ferrous Sulfate 325 MG TAB PO SCH (10:30)
[2019-04-18] MEDS ORDERED: Anastrozole 1 MG TAB PO SCH (10:30)
[2019-04-18] MEDS ORDERED: Ascorbic Acid 500 mg Chewable Tablet PO SCH (10:30)
[2019-04-18] MEDS ORDERED: Amlodipine 10 MG TAB PO SCH (10:30)
[2019-04-18] MEDS ORDERED: DULoxetine 60 MG CAP PO SCH (10:30)
[2019-04-18] MEDS ORDERED: Calcium Carbonate 600 MG TAB PO SCH (10:30)
[2019-04-18] MEDS ORDERED: Furosemide 20 MG TAB PO SCH (10:30)
[2019-04-18] MEDS ORDERED: Heparin 5,000 UNITS/ML VIAL SC SCH (10:45)
[2019-04-18] MEDS ORDERED: Stress 600 With Zinc 1 TAB PO SCH (10:45)
[2019-04-18] MEDS ORDERED: HumuLIN 70/30 (300 UNITS/3 ML VIAL) SC SCH (11:00)
[2019-04-18] MEDS ORDERED: Nebivolol HCl 5 MG TAB PO SCH (11:00)
[2019-04-18] MEDS ORDERED: Amlodipine 5 MG TAB ONE (11:39)
[2019-04-18] MEDS ORDERED: hydrALAZINE 20 MG/ML VIAL ONE (11:40)
[2019-04-18] MEDS: hydrALAZINE 20 MG/ML VIAL SLOW IVP PRN ×2 (11:43→16:28)
[2019-04-18] MEDS ORDERED: HYDROcodone/Acetaminophen 5/325 mg Tablet ONE (12:36)
[2019-04-18] MEDS: HYDROcodone/Acetaminophen 5/325 mg Tablet PO PRN ×2 (12:56→18:27)
[2019-04-18] MEDS ORDERED: Meclizine HCl 25 MG TAB PO SCH (14:00)
[2019-04-18] MEDS ORDERED: Meclizine HCl 25 MG TAB PO PRN (14:30)
[2019-04-18] MEDS ORDERED: clonazePAM 0.5 MG TAB PO PRN (14:32)
--- NOTE | 2019-04-18 14:39 | PDOC.HOSPP ---
- Subjective Subjective: Seen and examined. Follow-up for acute COPD exacerbation and pneumonia, altered mental status with visual hallucinations. Patient's family at bedside able to aid in history. Patient knows her name, no she is in the hospital, patient does not know the year, patient does not know the situation. Patient's family states that yesterday she was hallucinating and seeing bugs crawling on the cash. Patient chronically takes benzodiazepine medication Klonopin, though she is unsure if she has been getting this medication over the past couple days while she was in nursing facility. Patient's family state that overall in the past 24 hours she has had a dramatic improvement in is much better than she was. Patient no longer having visual or auditory hallucinations. Klonopin has been restarted at lower dose and will be weaned over the upcoming days two weeks. Nephrology and neurology and put requested for further recommendations. Patient improving on maximal medical therapy. - Objective Vital Signs & Weight: Vital Signs (12 hours) Pulse Resp BP 04/18/19 11:43 93 202/75 H 04/18/19 11:42 93 04/18/19 10:10 93 16 Result Diagrams: 04/18/19 03:56 04/18/19 03:56 Additional Labs: Accuchecks 04/18/19 04/18/19 11:15 07:19 POC Glucose 168 H 141 H Radiology Reviewed by me: Yes Hospitalist ROS - Review of Systems All other systems reviewed; all pertinent +/- noted in HPI/Subj - Medication Medications: Active Medications Generic Name Dose Route Start Last Admin Trade Name Freq PRN Reason Stop Dose Admin Hydrocodone Bitart/Acetaminophen 1 tab 04/18/19 08:37 04/18/19 12:56 [place] 5/325 PO 1 tab Q4H PRN Administration Moderate Pain (4-6) Albuterol/Ipratropium 3 ml 04/18/19 18:30 04/18/19 10:10 Duoneb NEB 3 ml BID-RT JOSE Administration Hydralazine HCl 10 mg 04/18/19 08:43 04/18/19 11:43 Apresoline SLOW IVP 10 mg Q4H PRN Administration Hypertension Cefepime HCl 1 gm/ Sodium 100 mls @ 200 mls/hr 04/17/19 21:00 04/18/19 10:05 Chloride IVPB 100 mls Q12HR JOSE Administration - Exam General Appearance: NAD Eye: PERRL, anicteric sclera ENT: normocephalic atraumatic, moist mucosa Neck: supple, symmetric Heart: RRR, no murmur, no rubs Respiratory: no rales, no ronchi, no tachypnea, wheezes (few faint scattered) Gastrointestinal: soft, non-tender, non-distended, no guarding, no rigidity Extremities: no clubbing, no edema Skin: no lesions, no rashes Neurological: cranial nerve grossly intact, no focal deficits Musculoskeletal: generalized weakness Psychiatric: normal affect, normal behavior, oriented to person Hosp A/P (1) Encephalopathy acute Code(s): G93.40 - ENCEPHALOPATHY, UNSPECIFIED Status: Resolved (2) Acute exacerbation of chronic obstructive pulmonary disease (COPD) Code(s): J44.1 - CHRONIC OBSTRUCTIVE PULMONARY DISEASE W (ACUTE) EXACERBATION Status: Acute (3) Acute on chronic respiratory failure with hypoxemia Code(s): J96.21 - ACUTE AND CHRONIC RESPIRATORY FAILURE WITH HYPOXIA Status: Acute (4) Acute renal failure Status: Acute Qualifiers: Acute renal failure type: unspecified Qualified Code(s): N17.9 - Acute kidney failure, unspecified (5) Anemia, normocytic normochromic Code(s): D64.9 - ANEMIA, UNSPECIFIED Status: Chronic (6) Anxiety and depression Code(s): F41.8 - OTHER SPECIFIED ANXIETY DISORDERS Status: Chronic (7) Atrial fibrillation with RVR Code(s): I48.91 - UNSPECIFIED ATRIAL FIBRILLATION Status: Chronic (8) Breast cancer Status: Chronic (9) COPD (chronic obstructive pulmonary disease) Status: Chronic Qualifiers: (10) DM type 2 (diabetes mellitus, type 2) Status: Chronic Qualifiers: Diabetes mellitus termite treater helper insulin use: with termite treater helper use Diabetes mellitus complication status: without complication Qualified Code(s): E11.9 - Type 2 diabetes mellitus without complications; Z79.4 - intermediate (current) use of insulin (11) Diabetes type 2, uncontrolled Code(s): E11.65 - TYPE 2 DIABETES MELLITUS WITH HYPERGLYCEMIA Status: Chronic Qualifiers: Glycemic state: with hyperglycemia Qualified Code(s): E11.65 - Type 2 diabetes mellitus with hyperglycemia (12) Diabetic neuropathy Code(s): E11.40 - TYPE 2 DIABETES MELLITUS WITH DIABETIC NEUROPATHY, UNSP Status: Chronic Qualifiers: Diabetes mellitus type: type 2 (13) Dyslipidemia Code(s): E78.5 - HYPERLIPIDEMIA, UNSPECIFIED Status: Chronic (14) GERD (gastroesophageal reflux disease) Code(s): K21.9 - GASTRO-ESOPHAGEAL REFLUX DISEASE WITHOUT ESOPHAGITIS Status: Chronic Qualifiers: Esophagitis presence: without esophagitis Qualified Code(s): K21.9 - Gastro -esophageal reflux disease without esophagitis (15) Hypertension Code(s): I10 - ESSENTIAL (PRIMARY) HYPERTENSION Status: Chronic Qualifiers: Hypertension type: essential hypertension Qualified Code(s): I10 - Essential (primary) hypertension (16) Obesity (BMI 30-39.9) Code(s): E66.9 - OBESITY, UNSPECIFIED Status: Chronic (17) Sleep apnea Code(s): G47.30 - SLEEP APNEA, UNSPECIFIED Status: Chronic Qualifiers: - Plan Plan: admit to medical unit with telemetry nephrology consultation, recommendations appreciated neurology consultation, recommendations appreciated IV antibiotics, broad spectrum with coverage for nosocomial infections Blood Cx Sputum CX De escalate to Cx and sensitivity as able patient's mentation is improving as infection improves. Possible withdrawal of benzodiazepine with visual hallucinations of bugs crawling on the wall supplemental oxygen to maintain O2 saturation's [place] than 88% blood sugar control with long and short acting insulin blood pressure control continue other home medications as able Patient follows up with neurology regularly for chronic migraines and gets in injection once a month, neurology consultation for continuity of care in the setting of altered mental status. No focal neurologic deficits to suggest CVA no seizure type activity noted per family or reported physical therapy/occupational therapy evaluation treatment G.I. prophylaxis DVT prophylaxis
[2019-04-18] MEDS: Dronedarone HCl 400 MG TAB PO SCH (16:28)
[2019-04-18] MEDS: Heparin 5,000 UNITS/ML VIAL SC SCH ×3 (16:28→23:16)
[2019-04-18] MEDS: Ferrous Sulfate 325 MG TAB PO SCH (16:28)
[2019-04-18 18:20] LABS: Vancomycin, Random 9.3 ug/mL (See Comment)
[2019-04-18] MEDS: Mometasone/Formoterol 120 PUFF INHALER INH SCH (19:00)
[2019-04-18] MEDS ORDERED: Biotin [Biotin] 1,000 MCG PO SCH (21:00)
[2019-04-18] MEDS: HumuLIN 70/30 (300 UNITS/3 ML VIAL) SC SCH (22:03)
[2019-04-18] MEDS: clonazePAM 0.5 MG TAB PO SCH (22:06)
[2019-04-18] MEDS: Atorvastatin Calcium 40 MG TAB PO SCH (22:07)
[2019-04-18] MEDS: Vancomycin HCl 1 GM in Premix Bag 1 BAG IVPB SCH (22:08)
[2019-04-18] MEDS: Senokot S 8.6-50 MG TAB PO SCH (22:09)
[2019-04-19] MEDS: Mometasone/Formoterol 120 PUFF INHALER INH SCH ×2 (06:58→18:52)
[2019-04-19 08:52] LABS: Anion Gap 18 mmol/L (10-20); BUN (Urea Nitrogen) 27 mg/dL (9.8-20.1); Calc. Creatinine Clearance 41 mL/min (70-130); Calcium 9.4 mg/dL (7.8-10.44); Carbon Dioxide 18 mmol/L (23-31); Chloride 110 mmol/L (98-107); Estimated GFR-MDRD 25; Glucose 102 mg/dL (83-110); Potassium 4.5 mmol/L (3.5-5.1); Sodium 141 mmol/L (136-145)
[2019-04-19] MEDS ORDERED: HumuLIN 70/30 (300 UNITS/3 ML VIAL) SC SCH (09:00)
[2019-04-19] MEDS ORDERED: Nebivolol HCl 5 MG TAB PO SCH (09:00)
[2019-04-19] MEDS ORDERED: Furosemide 20 MG TAB PO SCH (09:00)
[2019-04-19] MEDS ORDERED: Sodium Chloride 0.9% 10 ML ONE (09:12)
[2019-04-19] MEDS: Cefepime 1 GM in Sodium Chloride 0.9% 100 ML IVPB SCH ×2 (09:58→20:49)
[2019-04-19] MEDS: Calcium Carbonate 600 MG TAB PO SCH (09:59)
[2019-04-19] MEDS: Dronedarone HCl 400 MG TAB PO SCH ×2 (10:00→18:04)
[2019-04-19] MEDS: Ferrous Sulfate 325 MG TAB PO SCH ×2 (10:00→18:05)
[2019-04-19] MEDS: Anastrozole 1 MG TAB PO SCH (10:01)
[2019-04-19] MEDS: Carvedilol 6.25 MG TAB PO SCH ×2 (10:01→18:05)
[2019-04-19] MEDS: clonazePAM 0.5 MG TAB PO SCH ×2 (10:02→20:49)
[2019-04-19] MEDS: DULoxetine 60 MG CAP PO SCH (10:02)
[2019-04-19] MEDS: Amlodipine 10 MG TAB PO SCH (10:02)
[2019-04-19] MEDS: Ascorbic Acid 500 mg Chewable Tablet PO SCH (10:03)
[2019-04-19] MEDS: Polyethylene Glycol 3350 17 GM Packet PO SCH (10:07)
[2019-04-19] MEDS: Senokot S 8.6-50 MG TAB PO SCH ×2 (10:07→20:51)
[2019-04-19] MEDS: Heparin 5,000 UNITS/ML VIAL SC SCH ×3 (10:08→20:50)
[2019-04-19 10:30] LABS: Digoxin 1.75 ng/mL (0.8-2.0)
[2019-04-19] MEDS: Digoxin 0.125 MG TAB PO SCH (10:44)
[2019-04-19] MEDS: Stress 600 With Zinc 1 TAB PO SCH (13:01)
[2019-04-19] MEDS: HumaLOG 300 UNITS/3 ML VIAL SC PRN (13:07)
[2019-04-19] MEDS: HumuLIN 70/30 (300 UNITS/3 ML VIAL) SC SCH ×2 (13:32→20:50)
--- NOTE | 2019-04-19 15:32 | PDOC.HOSPP ---
- Subjective Subjective: Seen and examined. Patient with poor oral intake last night and having low blood sugar the same. Decrease dose in insulin adjustment the same. Patient overall breathing better. No longer hallucinating. Remains sleepy and lethargic. at bedside, all questions answered in detail. - Objective Vital Signs & Weight: Vital Signs (12 hours) Temp Pulse Resp BP BP Pulse Ox 04/19/19 12:00 99.2 F 92 20 143/65 H 93 L 04/19/19 10:44 85 04/19/19 10:02 85 160/94 H 04/19/19 10:01 160/94 H 04/19/19 08:00 98.3 F 85 18 139/67 96 04/19/19 06:57 80 14 95 Weight Admit Weight 229 lb 8 oz Weight 229 lb 8 oz I&O: 04/18/19 04/19/19 04/20/19 06:59 06:59 06:59 Intake Total 770 Output Total 250 Balance 520 Result Diagrams: 04/18/19 03:56 04/19/19 08:14 Additional Labs: Accuchecks 04/19/19 04/19/19 04/19/19 10:50 06:18 05:49 POC Glucose 187 H 60 L 49 L* 04/18/19 04/18/19 20:27 16:45 POC Glucose 118 H 158 H Radiology Reviewed by me: Yes Hospitalist ROS - Review of Systems All other systems reviewed; all pertinent +/- noted in HPI/Subj - Medication Medications: Active Medications Generic Name Dose Route Start Last Admin Trade Name Freq PRN Reason Stop Dose Admin Hydrocodone Bitart/Acetaminophen 1 tab 04/18/19 08:37 04/18/19 12:56 [place] 5/325 PO 1 tab Q4H PRN Administration Moderate Pain (4-6) Hydrocodone Bitart/Acetaminophen 2 tab 04/18/19 08:37 04/18/19 18:27 [place] 5/325 PO 2 tab Q4H PRN Administration Severe Pain (7-10) Albuterol/Ipratropium 3 ml 04/18/19 18:30 04/19/19 06:57 Duoneb NEB 3 ml BID-RT JOSE Administration Amlodipine Besylate 10 mg 04/19/19 09:00 04/19/19 10:02 Norvasc PO 10 mg DAILY JOSE Administration Anastrozole 1 mg 04/19/19 09:00 04/19/19 10:01 Arimidex PO 1 mg DAILY JOSE Administration Ascorbic Acid 500 mg 04/19/19 09:00 04/19/19 10:03 Vitamin C PO 500 mg DAILY JOSE Administration Atorvastatin Calcium 40 mg 04/18/19 21:00 04/18/19 22:07 Lipitor PO 40 mg HS JOSE Administration Benzonatate 100 mg 04/18/19 08:43 04/19/19 13:02 Tessalon PO 100 mg Q4H PRN Administration Cough Calcium Carbonate 600 mg 04/19/19 09:00 04/19/19 09:59 Caltrate PO 600 mg DAILY JOSE Administration Carvedilol 6.25 mg 04/19/19 08:00 04/19/19 10:01 Coreg PO 6.25 mg BID-WM JOSE Administration Clonazepam 0.5 mg 04/18/19 21:00 04/19/19 10:02 Klonopin PO 0.5 mg BID JOSE Administration Digoxin 0.125 mg 04/19/19 09:00 04/19/19 10:44 Lanoxin PO 0.125 mg DAILY JOSE Administration Dronedarone 400 mg 04/18/19 17:00 04/19/19 10:00 Multaq PO 400 mg BID-WM JOSE Administration Duloxetine HCl 60 mg 04/19/19 09:00 04/19/19 10:02 Cymbalta PO 60 mg DAILY JOSE Administration Ferrous Sulfate 325 mg 04/18/19 17:00 04/19/19 10:00 Feosol PO 325 mg BID-WM JOSE Administration Heparin Sodium (Porcine) 5,000 units 04/18/19 15:00 04/19/19 10:08 Heparin SC 5,000 units TID JOSE Administration Hydralazine HCl 10 mg 04/18/19 08:43 04/18/19 16:28 Apresoline SLOW IVP 10 mg Q4H PRN Administration Hypertension Cefepime HCl 1 gm/ Sodium 100 mls @ 200 mls/hr 04/17/19 21:00 04/19/19 09:58 Chloride IVPB 100 mls Q12HR JOSE Administration Vancomycin HCl 1 gm/ Device 200 mls @ 200 mls/hr 04/18/19 20:00 04/18/19 22: 08 IVPB 200 mls 2000 JOSE Administration Insulin Human Lispro 0 units 04/18/19 08:46 04/19/19 13:07 Humalog SC 2 unit .MODERATE SLIDING SC PRN Administration Moderate [place] Scale Mometasone Furoate/Formoterol Fumar 2 puff 04/18/19 18:30 04/19/19 06:58 Dulera 100 Mcg/5 Mcg Inhaler INH 2 puff BID-RT JOSE Administration Multivitamins/Zinc 1 tab 04/19/19 09:00 04/19/19 13:01 Stress 600 With Zinc PO 1 tab DAILY JOSE Administration Pantoprazole Sodium 40 mg 04/19/19 09:00 04/19/19 10:00 Protonix PO 40 mg DAILY JOSE Administration Polyethylene Glycol 17 gm 04/19/19 09:00 04/19/19 10:07 Miralax PO Not Given DAILY JOSE Senna/Docusate Sodium 2 tab 04/18/19 21:00 04/19/19 10:07 Senokot S PO Not Given BID JOSE - Exam General Appearance: NAD, awake alert Eye: PERRL, anicteric sclera ENT: normocephalic atraumatic, moist mucosa Neck: supple, symmetric, no lymphadenopathy Heart: no murmur, no gallops, no rubs Respiratory: no rales, normal chest expansion, no tachypnea, rhonchi, wheezes ( Mild improving) Gastrointestinal: soft, non-tender, non-distended, no guarding, no rigidity Extremities: no clubbing, no edema Skin: no lesions, no rashes Neurological: cranial nerve grossly intact, no focal deficits Musculoskeletal: generalized weakness Psychiatric: normal affect, oriented to person, oriented to place, somnolent Hosp A/P (1) Encephalopathy acute Code(s): G93.40 - ENCEPHALOPATHY, UNSPECIFIED Status: Resolved (2) Acute exacerbation of chronic obstructive pulmonary disease (COPD) Code(s): J44.1 - CHRONIC OBSTRUCTIVE PULMONARY DISEASE W (ACUTE) EXACERBATION Status: Acute (3) Acute on chronic respiratory failure with hypoxemia Code(s): J96.21 - ACUTE AND CHRONIC RESPIRATORY FAILURE WITH HYPOXIA Status: Acute (4) Acute renal failure Status: Acute Qualifiers: Acute renal failure type: unspecified Qualified Code(s): N17.9 - Acute kidney failure, unspecified (5) Anemia, normocytic normochromic Code(s): D64.9 - ANEMIA, UNSPECIFIED Status: Chronic (6) Anxiety and depression Code(s): F41.8 - OTHER SPECIFIED ANXIETY DISORDERS Status: Chronic (7) Atrial fibrillation with RVR Code(s): I48.91 - UNSPECIFIED ATRIAL FIBRILLATION Status: Chronic (8) Breast cancer Status: Chronic (9) COPD (chronic obstructive pulmonary disease) Status: Chronic Qualifiers: (10) DM type 2 (diabetes mellitus, type 2) Status: Chronic Qualifiers: Diabetes mellitus long goods drier insulin use: with long goods drier use Diabetes mellitus complication status: without complication Qualified Code(s): E11.9 - Type 2 diabetes mellitus without complications; Z79.4 - termite control technician (current) use of insulin (11) Diabetes type 2, uncontrolled Code(s): E11.65 - TYPE 2 DIABETES MELLITUS WITH HYPERGLYCEMIA Status: Chronic Qualifiers: Glycemic state: with hyperglycemia Qualified Code(s): E11.65 - Type 2 diabetes mellitus with hyperglycemia (12) Diabetic neuropathy Code(s): E11.40 - TYPE 2 DIABETES MELLITUS WITH DIABETIC NEUROPATHY, UNSP Status: Chronic Qualifiers: Diabetes mellitus type: type 2 (13) Dyslipidemia Code(s): E78.5 - HYPERLIPIDEMIA, UNSPECIFIED Status: Chronic (14) GERD (gastroesophageal reflux disease) Code(s): K21.9 - GASTRO-ESOPHAGEAL REFLUX DISEASE WITHOUT ESOPHAGITIS Status: Chronic Qualifiers: Esophagitis presence: without esophagitis Qualified Code(s): K21.9 - Gastro -esophageal reflux disease without esophagitis (15) Hypertension Code(s): I10 - ESSENTIAL (PRIMARY) HYPERTENSION Status: Chronic Qualifiers: Hypertension type: essential hypertension Qualified Code(s): I10 - Essential (primary) hypertension (16) Obesity (BMI 30-39.9) Code(s): E66.9 - OBESITY, UNSPECIFIED Status: Chronic (17) Sleep apnea Code(s): G47.30 - SLEEP APNEA, UNSPECIFIED Status: Chronic Qualifiers: - Plan Plan: admit to medical unit with telemetry nephrology consultation, recommendations appreciated neurology consultation, recommendations appreciated IV antibiotics, broad spectrum with coverage for nosocomial infections Blood Cx Sputum CX De escalate to Cx and sensitivity as able patient's mentation is improving as infection improves. Possible withdrawal of benzodiazepine with visual hallucinations of bugs crawling on the wall supplemental oxygen to maintain O2 saturation's greater than 88% blood sugar control with long and short acting insulin Decrease insulin, poor oral intake resulting in low blood sugar blood pressure control continue other home medications as able Patient follows up with neurology regularly for chronic migraines and gets in injection once a month, neurology consultation for continuity of care in the setting of altered mental status. No focal neurologic deficits to suggest CVA no seizure type activity noted per family or reported physical therapy/occupational therapy evaluation treatment G.I. prophylaxis DVT prophylaxis
[2019-04-19 19:22] LABS: Vancomycin, Trough 14.7 ug/mL
[2019-04-19] MEDS ORDERED: Hydrocortisone Acetate 25 MG Suppository PR PRN (19:53)
--- NOTE | 2019-04-19 20:42 | CON ---
DATE OF CONSULTATION: 04/19/2019 CONSULTING PHYSICIAN: Hospitalist Service. IMPRESSION: 1. Encephalopathy, likely secondary to toxic and infectious factors. 2. History of chronic migraines. 3. History of chronic spinal pain. PLAN: 1. Hold digoxin. 2. Address pneumonia. 3. Use Seroquel 25 to 50 mg at night, if she is having difficulty sleeping. HISTORY OF PRESENT ILLNESS: Ms. Chamberlain is a 74-year-old woman with a history of chronic migraines and spinal problems. She has been hospitalized recently related to a fracture of her ankle. She has been home for the last 2 weeks. Her reports she has been acting a bit confused. She was brought in for evaluation. Her CT scan of the brain was unremarkable. Her lab work showed a digoxin toxicity with a level of 2.4. Her x-ray suggests pneumonia. She has been started on antibiotics. She has been sleeping excessively since this admission. The family reports she is well only more alert and appropriate today than she has been since admission. She reports that she did have some allusions of seeing things in the room that did not make sense. Her speech is fluent and clear. Exam is nonfocal. She has no abnormal movements. I suspect that her cognitive status will improve with a bit of time. I agree with your care. Job ID: [id number]
[2019-04-19] MEDS: HYDROcodone/Acetaminophen 5/325 mg Tablet PO PRN (20:46)
[2019-04-19] MEDS: Vancomycin HCl 1 GM in Premix Bag 1 BAG IVPB SCH (20:48)
[2019-04-19] MEDS: Atorvastatin Calcium 40 MG TAB PO SCH (20:49)
[2019-04-20] MEDS: HYDROcodone/Acetaminophen 5/325 mg Tablet PO PRN ×2 (00:04→22:27)
[2019-04-20] MEDS: hydrALAZINE 20 MG/ML VIAL SLOW IVP PRN (05:14)
[2019-04-20] MEDS: Mometasone/Formoterol 120 PUFF INHALER INH SCH ×2 (07:09→19:13)
[2019-04-20] MEDS ORDERED: Carvedilol 6.25 MG TAB PO SCH (08:15)
[2019-04-20] MEDS: Polyethylene Glycol 3350 17 GM Packet PO SCH (08:34)
[2019-04-20] MEDS: Dronedarone HCl 400 MG TAB PO SCH ×2 (08:35→17:48)
[2019-04-20] MEDS: DULoxetine 60 MG CAP PO SCH (08:35)
[2019-04-20] MEDS: Ascorbic Acid 500 mg Chewable Tablet PO SCH (08:35)
[2019-04-20] MEDS: Amlodipine 10 MG TAB PO SCH (08:35)
[2019-04-20] MEDS: Ferrous Sulfate 325 MG TAB PO SCH ×2 (08:35→17:48)
[2019-04-20] MEDS: Calcium Carbonate 600 MG TAB PO SCH (08:35)
[2019-04-20] MEDS: Digoxin 0.125 MG TAB PO SCH (08:35)
[2019-04-20] MEDS: Cefepime 1 GM in Sodium Chloride 0.9% 100 ML IVPB SCH ×2 (08:36→20:36)
[2019-04-20] MEDS: clonazePAM 0.5 MG TAB PO SCH ×2 (08:37→20:35)
[2019-04-20] MEDS: Heparin 5,000 UNITS/ML VIAL SC SCH ×3 (08:39→20:34)
[2019-04-20] MEDS: HumuLIN 70/30 (300 UNITS/3 ML VIAL) SC SCH ×2 (08:39→20:52)
[2019-04-20] MEDS: Senokot S 8.6-50 MG TAB PO SCH ×2 (08:39→20:51)
[2019-04-20] MEDS: Stress 600 With Zinc 1 TAB PO SCH (08:40)
[2019-04-20] MEDS: Anastrozole 1 MG TAB PO SCH (08:47)
--- NOTE | 2019-04-20 11:41 | PQF ---
WAYNE HAMPTONJOHN CHASE [id number] CLINICAL DOCUMENTATION IMPROVEMENT CLARIFICATION FORM: ICD-10 Updated PLEASE DO AN ADDENDUM TO THE PROGRESS NOTE WITH ANY DOCUMENTATION UPDATES OR ADDITIONS AND CARRY THROUGH TO DC SUMMARY. THANK YOU. DATE: 04/20/19 ATTN: Dr. Schultz Please exercise your independent, professional judgment in responding to the clarification form. Clinical indicators are provided on the bottom of this form for your review Please check appropriate box(es): [ XX ] Sepsis due to: Pneumonia [ ] Severe sepsis with acute organ dysfunction of: (Examples: respiratory failure, encephalopathy, acute kidney failure, other) [ ] Localized infection without sepsis [ ] Other diagnosis [ ] Unable to determine In addition, please specify: Present on Admission (POA): [ XX ] Yes [ ] No [ ] Unable to determine For continuity of documentation, please document condition throughout progress notes and discharge summary. Thank You. CLINICAL INDICATORS - SIGNS / SYMPTOMS / LABS / RESULTS AND LOCATION IN MR Altered mental status--> 1231 Mohamed-Johnny: "somewhat confused; acute metabolic encephalopathy" Respiratory rate >20/min, Hypoxemia, --> 04/18 93% 3L, RR 22 per VS Pulse 99 per 04/17 VS Increase BUN/Room Designer, decrease GFR-->04/17 bun 34, creat 2.38, GFR 20; 04/18 bun 31, creat 2.10, GFR 23 per labs 04/18 Antoine: "acute on chornic resp failure" 04/18 Antoine: "acute renal failure" RISK FACTORS / RESULTS AND LOCATION IN MR Infection/Bacteremia--> "Pneumonia" per 04/17 H&P(Mohamed-Johnny) TREATMENTS / RESULTS AND LOCATION IN MR Daily CBC 04/17 to date per orders Blood & Urine cultures 04/17 per orders IV antibiotics - broad spectrum--> cefepime 1gm 04/17-date vanc 1gm iv 04/17- date per orders IV Fluids--> 1L NS bolus 04/17 per orders (This form is maintained as a part of the permanent medical record) 2014 [employer]. All Rights Reserved Karla Bradshaw RN, BSN, CCDS [email or web address] [phone] [facility]
[2019-04-20] MEDS: HumaLOG 300 UNITS/3 ML VIAL SC PRN (12:56)
--- NOTE | 2019-04-20 14:20 | CON ---
DATE OF CONSULTATION: 04/20/2019 REQUESTING PHYSICIAN: Dr. Breezy Schultz. CONSULTING PHYSICIAN: Dr. Gus Frias. REASON FOR CONSULTATION: Subsequent followup for left ankle bimalleolar fracture treated with surgery on April 01, 2019. BRIEF CLINICAL HISTORY: Shayy is a 74-year-old female, who was recently admitted to [facility] for evaluation of syncope resulting in a left ankle fracture. We treated the ankle with open reduction and internal fixation with flexible nail and 2 malleolar screws on April 01, 2019. She is now almost 3 weeks postoperative, and she completed her inpatient rehabilitation stay, but was apparently re-admitted to the hospital 4 days ago from inpatient rehabilitation because of altered mental status, lethargy, and hallucinations. She was convalescing at [facility] anticipating a home discharge, but her mental status changes resulted in re-admission. Our service has been consulted for re-evaluation of the fracture we treated with surgical management 3 weeks ago. The patient still has her postsurgical splint on, and she has been strict nonweightbearing and compliant with this since surgery. PHYSICAL EXAMINATION: Visual inspection of left lower extremity after removal of splint demonstrates her stitches to be intact. Skin healing looks nice, very little bruising appreciated. Atrophic skin changes are noted in the dorsal and plantar aspects of the foot, but again, no ulcerations noted at heel. Well-padded splint was removed. Skin was inspected, and stitches were removed. IMPRESSION: A 74-year-old female, 3 weeks postoperative left bimalleolar ankle fracture treated with open reduction and internal fixation. PLAN: 1. I removed all of her stitches. She did not require Steri-Strips. 2. Ordered a 3D fracture boot to be worn at all times, off with showers. Strict nonweightbearing. 3. We will try to obtain through Case Management a wheelchair with the left leg extension for the patient to discharge home with. We will follow up in clinic in 2 to 3 weeks with plain radiographs. Job ID: [id number]
--- NOTE | 2019-04-20 14:44 | PDOC.HOSPP ---
- Subjective Subjective: Seen and examined. Patient overall clinically improving. I am weaning benzodiazepine medications. No further episodes of low blood sugar after I have adjusted her insulin regimen. Patient still has surgical splint in place and states that she has not had sutures examined and not seen her surgeon in the outpatient clinic, because she was in rehabilitation facility and she was unable to go to her appointment. Orthopedic surgery consult it for continuity of care, appreciate recommendations. Overall patient is improving on maximal medical therapy. - Objective Vital Signs & Weight: Vital Signs (12 hours) Temp Pulse Pulse Resp BP BP BP 04/20/19 11:36 98.6 F 85 21 H 139/63 04/20/19 09:11 93 143/64 H 04/20/19 08:35 77 194/67 H 04/20/19 07:50 98.5 F 92 18 143/64 H 04/20/19 07:06 77 18 04/20/19 06:10 85 18 143/64 H 04/20/19 05:14 80 194/67 H 04/20/19 04:01 98.5 F 80 16 194/77 H 04/20/19 04:00 98.5 F 80 16 194/77 H Pulse Ox Pulse Ox Pulse Ox Pulse Ox 04/20/19 11:36 94 L 04/20/19 09:11 93 L 88 L 90 L 04/20/19 08:35 04/20/19 07:50 95 04/20/19 07:06 97 04/20/19 06:10 94 L 04/20/19 05:14 04/20/19 04:01 94 L 04/20/19 04:00 94 L Weight Admit Weight 229 lb 8 oz Weight 229 lb 8 oz I&O: 04/19/19 04/20/19 04/21/19 06:59 06:59 06:59 Intake Total 770 1435 Output Total 250 650 200 Balance 520 785 -200 Result Diagrams: 04/18/19 03:56 04/19/19 08:14 Additional Labs: Accuchecks 04/20/19 04/19/19 04/19/19 05:26 20:10 16:43 POC Glucose 120 H 219 H 154 H Radiology Reviewed by me: Yes Hospitalist ROS - Review of Systems All other systems reviewed; all pertinent +/- noted in HPI/Subj - Medication Medications: Active Medications Generic Name Dose Route Start Last Admin Trade Name Freq PRN Reason Stop Dose Admin Hydrocodone Bitart/Acetaminophen 1 tab 04/18/19 08:37 04/19/19 20:46 [place] 5/325 PO 1 tab Q4H PRN Administration Moderate Pain (4-6) Hydrocodone Bitart/Acetaminophen 2 tab 04/18/19 08:37 04/20/19 00:04 [place] 5/325 PO 2 tab Q4H PRN Administration Severe Pain (7-10) Albuterol/Ipratropium 3 ml 04/18/19 18:30 04/20/19 07:06 Duoneb NEB 3 ml BID-RT JOSE Administration Amlodipine Besylate 10 mg 04/19/19 09:00 04/20/19 08:35 Norvasc PO 10 mg DAILY JOSE Administration Anastrozole 1 mg 04/19/19 09:00 04/20/19 08:47 Arimidex PO 1 mg DAILY JOSE Administration Ascorbic Acid 500 mg 04/19/19 09:00 04/20/19 08:35 Vitamin C PO 500 mg DAILY JOSE Administration Atorvastatin Calcium 40 mg 04/18/19 21:00 04/19/19 20:49 Lipitor PO 40 mg HS JOSE Administration Benzonatate 100 mg 04/18/19 08:43 04/19/19 13:02 Tessalon PO 100 mg Q4H PRN Administration Cough Calcium Carbonate 600 mg 04/19/19 09:00 04/20/19 08:35 Caltrate PO 600 mg DAILY JOSE Administration Clonazepam 0.25 mg 04/20/19 09:00 04/20/19 08:37 Klonopin PO 0.25 mg BID JOSE Administration Digoxin 0.125 mg 04/19/19 09:00 04/20/19 08:35 Lanoxin PO 0.125 mg DAILY JOSE Administration Dronedarone 400 mg 04/18/19 17:00 04/20/19 08:35 Multaq PO 400 mg BID-WM JOSE Administration Duloxetine HCl 60 mg 04/19/19 09:00 04/20/19 08:35 Cymbalta PO 60 mg DAILY JOSE Administration Ferrous Sulfate 325 mg 04/18/19 17:00 04/20/19 08:35 Feosol PO 325 mg BID-WM JOSE Administration Heparin Sodium (Porcine) 5,000 units 04/18/19 15:00 04/20/19 08:39 Heparin SC 5,000 units TID JOSE Administration Hydralazine HCl 10 mg 04/18/19 08:43 04/20/19 05:14 Apresoline SLOW IVP 10 mg Q4H PRN Administration Hypertension Hydrocortisone Acetate 25 mg 04/19/19 19:53 04/19/19 21:01 Anusol-Hc AL 25 mg BIDPRN PRN Administration Hemorrhoids Cefepime HCl 1 gm/ Sodium 100 mls @ 200 mls/hr 04/17/19 21:00 04/20/19 08:36 Chloride IVPB 100 mls Q12HR JOSE Administration Insulin Human Isoph/Insulin Regular 30 units 04/19/19 21:00 04/20/19 08:39 Humulin 70/30 SC 30 unit BID JOSE Administration Insulin Human Lispro 0 units 04/18/19 08:46 04/20/19 12:56 Humalog SC 2 unit .MODERATE SLIDING SC PRN Administration Moderate Correctional Scale Mometasone Furoate/Formoterol Fumar 2 puff 04/18/19 18:30 04/20/19 07:09 Dulera 100 Mcg/5 Mcg Inhaler INH 2 puff BID-RT JOSE Administration Multivitamins/Zinc 1 tab 04/19/19 09:00 04/20/19 08:40 Stress 600 With Zinc PO 1 tab DAILY JOSE Administration Pantoprazole Sodium 40 mg 04/19/19 09:00 04/20/19 08:35 Protonix PO 40 mg DAILY JOSE Administration Polyethylene Glycol 17 gm 04/19/19 09:00 04/20/19 08:34 Miralax PO Not Given DAILY JOSE Senna/Docusate Sodium 2 tab 04/18/19 21:00 04/20/19 08:39 Senokot S PO Not Given BID JOSE - Exam General Appearance: NAD, awake alert Eye: anicteric sclera ENT: normocephalic atraumatic, moist mucosa Neck: supple, symmetric, no lymphadenopathy Heart: no murmur, no gallops, no rubs Respiratory: CTAB, no wheezes, no rales, no ronchi, normal chest expansion Gastrointestinal: soft, non-tender, no guarding, no rigidity Extremities: 1+ LE edema Skin: no lesions, no rashes Neurological: cranial nerve grossly intact, no focal deficits Musculoskeletal: generalized weakness Psychiatric: normal affect, normal behavior, A&O x 3 Hosp A/P (1) Encephalopathy acute Code(s): G93.40 - ENCEPHALOPATHY, UNSPECIFIED Status: Resolved (2) Acute exacerbation of chronic obstructive pulmonary disease (COPD) Code(s): J44.1 - CHRONIC OBSTRUCTIVE PULMONARY DISEASE W (ACUTE) EXACERBATION Status: Acute (3) Acute on chronic respiratory failure with hypoxemia Code(s): J96.21 - ACUTE AND CHRONIC RESPIRATORY FAILURE WITH HYPOXIA Status: Acute (4) Acute renal failure Status: Acute Qualifiers: Acute renal failure type: unspecified Qualified Code(s): N17.9 - Acute kidney failure, unspecified (5) Anemia, normocytic normochromic Code(s): D64.9 - ANEMIA, UNSPECIFIED Status: Chronic (6) Anxiety and depression Code(s): F41.8 - OTHER SPECIFIED ANXIETY DISORDERS Status: Chronic (7) Atrial fibrillation with RVR Code(s): I48.91 - UNSPECIFIED ATRIAL FIBRILLATION Status: Chronic (8) Breast cancer Status: Chronic (9) COPD (chronic obstructive pulmonary disease) Status: Chronic Qualifiers: (10) DM type 2 (diabetes mellitus, type 2) Status: Chronic Qualifiers: Diabetes mellitus custodial insulin use: with custodial use Diabetes mellitus complication status: without complication Qualified Code(s): E11.9 - Type 2 diabetes mellitus without complications; Z79.4 - intermediate (current) use of insulin (11) Diabetes type 2, uncontrolled Code(s): E11.65 - TYPE 2 DIABETES MELLITUS WITH HYPERGLYCEMIA Status: Chronic Qualifiers: Glycemic state: with hyperglycemia Qualified Code(s): E11.65 - Type 2 diabetes mellitus with hyperglycemia (12) Diabetic neuropathy Code(s): E11.40 - TYPE 2 DIABETES MELLITUS WITH DIABETIC NEUROPATHY, UNSP Status: Chronic Qualifiers: Diabetes mellitus type: type 2 (13) Dyslipidemia Code(s): E78.5 - HYPERLIPIDEMIA, UNSPECIFIED Status: Chronic (14) GERD (gastroesophageal reflux disease) Code(s): K21.9 - GASTRO-ESOPHAGEAL REFLUX DISEASE WITHOUT ESOPHAGITIS Status: Chronic Qualifiers: Esophagitis presence: without esophagitis Qualified Code(s): K21.9 - Gastro -esophageal reflux disease without esophagitis (15) Hypertension Code(s): I10 - ESSENTIAL (PRIMARY) HYPERTENSION Status: Chronic Qualifiers: Hypertension type: essential hypertension Qualified Code(s): I10 - Essential (primary) hypertension (16) Obesity (BMI 30-39.9) Code(s): E66.9 - OBESITY, UNSPECIFIED Status: Chronic (17) Sleep apnea Code(s): G47.30 - SLEEP APNEA, UNSPECIFIED Status: Chronic Qualifiers: - Plan Plan: medical unit with telemetry Orthopedic surgery consultation, recommendations appreciated nephrology consultation, recommendations appreciated neurology consultation, recommendations appreciated Increase Carvedilol for BP control Digoxin theraputic level Sutures removed by ortho and appropriate boot now on, remains non weight bearing IV antibiotics, broad spectrum with coverage for nosocomial infections Blood Cx no growth to date Sputum CX no growth to date De escalate to Cx and sensitivity as able, D/c vancomycin patient's mentation is improving as infection improves. Possible withdrawal of benzodiazepine with visual hallucinations of bugs crawling on the wall supplemental oxygen to maintain O2 saturation's greater than 88% blood sugar control with long and short acting insulin Decrease insulin, poor oral intake resulting in low blood sugar blood pressure control continue other home medications as able Patient follows up with neurology regularly for chronic migraines and gets in injection once a month, neurology consultation for continuity of care in the setting of altered mental status. No focal neurologic deficits to suggest CVA no seizure type activity noted per family or reported physical therapy/occupational therapy evaluation treatment G.I. prophylaxis DVT prophylaxis
[2019-04-20] MEDS: Carvedilol 6.25 MG TAB PO SCH (17:48)
[2019-04-20] MEDS: Atorvastatin Calcium 40 MG TAB PO SCH (20:35)
[2019-04-21] MEDS: Mometasone/Formoterol 120 PUFF INHALER INH SCH ×2 (07:40→18:59)
[2019-04-21] MEDS: Cefepime 1 GM in Sodium Chloride 0.9% 100 ML IVPB SCH ×2 (07:42→20:27)
[2019-04-21] MEDS: Heparin 5,000 UNITS/ML VIAL SC SCH ×3 (07:42→20:27)
[2019-04-21] MEDS: Ferrous Sulfate 325 MG TAB PO SCH ×2 (07:43→17:06)
[2019-04-21] MEDS: HumuLIN 70/30 (300 UNITS/3 ML VIAL) SC SCH ×2 (07:43→20:28)
[2019-04-21] MEDS: DULoxetine 60 MG CAP PO SCH (07:43)
[2019-04-21] MEDS: Stress 600 With Zinc 1 TAB PO SCH (07:44)
[2019-04-21] MEDS: Carvedilol 6.25 MG TAB PO SCH ×2 (07:44→17:07)
[2019-04-21] MEDS: Digoxin 0.125 MG TAB PO SCH (07:44)
[2019-04-21] MEDS: Ascorbic Acid 500 mg Chewable Tablet PO SCH (07:44)
[2019-04-21] MEDS: Calcium Carbonate 600 MG TAB PO SCH (07:45)
[2019-04-21] MEDS: Senokot S 8.6-50 MG TAB PO SCH ×2 (07:45→20:46)
[2019-04-21] MEDS: Polyethylene Glycol 3350 17 GM Packet PO SCH (07:45)
[2019-04-21] MEDS: Anastrozole 1 MG TAB PO SCH (07:45)
[2019-04-21] MEDS: Amlodipine 10 MG TAB PO SCH (07:45)
[2019-04-21] MEDS: Dronedarone HCl 400 MG TAB PO SCH ×2 (07:46→17:07)
[2019-04-21] MEDS: clonazePAM 0.5 MG TAB PO SCH ×2 (07:48→20:26)
--- NOTE | 2019-04-21 14:03 | PDOC.HOSPP ---
- Subjective Subjective: Seen and examined. Overall clinically improving. Breathing more comfortably. No longer having hallucinations. Not sleeping well. Occasionally feeling hot and sweaty and ill as pneumonia improves. Family at bedside, all questions answered in detail. Patient and family are happy with plan of care. - Objective Vital Signs & Weight: Vital Signs (12 hours) Temp Pulse Resp BP BP Pulse Ox 04/21/19 07:45 98 92 L 04/21/19 07:44 98 194/67 H 04/21/19 07:40 98 16 04/21/19 07:37 98.6 F 93 20 186/74 H 92 L 04/21/19 03:59 98.5 F 97 20 167/70 H 95 Weight Admit Weight 229 lb 8 oz Weight 234 lb 9.6 oz I&O: 04/20/19 04/21/19 04/22/19 06:59 06:59 06:59 Intake Total 1435 1420 Output Total 650 1320 Balance 785 100 Result Diagrams: 04/18/19 03:56 04/19/19 08:14 Additional Labs: Accuchecks 04/21/19 04/21/19 04/20/19 11:03 05:51 20:55 POC Glucose 88 90 137 H 04/20/19 04/20/19 16:38 10:35 POC Glucose 95 199 H Radiology Reviewed by me: Yes Hospitalist ROS - Review of Systems All other systems reviewed; all pertinent +/- noted in HPI/Subj - Medication Medications: Active Medications Generic Name Dose Route Start Last Admin Trade Name Freq PRN Reason Stop Dose Admin Acetaminophen 650 mg 04/18/19 08:37 04/21/19 13:58 Tylenol PO 650 mg Q4H PRN Administration Breakthrough Pain Hydrocodone Bitart/Acetaminophen 1 tab 04/18/19 08:37 04/19/19 20:46 [place] 5/325 PO 1 tab Q4H PRN Administration Moderate Pain (4-6) Hydrocodone Bitart/Acetaminophen 2 tab 04/18/19 08:37 04/20/19 22:27 [place] 5/325 PO 2 tab Q4H PRN Administration Severe Pain (7-10) Albuterol/Ipratropium 3 ml 04/18/19 18:30 04/21/19 07:40 Duoneb NEB 3 ml BID-RT JOSE Administration Amlodipine Besylate 10 mg 04/19/19 09:00 04/21/19 07:45 Norvasc PO 10 mg DAILY JOSE Administration Anastrozole 1 mg 04/19/19 09:00 04/21/19 07:45 Arimidex PO 1 mg DAILY JOSE Administration Ascorbic Acid 500 mg 04/19/19 09:00 04/21/19 07:44 Vitamin C PO 500 mg DAILY JOSE Administration Atorvastatin Calcium 40 mg 04/18/19 21:00 04/20/19 20:35 Lipitor PO 40 mg HS JOSE Administration Benzonatate 100 mg 04/18/19 08:43 04/19/19 13:02 Tessalon PO 100 mg Q4H PRN Administration Cough Calcium Carbonate 600 mg 04/19/19 09:00 04/21/19 07:45 Caltrate PO 600 mg DAILY JOSE Administration Carvedilol 12.5 mg 04/20/19 17:00 04/21/19 07:44 Coreg PO 12.5 mg BID-WM JOSE Administration Clonazepam 0.25 mg 04/20/19 09:00 04/21/19 07:48 Klonopin PO 0.25 mg BID JOSE Administration Dronedarone 400 mg 04/18/19 17:00 04/21/19 07:46 Multaq PO 400 mg BID-WM JOSE Administration Duloxetine HCl 60 mg 04/19/19 09:00 04/21/19 07:43 Cymbalta PO 60 mg DAILY JOSE Administration Ferrous Sulfate 325 mg 04/18/19 17:00 04/21/19 07:43 Feosol PO 325 mg BID-WM JOSE Administration Heparin Sodium (Porcine) 5,000 units 04/18/19 15:00 04/21/19 07:42 Heparin SC 5,000 units TID JOSE Administration Hydralazine HCl 10 mg 04/18/19 08:43 04/20/19 05:14 Apresoline SLOW IVP 10 mg Q4H PRN Administration Hypertension Hydrocortisone Acetate 25 mg 04/19/19 19:53 04/19/19 21:01 Anusol-Hc SD 25 mg BIDPRN PRN Administration Hemorrhoids Cefepime HCl 1 gm/ Sodium 100 mls @ 200 mls/hr 04/17/19 21:00 04/21/19 07:42 Chloride IVPB 100 mls Q12HR JOSE Administration Insulin Human Isoph/Insulin Regular 30 units 04/19/19 21:00 04/21/19 07:43 Humulin 70/30 SC 30 unit BID JOSE Administration Insulin Human Lispro 0 units 04/18/19 08:46 04/20/19 12:56 Humalog SC 2 unit .MODERATE SLIDING SC PRN Administration Moderate Correctional Scale Mometasone Furoate/Formoterol Fumar 2 puff 04/18/19 18:30 04/21/19 07:40 Dulera 100 Mcg/5 Mcg Inhaler INH 2 puff BID-RT JOSE Administration Multivitamins/Zinc 1 tab 04/19/19 09:00 04/21/19 07:44 Stress 600 With Zinc PO 1 tab DAILY JOSE Administration Pantoprazole Sodium 40 mg 04/19/19 09:00 04/21/19 07:45 Protonix PO 40 mg DAILY JOSE Administration Polyethylene Glycol 17 gm 04/19/19 09:00 04/21/19 07:45 Miralax PO Not Given DAILY JOSE Senna/Docusate Sodium 2 tab 04/18/19 21:00 04/21/19 07:45 Senokot S PO Not Given BID JOSE - Exam General Appearance: NAD, awake alert Eye: anicteric sclera ENT: normocephalic atraumatic, moist mucosa Neck: supple, symmetric, no lymphadenopathy Heart: RRR, no murmur, normal peripheral pulses Respiratory: no wheezes, no rales, no ronchi Gastrointestinal: soft, non-tender, non-distended, normal bowel sounds, no palpable masses Extremities: no edema Skin: no lesions, no rashes Neurological: cranial nerve grossly intact, no focal deficits Musculoskeletal: generalized weakness Psychiatric: normal affect, normal behavior, A&O x 3 Hosp A/P (1) Encephalopathy acute Code(s): G93.40 - ENCEPHALOPATHY, UNSPECIFIED Status: Resolved (2) Acute exacerbation of chronic obstructive pulmonary disease (COPD) Code(s): J44.1 - CHRONIC OBSTRUCTIVE PULMONARY DISEASE W (ACUTE) EXACERBATION Status: Acute (3) Acute on chronic respiratory failure with hypoxemia Code(s): J96.21 - ACUTE AND CHRONIC RESPIRATORY FAILURE WITH HYPOXIA Status: Acute (4) Acute renal failure Status: Acute Qualifiers: Acute renal failure type: unspecified Qualified Code(s): N17.9 - Acute kidney failure, unspecified (5) Anemia, normocytic normochromic Code(s): D64.9 - ANEMIA, UNSPECIFIED Status: Chronic (6) Anxiety and depression Code(s): F41.8 - OTHER SPECIFIED ANXIETY DISORDERS Status: Chronic (7) Atrial fibrillation with RVR Code(s): I48.91 - UNSPECIFIED ATRIAL FIBRILLATION Status: Chronic (8) Breast cancer Status: Chronic (9) COPD (chronic obstructive pulmonary disease) Status: Chronic Qualifiers: (10) DM type 2 (diabetes mellitus, type 2) Status: Chronic Qualifiers: Diabetes mellitus 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 insulin use: with buttermilk 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 use Diabetes mellitus complication status: without complication Qualified Code(s): E11.9 - Type 2 diabetes mellitus without complications; Z79.4 - lobsterman (current) use of insulin (11) Diabetes type 2, uncontrolled Code(s): E11.65 - TYPE 2 DIABETES MELLITUS WITH HYPERGLYCEMIA Status: Chronic Qualifiers: Glycemic state: with hyperglycemia Qualified Code(s): E11.65 - Type 2 diabetes mellitus with hyperglycemia (12) Diabetic neuropathy Code(s): E11.40 - TYPE 2 DIABETES MELLITUS WITH DIABETIC NEUROPATHY, UNSP Status: Chronic Qualifiers: Diabetes mellitus type: type 2 (13) Dyslipidemia Code(s): E78.5 - HYPERLIPIDEMIA, UNSPECIFIED Status: Chronic (14) GERD (gastroesophageal reflux disease) Code(s): K21.9 - GASTRO-ESOPHAGEAL REFLUX DISEASE WITHOUT ESOPHAGITIS Status: Chronic Qualifiers: Esophagitis presence: without esophagitis Qualified Code(s): K21.9 - Gastro -esophageal reflux disease without esophagitis (15) Hypertension Code(s): I10 - ESSENTIAL (PRIMARY) HYPERTENSION Status: Chronic Qualifiers: Hypertension type: essential hypertension Qualified Code(s): I10 - Essential (primary) hypertension (16) Obesity (BMI 30-39.9) Code(s): E66.9 - OBESITY, UNSPECIFIED Status: Chronic (17) Sleep apnea Code(s): G47.30 - SLEEP APNEA, UNSPECIFIED Status: Chronic Qualifiers: - Plan Plan: medical unit with telemetry Orthopedic surgery consultation, recommendations appreciated nephrology consultation, recommendations appreciated neurology consultation, recommendations appreciated Increase Carvedilol for BP control Digoxin theraputic level Sutures removed by ortho and appropriate boot now on, remains non weight bearing IV antibiotics, broad spectrum with coverage for nosocomial infections Blood Cx no growth to date Sputum CX no growth to date De escalate to Cx and sensitivity as able, D/c vancomycin patient's mentation is improving as infection improves. Possible withdrawal of benzodiazepine with visual hallucinations of bugs crawling on the wall supplemental oxygen to maintain O2 saturation's greater than 88% blood sugar control with long and short acting insulin Decrease insulin, poor oral intake resulting in low blood sugar blood pressure control continue other home medications as able Patient follows up with neurology regularly for chronic migraines and gets in injection once a month, neurology consultation for continuity of care in the setting of altered mental status. No focal neurologic deficits to suggest CVA no seizure type activity noted per family or reported physical therapy/occupational therapy evaluation treatment G.I. prophylaxis DVT prophylaxis
--- NOTE | 2019-04-21 17:26 | RAD ---
PORTABLE CHEST: 04/21/19 HISTORY: Shortness of breath. COMPARISON: 04/17/19 exam. Heart size is borderline. Parenchymal lung changes are very similar to the previous examination with some patchy right mid lung and bilateral lower lobe changes. There is elevation to the right hemidiap hragm. IMPRESSION: Stable patchy parenchymal lung change. POS: H
[2019-04-21] MEDS: Atorvastatin Calcium 40 MG TAB PO SCH (20:26)
--- NOTE | 2019-04-21 20:54 | CON ---
DATE OF CONSULTATION: HISTORY OF PRESENT ILLNESS: The patient is 74-year-old woman who was admitted with dyspnea. The patient has a previous history of atrial fibrillation. The patient has previously undergone a cardiac catheterization in 1999,which revealed normal coronary arteries. The patient was admitted with dyspnea and diagnosed with pneumonia. She has been on antibiotics. She continues to be short of breath. The patient denies having any chest discomfort. PAST MEDICAL HISTORY: 1. Atrial fibrillation. 2. COPD. 3. Hypertension. 4. Dyslipidemia. PAST SURGICAL HISTORY: 1. Ankle surgery. 2. Appendectomy. 3. Cholecystectomy. 4. Colostomy. 5. Foot surgery. 6. Hysterectomy. MEDICATIONS: See nursing list. ALLERGIES: LISINOPRIL AND CODEINE. REVIEW OF SYSTEMS: Ten-point system unremarkable. PHYSICAL EXAMINATION: GENERAL: Obese woman, in no acute distress. VITAL SIGNS: Blood pressure of 194/67. NECK: Showed no jugular venous distention. LUNGS: Crackles in the right lung base. HEART: Regular rate and rhythm. Normal S1 and S2 with a 2/6 systolic murmur. ABDOMEN: Distended. EXTREMITIES: Showed mild bilateral edema. Vascular radial pulses 2+. LABORATORY DATA: Sodium 141, potassium 4.5, chloride 110, bicarb 18, BUN 27, creatinine 1.96, glucose is 102. Hemoglobin is 7.6, hematocrit 7.3, hematocrit 23.3, platelets are 311. Chest x-ray revealed a right middle lobe infiltrate. IMPRESSION: 1. Pneumonia. 2. Chronic obstructive pulmonary disease. 3. History of atrial fibrillation. 4. Hypertension. 5. Diabetes mellitus. 6. Renal insufficiency. PLAN: This patient presents with probable pneumonia. We will ask Pulmonary to evaluate as the patient does not appear to be in heart failure. We will follow this patient with you through her hospitalization. Job ID: [id number] [facility]
[2019-04-22] MEDS ORDERED: clonazePAM 0.5 MG TAB PO PRN (07:21)
--- NOTE | 2019-04-22 07:41 | RAD ---
XR Chest 1 View Portable HISTORY: Shortness of breath COMPARISON: Previous day FINDINGS: The heart size is stable. There is continued elevation the right hemidiaphragm with probabl e small right pleural effusion. There is prominence of the pulmonary vascularity. Patchy right mid and bilateral changes again seen. No pneumothoraces are identified. There are postop changes and meta llic hardware in the cervical spine. IMPRESSION: Stable exam.
[2019-04-22] MEDS: Mometasone/Formoterol 120 PUFF INHALER INH SCH ×2 (07:51→19:02)
[2019-04-22] MEDS: DULoxetine 60 MG CAP PO SCH (09:21)
[2019-04-22] MEDS: Dronedarone HCl 400 MG TAB PO SCH ×2 (09:21→16:19)
[2019-04-22] MEDS: Calcium Carbonate 600 MG TAB PO SCH (09:22)
[2019-04-22] MEDS: Anastrozole 1 MG TAB PO SCH (09:22)
[2019-04-22] MEDS: Carvedilol 6.25 MG TAB PO SCH ×2 (09:22→16:18)
[2019-04-22] MEDS: Ascorbic Acid 500 mg Chewable Tablet PO SCH (09:22)
[2019-04-22] MEDS: Amlodipine 10 MG TAB PO SCH (09:22)
[2019-04-22] MEDS: Heparin 5,000 UNITS/ML VIAL SC SCH ×3 (09:23→21:22)
[2019-04-22] MEDS: HumuLIN 70/30 (300 UNITS/3 ML VIAL) SC SCH ×2 (09:23→17:57)
[2019-04-22] MEDS: Cefepime 1 GM in Sodium Chloride 0.9% 100 ML IVPB SCH (09:23)
[2019-04-22] MEDS: Ferrous Sulfate 325 MG TAB PO SCH ×2 (09:23→16:19)
[2019-04-22] MEDS: Senokot S 8.6-50 MG TAB PO SCH ×2 (09:24→21:22)
[2019-04-22] MEDS: Polyethylene Glycol 3350 17 GM Packet PO SCH (09:24)
[2019-04-22] MEDS: clonazePAM 0.5 MG TAB PO SCH ×2 (09:33→21:21)
[2019-04-22] MEDS: Stress 600 With Zinc 1 TAB PO SCH (09:33)
--- NOTE | 2019-04-22 13:58 | PDOC.HOSPP ---
- Subjective Subjective: Seen and examined. Patient breathing more comfortably. Patient and has been at bedside states they are interested in rehabilitation placement. 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 Digoxin level has been super therapeutic and may have contributed to confusion on admission. Recommend discontinuing digoxin if okay with cardiology. - Objective Vital Signs & Weight: Vital Signs (12 hours) Temp Pulse Pulse Resp BP BP BP 04/22/19 10:36 95 148/68 H 04/22/19 09:22 102 H 194/67 H 04/22/19 08:25 97.8 F 106 H 20 156/63 H 04/22/19 07:51 102 H 20 04/22/19 03:31 98.1 F 92 19 153/63 H Pulse Ox 04/22/19 10:36 04/22/19 09:22 04/22/19 08:25 93 L 04/22/19 07:51 04/22/19 03:31 94 L Weight Admit Weight 229 lb 8 oz Weight 236 lb I&O: 04/21/19 04/22/19 04/23/19 06:59 06:59 06:59 Intake Total 1420 Output Total 1320 Balance 100 Result Diagrams: 04/18/19 03:56 04/19/19 08:14 Additional Labs: Accuchecks 04/22/19 04/22/19 04/21/19 10:43 05:54 20:09 POC Glucose 115 H 83 142 H 04/21/19 04/21/19 16:22 15:09 POC Glucose 110 80 Radiology Reviewed by me: Yes Hospitalist ROS - Review of Systems All other systems reviewed; all pertinent +/- noted in HPI/Subj - Medication Medications: Active Medications Generic Name Dose Route Start Last Admin Trade Name Freq PRN Reason Stop Dose Admin Acetaminophen 650 mg 04/18/19 08:37 04/21/19 13:58 Tylenol PO 650 mg Q4H PRN Administration Breakthrough Pain Hydrocodone Bitart/Acetaminophen 1 tab 04/18/19 08:37 04/19/19 20:46 [place] 5/325 PO 1 tab Q4H PRN Administration Moderate Pain (4-6) Hydrocodone Bitart/Acetaminophen 2 tab 04/18/19 08:37 04/20/19 22:27 [place] 5/325 PO 2 tab Q4H PRN Administration Severe Pain (7-10) Albuterol/Ipratropium 3 ml 04/18/19 18:30 04/22/19 07:51 Duoneb NEB 3 ml BID-RT JOSE Administration Albuterol/Ipratropium 3 ml 04/18/19 08:37 04/21/19 14:27 Duoneb NEB 3 ml Q4H PRN Administration Wheezing Amlodipine Besylate 10 mg 04/19/19 09:00 04/22/19 09:22 Norvasc PO 10 mg DAILY JOSE Administration Anastrozole 1 mg 04/19/19 09:00 04/22/19 09:22 Arimidex PO 1 mg DAILY JOSE Administration Ascorbic Acid 500 mg 04/19/19 09:00 04/22/19 09:22 Vitamin C PO 500 mg DAILY JOSE Administration Atorvastatin Calcium 40 mg 04/18/19 21:00 04/21/19 20:26 Lipitor PO 40 mg HS JOSE Administration Benzonatate 100 mg 04/18/19 08:43 04/19/19 13:02 Tessalon PO 100 mg Q4H PRN Administration Cough Calcium Carbonate 600 mg 04/19/19 09:00 04/22/19 09:22 Caltrate PO 600 mg DAILY JOSE Administration Carvedilol 12.5 mg 04/20/19 17:00 04/22/19 09:22 Coreg PO 12.5 mg BID-WM JOSE Administration Clonazepam 0.25 mg 04/20/19 09:00 04/22/19 09:33 Klonopin PO 0.25 mg BID JOSE Administration Dronedarone 400 mg 04/18/19 17:00 04/22/19 09:21 Multaq PO 400 mg BID-WM JOSE Administration Duloxetine HCl 60 mg 04/19/19 09:00 04/22/19 09:21 Cymbalta PO 60 mg DAILY JOSE Administration Ferrous Sulfate 325 mg 04/18/19 17:00 04/22/19 09:23 Feosol PO 325 mg BID-WM JOSE Administration Heparin Sodium (Porcine) 5,000 units 04/18/19 15:00 04/22/19 09:23 Heparin SC 5,000 units TID JOSE Administration Hydralazine HCl 10 mg 04/18/19 08:43 04/20/19 05:14 Apresoline SLOW IVP 10 mg Q4H PRN Administration Hypertension Hydrocortisone Acetate 25 mg 04/19/19 19:53 04/19/19 21:01 Anusol-Hc MT 25 mg BIDPRN PRN Administration Hemorrhoids Cefepime HCl 1 gm/ Sodium 100 mls @ 200 mls/hr 04/17/19 21:00 04/22/19 09:23 Chloride IVPB 100 mls Q12HR JOSE Administration Insulin Human Isoph/Insulin Regular 27 units 04/22/19 08:00 04/22/19 09:23 Humulin 70/30 SC 27 units BID-WM JOSE Administration Insulin Human Lispro 0 units 04/18/19 08:46 04/20/19 12:56 Humalog SC 2 unit .MODERATE SLIDING SC PRN Administration Moderate Correctional Scale Mometasone Furoate/Formoterol Fumar 2 puff 04/18/19 18:30 04/22/19 07:51 Dulera 100 Mcg/5 Mcg Inhaler INH 2 puff BID-RT JOSE Administration Multivitamins/Zinc 1 tab 04/19/19 09:00 04/22/19 09:33 Stress 600 With Zinc PO 1 tab DAILY JOSE Administration Pantoprazole Sodium 40 mg 04/19/19 09:00 04/22/19 09:22 Protonix PO 40 mg DAILY JOSE Administration Polyethylene Glycol 17 gm 04/19/19 09:00 04/22/19 09:24 Miralax PO Not Given DAILY JOSE Quetiapine Fumarate 25 mg 04/21/19 21:00 04/21/19 20:26 Seroquel PO 25 mg HS JOSE Administration Senna/Docusate Sodium 2 tab 04/18/19 21:00 04/22/19 09:24 Senokot S PO Not Given BID JOSE - Exam General Appearance: NAD, awake alert Eye: PERRL ENT: normocephalic atraumatic, moist mucosa Neck: supple, symmetric, no lymphadenopathy Heart: no murmur, no gallops, no rubs Respiratory: no rales, no ronchi, normal chest expansion, no tachypnea, wheezes (improved) Gastrointestinal: soft, non-tender, no hepatomegaly, no guarding, no rigidity Extremities: 1+ LE edema Skin: no lesions, no rashes Neurological: cranial nerve grossly intact, no focal deficits Musculoskeletal: generalized weakness Psychiatric: normal affect, A&O x 3 Hosp A/P (1) Encephalopathy acute Code(s): G93.40 - ENCEPHALOPATHY, UNSPECIFIED Status: Resolved (2) Acute exacerbation of chronic obstructive pulmonary disease (COPD) Code(s): J44.1 - CHRONIC OBSTRUCTIVE PULMONARY DISEASE W (ACUTE) EXACERBATION Status: Acute (3) Acute on chronic respiratory failure with hypoxemia Code(s): J96.21 - ACUTE AND CHRONIC RESPIRATORY FAILURE WITH HYPOXIA Status: Acute (4) Acute renal failure Status: Acute Qualifiers: Acute renal failure type: unspecified Qualified Code(s): N17.9 - Acute kidney failure, unspecified (5) Anemia, normocytic normochromic Code(s): D64.9 - ANEMIA, UNSPECIFIED Status: Chronic (6) Anxiety and depression Code(s): F41.8 - OTHER SPECIFIED ANXIETY DISORDERS Status: Chronic (7) Atrial fibrillation with RVR Code(s): I48.91 - UNSPECIFIED ATRIAL FIBRILLATION Status: Chronic (8) Breast cancer Status: Chronic (9) COPD (chronic obstructive pulmonary disease) Status: Chronic Qualifiers: (10) DM type 2 (diabetes mellitus, type 2) Status: Chronic Qualifiers: Diabetes mellitus termite exterminator helper insulin use: with termite exterminator helper use Diabetes mellitus complication status: without complication Qualified Code(s): E11.9 - Type 2 diabetes mellitus without complications; Z79.4 - extermination supervisor (current) use of insulin (11) Diabetes type 2, uncontrolled Code(s): E11.65 - TYPE 2 DIABETES MELLITUS WITH HYPERGLYCEMIA Status: Chronic Qualifiers: Glycemic state: with hyperglycemia Qualified Code(s): E11.65 - Type 2 diabetes mellitus with hyperglycemia (12) Diabetic neuropathy Code(s): E11.40 - TYPE 2 DIABETES MELLITUS WITH DIABETIC NEUROPATHY, UNSP Status: Chronic Qualifiers: Diabetes mellitus type: type 2 (13) Dyslipidemia Code(s): E78.5 - HYPERLIPIDEMIA, UNSPECIFIED Status: Chronic (14) GERD (gastroesophageal reflux disease) Code(s): K21.9 - GASTRO-ESOPHAGEAL REFLUX DISEASE WITHOUT ESOPHAGITIS Status: Chronic Qualifiers: Esophagitis presence: without esophagitis Qualified Code(s): K21.9 - Gastro -esophageal reflux disease without esophagitis (15) Hypertension Code(s): I10 - ESSENTIAL (PRIMARY) HYPERTENSION Status: Chronic Qualifiers: Hypertension type: essential hypertension Qualified Code(s): I10 - Essential (primary) hypertension (16) Obesity (BMI 30-39.9) Code(s): E66.9 - OBESITY, UNSPECIFIED Status: Chronic (17) Sleep apnea Code(s): G47.30 - SLEEP APNEA, UNSPECIFIED Status: Chronic Qualifiers: - Plan Plan: medical unit with telemetry Orthopedic surgery consultation, recommendations appreciated nephrology consultation, recommendations appreciated neurology consultation, recommendations appreciated Increase Carvedilol for BP control Digoxin toxicity, recommend D/c if ok with cardiology Sutures removed by ortho and appropriate boot now on, remains non weight bearing IV antibiotics, broad spectrum with coverage for nosocomial infections Blood Cx no growth to date Sputum CX no growth to date De escalate to Cx and sensitivity as able, D/c vancomycin patient's mentation is improving as infection improves. No hallucinations in acute care hospital supplemental oxygen to maintain O2 saturation's greater than 88% blood sugar control with long and short acting insulin Decrease insulin, poor oral intake resulting in low blood sugar blood pressure control continue other home medications as able Neurology recommend seroquel QHS, will aid is sleep No focal neurologic deficits to suggest CVA no seizure type activity noted per family or reported physical therapy/occupational therapy evaluation treatment G.I. prophylaxis DVT prophylaxis
[2019-04-22] MEDS: Atorvastatin Calcium 40 MG TAB PO SCH (21:20)
--- NOTE | 2019-04-22 22:17 | CON ---
DATE OF CONSULTATION: 04/22/2019 SERVICE: Pulmonary Medicine. REASON FOR CONSULTATION: Possible pneumonia. HISTORY OF PRESENT ILLNESS: The patient is a very pleasant 74-year-old white female with past medical history significant for a recent ankle fracture. This followed a vertigo spell. She fell down and broke her ankle. She never lost any consciousness. She was brought to the emergency department, where she underwent an open reduction, internal fixation of her ankle. She is casted and nonweightbearing. She was discharged from the hospital on April 06, 2019. She is requiring some intermittent pain medications. Ultimately, she returned to the emergency department, because of altered mentation, and little bit of confusion. The following morning, she was not experiencing any shortness of breath, cough, sputum production, fevers, or chills. Her breathing was back to baseline. Since she has been in the hospital over the last 5 days, there has been no change to her breathing. PAST MEDICAL HISTORY: 1. Chronic hypoxic respiratory failure. 2. Morbid obesity. 3. Chronically elevated right hemidiaphragm with atelectasis of the right middle lobe, and most of the right lower lobe. 4. Moderate restrictive lung disease. 5. COPD, possible. 6. Hypertension. 7. Dyslipidemia. 8. Chronic kidney disease. 9. Type 2 diabetes mellitus. 10. Obstructive sleep apnea. 11. History of breast cancer, status post chemoradiation therapy on the right. PAST SURGICAL HISTORY: 1. Mastectomy. 2. Appendectomy. 3. Cholecystectomy. 4. Hysterectomy. 5. Colon surgery. 6. ORIF left ankle, tib-fib fracture. FAMILY HISTORY: Noncontributory. SOCIAL HISTORY: Negative for alcohol, tobacco, or illicit drug use. She was recently at a rehabilitation facility. ALLERGIES: CODEINE, LISINOPRIL, TRAMADOL. MEDICATIONS: List of her inpatient medications was reviewed. Multiple updates were made at this time. REVIEW OF SYSTEMS: General, head, ears, eyes, nose, throat, cardiovascular, respiratory, GI, , musculoskeletal, neurologic, and skin is negative except as mentioned in HPI. PHYSICAL EXAMINATION: VITAL SIGNS: Afebrile, pulse 99, blood pressure 147/65, respirations 18, saturation 94% on 3 L nasal cannula. GENERAL: The patient is awake and alert, in no apparent distress. LUNGS: Wonderful air entry on the left. Decreased air entry on the right. There is no prolonged expiratory phase appreciated. Some minimal rhonchi are present poorly on the right. HEART: Normal rate, regular. ABDOMEN: Soft, nontender, nondistended. Bowel sounds are positive. MUSCULOSKELETAL: No cyanosis or clubbing. EXTREMITIES: There is no pitting in the bilateral lower extremities. NEUROLOGIC: Grossly nonfocal. LABORATORIES: WBC 7.6, hemoglobin 7.3 and stable, platelets 313,000. The white count was normal on presentation and the differential was normal. INR 1.0. pH 7.35, pCO2 43. PO2 is 83, while wearing 3 L nasal cannula. Creatinine 2.38. Potassium 5.3. Basic metabolic profile is unremarkable otherwise. Liver function studies are unremarkable. Troponin trended upward to 0.49 before resolving. TSH 2.0, BNP 197, which is near baseline. CK 38, ammonia 17. Urinalysis is unremarkable. Opiates are positive on the urine drug screen. Blood cultures x2, urine culture, and stool culture negative to date. IMAGIN. Chest x-ray demonstrates chronically elevated right hemidiaphragm. There is some atelectasis at the right base. This chest x-ray is roughly similar to one that was performed in 2013. Soft tissue attenuation is present. This film is slightly underpenetrated. I can't exclude the possibility of pneumonia, but one is not clearly evident on the basis of this exam. Interstitial markings are more pronounced on the right, likely secondary to decreased volume. 2. Echocardiogram demonstrates normal ejection fraction. There is diastolic dysfunction present. Mild mitral regurgitation. DISCUSSION AND PLAN: 1. Chronic hypoxic respiratory failure. 2. Elevated right hemidiaphragm with atelectasis of the right middle lobe, and right lower lobe (chronic and present since 2012). 3. Metabolic encephalopathy, possibly drug-induced. 4. Chronic kidney disease. 5. Obstructive sleep apnea. DISCUSSION AND PLAN: I do not see any true evidence of pneumonia based on clinical, or diagnostic studies. The chest x-ray is underpenetrated making interpretation very challenging. Either way, she has already had 5 days of antibiotics, which should be more than adequate to cover pneumonia. These can be discontinued. From a purely respiratory standpoint, she is stable for transition out of the hospital. I have encouraged her to continue working hard with physical therapy. If necessary, she can use her CPAP with oxygen bled into it while exercising so that she can prevent deconditioning through time. Dr. Mendieta has an established a relationship with Ms. Chamberlain and will assume coverage in the morning. Job ID: [id number]
[2019-04-23] MEDS: Cefepime 1 GM in Sodium Chloride 0.9% 100 ML IVPB SCH (01:51)
[2019-04-23] MEDS: Mometasone/Formoterol 120 PUFF INHALER INH SCH ×2 (07:05→19:17)
[2019-04-23] MEDS: HumuLIN 70/30 (300 UNITS/3 ML VIAL) SC SCH ×2 (09:22→17:26)
[2019-04-23] MEDS: Dronedarone HCl 400 MG TAB PO SCH ×2 (09:23→17:04)
[2019-04-23] MEDS: Heparin 5,000 UNITS/ML VIAL SC SCH ×3 (09:23→21:49)
[2019-04-23] MEDS: Amlodipine 10 MG TAB PO SCH (09:23)
[2019-04-23] MEDS: Anastrozole 1 MG TAB PO SCH (09:24)
[2019-04-23] MEDS: clonazePAM 0.5 MG TAB PO SCH ×2 (09:24→21:49)
[2019-04-23] MEDS: Ferrous Sulfate 325 MG TAB PO SCH ×2 (09:24→17:05)
[2019-04-23] MEDS: DULoxetine 60 MG CAP PO SCH (09:24)
[2019-04-23] MEDS: Calcium Carbonate 600 MG TAB PO SCH (09:25)
[2019-04-23] MEDS: Carvedilol 6.25 MG TAB PO SCH ×2 (09:25→17:04)
[2019-04-23] MEDS: Ascorbic Acid 500 mg Chewable Tablet PO SCH (09:26)
[2019-04-23] MEDS: Stress 600 With Zinc 1 TAB PO SCH (09:33)
[2019-04-23] MEDS: Polyethylene Glycol 3350 17 GM Packet PO SCH (10:06)
[2019-04-23] MEDS: Senokot S 8.6-50 MG TAB PO SCH ×2 (10:06→21:48)
--- NOTE | 2019-04-23 11:57 | PRG ---
DATE OF SERVICE: 04/23/2019 SUBJECTIVE: Shayy Chamberlain is a 74-year-old female, who has been in the hospital now for 6 days. Pulmonary was consulted yesterday regarding hypoxemia, respiratory failure. In my mind, she is at baseline, she was encephalopathic, probably secondary to medication. She had a fractured ankle, which has healed well. OBJECTIVE: GENERAL: On examination today, she is awake, alert, responsive, no longer confused. VITAL SIGNS: Stable. Blood pressure is 130/80, pulse 80, respiratory rate 18, and saturations 93%. CHEST: Decreased breath sounds. No wheezing. CARDIAC: Normal S1 and S2. No gallops. ABDOMEN: Soft. EXTREMITIES: No edema. ASSESSMENT AND PLAN: 1. Underlying baseline chronic obstructive pulmonary disease. 2. Chronically elevated right hemidiaphragm. 3. Morbid obesity. From Pulmonary standpoint of view, her encephalopathy has improved, more than likely this is medication related, I agree. She can be transferred either back to the rehab or home with home health and PT. Job ID: [id number]
--- NOTE | 2019-04-23 12:25 | PDOC.HOSPP ---
- Subjective Subjective: Seen and examined. Improving on maximum medical therapy. Breathing comfortably on low flow NC. BP issues, adjusting medications. Adjusting insulin, low appetite. Not eating much. - Objective Vital Signs & Weight: Vital Signs (12 hours) Temp Pulse Resp BP Pulse Ox 04/23/19 11:52 98.7 F 84 15 134/60 98 04/23/19 08:00 97.5 F L 111 H 16 171/74 H 98 04/23/19 07:04 107 H 14 99 04/23/19 04:35 98.7 F 105 H 16 177/73 H 99 Weight Admit Weight 229 lb 8 oz Weight 227 lb 8 oz I&O: 04/22/19 04/23/19 04/24/19 06:59 06:59 06:59 Intake Total 960 Output Total 740 Balance 220 Result Diagrams: 04/18/19 03:56 04/19/19 08:14 Additional Labs: Accuchecks 04/23/19 04/23/19 04/22/19 10:51 04:48 21:51 POC Glucose 178 H 128 H 133 H 04/22/19 17:22 POC Glucose 79 Radiology Reviewed by me: Yes Hospitalist ROS - Review of Systems All other systems reviewed; all pertinent +/- noted in HPI/Subj - Medication Medications: Active Medications Generic Name Dose Route Start Last Admin Trade Name Freq PRN Reason Stop Dose Admin Acetaminophen 650 mg 04/18/19 08:37 04/21/19 13:58 Tylenol PO 650 mg Q4H PRN Administration Breakthrough Pain Hydrocodone Bitart/Acetaminophen 1 tab 04/18/19 08:37 04/19/19 20:46 [place] 5/325 PO 1 tab Q4H PRN Administration Moderate Pain (4-6) Hydrocodone Bitart/Acetaminophen 2 tab 04/18/19 08:37 04/20/19 22:27 [place] 5/325 PO 2 tab Q4H PRN Administration Severe Pain (7-10) Albuterol/Ipratropium 3 ml 04/18/19 18:30 04/23/19 07:04 Duoneb NEB 3 ml BID-RT JOSE Administration Albuterol/Ipratropium 3 ml 04/18/19 08:37 04/21/19 14:27 Duoneb NEB 3 ml Q4H PRN Administration Wheezing Amlodipine Besylate 10 mg 04/19/19 09:00 04/23/19 09:23 Norvasc PO 10 mg DAILY JOSE Administration Anastrozole 1 mg 04/19/19 09:00 04/23/19 09:24 Arimidex PO 1 mg DAILY JOSE Administration Ascorbic Acid 500 mg 04/19/19 09:00 04/23/19 09:26 Vitamin C PO 500 mg DAILY JOSE Administration Atorvastatin Calcium 40 mg 04/18/19 21:00 04/22/19 21:20 Lipitor PO 40 mg HS JOSE Administration Benzonatate 100 mg 04/18/19 08:43 04/19/19 13:02 Tessalon PO 100 mg Q4H PRN Administration Cough Calcium Carbonate 600 mg 04/19/19 09:00 04/23/19 09:25 Caltrate PO 600 mg DAILY JOSE Administration Carvedilol 25 mg 04/23/19 08:00 04/23/19 09:25 Coreg PO 25 mg BID-WM JOSE Administration Clonazepam 0.25 mg 04/20/19 09:00 04/23/19 09:24 Klonopin PO 0.25 mg BID JOSE Administration Dronedarone 400 mg 04/18/19 17:00 04/23/19 09:23 Multaq PO 400 mg BID-WM JOSE Administration Duloxetine HCl 60 mg 04/19/19 09:00 04/23/19 09:24 Cymbalta PO 60 mg DAILY JOSE Administration Ferrous Sulfate 325 mg 04/18/19 17:00 04/23/19 09:24 Feosol PO 325 mg BID-WM JOSE Administration Heparin Sodium (Porcine) 5,000 units 04/18/19 15:00 04/23/19 09:23 Heparin SC 5,000 units TID JOSE Administration Hydralazine HCl 10 mg 04/18/19 08:43 04/20/19 05:14 Apresoline SLOW IVP 10 mg Q4H PRN Administration Hypertension Hydrocortisone Acetate 25 mg 04/19/19 19:53 04/19/19 21:01 Anusol-Hc [place] 25 mg BIDPRN PRN Administration Hemorrhoids Insulin Human Isoph/Insulin Regular 24 units 04/22/19 18:00 04/23/19 09:22 Humulin 70/30 SC 24 units BID-WM JOSE Administration Insulin Human Lispro 0 units 04/18/19 08:46 04/20/19 12:56 Humalog SC 2 unit .MODERATE SLIDING SC PRN Administration Moderate Correctional Scale Mometasone Furoate/Formoterol Fumar 2 puff 04/18/19 18:30 04/23/19 07:05 Dulera 100 Mcg/5 Mcg Inhaler INH 2 puff BID-RT JOSE Administration Multivitamins/Zinc 1 tab 04/19/19 09:00 04/22/19 09:33 Stress 600 With Zinc PO 1 tab DAILY JOSE Administration Pantoprazole Sodium 40 mg 04/19/19 09:00 04/23/19 09:25 Protonix PO 40 mg DAILY JOSE Administration Polyethylene Glycol 17 gm 04/19/19 09:00 04/23/19 10:06 Miralax PO Not Given DAILY JOSE Quetiapine Fumarate 50 mg 04/22/19 21:00 04/22/19 21:21 Seroquel PO 50 mg HS JOSE Administration Senna/Docusate Sodium 2 tab 04/18/19 21:00 04/23/19 10:06 Senokot S PO Not Given BID JOSE - Exam General Appearance: NAD, awake alert Eye: anicteric sclera ENT: no oropharyngeal lesions, moist mucosa Neck: supple, symmetric, no lymphadenopathy Heart: no murmur, no gallops, no rubs, normal peripheral pulses Respiratory: CTAB, no wheezes, no rales, no ronchi, no tachypnea Gastrointestinal: soft, non-tender, no guarding, no rigidity Extremities: 1+ LE edema Skin: no lesions, no rashes Neurological: cranial nerve grossly intact, no new deficit Musculoskeletal: generalized weakness Psychiatric: normal affect, normal behavior, A&O x 3 Hosp A/P (1) Encephalopathy acute Code(s): G93.40 - ENCEPHALOPATHY, UNSPECIFIED Status: Resolved (2) Acute exacerbation of chronic obstructive pulmonary disease (COPD) Code(s): J44.1 - CHRONIC OBSTRUCTIVE PULMONARY DISEASE W (ACUTE) EXACERBATION Status: Acute (3) Acute on chronic respiratory failure with hypoxemia Code(s): J96.21 - ACUTE AND CHRONIC RESPIRATORY FAILURE WITH HYPOXIA Status: Acute (4) Acute renal failure Status: Acute Qualifiers: Acute renal failure type: unspecified Qualified Code(s): N17.9 - Acute kidney failure, unspecified (5) Anemia, normocytic normochromic Code(s): D64.9 - ANEMIA, UNSPECIFIED Status: Chronic (6) Anxiety and depression Code(s): F41.8 - OTHER SPECIFIED ANXIETY DISORDERS Status: Chronic (7) Atrial fibrillation with RVR Code(s): I48.91 - UNSPECIFIED ATRIAL FIBRILLATION Status: Chronic (8) Breast cancer Status: Chronic (9) COPD (chronic obstructive pulmonary disease) Status: Chronic Qualifiers: (10) DM type 2 (diabetes mellitus, type 2) Status: Chronic Qualifiers: Diabetes mellitus senior living insulin use: with custom bow maker use Diabetes mellitus complication status: without complication Qualified Code(s): E11.9 - Type 2 diabetes mellitus without complications; Z79.4 - long term (current) use of insulin (11) Diabetes type 2, uncontrolled Code(s): E11.65 - TYPE 2 DIABETES MELLITUS WITH HYPERGLYCEMIA Status: Chronic Qualifiers: Glycemic state: with hyperglycemia Qualified Code(s): E11.65 - Type 2 diabetes mellitus with hyperglycemia (12) Diabetic neuropathy Code(s): E11.40 - TYPE 2 DIABETES MELLITUS WITH DIABETIC NEUROPATHY, UNSP Status: Chronic Qualifiers: Diabetes mellitus type: type 2 (13) Dyslipidemia Code(s): E78.5 - HYPERLIPIDEMIA, UNSPECIFIED Status: Chronic (14) GERD (gastroesophageal reflux disease) Code(s): K21.9 - GASTRO-ESOPHAGEAL REFLUX DISEASE WITHOUT ESOPHAGITIS Status: Chronic Qualifiers: Esophagitis presence: without esophagitis Qualified Code(s): K21.9 - Gastro -esophageal reflux disease without esophagitis (15) Hypertension Code(s): I10 - ESSENTIAL (PRIMARY) HYPERTENSION Status: Chronic Qualifiers: Hypertension type: essential hypertension Qualified Code(s): I10 - Essential (primary) hypertension (16) Obesity (BMI 30-39.9) Code(s): E66.9 - OBESITY, UNSPECIFIED Status: Chronic (17) Sleep apnea Code(s): G47.30 - SLEEP APNEA, UNSPECIFIED Status: Chronic Qualifiers: - Plan Plan: medical unit with telemetry Orthopedic surgery consultation, recommendations appreciated nephrology consultation, recommendations appreciated neurology consultation, recommendations appreciated Increased Carvedilol for BP control now at max dose Digoxin toxicity, recommend D/c if ok with cardiology Sutures removed by ortho and appropriate boot now on, remains non weight bearing Completed a full course of IV ABX in hospital Blood Cx no growth to date Sputum CX no growth to date patient's mentation returned to baseline No hallucinations in acute care hospital supplemental oxygen to maintain O2 saturation's greater than 88% blood sugar control with long and short acting insulin Decrease insulin again, poor oral intake resulting in low blood sugar blood pressure control continue other home medications as able Neurology recommend seroquel QHS, will aid is sleep - Now sleeping better No focal neurologic deficits to suggest CVA no seizure type activity noted per family or reported physical therapy/occupational therapy evaluation treatment G.I. prophylaxis DVT prophylaxis
[2019-04-23] MEDS: Atorvastatin Calcium 40 MG TAB PO SCH (21:49)
[2019-04-24] MEDS: Mometasone/Formoterol 120 PUFF INHALER INH SCH ×2 (07:42→18:57)
[2019-04-24] MEDS ORDERED: Loperamide HCl 2 MG CAP PO PRN (08:09)
[2019-04-24] MEDS: Stress 600 With Zinc 1 TAB PO SCH (08:19)
[2019-04-24] MEDS: DULoxetine 60 MG CAP PO SCH (08:19)
[2019-04-24] MEDS: clonazePAM 0.5 MG TAB PO SCH (08:19)
[2019-04-24] MEDS: Calcium Carbonate 600 MG TAB PO SCH (08:20)
[2019-04-24] MEDS: Ferrous Sulfate 325 MG TAB PO SCH ×2 (08:20→16:20)
[2019-04-24] MEDS: Carvedilol 6.25 MG TAB PO SCH ×2 (08:20→16:20)
[2019-04-24] MEDS: Amlodipine 10 MG TAB PO SCH (08:20)
[2019-04-24] MEDS: Ascorbic Acid 500 mg Chewable Tablet PO SCH (08:20)
[2019-04-24] MEDS: Anastrozole 1 MG TAB PO SCH (08:20)
[2019-04-24] MEDS: Heparin 5,000 UNITS/ML VIAL SC SCH ×3 (08:21→22:13)
[2019-04-24] MEDS: Polyethylene Glycol 3350 17 GM Packet PO SCH (08:21)
[2019-04-24] MEDS: Dronedarone HCl 400 MG TAB PO SCH ×2 (08:21→16:20)
[2019-04-24] MEDS: Senokot S 8.6-50 MG TAB PO SCH ×2 (08:21→22:14)
[2019-04-24] MEDS: HumuLIN 70/30 (300 UNITS/3 ML VIAL) SC SCH ×2 (08:22→19:30)
--- NOTE | 2019-04-24 10:39 | PRG ---
DATE OF SERVICE: 04/24/2019 SUBJECTIVE: This morning, she is better, less short of breath, less cough. No longer confused. OBJECTIVE: VITAL SIGNS: Temperature 98, pulse 103, respirations 20, saturations are 94% on 3 L, and blood pressure 163/66. CHEST: Decreased breath sounds. No wheezing. CARDIAC: Normal S1 and S2. No gallop. ABDOMEN: No masses. ASSESSMENT: Metabolic encephalopathy, resolved. Chronic obstructive pulmonary disease, sleep apnea, abnormal chest x-ray. No pneumonia. PLAN: Regarding her fractured ankle, she needs ongoing physical therapy. She is going to go to the rehab. Job ID: [id number]
[2019-04-24] MEDS: Digoxin 0.125 MG TAB PO SCH (11:20)
--- NOTE | 2019-04-24 12:35 | PDOC.HOSPP ---
- Subjective Subjective: Seen and examined. Family meeting was had with the patient, patient has been, and [id number]. Time was given for questions, all questions answered in detail. We are planning for subacute placement pending availability. With diarrhea and skin breakdown, wound care consult requested. - Objective Vital Signs & Weight: Vital Signs (12 hours) Temp Pulse Resp BP Pulse Ox 04/24/19 11:40 98.4 F 79 18 145/65 H 96 04/24/19 11:20 103 H 04/24/19 08:20 103 H 04/24/19 08:00 98.8 F 103 H 20 163/66 H 94 L 04/24/19 07:41 101 H 18 100 04/24/19 07:35 94 L 04/24/19 03:40 99 F 99 19 138/63 98 Weight Admit Weight 229 lb 8 oz Weight 225 lb I&O: 04/23/19 04/24/19 04/25/19 06:59 06:59 06:59 Intake Total 960 1380 Output Total 740 Balance 220 1380 Result Diagrams: 04/18/19 03:56 04/19/19 08:14 Additional Labs: Accuchecks 04/24/19 04/24/19 04/23/19 10:37 05:17 20:40 POC Glucose 138 H 124 H 151 H 04/23/19 17:02 POC Glucose 124 H Radiology Reviewed by me: Yes Hospitalist ROS - Review of Systems All other systems reviewed; all pertinent +/- noted in HPI/Subj - Medication Medications: Active Medications Generic Name Dose Route Start Last Admin Trade Name Freq PRN Reason Stop Dose Admin Acetaminophen 650 mg 04/18/19 08:37 04/21/19 13:58 Tylenol PO 650 mg Q4H PRN Administration Breakthrough Pain Hydrocodone Bitart/Acetaminophen 1 tab 04/18/19 08:37 04/19/19 20:46 [place] 5/325 PO 1 tab Q4H PRN Administration Moderate Pain (4-6) Hydrocodone Bitart/Acetaminophen 2 tab 04/18/19 08:37 04/20/19 22:27 [place] 5/325 PO 2 tab Q4H PRN Administration Severe Pain (7-10) Albuterol/Ipratropium 3 ml 04/18/19 18:30 04/24/19 07:41 Duoneb NEB 3 ml BID-RT JOSE Administration Albuterol/Ipratropium 3 ml 04/18/19 08:37 04/21/19 14:27 Duoneb NEB 3 ml Q4H PRN Administration Wheezing Amlodipine Besylate 10 mg 04/19/19 09:00 04/24/19 08:20 Norvasc PO 10 mg DAILY JOSE Administration Anastrozole 1 mg 04/19/19 09:00 04/24/19 08:20 Arimidex PO 1 mg DAILY JOSE Administration Ascorbic Acid 500 mg 04/19/19 09:00 04/24/19 08:20 Vitamin C PO 500 mg DAILY JOSE Administration Atorvastatin Calcium 40 mg 04/18/19 21:00 04/23/19 21:49 Lipitor PO 40 mg HS JOSE Administration Benzonatate 100 mg 04/18/19 08:43 04/19/19 13:02 Tessalon PO 100 mg Q4H PRN Administration Cough Calcium Carbonate 600 mg 04/19/19 09:00 04/24/19 08:20 Caltrate PO 600 mg DAILY JOSE Administration Carvedilol 25 mg 04/23/19 08:00 04/24/19 08:20 Coreg PO 25 mg BID-WM JOSE Administration Digoxin 0.0625 mg 04/24/19 09:00 04/24/19 11:20 Lanoxin PO 0.0625 mg DAILY JOSE Administration Dronedarone 400 mg 04/18/19 17:00 04/24/19 08:21 Multaq PO 400 mg BID-WM JOSE Administration Duloxetine HCl 60 mg 04/19/19 09:00 04/24/19 08:19 Cymbalta PO 60 mg DAILY JOSE Administration Ferrous Sulfate 325 mg 04/18/19 17:00 04/24/19 08:20 Feosol PO 325 mg BID-WM JOSE Administration Heparin Sodium (Porcine) 5,000 units 04/18/19 15:00 04/24/19 08:21 Heparin SC 5,000 units TID JOSE Administration Hydralazine HCl 10 mg 04/18/19 08:43 04/20/19 05:14 Apresoline SLOW IVP 10 mg Q4H PRN Administration Hypertension Hydrocortisone Acetate 25 mg 04/19/19 19:53 04/19/19 21:01 Anusol-Hc MT 25 mg BIDPRN PRN Administration Hemorrhoids Insulin Human Isoph/Insulin Regular 24 units 04/22/19 18:00 04/24/19 08:22 Humulin 70/30 SC 24 units BID-WM JOSE Administration Insulin Human Lispro 0 units 04/18/19 08:46 04/20/19 12:56 Humalog SC 2 unit .MODERATE SLIDING SC PRN Administration Moderate Correctional Scale Mometasone Furoate/Formoterol Fumar 2 puff 04/18/19 18:30 04/24/19 07:42 Dulera 100 Mcg/5 Mcg Inhaler INH 2 puff BID-RT JOSE Administration Multivitamins/Zinc 1 tab 04/19/19 09:00 04/24/19 08:19 Stress 600 With Zinc PO 1 tab DAILY JOSE Administration Pantoprazole Sodium 40 mg 04/19/19 09:00 04/24/19 08:20 Protonix PO 40 mg DAILY JOSE Administration Polyethylene Glycol 17 gm 04/19/19 09:00 04/24/19 08:21 Miralax PO Not Given DAILY JOSE Quetiapine Fumarate 50 mg 04/22/19 21:00 04/23/19 21:48 Seroquel PO 50 mg HS JOSE Administration Senna/Docusate Sodium 2 tab 04/18/19 21:00 04/24/19 08:21 Senokot S PO Not Given BID JOSE - Exam General Appearance: NAD, awake alert Eye: anicteric sclera ENT: normocephalic atraumatic, moist mucosa Neck: supple, symmetric, no lymphadenopathy Heart: no murmur, no gallops, no rubs Respiratory: CTAB, no wheezes, no rales, no ronchi, normal chest expansion Gastrointestinal: soft, non-tender, no guarding, no rigidity Extremities: no clubbing, no edema Skin: no lesions, no rashes Neurological: cranial nerve grossly intact, no focal deficits Musculoskeletal: no muscle wasting, generalized weakness Psychiatric: normal affect, A&O x 3 Hosp A/P (1) Encephalopathy acute Code(s): G93.40 - ENCEPHALOPATHY, UNSPECIFIED Status: Resolved (2) Acute exacerbation of chronic obstructive pulmonary disease (COPD) Code(s): J44.1 - CHRONIC OBSTRUCTIVE PULMONARY DISEASE W (ACUTE) EXACERBATION Status: Acute (3) Acute on chronic respiratory failure with hypoxemia Code(s): J96.21 - ACUTE AND CHRONIC RESPIRATORY FAILURE WITH HYPOXIA Status: Acute (4) Acute renal failure Status: Acute Qualifiers: Acute renal failure type: unspecified Qualified Code(s): N17.9 - Acute kidney failure, unspecified (5) Anemia, normocytic normochromic Code(s): D64.9 - ANEMIA, UNSPECIFIED Status: Chronic (6) Anxiety and depression Code(s): F41.8 - OTHER SPECIFIED ANXIETY DISORDERS Status: Chronic (7) Atrial fibrillation with RVR Code(s): I48.91 - UNSPECIFIED ATRIAL FIBRILLATION Status: Chronic (8) Breast cancer Status: Chronic (9) COPD (chronic obstructive pulmonary disease) Status: Chronic Qualifiers: (10) DM type 2 (diabetes mellitus, type 2) Status: Chronic Qualifiers: Diabetes mellitus long term care social worker insulin use: with fdc use Diabetes mellitus complication status: without complication Qualified Code(s): E11.9 - Type 2 diabetes mellitus without complications; Z79.4 - termite control technician (current) use of insulin (11) Diabetes type 2, uncontrolled Code(s): E11.65 - TYPE 2 DIABETES MELLITUS WITH HYPERGLYCEMIA Status: Chronic Qualifiers: Glycemic state: with hyperglycemia Qualified Code(s): E11.65 - Type 2 diabetes mellitus with hyperglycemia (12) Diabetic neuropathy Code(s): E11.40 - TYPE 2 DIABETES MELLITUS WITH DIABETIC NEUROPATHY, UNSP Status: Chronic Qualifiers: Diabetes mellitus type: type 2 (13) Dyslipidemia Code(s): E78.5 - HYPERLIPIDEMIA, UNSPECIFIED Status: Chronic (14) GERD (gastroesophageal reflux disease) Code(s): K21.9 - GASTRO-ESOPHAGEAL REFLUX DISEASE WITHOUT ESOPHAGITIS Status: Chronic Qualifiers: Esophagitis presence: without esophagitis Qualified Code(s): K21.9 - Gastro -esophageal reflux disease without esophagitis (15) Hypertension Code(s): I10 - ESSENTIAL (PRIMARY) HYPERTENSION Status: Chronic Qualifiers: Hypertension type: essential hypertension Qualified Code(s): I10 - Essential (primary) hypertension (16) Obesity (BMI 30-39.9) Code(s): E66.9 - OBESITY, UNSPECIFIED Status: Chronic (17) Sleep apnea Code(s): G47.30 - SLEEP APNEA, UNSPECIFIED Status: Chronic Qualifiers: - Plan Plan: medical unit Orthopedic surgery consultation, recommendations appreciated nephrology consultation, recommendations appreciated neurology consultation, recommendations appreciated Carvedilol for BP control now at max dose Digoxin toxicity, recommend D/c if ok with cardiology Sutures removed by ortho and appropriate boot now on, remains non weight bearing Completed a full course of IV ABX in hospital Blood Cx no growth to date Sputum CX no growth to date patient's mentation returned to baseline No hallucinations in acute care hospital supplemental oxygen to maintain O2 saturation's greater than 88% blood sugar control with long and short acting insulin Decrease insulin again, poor oral intake resulting in low blood sugar blood pressure control continue other home medications as able Neurology recommend seroquel QHS, will aid is sleep - Now sleeping better No focal neurologic deficits to suggest CVA no seizure type activity noted per family or reported physical therapy/occupational therapy evaluation treatment G.I. prophylaxis DVT prophylaxis Disposition: Planning for sub acute placement - pending availability
[2019-04-24 16:19] VITALS: BMI 39.8
[2019-04-24] MEDS: Atorvastatin Calcium 40 MG TAB PO SCH (22:13)
[2019-04-25] MEDS: Mometasone/Formoterol 120 PUFF INHALER INH SCH (07:42)
[2019-04-25] MEDS ORDERED: HumuLIN 70/30 (300 UNITS/3 ML VIAL) SC SCH ×2 (08:30→17:00)
[2019-04-25] MEDS: Carvedilol 6.25 MG TAB PO SCH (09:00)
[2019-04-25] MEDS: Anastrozole 1 MG TAB PO SCH (09:01)
[2019-04-25] MEDS: Ferrous Sulfate 325 MG TAB PO SCH (09:01)
[2019-04-25] MEDS: Calcium Carbonate 600 MG TAB PO SCH (09:01)
[2019-04-25] MEDS: Stress 600 With Zinc 1 TAB PO SCH (09:02)
[2019-04-25] MEDS: Digoxin 0.125 MG TAB PO SCH (09:02)
[2019-04-25] MEDS: DULoxetine 60 MG CAP PO SCH (09:03)
[2019-04-25] MEDS: Dronedarone HCl 400 MG TAB PO SCH (09:03)
[2019-04-25] MEDS: Amlodipine 10 MG TAB PO SCH (09:04)
[2019-04-25] MEDS: Heparin 5,000 UNITS/ML VIAL SC SCH (09:05)
[2019-04-25] MEDS: Ascorbic Acid 500 mg Chewable Tablet PO SCH (09:08)
[2019-04-25] MEDS: Polyethylene Glycol 3350 17 GM Packet PO SCH (09:09)
[2019-04-25] MEDS: Senokot S 8.6-50 MG TAB PO SCH (09:09)
--- NOTE | 2019-04-25 09:21 | PRG ---
DATE OF SERVICE: 04/25/2019 OBJECTIVE: VITAL SIGNS: Temperature 98, pulse 97, respirations 16, saturations 90% on 3 L, and blood pressure 130/64. GENERAL: No breathing issues. No shortness of breath, cough, or wheezing. She is ambulating. CHEST: Decreased breath sounds. No wheezing. CARDIAC: Normal S1 and S2. No gallops. ABDOMEN: No masses IMPRESSION: Chronic obstructive pulmonary disease and sleep apnea, stable with fractured ankle and decondition. PLAN: She is to go to rehab. Follow up in the office at any time. Job ID: [id number]
[2019-04-25] MEDS: HumuLIN 70/30 (300 UNITS/3 ML VIAL) SC SCH (09:35)
[2019-04-25 11:07] VITALS: BP 114/77; TEMP 97.5
[2019-04-25] MEDS ORDERED: clonazePAM 0.5 MG TAB PO SCH (21:00)
--- NOTE | 2019-04-26 03:10 | DIS ---
DATE OF ADMISSION: 04/17/2019 DATE OF DISCHARGE: 04/25/2019 REASON FOR HOSPITALIZATION: Altered mental status. SIGNIFICANT FINDINGS: The patient was admitted to medical unit with telemetry for close management. The patient with chest x-ray is suggestive of infiltrative process and the patient was diagnosed with pneumonia. The patient was placed on antibiotics, IV fluids, and breathing treatments and she had a good improvement of symptoms. The patient remained hospitalized until 04/25/2019 and no further episodes of confusion were had while she was hospitalized. The patient had close titration of blood pressure medications, diabetes medications, and anxiety medications. The patient was seen and evaluated by Pulmonology/Critical Care, Cardiology, and Neurology-please see full consultation notes and progress notes for details. The patient was also seen by Orthopedic Surgery for followup on ankle fracture from roughly 3 weeks ago and she had stitches removed and was placed in the appropriate boot. Once the patient was recommended safe for discharge by all specialists, she was safely transitioned to senior care facility. CONDITION ON DISCHARGE: Stable. SPECIFIC INSTRUCTIONS FOR THE PATIENT/FAMILY: 1. The patient recommended to take all medications as directed, to be re-evaluated by admitting physician and titrated appropriately at senior care facility. 2. The patient is recommended to follow up with primary care physician in the next 5-7 days. 3. The patient is recommended to follow up with Cardiology in the next 1-2 weeks. 4. The patient is recommended to follow up with Pulmonology in the next 1-2 weeks. 5. The patient is recommended to follow up with Orthopedic Surgery in the next 2-4 weeks. 6. The patient is recommended to follow up with Neurology in the next 2-4 weeks. 7. The patient is recommended to return to acute care hospital immediately if signs or symptoms return, worsen, or any other new symptoms occur. DISCHARGE MEDICATIONS: Please see full discharge medication list for details. 1. Clonazepam 0.25 mg at bedtime-this medication is to be weaned in the next 3-4 days and be discontinued at senior care facility. 2. Acetaminophen 650 mg p.o. q.4 hours p.r.n. pain or fever. 3. Tylenol 3 with Codeine q.4 hours p.r.n. pain. 4. Albuterol sulfate 2 puffs p.o. q.4 hours p.r.n. shortness of breath. 5. Amlodipine 10 mg 1 tablet p.o. daily. 6. Anastrozole 1 mg p.o. daily. 7. Vitamin C 500 mg 1 tablet p.o. b.i.d. 8. Atorvastatin 40 mg p.o. at bedtime. 9. Tessalon [place] 100 mg p.o. q.4 hours p.r.n. cough. 10. Biotin 1000 mcg 1 tablet p.o. b.i.d. 11. Calcium carbonate (Tums) 600 mg p.o. b.i.d. p.r.n. indigestion. 12. Carvedilol 25 mg one tablet p.o. b.i.d. 13. Vitamin D3 of 5000 units p.o. daily. 14. Digoxin 0.0625 tabs p.o. daily. 15. Docusate 100 mg 1 tablet p.o. b.i.d. p.r.n. constipation. 16. Dronedarone (Multaq) 400 mg p.o. b.i.d. 17. Duloxetine 60 mg p.o. daily. 18. Ferrous sulfate 325 mg p.o. b.i.d. 19. Fish oil 1 tablet p.o. b.i.d. 20. Fluticasone propionate nasal spray 1 spray each nostril b.i.d. 21. Advair 1 inhalation p.o. b.i.d. 22. Furosemide 20 mg 1 tablet p.o. daily. 23. Heparin 5000 units subcutaneous injection t.i.d. 24. [place] 5 mg 1 tablet p.o. q.4 hours p.r.n. pain. 25. Anusol hemorrhoid cream 25 mg per rectum b.i.d. p.r.n. hemorrhoids. 26. Insulin NovoLog 74/30, 20 units subcutaneous injection b.i.d. 27. Ipratropium bromide q.4 hours p.r.n. shortness of breath. 28. Loperamide (Imodium) 2 mg p.o. q.4 hours p.r.n. diarrhea. 29. Meclizine 25 mg p.o. q.8 hours p.r.n. dizziness. 30. Melatonin 3 mg p.o. at bedtime p.r.n. insomnia. 31. Omeprazole 40 mg 1 tablet p.o. daily. 32. Polyethylene glycol 17 g p.o. daily p.r.n. constipation. 33. Seroquel 50 mg p.o. at bedtime. 34. Senokot S 8.64/50 mg 2 tablets p.o. b.i.d. p.r.n. constipation. 35. Vitamin B complex 1 capsule p.o. daily. Greater than 38 minutes spent coordinating care and discharge process for this patient. Job ID: [id number]
== END 2019-04-25 12:28 | DRG 871 ==
LOC: ERS 17:33 → 2NO 19:44 → ERHOLD 19:44 → 2NO 04-18 15:08 → SURG B 04-24 21:57
PROVIDERS: ADMIT Internal Medicine; ATTEND Internal Medicine
DX: A41.9 Sepsis, unspecified organism (principal); J18.9 Pneumonia, unspecified organism; J96.21 Acute and chronic respiratory failure with hypoxia; G92 Toxic encephalopathy; J44.0 Chronic obstructive pulmonary disease with (acute) lower respiratory infection; J44.1 Chronic obstructive pulmonary disease with (acute) exacerbation; N17.9 Acute kidney failure, unspecified; F41.9 Anxiety disorder, unspecified; G47.30 Sleep apnea, unspecified; F32.9 Major depressive disorder, single episode, unspecified; E78.5 Hyperlipidemia, unspecified; I48.91 Unspecified atrial fibrillation; E87.5 Hyperkalemia; I12.9 Hypertensive chronic kidney disease with stage 1 through stage 4 chronic kidney disease, or unspecified chronic kidney disease; E11.22 Type 2 diabetes mellitus with diabetic chronic kidney disease; N18.9 Chronic kidney disease, unspecified; R44.1 Visual hallucinations; D64.9 Anemia, unspecified; E11.40 Type 2 diabetes mellitus with diabetic neuropathy, unspecified; K21.9 Gastro-esophageal reflux disease without esophagitis; E66.9 Obesity, unspecified; Z68.39 Body mass index [BMI] 39.0-39.9, adult; Z85.3 Personal history of malignant neoplasm of breast; Z90.49 Acquired absence of other specified parts of digestive tract; Z90.710 Acquired absence of both cervix and uterus; Z98.890 Other specified postprocedural states; Z79.4 Long term (current) use of insulin; Z88.6 Allergy status to analgesic agent; Z91.041 Radiographic dye allergy status
CPT/HCPCS: 36415; 36416; 51701; 70450; 71045; 80048; 80053; 80162; 80202; 80306; 80307; 81003; 82140; 82274; 82550; 82553; 82805; 83690; 83880; 84443; 84484; 85025; 85610; 85730; 87040; 87086; 93005; 93306; 94640; 96361; 96365; 96366; 96367; A4353; J0360; J0692; J1644; J1815; J1956; J3370; J3490; J7620

== ENCOUNTER 2019-05-11 03:54 | Emergency (ER) | payer MEDICARE, BC ==
[2019-05-11 04:44] LABS: #Basophils 0.1 thou/uL (0.0-0.2); #Eosinphils 0.2 thou/uL (0.0-0.7); #Lymphocytes 2.1 thou/uL (1.20-3.40); #Monocytes 0.7 thou/uL (0.11-0.59); #Neutrophils 3.3 thou/uL (1.40-6.50); %Basophils 1.1 % (0.0-1.0); %Eosinophils 3.4 % (0.0-10.0); %Lymphocytes 32.2 % (21.0-51.0); %Monocytes 11.5 % (0.0-10.0); %Neutrophils 51.9 % (42.0-75.0); Hemoglobin 9.3 g/dL (12.0-16.0); Mean Corpuscular HGB CONC 32.1 g/dL (32.0-36.0); Mean Corpuscular Hemoglobin 26.9 pg (27.0-31.0); Mean Platelet Volume 8.4 fL (7.4-10.4); Platelet Count 193 thou/uL (130-400); RBC Distribution Width 15.5 % (11.5-14.5); Red Blood Cell (RBC) Count 3.44 mill/uL (4.20-5.40); White Blood Cell (WBC) Count 6.4 thou/uL (4.8-10.8)
[2019-05-11 05:05] LABS: ALT (SGPT) 16 U/L (8-55); AST (SGOT) 16 U/L (5-34); Albumin 4.1 g/dL (3.4-4.8); Alkaline Phosphatase 107 U/L (40-110); Anion Gap 15 mmol/L (10-20); BUN (Urea Nitrogen) 23 mg/dL (9.8-20.1); Bilirubin, Total 0.7 mg/dL (0.2-1.2); CK (CPK) 40 U/L (29-168); Calc. Creatinine Clearance 0 mL/min (70-130); Calcium 9.3 mg/dL (7.8-10.44); Carbon Dioxide 28 mmol/L (23-31); Chloride 102 mmol/L (98-107); Estimated GFR-MDRD 21; Globulin 1.9 g/dL (2.4-3.5); Glucose 104 mg/dL (83-110); Potassium 4.2 mmol/L (3.5-5.1); Sodium 141 mmol/L (136-145)
[2019-05-11 05:06] LABS: Digoxin 0.47 ng/mL (0.8-2.0)
[2019-05-11] MEDS ORDERED: Lorazepam 2 MG/ML VIAL ONE (05:42)
--- NOTE | 2019-05-11 07:39 | CT ---
PRELIMINARY REPORT/DIRECT RADIOLOGY/EMERGENCY AFTER HOURS PROCEDURE: PROCEDURE: CT Head without Contrast . HISTORY: Seizure. TECHNIQUE: Axial images were performed without the administration of IV contrast with or without mult iplanar reformations . COMPARISON: None . FINDINGS: The brain shows NO mass, hemorrhage, or acute stroke. Ventricles appear normal size for t he patient's age. Mild periventricular old microischemic changes. Mild diffuse cerebral and cerebellar atrophy. No acute skull or scalp abnormality. Clear sinuses and mastoids . IMPRESSION: No acute intracranial abnormality. Senescent changes. ELECTRONICALLY SIGNED BY: Nathen Fortune MD May 11, 2019 5:57:39 AM [employer] OPER[employer] FINAL REPORT CT BRAIN WITHOUT CONTRAST: History: Seizure activity. Comparison: CT brain April 17, 2019. Findings: No acute hemorrhage or infarct. Mild microvascular ischemic changes, chronic. Impression: Findings and impression are concordant with the preliminary report. Transcribed Date/Time: 05/11/2019 7:57 AM
== END 2019-05-11 06:50 | disposition home or self-care (01) ==
LOC: ERS 03:54
DX: R25.1 Tremor, unspecified (principal); K21.9 Gastro-esophageal reflux disease without esophagitis; G43.909 Migraine, unspecified, not intractable, without status migrainosus; E11.9 Type 2 diabetes mellitus without complications; E78.5 Hyperlipidemia, unspecified; I10 Essential (primary) hypertension; J44.9 Chronic obstructive pulmonary disease, unspecified; Z79.899 Other long term (current) drug therapy
CPT/HCPCS: 36415; 70450; 80053; 80162; 82550; 83880; 84484; 85025; 93005; 94760; 96374; J2060

== ENCOUNTER 2019-05-25 13:59 | Outpatient (CLI) | payer MEDICARE, BC ==
--- NOTE | 2019-05-25 16:17 | MRI ---
Exam: Brain MRI without contrast HISTORY: Right breast cancer. Migraine headaches. Facial numbness. Right body shaking and jerking COMPARISON: 03/20/2018 FINDINGS: Calvarial marrow signal intensity: Appropriate T1 signal Gradient echo sequence: No hemorrhage Brain parenchyma: No mass, mass effect or midline shift. Brain volume, age-appropriate. Cortical overton-white matter differentiation: Preserved Restricted diffusion: Central arterial flow voids are maintained. Absent restricted diffusion White matter signal intensities: T2, FLAIR white matter hyperintensities due to chronic small vessel ischemic changes Sinuses: Adequate aeration of the paranasal sinuses and mastoid air cells. IMPRESSION: 1. Absent restricted diffusion. No acute infarct. 2. No acute intracranial process.
== END 2019-05-25 14:00 | disposition home or self-care (01) ==
LOC: SCSMRI 13:59
PROVIDERS: ATTEND Psychiatry & Neurology Neurology
DX: G43.019 Migraine without aura, intractable, without status migrainosus (principal)
CPT/HCPCS: 70551; 82565

== ENCOUNTER 2019-08-11 09:22 | Inpatient (IN) | payer MEDICARE, BC ==
[2019-08-11 10:38] LABS: #Eosinphils 0.1 thou/uL (0.0-0.7); #Lymphocytes 1.2 thou/uL (1.20-3.40); #Monocytes 1.1 thou/uL (0.11-0.59); #Neutrophils 7.8 thou/uL (1.40-6.50); %Basophils 0.2 % (0.0-1.0); %Eosinophils 0.9 % (0.0-10.0); %Lymphocytes 11.8 % (21.0-51.0); %Monocytes 10.8 % (0.0-10.0); %Neutrophils 76.3 % (42.0-75.0); Hemoglobin 8.5 g/dL (12.0-16.0); Mean Corpuscular HGB CONC 30.7 g/dL (32.0-36.0); Mean Corpuscular Hemoglobin 27.2 pg (27.0-31.0); Mean Corpuscular Volume 88.5 fL (78.0-98.0); Mean Platelet Volume 8.7 fL (7.4-10.4); Platelet Count 227 thou/uL (130-400); RBC Distribution Width 15.7 % (11.5-14.5); Red Blood Cell (RBC) Count 3.14 mill/uL (4.20-5.40); White Blood Cell (WBC) Count 10.2 thou/uL (4.8-10.8)
[2019-08-11] MEDS ORDERED: methylPREDNISolone Sod Succ/PF 125 MG/2 ML VIAL ONE (10:45)
[2019-08-11 10:59] LABS: ALT (SGPT) 15 U/L (8-55); AST (SGOT) 16 U/L (5-34); Alkaline Phosphatase 108 U/L (40-110); Anion Gap 15 mmol/L (10-20); BUN (Urea Nitrogen) 53 mg/dL (9.8-20.1); Bilirubin, Total 0.8 mg/dL (0.2-1.2); Calc. Creatinine Clearance 0 mL/min (70-130); Calcium 8.9 mg/dL (7.8-10.44); Carbon Dioxide 27 mmol/L (23-31); Chloride 104 mmol/L (98-107); Estimated GFR-MDRD 15; Globulin 2.4 g/dL (2.4-3.5); Glucose 164 mg/dL (83-110); Lipase 12 U/L (8-78); Potassium 4.3 mmol/L (3.5-5.1); Protein, Total 6.4 g/dL (6.0-8.3); Sodium 142 mmol/L (136-145)
--- NOTE | 2019-08-11 11:05 | RAD ---
Chest AP view INDICATION: Dyspnea COMPARISON: April 22, 2019 FINDINGS: Lungs: There are worsening patchy areas of reticular nodular airspace opacity in the right upper lob e. There is worsening airspace disease in the left lower lobe. There is persistent elevation the right hemidiaphragm with atelectasis involving the right lung base. Cardiac silhouette: There is stable mild to moderate cardiomegaly Pulmonary vasculature: Mild pulmonary vascular congestion Pleural spaces: There is suspicion for a small bilateral pleural effusions Upper abdomen: No abnormality seen. Osseous structures: ACDF of the lower cervical spine is similar appearing. Additional findings: None. IMPRESSION: Cardiomegaly with mild pulmonary vascular congestion small bilateral pleural effusions suggest mild C HF. There are airspace opacities in the right upper lobe and left lower lobe which may reflect airspace e mariano; however, pneumonia is not excluded. Persistent elevation right hemidiaphragm is subsegmental volume loss involving the right lung base.
[2019-08-11 11:21] LABS: CKMB 1.2 ng/mL (0-6.6)
[2019-08-11] MEDS ORDERED: Aspirin Chewable 81 MG TAB ONE (12:24)
[2019-08-11] MEDS ORDERED: cefTRIAXone\\ROCEPHIN 2 GM VIAL ONE (12:24)
[2019-08-11 13:26] LABS: Bilirubin Negative (Negative); Blood, Urine Negative (Negative); Clarity Clear (Clear); Glucose, Urine (Dipstick) Normal (Negative); Leukocyte Negative Leu/uL (Negative); Nitrite Negative (Negative); Protein, Urine (Dipstick) Negative (Neg-Trace); Urobilinogen Normal mg/dL (Less than 2)
[2019-08-11 13:46] LABS: Troponin I 0.065 ng/mL (< 0.028)
[2019-08-11] MEDS ORDERED: Ondansetron ODT 4 MG TAB SL PRN (15:28)
[2019-08-11] MEDS ORDERED: Ondansetron PF 4 MG/2 ML Vial IVP PRN (15:28)
[2019-08-11] MEDS ORDERED: Albuterol Sulfate 2.5 mg/3 ml Neb NEB PRN (15:30)
[2019-08-11] MEDS ORDERED: Furosemide 40 MG/4 ML VIAL SLOW IVP SCH (16:30)
[2019-08-11 17:01] LABS: Troponin I 0.062 ng/mL (< 0.028)
--- NOTE | 2019-08-11 18:37 | HP ---
HISTORY OF PRESENT ILLNESS: Ms. Chamberlain is a 74-year-old female with a medical history of COPD, on home oxygen; sleep apnea; type 2 diabetes; recent ankle fracture due to fall s/p rehab, presented for shortness of breath. The patient was discharged from rehab three weeks ago and noticed that she had progressively worsening swelling in the lower extremities since being discharged. She took her Lasix 20 mg p.o. daily, but the swelling did not improve, so increased her Lasix to twice the dose and did notice improvement in her swelling; however, in the past week, she has developed progressively worsening shortness of breath that was partially alleviated by usage of her home concentrator and breathing treatments, but did not completely resolve. completed 5 days of steroids as outpatient, but shortness of breath persisted, so she presented to the ED. On encounter, the patient is lying comfortably in bed and complains about shortness of breath that has significantly improved since arriving to the ED and using nasal cannula. Denies generalized weakness, chills, night sweats, pleuritic pain, chest pain, palpitations, abdominal pain, diarrhea, constipation, dysuria, burning on urination, recent travel or sick contacts. ED COURSE: In the ED, the patient received 3 L nasal cannula, which is her baseline and improved promptly. She endorsed recently completing a five day course of steroids that was prescribed by Dr. Mendieta. Chest x-ray showed pulmonary congestion as well as worsening bilateral patchy infiltrates. She was admitted to the telemetry floor for further management. PAST MEDICAL HISTORY: COPD, on home oxygen 3 L; sleep apnea; type 2 diabetes; hyperlipidemia; hypertension; breast cancer with history of radiation and chemotherapy as well as mastectomy. PAST SURGICAL HISTORY: Mastectomy, appendectomy, cholecystectomy, hysterectomy. FAMILY HISTORY: Significant for type 2 diabetes, hypertension. SOCIAL HISTORY: Currently lives with who is her surrogate decision maker. Does not smoke or drink alcohol. Does not do recreational drugs. MEDICATIONS: As per EMR. ALLERGIES: CODEINE, LISINOPRIL, TRAMADOL. REVIEW OF SYSTEMS: A complete review of systems was carried out and was negative with the exception of that mentioned in the HPI. PHYSICAL EXAMINATION: VITAL SIGNS: In the ED were 143/56, pulse of 79, respiratory rate of 22, temperature 97.9, and oxygen saturation 89% on 3 L nasal cannula. GENERAL: Morbidly obese. No apparent distress. Awake and alert. HEENT: Normocephalic, atraumatic. LUNGS: Bilateral inspiratory crackles from mid lezama and caudally. Mild expiratory wheezing. Equal bilaterally. HEART: Regular rate and rhythm. No murmurs or gallops. No JVD could be appreciated. ABDOMEN: Soft, nontender. Normal bowel sounds. NEUROLOGIC: Alert and oriented x3. Moving all extremities. EXTREMITIES: +2 bilateral pitting edema up to knee level. Upper extremities; bilateral pitting edema up to elbow level. PSYCHIATRIC: Proper mood and affect. LABS AND IMAGING: Reviewed. Troponin was indeterminate x3. EKG did not show signs of new ischemia. Chest x-ray showed cardiomegaly, pulmonary congestion as well as worsening bilateral patchy infiltrates, mostly in the mid and lower lezama, mostly on the right. Creatinine was 3.06, baseline is around 2. Urinalysis was negative including negative sediment. ASSESSMENT AND PLAN: Ms. Chamberlain is a 74-year-old female with medical history of chronic obstructive pulmonary disease, obstructive sleep apnea, and diastolic dysfunction, who presents with shortness of breath due to pulmonary edema. 1. Shortness of breath due to pulmonary edema. a. The patient has pitting edema as well as crackles on lung exam in the context of worsening renal function. b. Most recent echo was in April of 2019 and it showed impaired relaxation compatible with diastolic dysfunction. c. EKG and trop inconsistent with ischemic cardiac etiology. d. Chest x-ray showing pulmonary congestion, cardiomegaly, and pulmonary edema. I. Plan: II. Start Lasix 40 mg IV push b.i.d. III. Strict inputs and outputs. IV. We will repeat echo. V. Resume home medications. 2. Acute kidney injury over chronic kidney disease. a. The patient's creatinine is 3.06 as compared to a baseline of around 2. b. Urinalysis is negative including negative sediment. c. Possible etiologies, cardiorenal syndrome versus reduced effective perfusion due to intravascular depletion. I. Plan: II. Start Lasix 40 mg IV push b.i.d. III. Continue monitoring renal function. 3. COPD The patient recently completed a five-day steroid regimen, despite which shortness of breath did not significantly improve. a. Chronic obstructive pulmonary disease appears to be stable. b. resume home medications. 4. Type 2 diabetes. a. We will start the patient on diabetic diet and home regimen, monitor blood glucoses. 5. Atrial fibrillation with rapid ventricular rate. The patient is currently well controlled with Coreg, digoxin. As of 2018, the patient was on anticoagulation; however, based on the most recent discharge medications, the patient is currently not taking any anticoagulation. a. clarify whether the patient is not on anticoagulation by obtaining external records. 6. Sleep apnea. a. Unknown if the patient is using CPAP at home. b. We will start the patient on CPAP as inpatient. 7. Disposition and prophylaxis. a. The patient is full code. The patient's is the surrogate decision maker. The patient's was contacted and updated regarding the patient's likely diagnosis and treatment. b. Gastrointestinal prophylaxis. The patient is on omeprazole for gastroesophageal reflux disease. c. Deep venous thrombosis prophylaxis, enoxaparin. 8. Expected length of stay, two to three midnights. Job ID: [id number] MTDD
[2019-08-11] MEDS: Mometasone 100 MCG/Formoterol 5 MCG 120 PUFF INHALER INH SCH (18:52)
[2019-08-11] MEDS ORDERED: Hydrocortisone Acetate 25 MG Suppository PR PRN (20:08)
[2019-08-11] MEDS ORDERED: Melatonin 3 MG TAB PO PRN (20:08)
[2019-08-11] MEDS ORDERED: HYDROcodone/Acetaminophen 5/325 mg Tablet PO PRN (20:08)
[2019-08-11] MEDS ORDERED: Loperamide HCl 2 MG CAP PO PRN (20:08)
[2019-08-11] MEDS ORDERED: Biotin [Biotin] 1,000 MCG PO SCH (21:00)
[2019-08-11] MEDS ORDERED: Benzonatate 100 MG CAP PO PRN (21:00)
[2019-08-11] MEDS ORDERED: Atorvastatin Calcium 40 MG TAB PO SCH (21:00)
[2019-08-11] MEDS ORDERED: clonazePAM 0.5 MG TAB PO SCH (21:00)
[2019-08-11] MEDS: HumuLIN 70/30 (300 UNITS/3 ML VIAL) SC SCH (21:30)
[2019-08-11] MEDS: Senokot S 8.6-50 MG TAB PO SCH (21:31)
[2019-08-11] MEDS: Meclizine HCl 25 MG TAB PO SCH (21:31)
[2019-08-11 22:51] LABS: Actual Bicarbonate (HCO3a) 25.2 mEq/L (22-28); CO2 Tension 49.4 mmHg (35.0-45.0); Calcium, Ionized 1.14 mmol/L (1.12-1.30); Carboxyhemoglobin (COHb) 1.4 gm% (0.0-3.0); Hemoglobin (Hb) 9.2 g/dL (12.0-16.0); O2 Tension (PaO2) 155.1 mmHg (> 70.0); Potassium - ABG Lab 4.43 mmol/L (3.70-5.30); pH, Arterial 7.33 (7.35-7.45)
[2019-08-11 23:12] LABS: Puncture Site RRADIAL
--- NOTE | 2019-08-12 01:51 | PDOC.EVN ---
Event Note - Event Note Event Note: Rapid response called for hypoxia. Per nursing staff pt tried to get up and was found to have oxygen sat of 66%. Respiratory called and pt was given a breathing tx. upon my evaluation pt had upper airway wheezing. she was able to follow commands. Mild crackles to lower lung bases but no wheezing noted to lungs. pt states that she uses her cpap during day time and night time. she normally wears 4l of oxygen all day. blood gas 7.33/49.4/155 ( she was on a face mask). Her hypoxia was transient and RT will put her on cpap. will continue to monitor her. if her respiratory status changes will transfer her to icu.
[2019-08-12 03:55] VITALS: BMI 46.8
[2019-08-12 04:56] LABS: #Lymphocytes 0.6 thou/uL (1.20-3.40); #Monocytes 0.2 thou/uL (0.11-0.59); #Neutrophils 5.7 thou/uL (1.40-6.50); %Basophils 0.1 % (0.0-1.0); %Eosinophils 0.4 % (0.0-10.0); %Lymphocytes 9.7 % (21.0-51.0); %Monocytes 2.4 % (0.0-10.0); %Neutrophils 87.4 % (42.0-75.0); Hemoglobin 8.1 g/dL (12.0-16.0); Mean Corpuscular HGB CONC 31.3 g/dL (32.0-36.0); Mean Corpuscular Hemoglobin 27.5 pg (27.0-31.0); Mean Corpuscular Volume 88.1 fL (78.0-98.0); Mean Platelet Volume 8.9 fL (7.4-10.4); Platelet Count 215 thou/uL (130-400); RBC Distribution Width 15.6 % (11.5-14.5); Red Blood Cell (RBC) Count 2.92 mill/uL (4.20-5.40); White Blood Cell (WBC) Count 6.5 thou/uL (4.8-10.8)
[2019-08-12 05:19] LABS: Anion Gap 19 mmol/L (10-20); BUN (Urea Nitrogen) 55 mg/dL (9.8-20.1); Calc. Creatinine Clearance 29 mL/min (70-130); Calcium 8.9 mg/dL (7.8-10.44); Carbon Dioxide 23 mmol/L (23-31); Chloride 104 mmol/L (98-107); Estimated GFR-MDRD 16; Glucose 147 mg/dL (83-110); Magnesium 2.1 mg/dL (1.6-2.6); Potassium 4.3 mmol/L (3.5-5.1); Sodium 142 mmol/L (136-145)
[2019-08-12] MEDS: Meclizine HCl 25 MG TAB PO SCH (05:32)
[2019-08-12] MEDS ORDERED: Furosemide 40 MG/4 ML VIAL SLOW IVP SCH (06:00)
[2019-08-12] MEDS: Mometasone 100 MCG/Formoterol 5 MCG 120 PUFF INHALER INH SCH (06:54)
[2019-08-12 07:28] VITALS: BP 153/64; TEMP 98.8
[2019-08-12] MEDS ORDERED: Dronedarone HCl 400 MG TAB PO SCH (08:00)
[2019-08-12] MEDS ORDERED: Ferrous Sulfate 325 MG TAB PO SCH (08:00)
[2019-08-12] MEDS ORDERED: Carvedilol 25 MG TAB PO SCH (08:00)
--- NOTE | 2019-08-12 08:33 | PDOC.EVN ---
Event Note - Event Note Event Note: Patient breathing is improved and back to baseline, however, renal function unchanged. Has been demanding to leave since breathing is improved. This morning , attempted to convince to stay but not willing to listen and requests to leave immediately AMA. increased lasix home dose from 20mg daily to 40mg bid. Patient states that she plans to see Dr. Houston promptly after discharge.
[2019-08-12] MEDS ORDERED: Stress 600 With Zinc 1 TAB PO SCH (09:00)
[2019-08-12] MEDS ORDERED: DULoxetine 60 MG CAP PO SCH (09:00)
[2019-08-12] MEDS ORDERED: Amlodipine 10 MG TAB PO SCH (09:00)
[2019-08-12] MEDS ORDERED: Calcium Carbonate 600 MG TAB PO SCH (09:00)
[2019-08-12] MEDS ORDERED: Enoxaparin Sodium 30 MG/0.3 ML SYRINGE SC SCH (09:00)
[2019-08-12] MEDS ORDERED: Ascorbic Acid 500 mg Chewable Tablet PO SCH (09:00)
[2019-08-12] MEDS ORDERED: Furosemide 20 MG TAB PO SCH (09:00)
[2019-08-12] MEDS ORDERED: Digoxin 0.125 MG TAB PO SCH (09:00)
[2019-08-12] MEDS: HumuLIN 70/30 (300 UNITS/3 ML VIAL) SC SCH (09:10)
[2019-08-12] MEDS: Senokot S 8.6-50 MG TAB PO SCH (09:11)
--- NOTE | 2019-08-13 14:06 | DIS ---
DATE OF ADMISSION: 08/11/2019 DATE OF DISCHARGE: 08/12/2019 HOSPITAL COURSE: Ms. Chamebrlain is a 74-year-old female with medical history of COPD on home oxygen, sleep apnea, type 2 diabetes, and recent ankle fracture due to fall, status post rehab, who presented for shortness of breath. She was diagnosed with pulmonary edema. 1. Pulmonary edema. a. Echo in April 2019 showed impaired relaxation compatible with diastolic dysfunction. b. The patient on presentation has pitting edema as well as crackles on lung exam in the context of worsening renal function. The patient was started on diuresis, Lasix 40 mg IV b.i.d. and improved promptly. c. During the first day of admission, the patient had code green, in which she had shortness of breath. On encounter, was deemed to be due to nonadherence to CPAP. She promptly improved after initiation of CPAP which is indicated for her SARAI. d. On hospital day 2, the patient required to leave the hospital. On encounter, she adamantly refused to discuss the reason for her request as well as options to keep her in the hospital. She claimed that she was at baseline breathing and functional level. e. The patient left AMA after she was requested to continue taking increased dose of Lasix until she is followed by Dr. Houston as an outpatient, which the patient claims can be arranged within a few days. 2. SOPHIA on CKD 3. a. Urinalysis negative for sediment. b. Most likely cardiorenal syndrome versus reduced effective perfusion due to intravascular depletion. c. The patient was started on Lasix and renal function mildly improved on the following day. d. Before the patient left AMA, she was educated regarding the risks of leaving and developing hypervolemia has been elevated and recurrence of shortness of breath. 3. COPD. a. The patient completed a five day steroid regimen prior to presentation that was started by her seo intern, Dr. Mendieta. Despite being on steroid, the patient's shortness of breath worsened, and it significantly improved after increasing the dosage of Lasix. 4. Atrial fibrillation with rapid ventricular rate. a. The patient was well controlled with her home regimen of Coreg and digoxin. b. Per the patient and EMR, the patient is not taking anticoagulation. c. It should be followed by her primary care physician. 5. Sleep apnea. a. Unknown if the patient is using CPAP at home. b. As an inpatient, nocturnal shortness of breath promptly resolved with CPAP, so the patient should be educated regarding the indication for CPAP by primary care physician. PHYSICAL EXAMINATION: VITAL SIGNS: Blood pressure 153/64, pulse 93, respiratory rate 20, oxygen saturation 95% on 3 L nasal cannula. GENERAL: Lying comfortably in bed with no apparent distress, morbidly obese, alert and oriented. HEENT: Normocephalic, atraumatic. LUNGS: Bilateral inspiratory crackles in the lower lezama, improved compared to the day of presentation. Mild expiratory wheezing throughout. CARDIAC: Regular rate and rhythm. No murmurs or gallops. No JVD. ABDOMEN: Soft, nontender, nondistended. NEUROLOGIC: Alert and oriented x3. Moving all extremities. EXTREMITIES: +2 bilateral pitting edema up to knee level improved compared to the day of presentation. PSYCHIATRIC: Agitated. DISCHARGE MEDICATIONS: New medications: No new medications. Modified medications: Lasix was increased from her prior dose to 40 mg p.o. b.i.d. until the patient is seen by Dr. Houston who can decide whether to continue based on volume status. Job ID: [id number]
--- NOTE | 2019-08-14 04:29 | PQF ---
MEMOWAYNEMateo MARTE, RONA [id number] CLINICAL DOCUMENTATION CLARIFICATION FORM: POST DISCHARGE Addendum to original discharge summary date: ____ Late entry note date: __ DATE: 08/14/19 ATTN:Rona Marte Please exercise your independent, professional judgment in responding to the clarification form. Clinical indicators are provided on the bottom of this form for your review Can you please further clarify the etiology of patient shortness of breath? Please check appropriate box(s): [ ] Acute pulmonary edema [ x ] Acute pulmonary edema due to acute CHF please specify type [ ] HFpEF [ x ] HFrEF [ ] Combined systolic and diastolic CHF [ ] Acute respiratory failure with hypoxia [ ] COPD exacerbation [ ] SOB due to other known diagnosis please specify [ ] Other diagnosis please specify [ ] Unable to determine For continuity of documentation, please document condition throughout progress notes and discharge summary. Thank You. CLINICAL INDICATORS - SIGNS / SYMPTOMS / LABS ED Provider pg.4- COPD exacerbation H and P pg.1- presented for shortness of breath H and P pg.1- Chest X ray showed pulmonary congestion as well as worsening bilateral patchy infiltrates H and P pg.2- Shortness of breath due to pulmonary edema H and P pg.2- Chest X ray showing pulmonary congestion, cardiomegaly H and P pg.3- Possible etiologies, cardiorenal syndrome versus reduced effective perfusion due to intravascular depletion Event Note pg.1- rapid response called for hypoxia. Found to have oxygen sat of 66% Laboratory- BNP 174.6H H and P pg.2- bilateral pitting edema Laboratory blood gas 08/10: ph=7.33 pc02=49.4 s32=129.1 Vital signs Respi: 08/10=22 04=20 RISK FACTORS COPD on home oxygen- H and P pg.1 Sleep apnea- H and P pg.1 DM- H and P pg.1 Atrial fibrillation- H and P pg.3 HTN- H ad P pg.1 74 years old female ED Notes pg1 08/10 Asthma ED Notes pg1 08/10 Morbid obesity - H and P pg.2 CKD - H and P pg.3 TREATMENTS: IV Lasix 40 mg- MAR Chest X ray 08/10 Oxygen supplementation Event note p1 08/10 I and O monitoring Albuterol sulfate 2 puff- MAR Ceftriaxone 2gm- IV- MAR CPAP Event note p1 08/10 (This form is maintained as a part of the permanent medical record) 2014 [employer], [employer]. All Rights Reserved [email or web address]
--- NOTE | 2019-08-15 15:22 | EKG ---
Test Reason : Blood Pressure : / mmHG Vent. Rate : 074 BPM Atrial Rate : 070 BPM P-R Int : 000 ms QRS Dur : 076 ms QT Int : 308 ms P-R-T Axes : 000 074 230 degrees QTc Int : 341 ms Accelerated Junctional rhythm Cannot rule out Anterior infarct , age undetermined V4, V5, V6, I T wave inversion II No STEMI Abnormal ECG Confirmed by MARY Mack, REZA ([id number]), harnessmaker apprentice RANDY SANABRIA ([id number]) on 08/15/2019 3:21:43 PM Referred By: Confirmed By:REZA HERNANDEZ M.D.
== END 2019-08-12 09:39 | disposition left against medical advice (07) | DRG 291 ==
LOC: ERS 09:22 → 2NO 15:00
PROVIDERS: ADMIT Internal Medicine; ATTEND Internal Medicine
PROC: 5A09357 Assistance with Respiratory Ventilation, Less than 24 Consecutive Hours, Continuous Positive Airway Pressure (ICD-10-PCS; principal; 2019-08-11)
DX: I13.0 Hypertensive heart and chronic kidney disease with heart failure and stage 1 through stage 4 chronic kidney disease, or unspecified chronic kidney disease (principal); I50.21 Acute systolic (congestive) heart failure; N17.9 Acute kidney failure, unspecified; Z68.42 Body mass index [BMI] 45.0-49.9, adult; R06.02 Shortness of breath; I48.91 Unspecified atrial fibrillation; K21.9 Gastro-esophageal reflux disease without esophagitis; G47.33 Obstructive sleep apnea (adult) (pediatric); J44.9 Chronic obstructive pulmonary disease, unspecified; G43.909 Migraine, unspecified, not intractable, without status migrainosus; N18.9 Chronic kidney disease, unspecified; E11.22 Type 2 diabetes mellitus with diabetic chronic kidney disease; E78.5 Hyperlipidemia, unspecified; E66.01 Morbid (severe) obesity due to excess calories; R09.02 Hypoxemia; Z53.29 Procedure and treatment not carried out because of patient's decision for other reasons; Z99.89 Dependence on other enabling machines and devices; Z79.01 Long term (current) use of anticoagulants; Z85.3 Personal history of malignant neoplasm of breast; Z90.710 Acquired absence of both cervix and uterus; Z90.49 Acquired absence of other specified parts of digestive tract; Z88.5 Allergy status to narcotic agent; Z88.8 Allergy status to other drugs, medicaments and biological substances; Z99.81 Dependence on supplemental oxygen; Z79.899 Other long term (current) drug therapy
CPT/HCPCS: 36415; 36416; 71045; 80048; 80053; 81003; 82553; 82805; 83605; 83690; 83735; 83880; 84484; 85025; 87040; 87086; 87149; 87804; 93005; 94640; 94660; 96365; 96375; J0696; J1815; J1940; J2930; J7620

== ENCOUNTER 2019-08-13 14:23 | Emergency (ER) | payer MEDICARE, BC ==
[2019-08-13 15:24] LABS: Hemoglobin 8.4 g/dL (12.0-16.0); Mean Corpuscular HGB CONC 30.9 g/dL (32.0-36.0); Mean Corpuscular Hemoglobin 27.2 pg (27.0-31.0); Mean Corpuscular Volume 87.9 fL (78.0-98.0); Mean Platelet Volume 8.3 fL (7.4-10.4); Platelet Count 253 thou/uL (130-400); RBC Distribution Width 15.8 % (11.5-14.5); White Blood Cell (WBC) Count 10.2 thou/uL (4.8-10.8)
--- NOTE | 2019-08-13 15:45 | RAD ---
PORTABLE CHEST ONE VIEW: Date: 08-13-2019 Time: 2:56 p.m. History: Worsening shortness of breath. Comparison: 08-11-2019 FINDINGS: Airspace opacities in the right upper lobe and left lower lobe are again seen. No pneumothoraces or l arge effusions are identified. There is continued elevation of the right hemidiaphragm. Post op fletcher es and metallic hardware in the cervical spine are again seen. Small pleural effusions cannot exclude d. IMPRESSION: Stable exam. POS: [facility]
[2019-08-13 15:46] LABS: ALT (SGPT) 18 U/L (8-55); AST (SGOT) 22 U/L (5-34); Albumin 4.1 g/dL (3.4-4.8); Alkaline Phosphatase 105 U/L (40-110); Anion Gap 16 mmol/L (10-20); Anisocytosis SLIGHT = 6-15 cells (100X) (0-5/hpf); BUN (Urea Nitrogen) 52 mg/dL (9.8-20.1); Band 6 % (5-11); Bilirubin, Total 0.5 mg/dL (0.2-1.2); Calc. Creatinine Clearance 0 mL/min (70-130); Calcium 9.2 mg/dL (7.8-10.44); Carbon Dioxide 28 mmol/L (23-31); Chloride 104 mmol/L (98-107); Estimated GFR-MDRD 17; Globulin 2.4 g/dL (2.4-3.5); Glucose 80 mg/dL (83-110); Hypochromia SLIGHT = 6-15 cells (100X) (0-5/hpf); Lymphocytes 13 % (21-51); MDiff Complete? YES; Metamyelocyte 2 % (0-0); Neutrophil 76 % (42-75); Poikilocytosis SLIGHT = 6-15 cells (100X) (0-5/hpf); Potassium 4.2 mmol/L (3.5-5.1); Protein, Total 6.5 g/dL (6.0-8.3); Reactive Lymphocytes 3 % (0-10); Sodium 144 mmol/L (136-145); Tear Drops SLIGHT = 2-5 cells (100X) (0-1/hpf)
[2019-08-13 16:10] LABS: CKMB 1.2 ng/mL (0-6.6)
--- NOTE | 2019-08-15 14:24 | EKG ---
Test Reason : Blood Pressure : / mmHG Vent. Rate : 073 BPM Atrial Rate : 073 BPM P-R Int : 196 ms QRS Dur : 080 ms QT Int : 324 ms P-R-T Axes : 038 052 244 degrees QTc Int : 356 ms Sinus rhythm with occasional Premature ventricular complexes Abnormal ECG Confirmed by DANIELA MONSON, TERESO ([id number]), newspaper editor managing RANDY SANABRIA ([id number]) on 08/15/2019 2:23:35 PM Referred By: Confirmed By:TERESO SUAREZ MD
== END 2019-08-13 16:24 | disposition home or self-care (01) ==
LOC: ERS 14:23
DX: R06.00 Dyspnea, unspecified (principal); K21.9 Gastro-esophageal reflux disease without esophagitis; E11.43 Type 2 diabetes mellitus with diabetic autonomic (poly)neuropathy; K31.84 Gastroparesis; E78.5 Hyperlipidemia, unspecified; E78.00 Pure hypercholesterolemia, unspecified; J44.9 Chronic obstructive pulmonary disease, unspecified; F32.9 Major depressive disorder, single episode, unspecified; G47.30 Sleep apnea, unspecified; I10 Essential (primary) hypertension; Z79.899 Other long term (current) drug therapy; Z79.891 Long term (current) use of opiate analgesic
CPT/HCPCS: 36415; 71045; 80053; 82553; 83880; 84484; 85025; 93005; 94760

== ENCOUNTER 2019-08-19 11:14 | Emergency (ER) | payer MEDICARE, BC ==
[2019-08-19 11:44] LABS: #Eosinphils 0.5 thou/uL (0.0-0.7); #Lymphocytes 1.9 thou/uL (1.20-3.40); #Monocytes 1.5 thou/uL (0.11-0.59); #Neutrophils 7.3 thou/uL (1.40-6.50); %Basophils 0.3 % (0.0-1.0); %Eosinophils 4.2 % (0.0-10.0); %Monocytes 13.1 % (0.0-10.0); %Neutrophils 65.4 % (42.0-75.0); Hemoglobin 9.6 g/dL (12.0-16.0); Mean Corpuscular HGB CONC 31.6 g/dL (32.0-36.0); Mean Corpuscular Hemoglobin 27.7 pg (27.0-31.0); Mean Corpuscular Volume 87.7 fL (78.0-98.0); Mean Platelet Volume 8.7 fL (7.4-10.4); Platelet Count 258 thou/uL (130-400); RBC Distribution Width 14.8 % (11.5-14.5); Red Blood Cell (RBC) Count 3.44 mill/uL (4.20-5.40); White Blood Cell (WBC) Count 11.1 thou/uL (4.8-10.8)
[2019-08-19 12:17] LABS: ALT (SGPT) 27 U/L (8-55); AST (SGOT) 28 U/L (5-34); Albumin 4.4 g/dL (3.4-4.8); Alkaline Phosphatase 159 U/L (40-110); Anion Gap 17 mmol/L (10-20); BUN (Urea Nitrogen) 31 mg/dL (9.8-20.1); Bilirubin, Total 0.6 mg/dL (0.2-1.2); Calc. Creatinine Clearance 0 mL/min (70-130); Calcium 9.5 mg/dL (7.8-10.44); Carbon Dioxide 37 mmol/L (23-31); Chloride 94 mmol/L (98-107); Estimated GFR-MDRD 17; Globulin 2.4 g/dL (2.4-3.5); Glucose 69 mg/dL (83-110); Potassium 3.9 mmol/L (3.5-5.1); Protein, Total 6.8 g/dL (6.0-8.3); Sodium 144 mmol/L (136-145)
--- NOTE | 2019-08-19 12:21 | RAD ---
CHEST 1 VIEW: Date: 08/19/2019 HISTORY: Myoclonus. COMPARISON: Radiograph dated 08/13/2019. FINDINGS: Chronic elevation right hemidiaphragm. Scarring left lung base. No pneumothorax. Improved aeration from 08/11/2019 exam. IMPRESSION: Chronic findings. No acute intrathoracic abnormality. POS: HOME
[2019-08-19] MEDS ORDERED: Diazepam 5 MG TAB ONE (12:36)
[2019-08-19 13:08] LABS: Bilirubin Negative (Negative); Blood, Urine Negative (Negative); Clarity Clear (Clear); Glucose, Urine (Dipstick) Normal (Negative); Leukocyte Negative Leu/uL (Negative); Nitrite Negative (Negative); Protein, Urine (Dipstick) Negative (Neg-Trace); Urobilinogen Normal mg/dL (Less than 2)
== END 2019-08-19 15:05 | disposition home or self-care (01) ==
LOC: ERS 11:14
DX: R25.1 Tremor, unspecified (principal); M62.838 Other muscle spasm; C50.911 Malignant neoplasm of unspecified site of right female breast; E78.5 Hyperlipidemia, unspecified; E78.00 Pure hypercholesterolemia, unspecified; J44.9 Chronic obstructive pulmonary disease, unspecified; F32.9 Major depressive disorder, single episode, unspecified; G47.33 Obstructive sleep apnea (adult) (pediatric); E11.43 Type 2 diabetes mellitus with diabetic autonomic (poly)neuropathy; K31.84 Gastroparesis; G43.909 Migraine, unspecified, not intractable, without status migrainosus; I48.91 Unspecified atrial fibrillation; I12.9 Hypertensive chronic kidney disease with stage 1 through stage 4 chronic kidney disease, or unspecified chronic kidney disease; N18.9 Chronic kidney disease, unspecified; Z79.891 Long term (current) use of opiate analgesic; Z79.899 Other long term (current) drug therapy
CPT/HCPCS: 36415; 71045; 80053; 81003; 85025

== ENCOUNTER 2019-08-29 15:31 | Inpatient (IN) | payer MEDICARE, BC ==
[2019-08-29 16:44] LABS: #Basophils 0.1 thou/uL (0.0-0.2); #Eosinphils 0.4 thou/uL (0.0-0.7); #Lymphocytes 2.1 thou/uL (1.20-3.40); #Monocytes 1.2 thou/uL (0.11-0.59); #Neutrophils 6.7 thou/uL (1.40-6.50); %Basophils 0.6 % (0.0-1.0); %Eosinophils 4.2 % (0.0-10.0); %Lymphocytes 19.9 % (21.0-51.0); %Monocytes 11.3 % (0.0-10.0); Hemoglobin 10.4 g/dL (12.0-16.0); Mean Corpuscular HGB CONC 31.4 g/dL (32.0-36.0); Mean Corpuscular Hemoglobin 27.2 pg (27.0-31.0); Mean Corpuscular Volume 86.5 fL (78.0-98.0); Mean Platelet Volume 9.3 fL (7.4-10.4); Platelet Count 238 thou/uL (130-400); Red Blood Cell (RBC) Count 3.82 mill/uL (4.20-5.40); White Blood Cell (WBC) Count 10.5 thou/uL (4.8-10.8)
[2019-08-29 17:02] LABS: ALT (SGPT) 27 U/L (8-55); AST (SGOT) 40 U/L (5-34); Albumin 4.3 g/dL (3.4-4.8); Alkaline Phosphatase 185 U/L (40-110); Anion Gap 20 mmol/L (10-20); BUN (Urea Nitrogen) 38 mg/dL (9.8-20.1); Bilirubin, Total 0.5 mg/dL (0.2-1.2); Calc. Creatinine Clearance 0 mL/min (70-130); Calcium 9.4 mg/dL (7.8-10.44); Carbon Dioxide 30 mmol/L (23-31); Chloride 94 mmol/L (98-107); Estimated GFR-MDRD 10; Globulin 2.2 g/dL (2.4-3.5); Glucose 173 mg/dL (83-110); Potassium 3.5 mmol/L (3.5-5.1); Protein, Total 6.5 g/dL (6.0-8.3); Sodium 140 mmol/L (136-145)
[2019-08-29 17:21] LABS: CKMB 0.6 ng/mL (0-6.6)
[2019-08-29 17:29] LABS: Bilirubin Negative (Negative); Blood, Urine Negative (Negative); Clarity Clear (Clear); Glucose, Urine (Dipstick) 30 mg/dL (Negative); Leukocyte 25 Leu/uL (Negative); Nitrite Negative (Negative); Protein, Urine (Dipstick) 20 mg/dL (Neg-Trace); RBC/HPF 0-3 HPF (0-3); Squamous Epithelial 0-3 HPF (0-3); Urobilinogen Normal mg/dL (Less than 2); WBC/HPF 0-3 HPF (0-3)
[2019-08-29 17:34] LABS: Bacteria/HPF 1+ HPF (None Seen)
--- NOTE | 2019-08-29 20:03 | PDOC.HHP ---
Hospitalist HPI - History of Present Illness dizziness History of Present Illness: This is a 74 year old female with past medical history of breast cancer in remission, hypertension, seizures, depression who presented to the ER with dizziness. The patient states that she had four days of diarrhea with black/ dark stools. She was taking imodium as needed. Today she developed a stomach ache that was sharp, radiating to her back that lasted for about twenty minutes. She denied any nausea or vomiting but when she stood up to walk, she was very dizzy and was holding onto the cash. She denied headaches, slurred speech, numbness in her arms or legs, changes in her vision, or hearing. She reports being started on keppra recently by Dr. Seaman for seizures. She reports that she stopped her lasix last night and stopped her eliquis few days ago due to black stools. ED Course: When patient presented to the ER her blood pressure was 105/32. Labs showed stable anemia with hemoglobin of 10 and creatinine of 4, which is up from her baseline. She was admitted for IV hydration. Hospitalist ROS - Review of Systems Constitutional: denies: fever, chills ENT: denies: ear pain, ear discharge Cardiovascular: denies: chest pain, palpitations, orthopnea Gastrointestinal: denies: nausea, vomiting, abdominal pain Musculoskeletal: denies: neck pain, shoulder pain, arm pain - Medication Medications: Coreg 25 mg bid Iron 325 mg bid Lasix 20 mg daily Eliquis 5 mg bid - quit two days ago Keppra 250 mg bid Duloxetine 60 mg daily Clonazepam 1 mg bid Multaq 400 mg bid Vitamin D 125 mcg daily Digoxin 125 mcg daily Amlodipine 10 mg qhs Atorvastatin 40 mg qhs omeprazole 40 mg daily Hospitalist History - Past Medical History Other Medical History: Breast cancer in remission COPD Chronic migraines Diabetes Hypertension Vitamin D deficiency Atrial fibrillation Seizures GERD - Past Surgical History Other Surgical History: Appendectomy Hysterectomy Ovaries removed Lumpectomy Cholecystectomy - Family History Other Family History: Diabetes Hypertension - Social History Smoking Status: Never smoker (smoked one cigarette at 5 year sold) Alcohol: reports: None Drugs: reports: none - Exam General Appearance: NAD, awake alert Eye: PERRL, anicteric sclera ENT: normocephalic atraumatic, no oropharyngeal lesions Neck: supple, no JVD Heart: RRR, no murmur, no gallops, no rubs Respiratory: CTAB, no wheezes, no rales, no ronchi Gastrointestinal: soft, non-distended Gastrointestinal - other findings: mild RUQ tenderness Extremities: no cyanosis, no clubbing, 1+ LE edema Extremities - other findings: tenderness to calf palpation Skin: normal turgor, no lesions, no rashes Neurological: cranial nerve grossly intact, normal sensation to touch, no focal deficits, no new deficit Musculoskeletal: normal tone, normal strength, no muscle wasting Psychiatric: normal affect, normal behavior, A&O x 3 Hospitalist Results - Labs Result Diagrams: 08/29/19 16:10 08/29/19 16:10 Lab results: WBC 10.5 thou/uL (4.8-10.8) 08/29/19 16:10 Hgb 10.4 g/dL (12.0-16.0) L 08/29/19 16:10 Hct 33.0 % (36.0-47.0) L 08/29/19 16:10 MCV 86.5 fL (78.0-98.0) 08/29/19 16:10 Plt Count 238 thou/uL (130-400) 08/29/19 16:10 Neutrophils % 64.0 % (42.0-75.0) 08/29/19 16:10 Sodium 140 mmol/L (136-145) 08/29/19 16:10 Potassium 3.5 mmol/L (3.5-5.1) 08/29/19 16:10 Chloride 94 mmol/L (98-107) L 08/29/19 16:10 Carbon Dioxide 30 mmol/L (23-31) 08/29/19 16:10 BUN 38 mg/dL (9.8-20.1) H 08/29/19 16:10 Creatinine 4.17 mg/dL (0.6-1.1) H 08/29/19 16:10 Glucose 173 mg/dL (83-110) H 08/29/19 16:10 Calcium 9.4 mg/dL (7.8-10.44) 08/29/19 16:10 Total Bilirubin 0.5 mg/dL (0.2-1.2) 08/29/19 16:10 AST 40 U/L (5-34) H 08/29/19 16:10 ALT 27 U/L (8-55) 08/29/19 16:10 Alkaline Phosphatase 185 U/L (40-110) H 08/29/19 16:10 CK-MB (CK-2) 0.6 ng/mL (0-6.6) 08/29/19 16:10 Troponin I 0.068 ng/mL (< 0.028) H 08/29/19 16:10 Serum Total Protein 6.5 g/dL (6.0-8.3) 08/29/19 16:10 Albumin 4.3 g/dL (3.4-4.8) 08/29/19 16:10 Urine Ketones Trace mg/dL (Negative) A 08/29/19 17:07 Urine Blood Negative (Negative) 08/29/19 17:07 Urine Nitrite Negative (Negative) 08/29/19 17:07 Ur Leukocyte Esterase 25 Brittany/uL (Negative) 08/29/19 17:07 Urine RBC 0-3 HPF (0-3) 08/29/19 17:07 Urine WBC 0-3 HPF (0-3) 08/29/19 17:07 Ur Squamous Epith Cells 0-3 HPF (0-3) 08/29/19 17:07 Urine Bacteria 1+ HPF (None Seen) A 08/29/19 17:07 - EKG Interpretation EKG: inferolateral ischemia Hospitalist H&P A/P - Plan Plan: This is a 74 year old female with history of breast cancer s/p lumpectomy, COPD on 3L of oxygen, CKD, seizures who presents with dizziness, found to have SOPHIA #Acute Kidney Injury #Dizziness - likely from dehydration - creatinine is up to 4 from baseline of 2. Will hold lasix. Hydrate with IV fliuds - UA normal - check orthostatics - could have some dizziness from side effects of seizure medicine? Will consult walking program in am Diarrhea with possible black stools - check stool cultures and guiac. Trend CBC Atrial fibrillation - continue multaq and digoxin - check digoxin level - hold eliquis pending stool guaiac Peripheral edema - dopplers to rule out DVT given history of breast cancer Elevated ALP - chronically elevated. She does have RUQ tenderness, will check abd US in am Breast Cancer - continue anastrazole COPD on 3L of oxygen - continue home inhalers Anemia - Hb stable, check stool guiac DVT prophylaxis: SCDS for now, pending stool guiaac Code status: full code
[2019-08-29 20:07] LABS: Troponin I 0.047 ng/mL (< 0.028)
[2019-08-29] MEDS ORDERED: Acetaminophen 325 MG TAB PO PRN (20:10)
[2019-08-29] MEDS ORDERED: Dextrose 5% in Water 1,000 ML IV PRN (20:17)
[2019-08-29] MEDS ORDERED: Dextrose 50% Abboject 50 ML SYRINGE SLOW IVP PRN (20:17)
--- NOTE | 2019-08-29 20:30 | PDOC.FMACP ---
Advance Care Planning - Note Participants: patient Summary: Advanced Care Planning was discussed. The diagnosis, prognosis and goals of care were discussed. Appropriate forms and documentation to accomplish the goals of care were discussed. All questions were answered. The Palliative Care Team will be engaged to assist with completion of any outstanding forms that are needed. Patient wants to discuss with her code status but for now will remain full code
[2019-08-29] MEDS: Fish Oil 1,000 MG CAP PO SCH (20:59)
[2019-08-29] MEDS: clonazePAM 0.5 MG TAB PO SCH (20:59)
[2019-08-29] MEDS: Atorvastatin Calcium 40 MG TAB PO SCH (20:59)
[2019-08-29] MEDS ORDERED: Non-Formulary Item 1 EACH (Biotin [Biotin] 1,000 MCG) PO SCH (21:00)
[2019-08-29] MEDS: Sodium Chloride 0.9% 1,000 ML IV SCH (21:00)
[2019-08-29] MEDS ORDERED: Aspirin 325 MG TAB PO SCH (21:00)
[2019-08-29] MEDS: Insulin Glargine 20 UNITS in Pre-Filled Syringe 1 EACH SC SCH (21:01)
[2019-08-29] MEDS: Fluticasone Propionate Nasal Spray 16 gm Bottle NASAL SCH (21:31)
[2019-08-29 22:04] VITALS: BMI 34.4
[2019-08-29 22:35] LABS: Digoxin 1.25 ng/mL (0.8-2.0)
[2019-08-29 22:41] LABS: Troponin I 0.039 ng/mL (< 0.028)
[2019-08-30 04:36] LABS: Hemoglobin 9.1 g/dL (12.0-16.0); Mean Corpuscular HGB CONC 31.5 g/dL (32.0-36.0); Mean Corpuscular Hemoglobin 27.6 pg (27.0-31.0); Mean Corpuscular Volume 87.7 fL (78.0-98.0); Mean Platelet Volume 9.3 fL (7.4-10.4); Platelet Count 184 thou/uL (130-400); RBC Distribution Width 13.8 % (11.5-14.5); Red Blood Cell (RBC) Count 3.28 mill/uL (4.20-5.40); White Blood Cell (WBC) Count 7.6 thou/uL (4.8-10.8)
[2019-08-30 04:59] LABS: ALT (SGPT) 19 U/L (8-55); AST (SGOT) 23 U/L (5-34); Albumin 3.5 g/dL (3.4-4.8); Alkaline Phosphatase 145 U/L (40-110); Anion Gap 15 mmol/L (10-20); BUN (Urea Nitrogen) 35 mg/dL (9.8-20.1); Bilirubin, Total 0.3 mg/dL (0.2-1.2); Calc. Creatinine Clearance 19 mL/min (70-130); Calcium 8.2 mg/dL (7.8-10.44); Carbon Dioxide 27 mmol/L (23-31); Chloride 102 mmol/L (98-107); Estimated GFR-MDRD 12; Globulin 2.1 g/dL (2.4-3.5); Glucose 138 mg/dL (83-110); Potassium 3.1 mmol/L (3.5-5.1); Protein, Total 5.6 g/dL (6.0-8.3); Sodium 141 mmol/L (136-145)
[2019-08-30] MEDS: Sodium Chloride 0.9% 1,000 ML IV SCH ×2 (06:19→16:19)
[2019-08-30] MEDS: Mometasone 100 MCG/Formoterol 5 MCG 120 PUFF INHALER INH SCH ×2 (06:54→18:35)
--- NOTE | 2019-08-30 07:33 | ULT ---
Sonogram right upper quadrant HISTORY: Right upper quadrant pain. FINDINGS: Gallbladder is surgically absent. Common duct is 0.8 cm diameter. Liver is diffusely echogenic without focal mass or intrahepatic biliary dilatation. No free fluid. Partially visualized right kidney shows diffuse cortical thinning and cortical cysts. Tiny cyst noted at the pancreatic neck, 0.8 cm greatest diameter. IMPRESSION : Status post cholecystectomy. No evidence of biliary obstruction. Hepato-steatosis.
[2019-08-30] MEDS: DULoxetine 60 MG CAP PO SCH (08:22)
[2019-08-30] MEDS: Digoxin 0.125 MG TAB PO SCH (08:22)
[2019-08-30] MEDS: Calcium Carbonate 600 MG TAB PO SCH (08:22)
[2019-08-30] MEDS: Dronedarone HCl 400 MG TAB PO SCH ×2 (08:22→16:19)
[2019-08-30] MEDS: Ferrous Sulfate 325 MG TAB PO SCH ×2 (08:23→16:19)
[2019-08-30] MEDS: Fluticasone Propionate Nasal Spray 16 gm Bottle NASAL SCH ×2 (08:23→20:33)
[2019-08-30] MEDS: Anastrozole 1 MG TAB PO SCH (08:23)
[2019-08-30] MEDS: Fish Oil 1,000 MG CAP PO SCH ×2 (08:23→20:33)
--- NOTE | 2019-08-30 08:32 | ULT ---
DOPPLER VENOUS ULTRASOUND OF BOTH LOWER EXTREMITIES: INDICATION: Bilateral lower extremity pain and edema. History of a left ankle fracture in March of 2019. TECHNIQUE: Shay scale, color Doppler, and vascular duplex with spectral analysis was performed of the deep venou s structures of both lower extremities. The common femoral vein, superficial femoral vein, popliteal vein, posterior tibial vein, proximal greater saphenous, and proximal profunda veins were assessed bi laterally. FINDINGS: There is normal compression, flow, and augmentation seen within the deep venous structures of both lo wer extremities. IMPRESSION: No evidence of deep vein thrombosis within both lower extremities. POS: [facility]
[2019-08-30] MEDS ORDERED: Potassium Chloride 20 MEQ TAB PO SCH (10:00)
--- NOTE | 2019-08-30 11:55 | PQF ---
DATE: 08-30-19 ATTN: DR. SIMI DUFF Please exercise your independent, professional judgment in responding to the clarification form. Clinical indicators are provided on the bottom of this form for your review Please check appropriate box(s): [X ] Chronic Respiratory Failure only [ X ] with Hypoxia [ ] with Hypercapnia [ ] Hypoxia [ ] Other diagnosis [ ] Unable to determine In addition, please specify: Present on Admission (POA): [X ] Yes [ ] No [ ] Unable to determine For continuity of documentation, please document condition throughout progress notes and discharge summary. Thank You. CLINICAL INDICATORS - SIGNS / SYMPTOMS / LABS / RESULTS AND LOCATION IN MR: ER NOTES 08-29-19: HX OF 3L O2 AT HOME, COPD H&P: 08-29-19: COPD ON 3L OF OXYGEN, CONTINUE HOME INHAILERS RISK FACTORS / RESULTS AND LOCATION IN MR: ER NOTES 08-29-19: HX OF 3L O2 AT HOME, COPD TREATMENTS / RESULTS AND LOCATION IN MR: H&P: 08-29-19: COPD ON 3L OF OXYGEN, CONTINUE HOME INHALERS Acute Respiratory Failure: ABG pH < 7.35 or > 7.45; Decreased oxygen saturation (<90% room air or < 95% on oxygen); PCO2 > 50 mm Hg; PO2 < 60 mm Hg; Labored or rapid respirations ARDS: Dx Criteria [[place] ARDS]: Respiratory symptoms within one week of a known clinical insult (e.g. shock, infection, surgery, trauma) Bilateral opacities in CXR/Chest CT not due to CHF or fluid (This form is maintained as a part of the permanent medical record) 2014 [email or web address]. All Rights Reserved [email or web address], [place]
[2019-08-30] MEDS: HumaLOG 300 UNITS/3 ML VIAL SC PRN ×2 (12:03→18:23)
--- NOTE | 2019-08-30 14:55 | PDOC.HOSPP ---
- Subjective Encounter Date: 08/30/19 Encounter Time: 10:30 Subjective: The patient is feeling better. She still feels slightly dizzy when walking, but it has improved. No nausea or vomiting. She has mild abd pain. No diarrhea She reports poor appetite and does not feel hungry - Objective Vital Signs & Weight: Vital Signs (12 hours) Temp Pulse Resp BP Pulse Ox 08/30/19 11:36 98.4 F 87 16 133/62 94 L 08/30/19 08:19 98.2 F 74 18 129/59 L 98 08/30/19 06:56 96 08/30/19 06:54 73 16 96 08/30/19 03:28 97.4 F L 75 17 115/57 L 94 L Weight Weight 194 lb 8 oz Result Diagrams: 08/30/19 04:10 08/30/19 04:10 Additional Labs: Accuchecks 08/30/19 08/30/19 08/29/19 11:09 05:57 20:35 POC Glucose 210 H 152 H 177 H Hospitalist ROS - Review of Systems Constitutional: denies: fever, chills - Medication Medications: Active Medications Generic Name Dose Route Start Last Admin Trade Name Freq PRN Reason Stop Dose Admin Anastrozole 1 mg 08/30/19 09:00 08/30/19 08:23 Arimidex PO 1 mg DAILY JOSE Administration Atorvastatin Calcium 40 mg 08/29/19 21:00 08/29/19 20:59 Lipitor PO 40 mg HS JOSE Administration Calcium Carbonate 600 mg 08/30/19 09:00 08/30/19 08:22 Caltrate PO 600 mg DAILY JOSE Administration Cholecalciferol 5,000 units 08/30/19 09:00 08/30/19 08:21 Vitamin D3 PO 5,000 units DAILY JOSE Administration Clonazepam 0.25 mg 08/29/19 21:00 08/29/19 20:59 Clonazepam PO 0.25 mg HS JOSE Administration Digoxin 0.0625 mg 08/30/19 09:00 08/30/19 08:22 Lanoxin PO 0.0625 mg DAILY JOSE Administration Dronedarone 400 mg 08/30/19 08:00 08/30/19 08:22 Multaq PO 400 mg BID-WM JOSE Administration Duloxetine HCl 60 mg 08/30/19 09:00 08/30/19 08:22 Cymbalta PO 60 mg DAILY JOSE Administration Ferrous Sulfate 325 mg 08/30/19 08:00 08/30/19 08:23 Feosol PO 325 mg BID-WM JOSE Administration Fish Oil 1,000 mg 08/29/19 21:00 08/30/19 08:23 Fish Oil PO 1,000 mg BID JOSE Administration Fluticasone Propionate 0 gm 08/29/19 21:00 08/30/19 08:23 Flonase Nasal [place] NASAL Not Given BID JOSE Sodium Chloride 1,000 mls @ 100 mls/hr 08/29/19 20:15 08/30/19 06:19 Normal Saline 0.9% IV 1,000 mls .Q10H JOSE Administration Insulin Glargine 20 units/ 0.2 mls @ 0 mls/hr 08/29/19 21:00 08/29/19 21:01 Miscellaneous Medication SC 0.2 mls HS JOSE Administration Insulin Human Lispro 0 units 08/29/19 20:17 08/30/19 12:03 Humalog SC 3 unit .MILD SLIDING SCALE PRN Administration Mild Correctional Scale Mometasone Furoate/Formoterol Fumar 2 puff 08/30/19 06:30 08/30/19 06:54 Dulera 100 Mcg/5 Mcg Inhaler INH 2 puff BID-RT JOSE Administration Pantoprazole Sodium 40 mg 08/30/19 09:00 08/30/19 08:23 Protonix PO 40 mg DAILY JOSE Administration Sodium Chloride 10 ml 08/29/19 21:00 08/30/19 08:24 Flush - Normal Saline IVF 10 ml Q12HR JOSE Administration - Exam General Appearance: NAD, awake alert General - other findings: obese Eye: PERRL, anicteric sclera ENT: normocephalic atraumatic, no oropharyngeal lesions Neck: supple, no JVD Heart: RRR, no murmur, no gallops, no rubs Respiratory: CTAB, no wheezes, no rales, no ronchi Gastrointestinal: soft, non-distended Gastrointestinal - other findings: mild epigasric tenderness Extremities: no cyanosis, no clubbing, no edema Skin: normal turgor, no lesions, no rashes Neurological: cranial nerve grossly intact, normal sensation to touch, no focal deficits, no new deficit Hosp A/P - Plan This is a 74 year old female with history of breast cancer s/p lumpectomy, COPD on 3L of oxygen, CKD, seizures who presents with dizziness, found to have SOPHIA #Acute Kidney Injury #Dizziness - likely from dehydration - creatinine improving to 3.64. Continue IV fluids - PT saw patient and recommended home with home health Hypokalemia - potassium 3.1, given potassium supplementation #Black stools #Diarrhea - stool guiac sent and stool cultures Atrial fibrillation - continue multaq and digoxin - digoxin level normal Peripheral edema - dopplers negative for DVT - check TSH in the am Elevated ALP - chronically elevated. Abd US shows no abnormality except fatty liver Breast Cancer - continue anastrazole COPD on 3L of oxygen - continue home inhalers Anemia - Hb stable, check stool guiac
[2019-08-30 15:34] LABS: Iron 32 ug/dL (50-170); Iron Binding Capacity, Total 279 mcg/dL (265-497)
[2019-08-30] MEDS: Atorvastatin Calcium 40 MG TAB PO SCH (20:32)
[2019-08-30] MEDS: levETIRAcetam 500 MG TAB PO SCH (20:32)
[2019-08-30] MEDS: clonazePAM 0.5 MG TAB PO SCH (20:33)
[2019-08-30] MEDS: Insulin Glargine 20 UNITS in Pre-Filled Syringe 1 EACH SC SCH (20:36)
--- NOTE | 2019-08-31 03:06 | CON ---
DATE OF CONSULTATION: 08/30/2019 CHIEF COMPLAINT: Abdominal pain, weakness, and anemia. HISTORY OF PRESENT ILLNESS: Ms. Chamberlain is a 74-year-old woman with multiple medical problems, who came to the emergency room because of worsening weakness and low blood pressure over the last couple of days. She started having intermittent epigastric aching abdominal pain last March. The pain radiates through to her back. Pain has been occurring around 3 times per week and lasts for minutes to hours at a time. She usually takes a Tylenol No. 3 and then goes to lie down and get under warm blankets, which seem to help. She has had no nausea or vomiting with this. She has had black stools intermittently with a couple of black stools a day some days and then another days green stools. She has had no red blood in the stool. She denies constipation. She has had a colonoscopy by Dr. Palomino back in 2013. 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 She was noted to have diverticulosis of the left colon. She did have an adenomatous polyp back in 2003, but no polyps at that time, the last colonoscopy in 2013. She has been noted to have anemia, and iron studies today show a low iron level at 32 with a TIBC of 279 and a ferritin of 36. She also was found to have acute renal failure on presentation. Her baseline creatinine is in the 2.7 range; however, her creatinine on presentation was 4.17. Creatinine is down to 3.6 today. She had been on Eliquis since diagnosis of atrial fibrillation around March. She quit taking the Eliquis a few days ago due to the recurrent black stools along with the epigastric pain. She had a Hemoccult done here, which was negative. PAST MEDICAL HISTORY: COPD, on home oxygen 3 L; breast cancer, in remission; diabetes mellitus; seizure disorder; atrial fibrillation; hypertension; gastroesophageal reflux; diverticulosis. PAST SURGICAL HISTORY: Appendectomy, hysterectomy, breast lumpectomy, cholecystectomy, oophorectomy, cervical spine diskectomies and fixation, colon surgery for fistula. FAMILY HISTORY: Negative for GI malignancy. SOCIAL HISTORY: No alcohol, tobacco, or drugs. ALLERGIES: LISINOPRIL, TRAMADOL, CODEINE. CURRENT MEDICATIONS: 1. Calcium carbonate. 2. Vitamin D. 3. Clonazepam. 4. Digoxin. 5. Duloxetine. 6. Multaq. 7. Ferrous sulfate. 8. Fish oil. 9. Fluticasone. 10. Insulin. 11. Levetiracetam. 12. Dulera inhaler. 13. Pantoprazole 40 mg p.o. daily. 14. She had been on apixaban at home prior to admission. REVIEW OF SYSTEMS: Negative x10 systems reviewed except as stated in history of present illness. PHYSICAL EXAMINATION: VITAL SIGNS: Temperature 98.7, pulse 75, blood pressure 147/62. GENERAL: She is in no acute distress. Alert and oriented x3. HEENT: Eyes have no scleral icterus. Oropharynx is clear without lesions. No cervical or supraclavicular lymphadenopathy. LUNGS: Lungs are clear to auscultation bilaterally. HEART: Regular rate and rhythm with a 3/6 systolic murmur at the left lower sternal border. ABDOMEN: Soft, nontender, and nondistended. Bowel sounds are present. EXTREMITIES: No lower extremity edema. LABORATORY DATA: White blood cell count 7.6, hemoglobin 9.1, platelets 184. INR 1.0. Bilirubin 0.3, AST 23, ALT 19, alkaline phosphatase 145, iron 32, TIBC 279, ferritin 36.4. Creatinine yesterday was 4.17, today 3.64. IMPRESSION: 1. Iron deficiency anemia. Her iron is low, however, TIBC is also in the lower normal range, and she likely has a multifactorial anemia. She has chronic renal insufficiency with acute renal insufficiency, now which could be contributing as well. She could have anemia of chronic disease. She is on chronic anticoagulation, and given the low iron with the low-normal ferritin, she could have a chronic blood loss as well. She reports intermittent black stools, which could be related to her iron supplementation. This could also be related to keqxk-cc-dibhprl gastrointestinal bleeding. 2. Gastrointestinal bleed. 3. Epigastric abdominal pain that radiates through to her back. We will rule out a peptic ulcer. 4. Atrial fibrillation, on chronic anticoagulation, currently held. 5. Mnael-rw-nkwrqzn renal insufficiency. 6. History of breast cancer. RECOMMENDATIONS: 1. Proton pump inhibitor. 2. We will plan for EGD tomorrow. 3. If the EGD is negative, then we will have to consider options for colonoscopy regarding the risks and benefits of the procedure. She does have COPD, on home oxygen and the other above-mentioned chronic medical problems. Her last colonoscopy was in [address] Palomino. Job ID: [id number]
[2019-08-31 04:29] LABS: Hemoglobin 8.5 g/dL (12.0-16.0); Mean Corpuscular HGB CONC 30.8 g/dL (32.0-36.0); Mean Corpuscular Hemoglobin 27.2 pg (27.0-31.0); Mean Corpuscular Volume 88.3 fL (78.0-98.0); Platelet Count 184 thou/uL (130-400); RBC Distribution Width 13.8 % (11.5-14.5); Red Blood Cell (RBC) Count 3.13 mill/uL (4.20-5.40); White Blood Cell (WBC) Count 5.3 thou/uL (4.8-10.8)
[2019-08-31 04:50] LABS: Anion Gap 15 mmol/L (10-20); BUN (Urea Nitrogen) 32 mg/dL (9.8-20.1); Calc. Creatinine Clearance 31 mL/min (70-130); Calcium 8.4 mg/dL (7.8-10.44); Carbon Dioxide 23 mmol/L (23-31); Chloride 107 mmol/L (98-107); Estimated GFR-MDRD 22; Glucose 116 mg/dL (83-110); Potassium 3.5 mmol/L (3.5-5.1); Sodium 141 mmol/L (136-145)
[2019-08-31] MEDS: Sodium Chloride 0.9% 1,000 ML IV SCH ×3 (06:00→17:07)
[2019-08-31] MEDS: Mometasone 100 MCG/Formoterol 5 MCG 120 PUFF INHALER INH SCH ×2 (06:47→18:19)
[2019-08-31] MEDS: Dronedarone HCl 400 MG TAB PO SCH ×2 (09:17→17:06)
[2019-08-31] MEDS: Digoxin 0.125 MG TAB PO SCH (09:17)
[2019-08-31] MEDS: DULoxetine 60 MG CAP PO SCH (09:18)
[2019-08-31] MEDS: Anastrozole 1 MG TAB PO SCH (09:18)
[2019-08-31] MEDS: levETIRAcetam 500 MG TAB PO SCH (09:18)
[2019-08-31] MEDS ORDERED: Lidocaine 1% PF 5 ML VIAL ONE (12:02)
[2019-08-31] MEDS ORDERED: PROPOFOL 200 MG/20 ML VIAL ONE (12:02)
[2019-08-31] MEDS ORDERED: Ondansetron HCl/PF 4 MG/2 ML Vial IVP PRN (14:42)
[2019-08-31] MEDS ORDERED: Promethazine HCl 25 MG/ML VIAL SLOW IVP PRN (14:42)
[2019-08-31] MEDS ORDERED: Promethazine HCl 25 MG/ML VIAL IM PRN (14:42)
[2019-08-31] MEDS: Ferrous Sulfate 325 MG TAB PO SCH ×2 (16:20→17:06)
[2019-08-31] MEDS: Fluticasone Propionate Nasal Spray 16 gm Bottle NASAL SCH (16:21)
[2019-08-31] MEDS: Fish Oil 1,000 MG CAP PO SCH (16:21)
[2019-08-31] MEDS: Calcium Carbonate 600 MG TAB PO SCH (16:21)
[2019-08-31 16:33] VITALS: BP 154/69; TEMP 98
--- NOTE | 2019-08-31 21:40 | OP ---
DATE OF PROCEDURE: 08/31/2019 PROCEDURE PERFORMED: Esophagogastroduodenoscopy with biopsy. PREOPERATIVE DIAGNOSIS: Anemia and gastrointestinal bleed and epigastric pain that radiates through to her back. DESCRIPTION OF PROCEDURE: Informed consent was obtained from the patient. She was sedated with total intravenous anesthesia. The bite block was placed and the endoscope was advanced easily to the second portion of the duodenum and retroflexion was performed in the stomach. The esophagus had a wide-open ring in the distal esophagus, which was left alone. The stomach had diffuse 4 mm pale polyps in the proximal body of the stomach. There was one red 6 mm polyp in the distal body of the stomach close to the greater curvature, which was biopsied. The remainder of the gastric mucosa was normal. The pylorus and first and second portions of the duodenum were normal. IMPRESSION: 1. Nonobstructing distal esophageal ring, left alone. 2. 6 mm polyp in the distal body of the stomach, biopsied. 3. There are few 4 mm polyps that were pale in the more proximal body of the stomach, which were left alone. 4. Otherwise normal endoscopy without stigmata of recent bleeding or explanation for her abdominal pain. RECOMMENDATIONS: 1. Await histopathology. 2. She will not be able to do CT scan with contrast in light of her acute renal failure. 3. We will follow the trend of her hemoglobin and her pain. Continue clinical treatment with proton pump inhibitor daily. Job ID: [id number]
--- NOTE | 2019-09-01 01:36 | DIS ---
DATE OF ADMISSION: 08/29/2019 DATE OF DISCHARGE: 08/31/2019 DISCHARGE DIAGNOSES: 1. Acute kidney injury. 2. Hypokalemia. 3. Dehydration. 4. Black stools/diarrhea. 5. Peripheral edema. 6. Atrial fibrillation. 7. Elevated alkaline phosphatase. CONSULTATIONS: Joseph Swift MD with GI. PROCEDURES PERFORMED: Endoscopy on 08/29. BRIEF HISTORY OF PRESENT ILLNESS: This is a 74-year-old female with a past medical history of COPD on 3 L of oxygen, hypertension, breast cancer in remission, who presented to the emergency room with dizziness. The patient reported that she developed some abdominal pain, diarrhea a few days prior and afterwards started feeling dizzy while walking. She denied any other focal neurological deficits. She reported that she had stopped her Lasix the night before and her Eliquis due to black stools. When she presented to the emergency room, her blood pressure was 105/32. Her creatinine was 4, up from her baseline. She was admitted for further workup. HOSPITAL COURSE: Acute kidney injury/dizziness: The patient was hydrated with IV fluids. Her creatinine returned to 2.19 on the day of discharge with IV hydration. Her Lasix was held. On discharge, she was advised to only take her Lasix as needed if she develops significant edema, shortness of breath or chest congestion. She was seen by Physical Therapy and was stable for discharge home with a cane. The patient's digoxin level was checked, which was noted to be normal. Diarrhea with black stools: Stool cultures were negative for ova and parasites, and no bacteria. Upper endoscopy showed gastric polyps but no other source of her bleeding. She was advised to follow up with her PCP and have her CBC repeated in a few days. If her CBC remained stable, she was advised that she could resume her Eliquis. Peripheral edema: The patient reported some pain when she touches her legs. She had Dopplers, which were negative for DVT. Elevated alkaline phosphatase: The patient did have a chronically elevated alkaline phosphatase. Abdominal ultrasound showed a fatty liver but no other abnormalities. She also has a tiny cyst at the pancreatic neck and some cortical cysts in her kidney. DISCHARGE PHYSICAL EXAMINATION: VITAL SIGNS: Temperature 98.0, heart rate 81, respiratory rate 16, O2 saturation 98% on 3 L of oxygen, and blood pressure 154/ 69. GENERAL: The patient is alert, awake, and oriented x3. CVS: Regular rate and rhythm with no murmurs, rubs, or gallops. LUNGS: Clear to auscultation bilaterally. ABDOMEN: Positive bowel sounds, soft, nontender, and nondistended. EXTREMITIES: 1+ edema. PERTINENT LABORATORY DATA: CBC 08/30: White count 5.3, hemoglobin 8.5, hematocrit 27.6, and platelet count of 184. BMP 08/30: Shows a creatinine of 2.19, which is improved from 4.17 on the . Iron panel: Iron is 32, TIBC 279, ferritin of 36.46. LFTs: Shows AST 23, ALT 119, alkaline phosphatase of 145. Troponin I: 0.047, 0.039. UA 08/28: Normal. Toxicology: Digoxin level 1.25. IMAGING: Venogram 08/28: Shows no evidence of DVT. Abdominal ultrasound 08/29: Shows hepatosteatosis. Gastric biopsies: Pending. DISCHARGE CONDITION: Stable. ACTIVITY: The patient to ambulate with cane or walker. DIET: Heart healthy diet and diabetic diet. DISCHARGE MEDICATIONS: All of her home medications resumed, however, she was advised to change her Lasix to p.r.n. DISCHARGE INSTRUCTIONS: The patient to follow up with her PCP in a week and have her BMP repeated in a week. She should recheck her CBC in a few days and if stable, resume her Eliquis. She should have her gastric polyp biopsy results pending. Job ID: [id number] MTDD
--- NOTE | 2019-09-01 14:59 | EKG ---
Test Reason : DIZZINESS Blood Pressure : / mmHG Vent. Rate : 073 BPM Atrial Rate : 073 BPM P-R Int : 186 ms QRS Dur : 080 ms QT Int : 356 ms P-R-T Axes : 070 035 -69 degrees QTc Int : 392 ms Normal sinus rhythm Cannot rule out Anterior infarct , age undetermined Abnormal ECG When compared with ECG of 13-AUG-2019 15:03, Premature ventricular complexes are no longer Present Confirmed by ALEXI MONSON, SHEELA Wynne ([id number]), tape editor WILMA SIEGEL ([id number]) on 09/01/2019 2:59:39 PM Referred By: Confirmed By:SHEELA TRUONG MD
== END 2019-08-31 18:40 | disposition home or self-care (01) | DRG 683 ==
LOC: ERS 15:31 → 2NO 20:26
PROVIDERS: ADMIT Internal Medicine; ATTEND Internal Medicine
PROC: 0DB68ZX Excision of Stomach, Via Natural or Artificial Opening Endoscopic, Diagnostic (ICD-10-PCS; principal; 2019-08-31)
DX: N17.9 Acute kidney failure, unspecified (principal); J96.11 Chronic respiratory failure with hypoxia; K92.2 Gastrointestinal hemorrhage, unspecified; K86.2 Cyst of pancreas; J44.9 Chronic obstructive pulmonary disease, unspecified; G40.909 Epilepsy, unspecified, not intractable, without status epilepticus; E86.0 Dehydration; I48.91 Unspecified atrial fibrillation; R60.0 Localized edema; R79.89 Other specified abnormal findings of blood chemistry; R19.7 Diarrhea, unspecified; K21.9 Gastro-esophageal reflux disease without esophagitis; D50.9 Iron deficiency anemia, unspecified; N18.9 Chronic kidney disease, unspecified; I12.9 Hypertensive chronic kidney disease with stage 1 through stage 4 chronic kidney disease, or unspecified chronic kidney disease; E11.22 Type 2 diabetes mellitus with diabetic chronic kidney disease; K31.7 Polyp of stomach and duodenum; K22.2 Esophageal obstruction; N28.1 Cyst of kidney, acquired; K76.0 Fatty (change of) liver, not elsewhere classified; E87.6 Hypokalemia; Z85.3 Personal history of malignant neoplasm of breast; Z90.49 Acquired absence of other specified parts of digestive tract; Z90.710 Acquired absence of both cervix and uterus; Z99.81 Dependence on supplemental oxygen; Z79.01 Long term (current) use of anticoagulants
CPT/HCPCS: 36415; 36416; 76705; 80048; 80053; 80162; 81003; 81015; 82274; 82553; 82728; 83540; 83550; 83630; 84484; 85025; 85027; 87045; 87046; 87328; 87329; 87427; 87449; 88305; 88312; 93005; 93970; 96360; J1815; J2001; J2704

== ENCOUNTER 2019-09-18 09:09 | Outpatient (CLI) | payer MEDICARE, BC ==
--- NOTE | 2019-09-18 12:16 | CT ---
CT CHEST WITHOUT IV CONTRAST CT ABDOMEN WITHOUT IV CONTRAST CT PELVIS WITHOUT IV CONTRAST: Date: 09/18/2019 HISTORY: Breast cancer. COMPARISON: CT abdomen and pelvis of 03/08/2019. DISCLAIMER: Absence of IV contrast reduces the sensitivity of exam, particularly for evaluation of mediastinal, h ilar, and vascular structures, and solid organs. Oral contrast was administered. The patient has poor GFR. FINDINGS: The 2.0 cm right breast mass with fatty components is stable consistent with fat necrosis. No mediast inal or axillary mass or lymphadenopathy seen. There is elevation of the right hemidiaphragm with sub segmental atelectatic change at the right lung base. There is a 3.0 mm nodule in the anterior aspect of the right middle lobe. No pleural or pericardial effusions are seen. There are patchy ground-glass infiltrates in the left lung base. These were also seen on the previous exam. The patient is post cholecystectomy and hysterectomy. Irregularity of the liver surface, suggestive o f cirrhosis, is again seen. The spleen measures 11.5 cm in CC dimension. Adrenal glands are unremarka ble. Bilateral renal cysts are present. The partially exophytic 2.0 cm cystic mass in the left kidney is stable. No free air, free fluid, or lymphadenopathy seen in the abdomen or pelvis. The small bowel loops are not abnormally dilated. There are degenerative changes in the thoracolumbar spine. No osteolytic or osteoblastic lesions are seen. There are vascular calcifications without evidence of aneurysmal dilatation of the thoracoabdominal a alyssa. There are postop changes and metallic hardware in the lower cervical spine. IMPRESSION: 1. 3.0 mm right middle lobe lung nodule. 2. Bilateral renal cysts. POS: [facility]
== END 2019-09-18 09:10 | disposition home or self-care (01) ==
LOC: CT 09:09
PROVIDERS: ATTEND Internal Medicine Hematology & Oncology
DX: C50.211 Malignant neoplasm of upper-inner quadrant of right female breast (principal); R63.4 Abnormal weight loss; N28.1 Cyst of kidney, acquired; R91.1 Solitary pulmonary nodule
CPT/HCPCS: 71250; 74177

== ENCOUNTER 2019-12-22 17:54 | Inpatient (IN) | payer MEDICARE, BC, OTHER ==
[2019-12-22] MEDS ORDERED: Albuterol 200 PUFF (6.7GM INHALER) ONE (18:29)
[2019-12-22 18:38] LABS: #Basophils 0.1 thou/uL (0.0-0.2); #Eosinphils 0.4 thou/uL (0.0-0.7); #Lymphocytes 1.5 thou/uL (1.20-3.40); %Basophils 0.5 % (0.0-1.0); %Eosinophils 3.8 % (0.0-10.0); %Lymphocytes 13.3 % (21.0-51.0); %Monocytes 9.3 % (0.0-10.0); %Neutrophils 73.1 % (42.0-75.0); Hemoglobin 8.8 g/dL (12.0-16.0); Mean Corpuscular HGB CONC 31.5 g/dL (32.0-36.0); Mean Corpuscular Volume 85.9 fL (78.0-98.0); Platelet Count 313 thou/uL (130-400); RBC Distribution Width 13.9 % (11.5-14.5); Red Blood Cell (RBC) Count 3.26 mill/uL (4.20-5.40); White Blood Cell (WBC) Count 10.9 thou/uL (4.8-10.8)
--- NOTE | 2019-12-22 18:55 | RAD ---
PORTABLE CHEST ONE VIEW: 12/22/19 at 6:28 p.m. HISTORY: Dyspnea. COMPARISON: Comparison made to exam of 12/05/19. FINDINGS/IMPRESSION: There is continued elevation of the right hemidiaphragm. The heart size is stable. There is periphera l haziness in the right mid lung which appears to be new. There is also haziness in the left lung bas e. This obscures the left hemidiaphragm. No pneumothoraces or large effusions are seen. The findings are suspicious for pneumonia. POS: [facility]
[2019-12-22 18:56] LABS: ALT (SGPT) Less than 7 U/L (8-55); AST (SGOT) 9 U/L (5-34); Albumin 3.7 g/dL (3.4-4.8); Alkaline Phosphatase 126 U/L (40-110); Anion Gap 12 mmol/L (10-20); BUN (Urea Nitrogen) 18 mg/dL (9.8-20.1); Bilirubin, Total 0.5 mg/dL (0.2-1.2); CK (CPK) 27 U/L (29-168); Calc. Creatinine Clearance 0 mL/min (70-130); Carbon Dioxide 25 mmol/L (23-31); Chloride 109 mmol/L (98-107); Estimated GFR-MDRD 31; Globulin 2.3 g/dL (2.4-3.5); Glucose 188 mg/dL (83-110); Potassium 4.1 mmol/L (3.5-5.1); Sodium 142 mmol/L (136-145)
[2019-12-22] MEDS ORDERED: Vancomycin 1 GM/200 ML BAG ONE (19:22)
[2019-12-22] MEDS ORDERED: Cefepime 2 GM VIAL ONE (19:23)
[2019-12-22] MEDS ORDERED: Metoclopramide 10 MG/10 ML UDCUP ONE (19:43)
[2019-12-22] MEDS ORDERED: Metoprolol Tartrate 5 MG/5 ML VIAL ONE (19:44)
[2019-12-22 20:21] LABS: Bacteria/HPF None Seen HPF (None Seen); Bilirubin Negative (Negative); Blood, Urine Negative (Negative); Clarity Clear (Clear); Glucose, Urine (Dipstick) 50 mg/dL (Negative); Ketone, Urine Negative (Negative); Leukocyte 25 Leu/uL (Negative); Nitrite Negative (Negative); Protein, Urine (Dipstick) 70 mg/dL (Neg-Trace); RBC/HPF 0-3 HPF (0-3); Specific Gravity, Urine 1.019 (1.002-1.036); Squamous Epithelial 0-3 HPF (0-3); Urobilinogen Normal mg/dL (Less than 2); pH, Urine 5.5 (5.0-9.0)
[2019-12-22 21:18] LABS: SARS-CoV-2 NAA Rapid Test Not Detected (NotDetected)
[2019-12-22] MEDS ORDERED: Acetaminophen 325 MG TAB PO PRN (21:36)
[2019-12-22 21:50] LABS: Troponin I 0.023 ng/mL (< 0.028)
--- NOTE | 2019-12-22 21:52 | PDOC.EVN ---
Event Note - Event Note Event Note: [id number]
[2019-12-23] MEDS: cefTRIAXone\\ROCEPHIN 1 GM in Sodium Chloride 0.9% 100 ML IVPB SCH ×2 (00:09→23:11)
[2019-12-23] MEDS: methylPREDNISolone Sod Succ 40 MG VIAL IVP SCH ×4 (00:10→21:07)
[2019-12-23 01:38] LABS: Troponin I 0.017 ng/mL (< 0.028)
[2019-12-23 02:49] VITALS: BMI 33.8
--- NOTE | 2019-12-23 02:57 | HP ---
CHIEF COMPLAINT: Shortness of breath. HISTORY OF PRESENT ILLNESS: Ms. Chamberlain is a 74-year-old female with past medical history of chronic respiratory failure on 2 L/minute nasal cannula at baseline, COPD, atrial fibrillation, sleep apnea, among others, presents to the emergency room with shortness of breath. The patient was found that she requires more oxygen above her baseline. She is usually on 3 L/minute nasal cannula. Her oxygen saturation was in the 60s/70s on room air. In the emergency room, the patient was placed on 4 L/minute nasal cannula, saturation is 95%. Workup showed? possible pneumonia. Septic workup done in the ED, started on IV antibiotics. The patient is being admitted to hospital for further management. The patient denies nausea, vomiting, fever or chills. Rapid COVID test was done, which was negative. The patient is being admitted to hospital for further management. PAST MEDICAL HISTORY: 1. Right-sided stage II breast cancer with lumpectomy. 2. Gastroparesis. 3. Sleep apnea. 4. Chronic respiratory failure. 5. Chronic obstructive pulmonary disease. 6. Diabetes. 7. Migraine headache. 8. Hyperlipidemia. 9. Hypertension. 10. Seizures. PAST SURGICAL HISTORY: 1. Mastectomy. 2. Oophorectomy. 3. Appendectomy. 4. Cholecystectomy. 5. Hysterectomy. 6. Several inches removed from colon. PAST PSYCHIATRIC HISTORY: Anxiety and depression. SOCIAL HISTORY: Denies alcohol drinking. Denies drug use. Lives at home with . Denies smoking. FAMILY HISTORY: Positive for diabetes mellitus and malignancy. HOME MEDICATIONS: Please see home medication reconciliation form for updated medications. ALLERGIES: ALLERGIC TO CODEINE, LISINOPRIL, TRAMADOL. REVIEW OF SYSTEMS: Review of 14 systems negative except what is mentioned in history of present illness. PHYSICAL EXAMINATION: GENERAL: The patient is awake, alert, in moderate respiratory distress. VITAL SIGNS: Blood pressure is 147/52, pulse is 87, respiratory rate is 24, temperature is 98.4, oxygen saturation 96% on 4 L/minute nasal cannula. HEAD AND NECK: Normocephalic, atraumatic. NECK: Supple. No JVD. CHEST: Showed decreased air entry bilaterally. HEART: Irregularly regular. ABDOMEN: Soft, nontender. Bowel sounds present. NEUROLOGIC: Awake, alert, oriented x3. No focal deficits. PSYCHIATRIC: Unable to assess. EXTREMITIES: No clubbing or cyanosis. LABORATORY DATA: Chest x-ray showed perihilar infiltrate and left base infiltrate?. Urine showed 7-10 WBCs and leukocytes, but no bacteria. Lactic acid 1.5. BNP is 71. Troponin is 0.01. BUN is 18, creatinine 1.6, which is above baseline. WBC count is 10.9, hemoglobin 8.8. Her hemoglobin has been between 8-10 as per old records. COVID-19 rapid test neck not detected. ASSESSMENT AND PLAN: 1. [id number] respiratory failure, hypoxic. 2. Chronic obstructive pulmonary disease with ? exacerbation. 3. Pneumonia ?.. 4. Anemia, chronic. 5. Atrial fibrillation on anticoagulation? 6. Chronic kidney disease with ? Acute kidney injury? 7. Diabetes mellitus with hyperglycemia, type 2. 8. History of seizure. PLAN: 1. Admit. 2. Telemetry monitoring. 3. Septic workup done in the ED. 4. IV antibiotics. 5. Bronchodilators. 6. Oxygen to keep saturation more than 92%. 7. Reconcile home medications. 8. DVT prophylaxis as appropriate. 9. Expected length of stay, 2 midnights or more. Job ID: [id number]
[2019-12-23 04:49] LABS: #Eosinphils 0.1 thou/uL (0.0-0.7); #Lymphocytes 0.9 thou/uL (1.20-3.40); #Monocytes 0.3 thou/uL (0.11-0.59); #Neutrophils 12.4 thou/uL (1.40-6.50); %Basophils 0.3 % (0.0-1.0); %Eosinophils 0.4 % (0.0-10.0); %Lymphocytes 6.9 % (21.0-51.0); %Monocytes 1.8 % (0.0-10.0); %Neutrophils 90.7 % (42.0-75.0); Hemoglobin 9.1 g/dL (12.0-16.0); Mean Corpuscular HGB CONC 31.3 g/dL (32.0-36.0); Mean Corpuscular Hemoglobin 27.1 pg (27.0-31.0); Mean Corpuscular Volume 86.8 fL (78.0-98.0); Mean Platelet Volume 7.7 fL (7.4-10.4); Platelet Count 314 thou/uL (130-400); RBC Distribution Width 13.8 % (11.5-14.5); Red Blood Cell (RBC) Count 3.36 mill/uL (4.20-5.40); White Blood Cell (WBC) Count 13.6 thou/uL (4.8-10.8)
[2019-12-23 05:05] LABS: Anion Gap 15 mmol/L (10-20); BUN (Urea Nitrogen) 19 mg/dL (9.8-20.1); Calc. Creatinine Clearance 42 mL/min (70-130); Carbon Dioxide 22 mmol/L (23-31); Chloride 107 mmol/L (98-107); Estimated GFR-MDRD 31; Glucose 206 mg/dL (83-110); Potassium 4.6 mmol/L (3.5-5.1); Sodium 139 mmol/L (136-145)
[2019-12-23] MEDS ORDERED: Dextrose 5% in Water 1,000 ML IV PRN (06:50)
[2019-12-23] MEDS ORDERED: Dextrose 50% Abboject 50 ML SYRINGE IVP PRN (06:50)
[2019-12-23] MEDS ORDERED: Bacteriostatic Water 30 ML VIAL FS PRN (08:45)
[2019-12-23] MEDS: Amlodipine 10 MG TAB PO SCH (10:33)
[2019-12-23] MEDS: clonazePAM 0.5 MG TAB PO SCH ×2 (10:35→12:21)
[2019-12-23] MEDS: lamoTRIgine 25 MG TAB PO SCH ×2 (10:35→21:20)
[2019-12-23] MEDS: DULoxetine 60 MG CAP PO SCH (10:36)
[2019-12-23] MEDS: Ferrous Sulfate 325 MG TAB PO SCH (10:36)
[2019-12-23] MEDS: Famotidine 20 MG TAB PO SCH (10:37)
[2019-12-23] MEDS: levETIRAcetam 500 mg/5 ml Oral Solution PO SCH ×2 (10:38→21:21)
[2019-12-23] MEDS: HumaLOG 300 UNITS/3 ML VIAL SC PRN ×3 (10:59→21:10)
--- NOTE | 2019-12-23 15:35 | PDOC.HOSPP ---
- Subjective Encounter Date: 12/23/19 Encounter Time: 11:50 Subjective: pt up in bed no complains. - Objective Vital Signs & Weight: Vital Signs (12 hours) Temp Pulse Resp BP BP Pulse Ox 12/23/19 12:24 178/79 H 12/23/19 12:00 98.3 F 94 16 188/77 H 93 L 12/23/19 10:33 90 177/69 H 12/23/19 08:22 97.6 F 90 16 177/69 H 91 L 12/23/19 05:00 98.1 F 86 16 163/62 H 93 L Weight Weight 191 lb 1.6 oz I&O: 12/22/19 12/23/19 12/24/19 06:59 06:59 06:59 Intake Total 100 Balance 100 Result Diagrams: 12/23/19 04:28 12/23/19 04:28 Additional Labs: Accuchecks 12/23/19 12/23/19 10:44 06:33 POC Glucose 333 H 252 H Hospitalist ROS - Review of Systems Cardiovascular: denies: chest pain, palpitations, orthopnea, paroxysmal noc. dyspnea, edema, light headedness, other Gastrointestinal: denies: nausea, vomiting, abdominal pain, diarrhea, constipation, melena, hematochezia, other Genitourinary: denies: dysuria, frequency, incontinence, hematuria, retention, other - Medication Medications: Active Medications Generic Name Dose Route Start Last Admin Trade Name Freq PRN Reason Stop Dose Admin Amlodipine Besylate 10 mg 12/23/19 09:00 12/23/19 10:33 Norvasc PO 10 mg DAILY JOSE Administration Clonazepam 0.5 mg 12/23/19 09:00 12/23/19 12:21 Klonopin PO 0.5 mg 0900,1200 JOSE Administration Duloxetine HCl 60 mg 12/23/19 09:00 12/23/19 10:36 Cymbalta PO 60 mg DAILY JOSE Administration Famotidine 20 mg 12/23/19 09:00 12/23/19 10:37 Pepcid PO 20 mg QAM JOSE Administration Ferrous Sulfate 325 mg 12/23/19 09:00 12/23/19 10:36 Feosol PO 325 mg DAILY JOSE Administration Ceftriaxone Sodium 1 gm/ 100 mls @ 200 mls/hr 12/22/19 23:00 12/23/19 00:09 Sodium Chloride IVPB 100 mls Q24HR JOSE Administration Doxycycline Hyclate 100 mg/ 100 mls @ 100 mls/hr 12/23/19 09:00 12/23/19 10: 41 Sodium Chloride IVPB 100 mls Q12HR JOSE Administration Insulin Human Lispro 0 units 12/23/19 06:50 12/23/19 10:59 Humalog SC 8 unit .MODERATE SLIDING SC PRN Administration MODERATE SLIDING SCALE Protocol Lamotrigine 25 mg 12/23/19 09:00 12/23/19 10:35 Lamictal PO 25 mg BID JOSE Administration Levetiracetam 250 mg 12/23/19 09:00 12/23/19 10:38 Keppra Oral Solution PO 250 mg BID JOSE Administration Methylprednisolone Sodium Succinate 40 mg 12/23/19 09:00 12/23/19 10:41 Solu-Medrol IVP 40 mg BID JOSE Administration Sodium Chloride 10 ml 12/23/19 09:00 12/23/19 10:47 Flush - Normal Saline IVF 10 ml Q12HR JOES Administration - Exam Neck: negative: supple, symmetric, no JVD, no thyromegaly, no lymphadenopathy, no carotid bruit, JVD Heart: negative: RRR, no murmur, no gallops, no rubs, normal peripheral pulses, irregular, diminshed peripheral pulses, murmur present, II/IV, III/IV Respiratory: negative: CTAB, no wheezes, no rales, no ronchi, normal chest expansion, no tachypnea, normal percussion, rales, rhonchi, tachypneic, wheezes Gastrointestinal: negative: soft, non-tender, non-distended, normal bowel sounds , no palpable masses, no hepatomegaly, no splenomegaly, no bruit, no guarding, no rigidity, tender to palpation, distended, diminished bowl sounds, voluntary guarding Extremities: negative: no cyanosis, no clubbing, no edema, 1+ LE edema, 2+ LE edema, clubbing Hosp A/P (1) Acute and chronic respiratory failure with hypoxia Code(s): J96.21 - ACUTE AND CHRONIC RESPIRATORY FAILURE WITH HYPOXIA Status: Acute (2) Anxiety and depression Code(s): F41.8 - OTHER SPECIFIED ANXIETY DISORDERS Status: Chronic (3) Chronic diastolic CHF (congestive heart failure), NYHA class 2 Code(s): I50.32 - CHRONIC DIASTOLIC (CONGESTIVE) HEART FAILURE Status: Chronic (4) DM type 2 (diabetes mellitus, type 2) Status: Chronic Qualifiers: (5) Diabetic neuropathy Code(s): E11.40 - TYPE 2 DIABETES MELLITUS WITH DIABETIC NEUROPATHY, UNSP Status: Chronic (6) Hypertension Code(s): I10 - ESSENTIAL (PRIMARY) HYPERTENSION Status: Chronic Qualifiers: (7) Obesity (BMI 30-39.9) Code(s): E66.9 - OBESITY, UNSPECIFIED Status: Chronic (8) Sleep apnea Code(s): G47.30 - SLEEP APNEA, UNSPECIFIED Status: Chronic Qualifiers: (9) Pneumonia Code(s): J18.9 - PNEUMONIA, UNSPECIFIED ORGANISM Status: Acute (10) A-fib Code(s): I48.91 - UNSPECIFIED ATRIAL FIBRILLATION Status: Acute - Plan will continue home meds. pt normally is on 3L and was more sob and requiring more oxygen and was found to be hypoxic. Bnp normal. will consult pulmonary since she follows them. she is on eiliquis for afib. echo done in 05/07 indicated a good ef. if her sob does not improve will get ct lung. pt has a hx of copd and asthma.
[2019-12-23] MEDS: Carvedilol 25 MG TAB PO SCH (16:23)
[2019-12-23] MEDS: HumuLIN 70/30 (300 UNITS/3 ML VIAL) SC SCH (16:23)
[2019-12-23] MEDS: Dronedarone HCl 400 MG TAB PO SCH (16:24)
[2019-12-23] MEDS ORDERED: HumaLOG 300 UNITS/3 ML VIAL SC PRN (20:21)
[2019-12-23] MEDS: Apixaban 5 MG TAB PO SCH (21:19)
[2019-12-23] MEDS: Atorvastatin Calcium 40 MG TAB PO SCH (21:20)
[2019-12-23] MEDS: Furosemide 20 MG TAB PO SCH (21:20)
[2019-12-23] MEDS: hydrALAZINE 25 MG TAB PO SCH (21:20)
[2019-12-23] MEDS: clonazePAM 1 MG TAB PO SCH (21:21)
[2019-12-24] MEDS: HumaLOG 300 UNITS/3 ML VIAL SC PRN ×3 (05:47→16:33)
[2019-12-24] MEDS: levETIRAcetam 500 mg/5 ml Oral Solution PO SCH ×2 (08:36→21:29)
[2019-12-24] MEDS: Cholecalciferol 1,000 UNITS (25 MCG) TAB PO SCH (08:39)
[2019-12-24] MEDS: Apixaban 5 MG TAB PO SCH ×2 (08:40→20:54)
[2019-12-24] MEDS: Anastrozole 1 MG TAB PO SCH (08:40)
[2019-12-24] MEDS: clonazePAM 0.5 MG TAB PO SCH ×2 (08:40→11:40)
[2019-12-24] MEDS: Dronedarone HCl 400 MG TAB PO SCH ×2 (08:40→16:30)
[2019-12-24] MEDS: Carvedilol 25 MG TAB PO SCH ×2 (08:40→16:30)
[2019-12-24] MEDS: Digoxin 0.125 MG TAB PO SCH (08:40)
[2019-12-24] MEDS: Amlodipine 10 MG TAB PO SCH (08:40)
[2019-12-24] MEDS: Furosemide 20 MG TAB PO SCH ×2 (08:41→20:55)
[2019-12-24] MEDS: DULoxetine 60 MG CAP PO SCH (08:41)
[2019-12-24] MEDS: lamoTRIgine 25 MG TAB PO SCH ×2 (08:41→20:55)
[2019-12-24] MEDS: Ferrous Sulfate 325 MG TAB PO SCH (08:41)
[2019-12-24] MEDS: Famotidine 20 MG TAB PO SCH (08:41)
[2019-12-24] MEDS: methylPREDNISolone Sod Succ 40 MG VIAL IVP SCH ×2 (08:42→20:56)
[2019-12-24] MEDS: hydrALAZINE 25 MG TAB PO SCH ×2 (08:44→21:01)
[2019-12-24] MEDS: HumuLIN 70/30 (300 UNITS/3 ML VIAL) SC SCH ×2 (08:51→16:32)
[2019-12-24 09:11] LABS: Hemoglobin 8.3 g/dL (12.0-16.0); Platelet Count 304 thou/uL (130-400)
--- NOTE | 2019-12-24 15:34 | CON ---
DATE OF CONSULTATION: 12/24/2019 CONSULTING PHYSICIAN: Betty Cadet MD REASON FOR CONSULTATION: Hypoxemia. HISTORY OF PRESENT ILLNESS: The patient is a 74-year-old female, who presented to the hospital on 12/22/2019 with complaints of increased oxygen requirement. She regularly sees Dr. Mendieta. She has history of COPD and is ordinarily on 3 L nasal cannula at home. She apparently was desaturating down to the 70s when she was walking and had increased her oxygen to 4 L and called the office for advice on what to do next. Unfortunately, Dr. Mendieta was not in the office when she called. The patient then came to the emergency room for further evaluation. She denies cough, congestion, fever, or chills. In looking back at her past pulmonary concerns, she has history of restrictive lung disease with baseline FEV1 of 1.09 L, which is 52% predicted and forced vital capacity is 1.32 L, which is 47% predicted. She has a diffusion capacity of 41%. She also has diastolic heart dysfunction as documented by echocardiogram in April 2019. She is on oxygen at 3 L nasal cannula at baseline at home. For her breathing, she takes an albuterol metered-dose inhaler, Advair, and nebulization solution. Concurrently, she has atrial fibrillation for which she is on full-dose anticoagulation with Eliquis. She also takes diuretics intermittently when her weight goes up and takes Multaq to control her ventricular response. PAST MEDICAL HISTORY: 1. Atrial fibrillation. 2. COPD. 3. Breast cancer, requiring lumpectomy. 4. Gastroparesis. 5. SARAI. 6. Diabetes mellitus. 7. Hyperlipidemia. 8. Hypertension. 9. Seizure disorder. PAST SURGICAL HISTORY: 1. Mastectomy. 2. Oophorectomy. 3. Appendectomy. 4. Cholecystectomy. 5. Hysterectomy. 6. Partial colectomy. PSYCHIATRIC HISTORY: Remarkable for anxiety and depression. SOCIAL HISTORY: Currently, does not smoke. Does not consume alcohol. OUTPATIENT MEDICATIONS: Reviewed, listed under home medications section in the chart. ALLERGIES: LISINOPRIL, TRAMADOL, AND CODEINE. REVIEW OF SYSTEMS: Denies fever, chills, nausea, vomiting, hematemesis, melena, hematochezia, hematuria, or dysuria. PHYSICAL EXAMINATION: VITAL SIGNS: Temperature 98.0, pulse 81, respirations 20, O2 saturation 93% on room air and 99% on 3.5 L, and blood pressure . GENERAL: She is lying flat in bed. Does not appear in any serious distress. HEENT: Pupils are reactive. Sclerae are icteric. Oropharynx clear. NECK: No adenopathy or JVD. LUNGS: She has few crackles in the bases posteriorly, otherwise clear without wheezing or rhonchi. CARDIAC: S1 and S2 regular with 2/6 systolic murmur. ABDOMEN: Soft and nontender to palpation. EXTREMITIES: No clubbing, cyanosis, or edema. LABORATORY DATA: Sodium 139, potassium 4.6, chloride 107, CO2 of 22, BUN 19, creatinine 1.6, and glucose 206. BNP level was 71. Procalcitonin level 0.06. White blood cell count 13.6, hematocrit 26.1, and platelet count 304. COVID test is negative. Her x-ray does not show profound changes from baseline. She has chronic interstitial changes on the right. She has elevated right hemidiaphragm, which could indicate paralysis on that side. I am not sure if that has been worked up in the past or not, in any event that appears chronic in nature. ASSESSMENT: Hypoxemia. It looks like she has probably recovered close to her baseline. She has many factors that contribute to hypoxemia including her chronic obstructive pulmonary disease and pulmonary edema. seems less likely since she is on full-dose anticoagulation at all times. She does not appear to have an infection at this time as demonstrated by her low procalcitonin level and relatively normal x-ray. RECOMMENDATIONS: 1. Continue diuretics as you are doing. 2. Wean steroids rapidly. 3. Can probably be discharged tomorrow on 3 L nasal cannula comfortably. I will inform Dr. Mendieta of the patient's admission. The above encompassed 50 minutes time, of that time greater than 50% of the time was spent with the patient and/or the patient's unit in the hospital. Job ID: [id number]
--- NOTE | 2019-12-24 16:30 | PDOC.HOSPP ---
- Subjective Encounter Date: 12/24/19 Encounter Time: 10:30 Subjective: pt up in bed no complains - Objective Vital Signs & Weight: Vital Signs (12 hours) Temp Pulse Pulse Pulse Resp BP BP 12/24/19 15:44 98.0 F 80 20 12/24/19 11:39 98.0 F 81 20 12/24/19 11:35 81 85 138/51 L 147/54 H 12/24/19 08:44 85 12/24/19 08:40 85 12/24/19 07:30 12/24/19 07:20 98.0 F 85 20 BP Pulse Ox Pulse Ox Pulse Ox 12/24/19 15:44 138/64 93 L 12/24/19 11:39 138/51 L 93 L 12/24/19 11:35 93 L 95 12/24/19 08:44 12/24/19 08:40 12/24/19 07:30 94 L 12/24/19 07:20 152/63 H 94 L Weight Admit Weight 191 lb 1.6 oz Weight 191 lb 1.6 oz I&O: 12/23/19 12/24/19 12/25/19 06:59 06:59 06:59 Intake Total 100 1595 600 Balance 100 1595 600 Result Diagrams: 12/24/19 08:55 12/24/19 08:55 Additional Labs: Accuchecks 12/24/19 12/24/19 12/23/19 11:01 05:52 20:05 POC Glucose 339 H 291 H 359 H Hospitalist ROS - Review of Systems Cardiovascular: denies: chest pain, palpitations, orthopnea, paroxysmal noc. dyspnea, edema, light headedness, other Gastrointestinal: denies: nausea, vomiting, abdominal pain, diarrhea, constipation, melena, hematochezia, other Genitourinary: denies: dysuria, frequency, incontinence, hematuria, retention, other - Medication Medications: Active Medications Generic Name Dose Route Start Last Admin Trade Name Freq PRN Reason Stop Dose Admin Amlodipine Besylate 10 mg 12/23/19 09:00 12/24/19 08:40 Norvasc PO 10 mg DAILY JOSE Administration Anastrozole 1 mg 12/24/19 09:00 12/24/19 08:40 Arimidex PO 1 mg DAILY JOSE Administration Apixaban 5 mg 12/23/19 21:00 12/24/19 08:40 Eliquis PO 5 mg BID JOSE Administration Atorvastatin Calcium 40 mg 12/23/19 21:00 12/23/19 21:20 Lipitor PO 40 mg HS JOSE Administration Carvedilol 25 mg 12/23/19 17:00 12/24/19 08:40 Coreg PO 25 mg BID-WM JOSE Administration Cholecalciferol 5,000 units 12/24/19 09:00 12/24/19 08:39 Vitamin D3 PO 5,000 units DAILY JOSE Administration Clonazepam 1 mg 12/23/19 21:00 12/23/19 21:21 Klonopin PO 1 mg HS JOSE Administration Clonazepam 0.5 mg 12/23/19 09:00 12/24/19 11:40 Klonopin PO 0.5 mg 0900,1200 JOSE Administration Digoxin 0.0625 mg 12/24/19 09:00 12/24/19 08:40 Lanoxin PO 0.0625 mg DAILY JOSE Administration Dronedarone 400 mg 12/23/19 17:00 12/24/19 08:40 Multaq PO 400 mg BID-WM JOSE Administration Duloxetine HCl 60 mg 12/23/19 09:00 12/24/19 08:41 Cymbalta PO 60 mg DAILY JOSE Administration Famotidine 20 mg 12/23/19 09:00 12/24/19 08:41 Pepcid PO 20 mg QAM JOSE Administration Ferrous Sulfate 325 mg 12/23/19 09:00 12/24/19 08:41 Feosol PO 325 mg DAILY JOSE Administration Furosemide 20 mg 12/23/19 21:00 12/24/19 08:41 Lasix PO 20 mg BID JOSE Administration Hydralazine HCl 50 mg 12/23/19 21:00 12/24/19 08:44 Apresoline PO 50 mg BID JOSE Administration Ceftriaxone Sodium 1 gm/ 100 mls @ 200 mls/hr 12/22/19 23:00 12/23/19 23:11 Sodium Chloride IVPB 100 mls Q24HR JOSE Administration Doxycycline Hyclate 100 mg/ 100 mls @ 100 mls/hr 12/23/19 09:00 12/24/19 08: 55 Sodium Chloride IVPB 100 mls Q12HR JOSE Administration Insulin Human Isoph/Insulin Regular 35 units 12/23/19 17:00 12/24/19 08:51 Humulin 70/30 SC 35 unit BID-WM JOSE Administration Insulin Human Lispro 0 units 12/23/19 06:50 12/24/19 11:03 Humalog SC 8 unit .MODERATE SLIDING SC PRN Administration MODERATE SLIDING SCALE Protocol Lamotrigine 25 mg 12/23/19 09:00 12/24/19 08:41 Lamictal PO 25 mg BID JOSE Administration Levetiracetam 250 mg 12/23/19 09:00 12/24/19 08:36 Keppra Oral Solution PO 250 mg BID JOSE Administration Methylprednisolone Sodium Succinate 40 mg 12/23/19 09:00 12/24/19 08:42 Solu-Medrol IVP 40 mg BID JOSE Administration Pantoprazole Sodium 40 mg 12/24/19 09:00 12/24/19 08:41 Protonix PO 40 mg DAILY JOSE Administration Sodium Chloride 10 ml 12/23/19 09:00 12/24/19 08:42 Flush - Normal Saline IVF 10 ml Q12HR JOSE Administration - Exam Heart: negative: RRR, no murmur, no gallops, no rubs, normal peripheral pulses, irregular, diminshed peripheral pulses, murmur present, II/IV, III/IV Respiratory: negative: CTAB, no wheezes, no rales, no ronchi, normal chest expansion, no tachypnea, normal percussion, rales, rhonchi, tachypneic, wheezes Gastrointestinal: negative: soft, non-tender, non-distended, normal bowel sounds , no palpable masses, no hepatomegaly, no splenomegaly, no bruit, no guarding, no rigidity, tender to palpation, distended, diminished bowl sounds, voluntary guarding Extremities: 1+ LE edema Hosp A/P (1) Acute and chronic respiratory failure with hypoxia Code(s): J96.21 - ACUTE AND CHRONIC RESPIRATORY FAILURE WITH HYPOXIA Status: Acute (2) Anxiety and depression Code(s): F41.8 - OTHER SPECIFIED ANXIETY DISORDERS Status: Chronic (3) Chronic diastolic CHF (congestive heart failure), NYHA class 2 Code(s): I50.32 - CHRONIC DIASTOLIC (CONGESTIVE) HEART FAILURE Status: Chronic (4) DM type 2 (diabetes mellitus, type 2) Status: Chronic Qualifiers: (5) Diabetic neuropathy Code(s): E11.40 - TYPE 2 DIABETES MELLITUS WITH DIABETIC NEUROPATHY, UNSP Status: Chronic (6) Hypertension Code(s): I10 - ESSENTIAL (PRIMARY) HYPERTENSION Status: Chronic Qualifiers: (7) Obesity (BMI 30-39.9) Code(s): E66.9 - OBESITY, UNSPECIFIED Status: Chronic (8) Sleep apnea Code(s): G47.30 - SLEEP APNEA, UNSPECIFIED Status: Chronic Qualifiers: (9) Pneumonia Code(s): J18.9 - PNEUMONIA, UNSPECIFIED ORGANISM Status: Acute (10) A-fib Code(s): I48.91 - UNSPECIFIED ATRIAL FIBRILLATION Status: Acute - Plan will continue home meds. pt normally is on 3L and was more sob and requiring more oxygen and was found to be hypoxic. Bnp normal. will consult pulmonary since she follows them. she is on eiliquis for afib. echo done in 05/07 indicated a good ef. if her sob does not improve will get ct lung. pt has a hx of copd and asthma. 12/23 will continue current meds. PT ordered. pulmonary to see pt.
[2019-12-24] MEDS: clonazePAM 1 MG TAB PO SCH (20:54)
[2019-12-24] MEDS: Atorvastatin Calcium 40 MG TAB PO SCH (20:54)
[2019-12-24] MEDS: cefTRIAXone\\ROCEPHIN 1 GM in Sodium Chloride 0.9% 100 ML IVPB SCH (22:39)
[2019-12-25] MEDS: HumaLOG 300 UNITS/3 ML VIAL SC PRN ×2 (06:00→12:54)
[2019-12-25] MEDS ORDERED: HumuLIN 70/30 (300 UNITS/3 ML VIAL) SC SCH (08:00)
[2019-12-25] MEDS: levETIRAcetam 500 mg/5 ml Oral Solution PO SCH (09:51)
[2019-12-25] MEDS: Cholecalciferol 1,000 UNITS (25 MCG) TAB PO SCH (09:52)
[2019-12-25] MEDS: clonazePAM 0.5 MG TAB PO SCH ×2 (09:52→12:54)
[2019-12-25] MEDS: lamoTRIgine 25 MG TAB PO SCH (09:52)
[2019-12-25] MEDS: Furosemide 20 MG TAB PO SCH (09:53)
[2019-12-25] MEDS: DULoxetine 60 MG CAP PO SCH (09:53)
[2019-12-25] MEDS: Famotidine 20 MG TAB PO SCH (09:53)
[2019-12-25] MEDS: Amlodipine 10 MG TAB PO SCH (09:54)
[2019-12-25] MEDS: Anastrozole 1 MG TAB PO SCH (09:54)
[2019-12-25] MEDS: Dronedarone HCl 400 MG TAB PO SCH (09:54)
[2019-12-25] MEDS: Apixaban 5 MG TAB PO SCH (09:55)
[2019-12-25] MEDS: hydrALAZINE 25 MG TAB PO SCH (09:55)
[2019-12-25] MEDS: Ferrous Sulfate 325 MG TAB PO SCH (09:55)
[2019-12-25] MEDS: Carvedilol 25 MG TAB PO SCH (09:55)
[2019-12-25] MEDS: methylPREDNISolone Sod Succ 40 MG VIAL IVP SCH (09:56)
[2019-12-25] MEDS: Digoxin 0.125 MG TAB PO SCH (10:07)
[2019-12-25 11:07] VITALS: BP 144/56; TEMP 97.7
--- NOTE | 2019-12-25 11:09 | PRG ---
DATE OF SERVICE: 12/25/2019 SUBJECTIVE: Shayy Chamberlain is a 74-year-old female who was admitted to the hospital with hypoxemia and a nonproductive cough. She has been here for several days. She is feeling better today. Her x-ray showed a questionable right-sided infiltrate. This morning, she said she is much improved. No coughing and no fever. She does has severe limitation to activity because of obesity and severe hypoxemia when she exerts herself. OBJECTIVE: VITAL SIGNS: Blood pressure is 130/80, pulse is 90, respiratory rate 20, saturations 98% on supplemental oxygen. CHEST: No wheezing, no crackles. CARDIAC: Normal S1, S2. No gallops. ABDOMEN: Soft. IMPRESSION: 1. Respiratory failure, morbid obesity, sleep apnea, syndrome. 2. Right-sided pneumonia. 3. Severe deconditioning. She can be switched over to oral medication, oral prednisone and discharged home. Follow up with the primary care physician. Job ID: [id number]
--- NOTE | 2019-12-25 14:35 | EKG ---
Test Reason : Blood Pressure : / mmHG Vent. Rate : 081 BPM Atrial Rate : 081 BPM P-R Int : 202 ms QRS Dur : 076 ms QT Int : 298 ms P-R-T Axes : 018 046 219 degrees QTc Int : 346 ms Normal sinus rhythm Abnormal ECG Confirmed by SERA FELTON DO ([id number]), content editor RANDY SANABRIA ([id number]) on 12/25/2019 2:34:24 PM Referred By: Confirmed By:SERA FELTON DO
[2019-12-25] MEDS ORDERED: Doxycycline 100 MG CAP PO SCH (21:00)
--- NOTE | 2019-12-25 21:11 | DIS ---
DATE OF ADMISSION: 12/23/2019 DATE OF DISCHARGE: 12/25/2019 DISCHARGE DIAGNOSES: 1. Shortness of breath, most likely from chronic obstructive pulmonary disease exacerbation versus community-acquired pneumonia. 2. Anxiety and depression. 3. Chronic diastolic heart failure. 4. Diabetes type 2. 5. Diabetic neuropathy. HOSPITAL COURSE: The patient is a pleasant 74-year-old female, who initially presented to the hospital with complaints of shortness of breath. She is normally at 3 L of oxygen; however, she required more oxygen and she was short of breath. Her BNP was normal. This is not heart failure. X-ray indicated possible pneumonia. We treated her with antibiotics and also steroids. The patient was seen by Pulmonary, she improved. She was ambulated. She is on 3.5 L of nasal cannula and she states she feels well. MEDICATIONS: Her home medications will be as of the following, she will be on; 1. Doxycycline 10 mg b.i.d. 2. Prednisone 40 mg total of 5 days. 3. Clonazepam 1 mg daily. 4. Keppra 250 b.i.d. 5. Omeprazole 40 mg daily. 6. Advair 1 inhalation twice a day. 7. Insulin 70/30 of 35 units b.i.d. 8. Multaq 40 units b.i.d. 9. Ferrous sulfate 325 p.o. daily. 10. Coreg 25 mg b.i.d. 11. Cymbalta 60 mg daily. 12. Digoxin 0.0625 mg p.o. daily. 13. Eliquis 5 mg p.o. daily. 14. Atorvastatin 40 mg daily. 15. Norvasc 1 tablet p.o. daily. PHYSICAL EXAMINATION: VITAL SIGNS: On discharge; temperature 97.7, heart rate 76, respiratory rate 15, O2 saturations 96% on 3 L, and blood pressure 144/60. GENERAL: She is awake, alert, and oriented x3. Does not appear in distress. CV: S1 and S2 present. No murmurs, rubs, or gallops. Again, she will be discharged home. Follow up with her primary and also with Pulmonary. Job ID: [id number]
--- NOTE | 2019-12-26 07:53 | PQF ---
CLINICAL DOCUMENTATION CLARIFICATION FORM: Dear : Betty Cadet Date / Time: 12/26/2019 2118 Please exercise your independent, professional judgment in responding to the clarification form. Clinical indicators are provided on the bottom of this form for your review Please check appropriate box(es): [ ] Empirically treating Gram Negative Pneumonia [ ] Empirically treating Anaerobic Pneumonia [ x] Simple Pneumonia [ ] Pneumonia of unknown etiology [ ] Other diagnosis [ ] Unable to determine Physician Signature: Date/Time: For continuity of documentation, please document condition throughout progress notes and discharge summary. Thank You. To be completed by CDI/Coding staff for physician review: Present Clinical Indicators - Signs / Symptoms / Labs Results and Location in Medical Record [X] BP 198/62, Pulse 79, Resp 28, Temp 98.4 Vital signs 12/21 [X] WBC 10.9; 13.6, Plt count 313, Neutrophils 73.1 Laboratory 12/21 [X] Chest X-ray Impression: findings are suspicious for Pneumonia Imaging Dr Meza 12/21 [X] Presented with SOB H&P p1 12/21 [facility] [X] Pneumonia H&P p2 12/21 [facility] [X] Acute on chronic respiratory failure with hypoxic H&P p2 12/21 [facility] [X] Chest: Rales present and diminished breath sounds ED Notes 12/22 Present Risk Factors Results and Location in Medical Record [X] 74 year-old Female H&P p1 12/21 [facility] [X] Breast cancer H&P p1 12/21 [facility] [X] COPD H&P p1 12/21 [facility] [X] HTN H&P p1 12/21 [facility] [X] DM H&P p1 12/21 [facility] [X] Obesity PN 12/22 Present Treatments Results and Location in Medical Record [X] IV Cefepime 2 gm JUN 24 [X] IV Ceftriaxone 1 gm JUN 24 [X] IVF NS 1L JUN 24 [X] IV Vancomycin 1 gm JUN 24 [X] Oxygen 3.5 L Respiratory Panel 12/21 [X] Chest X-ray Imaging Dr Meza 12/21 [X] Pulmonary Consult Consult 12/23 CDS/C D Still Operator Signature: Sonya Guido Phone #: ext [phone] Date/Time: 12/26/2019 0752 This is a permanent part of the Medical Record [facility]
--- NOTE | 2019-12-26 07:55 | PQF ---
CLINICAL DOCUMENTATION CLARIFICATION FORM: Dear : Betty Cadet Date / Time: 12/26/2019 0754 Please exercise your independent, professional judgment in responding to the clarification form. Clinical indicators are provided on the bottom of this form for your review Please check appropriate box(es): [ ] Sepsis due to Pneumonia [ ] Severe sepsis due to Pneumonia with Acute Respiratory Failure [ x ] Localized infection without sepsis [ ] Other diagnosis [ ] Unable to determine In addition, please specify: Present on Admission (POA): [ x] Yes [ ] No [ ] Unable to determine Physician Signature: Date/Time: For continuity of documentation, please document condition throughout progress notes and discharge summary. Thank You. To be completed by CDI/Coding staff for physician review: Present Clinical Indicators - Signs / Symptoms / Labs Results and Location in Medical Record [X] BP 198/62, Pulse 79, Resp 28, Temp 98.4 Vital signs 12/21 [X] BP 188/77, Pulse 94, Resp 20, Temp 98.3 Vital signs 12/22 [X] WBC 10.9; 13.6, Plt count 313, Neutrophils 73.1 Laboratory 12/21 [X] Blood culture: No growth at 48 hrs Microbiology 12/21 [X] Chest X-ray Impression: findings are suspicious for Pneumonia Imaging Dr Meza 12/21 [X] Presented with SOB H&P p1 12/21 [facility] [X] Pneumonia H&P p2 12/21 [facility] [X] Acute on chronic respiratory failure with hypoxic H&P p2 12/21 [facility] Present Risk Factors Results and Location in Medical Record [X] 74 year-old Female H&P p1 12/21 [facility] [X] Breast cancer H&P p1 12/21 [facility] [X] COPD H&P p1 12/21 [facility] [X] HTN H&P p1 12/21 [facility] [X] DM H&P p1 12/21 [facility] [X] Pneumonia H&P p2 12/21 [facility] [X] CKD H&P p2 12/21 [facility] [X] Obesity PN 12/22 Present Treatments Results and Location in Medical Record [X] IV Cefepime 2 gm JUN 24 [X] IV Ceftriaxone 1 gm JUN 24 [X] IVF NS 1L JUN 24 [X] IV Vancomycin 1 gm JUN 24 [X] Oxygen 3.5 L Respiratory Panel 12/21 [X] Blood culture Microbiology 12/21 [X] Chest X-ray Imaging Dr Meza 12/21 [X] Septic workup H&P p1 12/21 Tr[facility] CDS/Meal Packer Signature: Sonya Guido Phone #: ext [phone] Date/Time: 12/26/2019 0754 This is a permanent part of the Medical Record [facility]
== END 2019-12-25 14:39 | disposition home health service (06) | DRG 193 ==
LOC: ERS 17:54 → 2SE 20:10 → OBSVTOIN 12-23 08:40
PROVIDERS: ADMIT Internal Medicine; ATTEND Internal Medicine
DX: J18.9 Pneumonia, unspecified organism (principal); J96.21 Acute and chronic respiratory failure with hypoxia; J44.1 Chronic obstructive pulmonary disease with (acute) exacerbation; I50.32 Chronic diastolic (congestive) heart failure; J44.0 Chronic obstructive pulmonary disease with (acute) lower respiratory infection; I13.0 Hypertensive heart and chronic kidney disease with heart failure and stage 1 through stage 4 chronic kidney disease, or unspecified chronic kidney disease; F41.9 Anxiety disorder, unspecified; F32.9 Major depressive disorder, single episode, unspecified; E11.40 Type 2 diabetes mellitus with diabetic neuropathy, unspecified; Z20.828 Contact with and (suspected) exposure to other viral communicable diseases; E11.43 Type 2 diabetes mellitus with diabetic autonomic (poly)neuropathy; K31.84 Gastroparesis; G43.909 Migraine, unspecified, not intractable, without status migrainosus; G40.909 Epilepsy, unspecified, not intractable, without status epilepticus; E78.5 Hyperlipidemia, unspecified; E11.22 Type 2 diabetes mellitus with diabetic chronic kidney disease; D63.1 Anemia in chronic kidney disease; N18.9 Chronic kidney disease, unspecified; E11.65 Type 2 diabetes mellitus with hyperglycemia; G47.30 Sleep apnea, unspecified; I48.91 Unspecified atrial fibrillation; E66.01 Morbid (severe) obesity due to excess calories; Z99.81 Dependence on supplemental oxygen; Z85.3 Personal history of malignant neoplasm of breast; Z90.10 Acquired absence of unspecified breast and nipple; Z90.49 Acquired absence of other specified parts of digestive tract; Z90.722 Acquired absence of ovaries, bilateral; Z90.710 Acquired absence of both cervix and uterus; Z68.33 Body mass index [BMI] 33.0-33.9, adult; Z79.899 Other long term (current) drug therapy; Z79.51 Long term (current) use of inhaled steroids; Z79.01 Long term (current) use of anticoagulants; Z79.4 Long term (current) use of insulin
CPT/HCPCS: 36415; 36416; 36600; 71045; 80048; 80053; 81003; 81015; 82550; 82565; 83605; 83880; 84145; 84484; 85014; 85018; 85025; 85049; 87040; 93005; 96365; 96367; 96375; 96376; G0378; J0692; J0696; J2920; J3370; J3490; U0002

== ENCOUNTER 2020-01-31 17:14 | Emergency (ER) | payer MEDICARE, BC ==
[2020-01-31 17:48] LABS: #Eosinphils 0.1 thou/uL (0.0-0.7); #Lymphocytes 1.5 thou/uL (1.20-3.40); #Monocytes 0.8 thou/uL (0.11-0.59); #Neutrophils 10.4 thou/uL (1.40-6.50); %Lymphocytes 11.6 % (21.0-51.0); %Monocytes 6.1 % (0.0-10.0); %Neutrophils 81.2 % (42.0-75.0); Hemoglobin 9.5 g/dL (12.0-16.0); Mean Corpuscular HGB CONC 32.5 g/dL (32.0-36.0); Mean Corpuscular Hemoglobin 27.4 pg (27.0-31.0); Mean Corpuscular Volume 84.3 fL (78.0-98.0); Platelet Count 245 thou/uL (130-400); RBC Distribution Width 14.9 % (11.5-14.5); Red Blood Cell (RBC) Count 3.48 mill/uL (4.20-5.40); White Blood Cell (WBC) Count 12.8 thou/uL (4.8-10.8)
[2020-01-31 18:11] LABS: ALT (SGPT) 16 U/L (8-55); AST (SGOT) 14 U/L (5-34); Albumin 3.8 g/dL (3.4-4.8); Alkaline Phosphatase 134 U/L (40-110); Anion Gap 15 mmol/L (10-20); BUN (Urea Nitrogen) 29 mg/dL (9.8-20.1); Bilirubin, Total 0.4 mg/dL (0.2-1.2); Calc. Creatinine Clearance 0 mL/min (70-130); Calcium 9.5 mg/dL (7.8-10.44); Carbon Dioxide 22 mmol/L (23-31); Chloride 108 mmol/L (98-107); Estimated GFR-MDRD 27; Globulin 2.3 g/dL (2.4-3.5); Glucose 118 mg/dL (83-110); Potassium 5.5 mmol/L (3.5-5.1); Protein, Total 6.1 g/dL (6.0-8.3); Sodium 139 mmol/L (136-145)
--- NOTE | 2020-02-02 13:28 | EKG ---
Test Reason : Blood Pressure : / mmHG Vent. Rate : 082 BPM Atrial Rate : 082 BPM P-R Int : 202 ms QRS Dur : 072 ms QT Int : 322 ms P-R-T Axes : 037 053 035 degrees QTc Int : 376 ms Normal sinus rhythm Nonspecific ST and T wave abnormality Abnormal ECG Confirmed by SERA FELTON DO ([id number]), fan mail editor WILMA SIEGEL ([id number]) on 02/02/2020 1:27:56 PM Referred By: Confirmed By:SERA FELTON DO
== END 2020-01-31 20:46 | disposition left against medical advice (07) ==
LOC: ERS 17:14
DX: Z53.21 Procedure and treatment not carried out due to patient leaving prior to being seen by health care provider (principal)
CPT/HCPCS: 36415; 80053; 85025; 93005

== ENCOUNTER 2020-03-06 05:21 | Inpatient (IN) | payer MEDICARE, BC ==
[2020-03-06] MEDS ORDERED: Aspirin 325 MG TAB ONE (05:56)
[2020-03-06 06:31] LABS: #Basophils 0.1 thou/uL (0.0-0.2); #Eosinphils 0.4 thou/uL (0.0-0.7); #Lymphocytes 1.4 thou/uL (1.20-3.40); #Monocytes 1.5 thou/uL (0.11-0.59); #Neutrophils 7.3 thou/uL (1.40-6.50); %Basophils 0.5 % (0.0-1.0); %Eosinophils 3.7 % (0.0-10.0); %Neutrophils 68.8 % (42.0-75.0); Mean Corpuscular Hemoglobin 27.8 pg (27.0-31.0); Mean Corpuscular Volume 84.3 fL (78.0-98.0); Mean Platelet Volume 8.2 fL (7.4-10.4); Platelet Count 206 thou/uL (130-400); RBC Distribution Width 14.4 % (11.5-14.5); Red Blood Cell (RBC) Count 2.51 mill/uL (4.20-5.40); White Blood Cell (WBC) Count 10.6 thou/uL (4.8-10.8)
[2020-03-06 06:50] LABS: ALT (SGPT) 8 U/L (8-55); AST (SGOT) 18 U/L (5-34); Albumin 3.1 g/dL (3.4-4.8); Alkaline Phosphatase 94 U/L (40-110); Anion Gap 18 mmol/L (10-20); BUN (Urea Nitrogen) 64 mg/dL (9.8-20.1); Bilirubin, Total 0.2 mg/dL (0.2-1.2); Calc. Creatinine Clearance 0 mL/min (70-130); Calcium 8.6 mg/dL (7.8-10.44); Carbon Dioxide 15 mmol/L (23-31); Chloride 111 mmol/L (98-107); Estimated GFR-MDRD 15; Globulin 2.5 g/dL (2.4-3.5); Glucose 147 mg/dL (83-110); Potassium 5.7 mmol/L (3.5-5.1); Protein, Total 5.6 g/dL (6.0-8.3); Sodium 138 mmol/L (136-145)
--- NOTE | 2020-03-06 08:20 | RAD ---
Exam: Chest one view HISTORY:Left shoulder and arm pain. Chest pain is resolved. Comparison: 12/22/2019 FINDINGS: Cardiac silhouette:Stable cardiomegaly. Aorta: Atherosclerosis Pulmonary vessels: Normal Costophrenic angles: Clear LUNGS: Persistent elevation the right hemidiaphragm with right lower lobe atelectasis and scarring. C hronic changes in the lung parenchyma. No consolidation or mass. There is noted opacity in the right upper lobe has resolved. Pneumothorax: None Osseous abnormalities: None IMPRESSION: 1. Persistent elevation right hemidiaphragm. Scarring and atelectasis in the right lower lobe. 2. Chronic lung parenchymal changes. No acute cardiopulmonary process.
--- NOTE | 2020-03-06 08:57 | PDOC.HHP ---
Hospitalist HPI - History of Present Illness History of Present Illness: ADMISSION DATE: 03/06/2020 TIME OF ASSESSMENT: 08 30 PRIMARY CARE PHYSICIAN: Dr. Jeramie Toure CHIEF COMPLAINT: Chest painresolved HPI: The patient is a 75-year-old female past medical history significant for COPD, diabetes, hypertension. She presents to the ER today after having chest pain at home that radiated through her back to her left arm. It felt like a pressure and then resolved on its own. She denies any diaphoresis, nausea, stom ach discomfort. Patient states she is normally on 3 L of oxygen at home however Dr. Mendieta told her prior that if her oxygen level goes below 90% to bump her home oxygen to 4 L which she has had to do recently. She states that she has required more oxygen as the weather has changed and gotten cooler recently. She denies any blood in her stool or bleeding elsewhere. She states she is normally anemic and her kidney levels are normally high. ED COURSE: The patient had lab work, EKG and a chest x-ray completed. She was given 1 L normal saline and aspirin 324 mg along with a unit of blood. VITAL SIGNS TueMar 06, 2020 05:22 DEZ Monge Brianna BP: 121/51, Pulse: 78, Resp: 24, Temp: 98.3 (Oral), Pain: 0, O2 sat: 93 on (4L Oxygen), Time: 03/06/2020 05:22. VITAL SIGNS TueMar 06, 2020 06:17 DEZ Khan Victoria BP: 129/54, MAP: 79, Pulse: 75, Resp: 22, Temp: 97.8 (Oral), Pain: 3, O2 sat: 10 0 on (4L Oxygen), Time: 03/06/2020 06:17. VITAL SIGNS TueMar 06, 2020 07:20 DEZ Harris, Rachel BP: 126/45, MAP: 72, Pulse: 74, Resp: 20, Pain: 0, O2 sat: 100 on (4L Oxygen), Time: 03/06/2020 07:20. PAST MEDICAL HISTORY: COPD, chronic respiratory failure, hypertension, breast cancerlumpectomy, chemo, radiation, tricuspid valve disorder, diabetes, hyperlipidemia, depression, seizures PAST SURGICAL HISTORY: Right breast lump removal, hysterectomy, oophorectomy, appendectomy, part of intestine removed SOCIAL HISTORY: Patient lives at home with her . Denies alcohol, drugs, smoking use. FAMILY HISTORY: Father had lung cancer ALLERGIES: Codeine, lisinopril, tramadol CURRENT MEDICATIONS: Eliquis 5 mg 2 times a day Furosemide 20 mg once a day Carvedilol 25 mg twice a day Keppra 250 mg Iron 325 mg Digoxin 125 mcg daily half tablet Keppra 500 mg twice a day Protonix 40 mg daily clonazepam 1 mg 3 times a day Multaq 400 mg daily Duloxetine 20 mg 2 capsules every day Hydralazine 50 mg daily Anastrozole 1 mg daily Atorvastatin 40 mg at night Colace 100 mg twice a day Indomethacin 25 mg once a day Amlodipine 10 mg once a day Biotin 10,000 mcg daily [place]-3 capsule 500 mg daily Vitamin D 125 mcg daily Hospitalist ROS - Review of Systems Respiratory: reports: shortness of breath, other (Increased oxygen need) Cardiovascular: reports: chest pain All other systems reviewed; all pertinent +/- noted in HPI/Subj Hospitalist History - Social History Alcohol: reports: None Drugs: reports: none - Exam General Appearance: NAD, awake alert Neck: supple Heart: RRR, no murmur, no gallops, no rubs, normal peripheral pulses Respiratory: no wheezes, no rales Respiratory - other findings: Diminished throughout Gastrointestinal: soft, non-tender, non-distended, normal bowel sounds, no guarding Extremities: no cyanosis, no clubbing, 2+ LE edema Musculoskeletal: normal tone Psychiatric: normal affect, normal behavior, A&O x 3 Hospitalist Results - Labs Result Diagrams: 03/06/20 06:15 03/06/20 06:15 Lab results: WBC 10.6 thou/uL (4.8-10.8) 03/06/20 06:15 Hgb 7.0 g/dL (12.0-16.0) L 03/06/20 06:15 Hct 21.1 % (36.0-47.0) L 03/06/20 06:15 MCV 84.3 fL (78.0-98.0) 03/06/20 06:15 Plt Count 206 thou/uL (130-400) 03/06/20 06:15 Neutrophils % 68.8 % (42.0-75.0) 03/06/20 06:15 Sodium 138 mmol/L (136-145) 03/06/20 06:15 Potassium 5.7 mmol/L (3.5-5.1) H 03/06/20 06:15 Chloride 111 mmol/L (98-107) H 03/06/20 06:15 Carbon Dioxide 15 mmol/L (23-31) L 03/06/20 06:15 BUN 64 mg/dL (9.8-20.1) H 03/06/20 06:15 Creatinine 2.96 mg/dL (0.6-1.1) H 03/06/20 06:15 Glucose 147 mg/dL (83-110) H 03/06/20 06:15 Calcium 8.6 mg/dL (7.8-10.44) 03/06/20 06:15 Total Bilirubin 0.2 mg/dL (0.2-1.2) 03/06/20 06:15 AST 18 U/L (5-34) 03/06/20 06:15 ALT 8 U/L (8-55) 03/06/20 06:15 Alkaline Phosphatase 94 U/L (40-110) 03/06/20 06:15 Troponin I 0.022 ng/mL (< 0.028) 03/06/20 06:15 B-Natriuretic Peptide 87.5 pg/mL (0-100) 03/06/20 06:15 Serum Total Protein 5.6 g/dL (6.0-8.3) L 03/06/20 06:15 Albumin 3.1 g/dL (3.4-4.8) L 03/06/20 06:15 - EKG Interpretation EKG: Sinus rhythm first-degree AV block 75 bpm - Radiology Interpretation Chest x-ray Status: image reviewed by me, report reviewed by me Additional Comment: Impression: 1. Persistent elevation right hemidiaphragm. Scarring and atelectasis in the right lower lobe. 2. Chronic lung parenchymal changes. No acute cardiopulmonary process. Hospitalist H&P A/P - Problem (1) Anemia Code(s): D64.9 - ANEMIA, UNSPECIFIED Status: Acute (2) Acute on chronic kidney failure Code(s): N17.9 - ACUTE KIDNEY FAILURE, UNSPECIFIED; N18.9 - CHRONIC KIDNEY DISEASE, UNSPECIFIED Status: Acute (3) Chest pain Code(s): R07.9 - CHEST PAIN, UNSPECIFIED Status: Acute (4) Dehydration Code(s): E86.0 - DEHYDRATION Status: Acute (5) COPD (chronic obstructive pulmonary disease) Status: Chronic Qualifiers: - Plan Plan: #Anemia Patient's hemoglobin today was 7.0, generally 8.7 or higher Receiving 1 unit of blood currently We will recheck H&H #Acute kidney injury on chronic kidney disease GFR today was 15, generally 27-31 Creatinine 2.96 today, generally 1.36-1.83 Received a liter of normal saline in the ER along with blood We will recheck base met this afternoon #Chest pain Resolved at this time Monitor on telemetry Continue to trend troponins #Dehydration Received fluids and blood in ER We will continue to evaluate #COPD Increase oxygen demand to 4 L recently at home after weather change We will reevaluate patient after receiving blood VTE prophylaxis in place CODE STATUS: Full Surrogate decision-maker is her , Willian
[2020-03-06] MEDS ORDERED: Dextrose 50% Abboject 50 ML SYRINGE SLOW IVP PRN (09:07)
[2020-03-06] MEDS ORDERED: HumaLOG 300 UNITS/3 ML VIAL SC PRN ×2 (09:07)
[2020-03-06] MEDS ORDERED: Dextrose 5% in Water 1,000 ML IV PRN (09:07)
[2020-03-06] MEDS ORDERED: Acetaminophen 325 MG TAB PO SCH (09:15)
[2020-03-06 09:38] LABS: Troponin I 0.022 ng/mL (< 0.028)
[2020-03-06] MEDS ORDERED: Acetaminophen 325 MG TAB ONE (11:08)
[2020-03-06 12:50] LABS: Troponin I Less than 0.010 ng/mL (< 0.028)
[2020-03-06 17:06] VITALS: BMI 34.2
[2020-03-06] MEDS ORDERED: Furosemide 20 MG TAB PO PRN (18:09)
[2020-03-06 18:25] LABS: #Eosinphils 0.3 thou/uL (0.0-0.7); #Lymphocytes 1.2 thou/uL (1.20-3.40); #Monocytes 1.6 thou/uL (0.11-0.59); #Neutrophils 8.8 thou/uL (1.40-6.50); %Basophils 0.3 % (0.0-1.0); %Eosinophils 2.8 % (0.0-10.0); %Lymphocytes 10.4 % (21.0-51.0); %Monocytes 13.3 % (0.0-10.0); %Neutrophils 73.3 % (42.0-75.0); Hemoglobin 8.2 g/dL (12.0-16.0); Mean Corpuscular HGB CONC 32.9 g/dL (32.0-36.0); Mean Corpuscular Hemoglobin 27.9 pg (27.0-31.0); Mean Corpuscular Volume 84.9 fL (78.0-98.0); Mean Platelet Volume 8.3 fL (7.4-10.4); Platelet Count 205 thou/uL (130-400); RBC Distribution Width 14.4 % (11.5-14.5); Red Blood Cell (RBC) Count 2.93 mill/uL (4.20-5.40); White Blood Cell (WBC) Count 11.9 thou/uL (4.8-10.8)
[2020-03-06 18:43] LABS: Anion Gap 15 mmol/L (10-20); BUN (Urea Nitrogen) 59 mg/dL (9.8-20.1); Calc. Creatinine Clearance 26 mL/min (70-130); Calcium 8.5 mg/dL (7.8-10.44); Carbon Dioxide 16 mmol/L (23-31); Chloride 113 mmol/L (98-107); Estimated GFR-MDRD 18; Glucose 126 mg/dL (83-110); Sodium 139 mmol/L (136-145)
[2020-03-06] MEDS: Docusate 100 MG CAP PO SCH (20:12)
[2020-03-06] MEDS: Diclofenac Sodium 50 MG DR TAB PO SCH (20:12)
[2020-03-06] MEDS: Apixaban 5 MG TAB PO SCH (20:12)
[2020-03-06] MEDS: hydrALAZINE 25 MG TAB PO SCH (20:13)
[2020-03-06] MEDS: lamoTRIgine 25 MG TAB PO SCH (20:14)
[2020-03-06] MEDS: levETIRAcetam 500 MG TAB PO SCH (20:14)
[2020-03-06] MEDS ORDERED: Atorvastatin Calcium 40 MG TAB PO SCH (21:00)
[2020-03-07] MEDS ORDERED: Melatonin 3 MG TAB PO SCH ×2 (00:45→21:00)
[2020-03-07 05:33] LABS: #Eosinphils 0.3 thou/uL (0.0-0.7); #Lymphocytes 1.5 thou/uL (1.20-3.40); #Monocytes 1.5 thou/uL (0.11-0.59); #Neutrophils 8.6 thou/uL (1.40-6.50); %Basophils 0.2 % (0.0-1.0); %Eosinophils 2.3 % (0.0-10.0); %Lymphocytes 12.3 % (21.0-51.0); %Monocytes 12.5 % (0.0-10.0); %Neutrophils 72.6 % (42.0-75.0); Hemoglobin 8.5 g/dL (12.0-16.0); Mean Corpuscular HGB CONC 32.5 g/dL (32.0-36.0); Mean Corpuscular Hemoglobin 27.8 pg (27.0-31.0); Mean Corpuscular Volume 85.5 fL (78.0-98.0); Platelet Count 218 thou/uL (130-400); RBC Distribution Width 14.5 % (11.5-14.5); Red Blood Cell (RBC) Count 3.08 mill/uL (4.20-5.40); White Blood Cell (WBC) Count 11.8 thou/uL (4.8-10.8)
[2020-03-07 05:54] LABS: Anion Gap 14 mmol/L (10-20); BUN (Urea Nitrogen) 52 mg/dL (9.8-20.1); Calc. Creatinine Clearance 31 mL/min (70-130); Calcium 9.1 mg/dL (7.8-10.44); Carbon Dioxide 17 mmol/L (23-31); Chloride 113 mmol/L (98-107); Estimated GFR-MDRD 22; Glucose 111 mg/dL (83-110); Potassium 4.8 mmol/L (3.5-5.1); Sodium 139 mmol/L (136-145)
[2020-03-07 07:18] VITALS: BP 164/70; TEMP 97.6
[2020-03-07] MEDS ORDERED: Dronedarone HCl 400 MG TAB PO SCH (08:00)
[2020-03-07] MEDS ORDERED: Carvedilol 25 MG TAB PO SCH (08:00)
[2020-03-07] MEDS ORDERED: Clopidogrel Bisulfate 75 MG TAB ONE (08:07)
[2020-03-07] MEDS: Diclofenac Sodium 50 MG DR TAB PO SCH (08:25)
[2020-03-07] MEDS: Apixaban 5 MG TAB PO SCH (08:26)
[2020-03-07] MEDS: levETIRAcetam 500 MG TAB PO SCH (08:28)
[2020-03-07] MEDS: hydrALAZINE 25 MG TAB PO SCH (08:28)
[2020-03-07] MEDS: Docusate 100 MG CAP PO SCH (08:29)
[2020-03-07] MEDS: lamoTRIgine 25 MG TAB PO SCH (08:30)
[2020-03-07] MEDS ORDERED: Indomethacin 75 mg SR Capsule PO SCH (09:00)
[2020-03-07] MEDS ORDERED: Anastrozole 1 MG TAB PO SCH (09:00)
[2020-03-07] MEDS ORDERED: Ferrous Sulfate 325 MG TAB PO SCH (09:00)
[2020-03-07] MEDS ORDERED: Amlodipine 10 MG TAB PO SCH (09:00)
[2020-03-07] MEDS ORDERED: Digoxin 0.125 MG TAB PO SCH (09:00)
[2020-03-07 09:30] LABS: SARS-CoV-2 MS2 Positive; SARS-CoV-2 N Gene Negative; SARS-CoV-2 S Gene Negative; SARS-CoV-2 by NAA Not Detected (NotDetected); SARS-CoV-2 orf1ab Negative
--- NOTE | 2020-03-07 14:40 | PDOC.DS.DS ---
Provider - Provider Date of Admission: 03/06/20 07:56 Date of Discharge: 03/07/20 (Patient left AGAINST MEDICAL ADVICE) Admitting Provider: Alberto Carrillo MD Primary Care Physician: Freedom Thompson PA-C Course - Hospital Course Hospital Course: Patient is a 75-year-old lady who was admitted to the hospital on March 06, 2020 for anemia, acute on chronic renal failure, chest pain, dehydration and COPD. COVID-19 PCR test was negative. She received 1 unit packed RBC. Her hemoglobin improved to 8.5. Her creatinine improved to 2.19. On the morning of March 07, 2020 patient did not wish to stay in the hospital. She left the hospital AGAINST MEDICAL ADVICE. Resuscitation Status: 03/06/20 09:07 Resuscitation Status Routine Co-Sign Provider: Resuscitation Status: FULL: Full Resuscitation Discussed with: pt - Labs Lab Results: 03/07/20 05:11 03/07/20 05:11 Abnormal Lab Results - Last 48 hrs 03/06/20 06:15: Potassium 5.7 H, Chloride 111 H, Carbon Dioxide 15 L, BUN 64 H, Creatinine 2.96 H, Serum Total Protein 5.6 L, Albumin 3.1 L 03/06/20 06:15: RBC 2.51 L, Hgb 7.0 L, Hct 21.1 L, Lymphocytes % 13.0 L, Monocytes % 14.0 H, Neutrophils # 7.3 H, Monocytes # 1.5 H 03/06/20 07:39: Crossmatch See Detail 03/06/20 18:16: Chloride 113 H, Carbon Dioxide 16 L, BUN 59 H, Creatinine 2.59 H 03/06/20 18:17: WBC 11.9 H, RBC 2.93 L, Hgb 8.2 L, Hct 24.9 L, Lymphocytes % 10.4 L, Monocytes % 13.3 H, Neutrophils # 8.8 H, Monocytes # 1.6 H 03/07/20 05:11: Chloride 113 H, Carbon Dioxide 17 L, BUN 52 H, Creatinine 2.19 H 03/07/20 05:11: WBC 11.8 H, RBC 3.08 L, Hgb 8.5 L, Hct 26.3 L, Lymphocytes % 12.3 L, Monocytes % 12.5 H, Neutrophils # 8.6 H, Monocytes # 1.5 H - Physical Exam Vitals: Vital Signs (12 hours) Temp Pulse Resp BP Pulse Ox 03/07/20 08:26 88 03/07/20 07:17 97.6 F 87 22 H 164/70 H 96 03/07/20 03:49 97.7 F 87 16 151/65 H 96 Weight Weight 193 lb 4 oz Plan - Discharge Medications Home Medications: Medication Instructions Recorded Confirmed Type Albuterol Sulfate HFA (OR) 2 puff INH Q6HR PRN 12/16/17 12/23/19 History [Proventil Hfa (or)] Anastrozole [Arimidex] 1 mg PO DAILY 12/16/17 03/06/20 History Fluticasone/Salmeterol [Advair 1 inh IH BID 12/16/17 12/23/19 History Diskus 100/50] Omeprazole 40 mg PO DAILY 12/16/17 03/06/20 History Amlodipine [Norvasc] 1 tab PO DAILY 03/21/18 03/06/20 History Fluticasone Propionate [Flonase 1 spray EA NARE DAILY 03/21/18 12/23/19 History Nasal [place]] Atorvastatin Calcium [Lipitor] 40 mg PO HS 08/15/18 03/06/20 History Dronedarone HCl [Multaq] 400 mg PO BID-WM tab 04/06/19 03/06/20 Rx Carvedilol [Coreg] 25 mg PO BID-WM tab 04/25/19 03/06/20 Rx Digoxin [Lanoxin] 0.0625 mg PO DAILY tab 04/25/19 03/06/20 Rx Apixaban [Eliquis] 5 mg PO BID 08/29/19 03/06/20 History Furosemide 20 mg PO BID PRN 08/29/19 03/06/20 History clonazePAM [Clonazepam] 0.5 mg PO ASDIR 08/29/19 03/06/20 History levETIRAcetam [Keppra] 500 mg PO BID 08/29/19 03/06/20 History Insulin Aspart Prot/Insuln Asp 35 units SC BID 11/24/19 12/23/19 History [Novolog Mix 70-30 Flexpen] hydrALAZINE HCl [Hydralazine HCl] 50 mg PO BID 11/24/19 03/06/20 History Ferrous Sulfate [Feosol] 325 mg PO DAILY 12/23/19 03/06/20 History lamoTRIgine [LaMICtal] 3 tab PO BID 12/23/19 03/06/20 History Doxycycline [Vibramycin] 100 mg PO BID #14 cap 12/25/19 Rx predniSONE 40 mg PO QAM-WM #3 tab 12/25/19 Rx Benzonatate 100 mg PO TID PRN 03/06/20 03/06/20 History Biotin 1 cap PO DAILY 03/06/20 03/06/20 History Cholecalciferol (Vitamin D3) 1 cap PO DAILY 03/06/20 03/06/20 History [Vitamin D3] DULoxetine [Cymbalta] 40 mg PO DAILY 03/06/20 03/06/20 History Diclofenac Sodium 50 mg PO BID 03/06/20 03/06/20 History Docusate [Colace] 1 cap PO BID 03/06/20 03/06/20 History Dronedarone HCl [Multaq] 400 mg PO BID- 03/06/20 03/06/20 History Fish Oil/Borage/Flax/Om3,6,9 1 1 cap PO DAILY 03/06/20 03/06/20 History [[place] 3-6-9 Complex Softgel] Indomethacin [Indomethacin ER] 1 cap PO DAILY 03/06/20 03/06/20 History Ondansetron [Zofran ODT] 1 tab SL DAILY PRN 03/06/20 03/06/20 History Promethazine [Phenergan] 25 mg PO Q12H PRN 03/06/20 03/06/20 History Allergies: lisinopril Allergy (Verified 07/07/19 11:23) tramadol Allergy (Verified 07/07/19 11:23) codeine Adverse Reaction (Verified 07/07/19 11:23) codeine in cough syrup makes her "loopy" NO allergy/adverse reaction to codeine in [place], per pt. states she can take Tylenol #3 - Follow up Plan Referrals: Freedom Thompson PA-C [Primary Care Provider] - Disposition: LEFT AGAINST MEDICAL ADVICE Quality - Care Measures CORE MEASURES:: N/A
--- NOTE | 2020-03-08 16:17 | EKG ---
Test Reason : CP Blood Pressure : / mmHG Vent. Rate : 075 BPM Atrial Rate : 075 BPM P-R Int : 240 ms QRS Dur : 076 ms QT Int : 326 ms P-R-T Axes : 047 063 033 degrees QTc Int : 364 ms Sinus rhythm with 1st degree A-V block Nonspecific ST and T wave abnormality Abnormal ECG Confirmed by JESSE COTTON M.D. ([id number]), news editor WILMA SIEGEL ([id number]) on 03/08/2020 4:17:43 PM Referred By: Confirmed By:JESSE COTTON M.D.
== END 2020-03-07 10:36 | disposition left against medical advice (07) | DRG 683 ==
LOC: ERS 05:21 → ERHOLD 07:56 → 2SE 16:03
PROVIDERS: ADMIT Internal Medicine; ATTEND Internal Medicine
DX: N17.9 Acute kidney failure, unspecified (principal); J96.10 Chronic respiratory failure, unspecified whether with hypoxia or hypercapnia; E86.0 Dehydration; E78.5 Hyperlipidemia, unspecified; F32.9 Major depressive disorder, single episode, unspecified; D64.9 Anemia, unspecified; E60 Dietary zinc deficiency; R07.9 Chest pain, unspecified; J44.9 Chronic obstructive pulmonary disease, unspecified; N18.9 Chronic kidney disease, unspecified; E11.22 Type 2 diabetes mellitus with diabetic chronic kidney disease; Z20.828 Contact with and (suspected) exposure to other viral communicable diseases; I12.9 Hypertensive chronic kidney disease with stage 1 through stage 4 chronic kidney disease, or unspecified chronic kidney disease; Z53.29 Procedure and treatment not carried out because of patient's decision for other reasons; Z92.3 Personal history of irradiation; Z92.21 Personal history of antineoplastic chemotherapy; Z85.3 Personal history of malignant neoplasm of breast; Z99.81 Dependence on supplemental oxygen; Z90.721 Acquired absence of ovaries, unilateral; Z88.6 Allergy status to analgesic agent; Z88.8 Allergy status to other drugs, medicaments and biological substances; Z90.710 Acquired absence of both cervix and uterus; Z90.49 Acquired absence of other specified parts of digestive tract; Z79.899 Other long term (current) drug therapy; Z79.01 Long term (current) use of anticoagulants
CPT/HCPCS: 36415; 36416; 36430; 71045; 80048; 80053; 83880; 84484; 85025; 86850; 86900; 86901; 87635; 93005; 94760; P9016; U0003

== ENCOUNTER 2020-04-02 06:33 | Outpatient (CLI) | payer MEDICARE, BC ==
[2020-04-02 23:51] LABS: SARS-CoV-2 MS2 Positive; SARS-CoV-2 N Gene Negative; SARS-CoV-2 S Gene Negative; SARS-CoV-2 by NAA Not Detected (NotDetected); SARS-CoV-2 orf1ab Negative
== END 2020-04-02 06:34 | disposition home or self-care (01) ==
LOC: LABBT 06:33
PROVIDERS: ATTEND Internal Medicine Gastroenterology
DX: Z01.812 Encounter for preprocedural laboratory examination (principal); K76.9 Liver disease, unspecified; D50.9 Iron deficiency anemia, unspecified; N18.4 Chronic kidney disease, stage 4 (severe); D63.1 Anemia in chronic kidney disease; Z86.010 Personal history of colon polyps; Z20.828 Contact with and (suspected) exposure to other viral communicable diseases
CPT/HCPCS: 87635; U0003

== ENCOUNTER 2020-04-07 07:07 | Day surgery (SDC) | payer MEDICARE, BC ==
[2020-04-04 12:59] VITALS: BMI 32.4
[2020-04-07] MEDS ORDERED: Albuterol Sulfate 1.25 MG/3 ML NEB ONE (07:44)
[2020-04-07] MEDS ORDERED: Ketamine 50 MG/ML (10ML VIAL) ONE (09:22)
[2020-04-07] MEDS ORDERED: Midazolam HCl 2 mg/2 ml Vial ONE (09:25)
[2020-04-07 10:58] LABS: #Eosinphils 0.2 thou/uL (0.0-0.7); #Monocytes 0.7 thou/uL (0.11-0.59); %Basophils 0.2 % (0.0-1.0); %Eosinophils 1.7 % (0.0-10.0); %Lymphocytes 8.3 % (21.0-51.0); %Monocytes 5.9 % (0.0-10.0); Hemoglobin 9.2 g/dL (12.0-16.0); Mean Corpuscular HGB CONC 32.4 g/dL (32.0-36.0); Mean Corpuscular Hemoglobin 28.3 pg (27.0-31.0); Mean Corpuscular Volume 87.2 fL (78.0-98.0); Mean Platelet Volume 7.6 fL (7.4-10.4); Platelet Count 213 thou/uL (130-400); RBC Distribution Width 14.1 % (11.5-14.5); Red Blood Cell (RBC) Count 3.25 mill/uL (4.20-5.40); White Blood Cell (WBC) Count 11.9 thou/uL (4.8-10.8)
--- NOTE | 2020-04-07 11:04 | OP ---
DATE OF PROCEDURE: 04/07/2020 PROCEDURE PERFORMED: Colonoscopy, diagnostic. PRE-PROCEDURE DIAGNOSES: 1. Recurrent severe anemia. 2. Recent esophagogastroduodenoscopy in [place] that showed striped mucosa and hematin in the stomach with nonbleeding fundic gland polyps. This is similar to a finding here on esophagogastroduodenoscopy in August 2019. At that time, Indocin and ibuprofen were stopped. ANESTHESIA: TIVA. POST-PROCEDURE DIAGNOSES: 1. Esophagogastroduodenoscopy was canceled due to respiratory status and recent endoscopies here and in [place]. 2. Colonoscopy was performed and was normal except for diverticulosis coli. RECOMMENDATIONS: 1. Avoid all NSAIDs. 2. PPI daily maintenance therapy. 3. Monitor H and H in the outpatient setting. 4. If the patient has pernicious anemia, we could consider a capsule endoscopy of the small bowel, however, as I talk with her family, she is a very poor candidate for even conscious sedation much less a general anesthetic. I am not sure what we would do with the findings of that study. PROCEDURE IN DETAIL: After the patient was informed of the risks, benefits, and possible complications of endoscopy including perforation, bleeding, reaction to medication, aspiration, informed consent was obtained. The patient was brought to the endoscopy suite, where she was sedated in gradual fashion. Once she was comfortable, a rectal examination was performed. The endoscope was advanced through the anal canal through the colon to the cecum, which was identified by the ileocecal valve and appendiceal orifice. Terminal ileum was not intubated. There were no sites of bleeding. There were no polyps, masses, lesions, or AVMs. Colon was slowly removed with good visualization of the mucosa. Retroflexed views in the rectum revealed evidence of previous hemorrhoidectomy. The scope was removed. The patient tolerated the procedure well. There were no complications. Job ID: [id number]
[2020-04-07 11:22] LABS: Iron 34 ug/dL (50-170); Iron Binding Capacity, Total 193 mcg/dL (265-497)
[2020-04-07 11:38] LABS: Ferritin 106.91 ng/mL (10-291)
== END 2020-04-07 11:00 | disposition home or self-care (01) ==
LOC: SDC 07:07
PROVIDERS: ATTEND Internal Medicine Gastroenterology
PROC: 0DJD8ZZ Inspection of Lower Intestinal Tract, Via Natural or Artificial Opening Endoscopic (ICD-10-PCS; principal; 2020-04-07)
DX: D50.9 Iron deficiency anemia, unspecified (principal); K57.30 Diverticulosis of large intestine without perforation or abscess without bleeding; I13.0 Hypertensive heart and chronic kidney disease with heart failure and stage 1 through stage 4 chronic kidney disease, or unspecified chronic kidney disease; E11.22 Type 2 diabetes mellitus with diabetic chronic kidney disease; N18.4 Chronic kidney disease, stage 4 (severe); I50.9 Heart failure, unspecified; E78.5 Hyperlipidemia, unspecified; K21.9 Gastro-esophageal reflux disease without esophagitis; E11.43 Type 2 diabetes mellitus with diabetic autonomic (poly)neuropathy; K31.84 Gastroparesis; F41.9 Anxiety disorder, unspecified; F32.9 Major depressive disorder, single episode, unspecified; F41.0 Panic disorder [episodic paroxysmal anxiety]; J44.9 Chronic obstructive pulmonary disease, unspecified; G47.33 Obstructive sleep apnea (adult) (pediatric); G43.909 Migraine, unspecified, not intractable, without status migrainosus; I48.91 Unspecified atrial fibrillation; E11.40 Type 2 diabetes mellitus with diabetic neuropathy, unspecified; K74.60 Unspecified cirrhosis of liver; E66.9 Obesity, unspecified; Z68.32 Body mass index [BMI] 32.0-32.9, adult; Z86.010 Personal history of colon polyps; Z79.01 Long term (current) use of anticoagulants; Z79.4 Long term (current) use of insulin; Z79.811 Long term (current) use of aromatase inhibitors; Z79.899 Other long term (current) drug therapy; Z88.5 Allergy status to narcotic agent; Z88.8 Allergy status to other drugs, medicaments and biological substances
CPT/HCPCS: 36415; 36416; 82607; 82728; 82746; 83540; 83550; 85025; J2250

== ENCOUNTER 2020-05-29 10:19 | Outpatient (CLI) | payer MEDICARE | END 2020-05-29 10:20 | disposition home or self-care (01) | LOC: BICMAMMO 10:19 | PROVIDERS: ATTEND Obstetrics & Gynecology | DX: Z12.31 Encounter for screening mammogram for malignant neoplasm of breast (principal); Z98.890 Other specified postprocedural states | CPT/HCPCS: 77066; G0279 ==